=== PATIENT | female | born 1940 | race Caucasian/White ===

== ENCOUNTER 2019-12-14 16:34 | Emergency (ER) | payer MEDICARE, SELFPAY ==
[2019-12-14 16:43] VITALS: BP 146/50; PULSE 70; RESP 16; TEMP 36.9; O2SAT 97; BMI 26.4
--- NOTE | 2019-12-14 16:55 | ED_ITS ---
History of Present Illness General Chief Complaint: Epistaxis <JAS Uriostegui Last Filed: 12/14/19 17:49> Stated Complaint: nosebleed <JAS Uriostegui Last Filed: 12/14/19 17:49> Time Seen by Provider: 12/14/19 16:54 <JAS Uriostegui Last Filed: 12/14/19 17:49> Source: patient and EMS <JAS Uriostegui Last Filed: 12/14/19 17:49> Mode of arrival: EMS <JAS Uriostegui Last Filed: 12/14/19 17:49> Limitations: no limitations <JAS Uriostegui Last Filed: 12/14/19 17:49> History of Present Illness HPI Narrative: 79 y/o female with history of afib on xarelto, HTN, HLD, hypothyroidism, pancreatitis, basal cell carcinoma who is presenting with acute onset of left nare epistaxis that started at 2pm after she was blowing her nose. She denies other trauma. She states she has been intermittently applying pressure with no resolution. She called 911. Upon EMS arrival when patient got up to go get her medication list she spontaneously started bleeding from the inside of her right eye as well. The eye bleeding is painless and has stopped on arrival to the ER. Nose bleed is mildly bleeding. She last took her Xarleto this morning. She has a history of nose bleed in the past requiring cauterization, she states this was several years ago. <JAS Uriostegui Last Filed: 12/14/19 17:49> Location: Yes left naris <JAS Uriostegui Last Filed: 12/14/19 17:49> Related Data Allergies/Adverse Reactions: Allergies Allergy/AdvReac Type Severity Reaction Status Date / Time No Known Allergies Allergy Verified 12/14/19 16:55 [No Known Allergies*] <JAS Uriostegui Last Filed: 12/14/19 17:49> Review of Systems Review of Systems: Constitutional: No Fever, No Chills ENT/Mouth: No sore throat, No Rhinorrhea, No Swallowing Difficulty, +nose bleed Eyes: No Eye Pain, No Swelling, No Redness, +eye bleeding Cardiovascular: No Chest Pain, No SOB Respiratory: No Cough, No Sputum Gastrointestinal: No Nausea, No Vomiting, No Diarrhea, No abdominal Pain Genitourinary: No Dysuria, No Urinary Frequency, No Hematuria Musculoskeletal: No joint pain, No Myalgias Skin: No Skin Lesions, No rash Neuro: No Weakness, No Numbness, No Dizziness, No Headache Psych: No Anxiety/Panic, No Depression Heme/Lymph: No Bruising, No Lymphadenopathy Endocrine: No Polyuria, No Polydipsia <JAS Uriostegui - Last Filed: 12/14/19 17:49> [facility] Past Medical History Attestation statement: The following information was validated with the patient. <JAS Uriostegui - Last Filed: 12/14/19 17:49> Medical History: Medical History Basal cell carcinoma History of cardioversion Hx of cholecystectomy Malignant neoplasm of acoustic nerve <JAS Uriostegui - Last Filed: 12/14/19 17:49> Surgical History: Surgical History (Updated 12/14/19 @ 16:50 by Natalie Wall) H/O: hysterectomy <JAS Uriostegui - Last Filed: 12/14/19 17:49> Social History Social History: Social History Alcohol intake: never Smoked in Last 30 Days: No Advance Directives: No Advance Directives Information Provided: Yes <JAS Uriostegui - Last Filed: 12/14/19 17:49> Physical Exam Vital Signs: Vital Signs: Vital Signs Temp Pulse Resp BP Pulse Ox 12/14/19 18:00 98.9 F 63 16 132/51 L 97 12/14/19 16:43 98.5 F 70 16 146/50 H 97 Body Mass Index 26.4 Appearance: Alert. Oriented X3. No acute distress. HEENT: left nare with fresh blood & small clots, no active bleeding appreciated, posterior pharynx normal without blood visualized. right eye with evidence of bleeding from medial tear duct, sclera and conjunctiva normal, lateral and medial eye lids are surgically closed slightly due to prior operation, no tenderness CVS: Normal heart rate and rhythm. Pulses normal. Respiratory: No respiratory distress. Skin: Skin warm and dry. Normal skin color. Normal skin turgor. No rashes. Neuro: Oriented X 3. No motor deficit. No sensory deficit. <JAS Uriostegui - Last Filed: 12/14/19 17:49> Vital Signs: Vital Signs Temp Pulse Resp BP Pulse Ox 12/14/19 18:00 98.9 F 63 16 132/51 L 97 12/14/19 16:43 98.5 F 70 16 146/50 H 97 Body Mass Index 26.4 <Amrita Bui NP - Last Filed: 12/14/19 19:16> Course Course Course Narrative: 79 y/o on Xarleto with nose bleed - appears to be anterior with minor active bleeding on arrival. also with spontaneous eye bleeding which is now resolved. will check coags and CBC. nasal clamp applied and Afrin ordered for vasoconstriction. will monitor closely. <JAS Uriostegui - Last Filed: 12/14/19 17:49> Reevaluation(s) Reevaluation #1: patient had slight bleeding after Afrin was applied and clamp removed. TXA soaked gauze applied at 5:45pm. Patient signed out to Amrita MORA who will assume care. <JAS Uriostegui - Last Filed: 12/14/19 17:49> patient's bleeding continues, we removed the packing and replaced with a 2nd packing with TXA. We will re-evaluate and 30 minutes, if bleeding persists we will apply balloon tamponade. <Amrita Bui NP - Last Filed: 12/14/19 19:16> Time: 18:36 <Amrita Bui NP - Last Filed: 12/14/19 19:16> Reevaluation #2: No further bleeding noted, plan is to discharge home, if bleeding continues patient knows that she should return. INR mildly elevated consistent with anticoagulant use. Discussion with patient's family per patient's request, family verbalized understanding of and agrees to plan. Patient verbalized understanding of and agrees to plan of care discharge home. <Amrita Bui NP - Last Filed: 12/14/19 19:16> Time: 19:05 <Amrita Bui NP - Last Filed: 12/14/19 19:16> Procedures Epistaxis Control Time Out Performed: No <JAS Uriostegui Last Filed: 12/14/19 17:49> Nostril: Yes left <JAS Uriostegui - Last Filed: 12/14/19 17:49> Direct inspection: Yes anterior source identified <JAS Uriostegui - Last Filed: 12/14/19 17:49> Direct inspection method: Yes otoscope <JAS Uriostegui - Last Filed: 12/14/19 17:49> Clots removed by: Yes blowing nose <JAS Uriostegui - Last Filed: 12/14/19 17:49> Epistaxis treatment: Yes TXA soaked gauze and Yes other (Afrin + nasal clamp ) <JAS Uriostegui - Last Filed: 12/14/19 17:49> Results of treatment: Yes bleeding controlled and Yes treatment well tolerated <JAS Uriostegui - Last Filed: 12/14/19 17:49> MDM - Epistaxis MDM Narrative Medical decision making narrative: concern for supratherapeutic coags. she had prior surgery to right eye making area more susceptible to bleeding given prior manipulation. <JAS Uriostegui - Last Filed: 12/14/19 17:49> Differential Diagnosis Differential diagnosis: Likely anterior epistaxis and posterior epistaxis <JAS Uriostegui - Last Filed: 12/14/19 17:49> Medical Records Attestation: I reviewed the patient's medical records. <JAS Uriostegui - Last Filed: 12/14/19 17:49> Lab Data Result diagrams: : 12/14/19 17:36 <JAS Uriostegui - Last Filed: 12/14/19 17:49> Labs: Lab Results 12/14/19 12/14/19 Range/Units 17:36 17:36 WBC 8.8 (4.8-10.8) X10*3/uL RBC 3.51 L (4.20-5.50) X10*6/uL Hgb 10.8 L (12.0-16.0) g/dl Hct 34.2 L (37-47) % MCV 97.4 (80-98) fL MCH 30.8 (27.0-33.0) pg MCHC 31.6 (31.0-35.0) g/dl RDW 15.1 (11.0-16.0) % Plt Count 372 (160-400) X10*3/uL MPV 12.0 (9.4-12.3) fL Immature Gran % (Auto) 0.5 H (0.0-0.4) % Neut % (Auto) 78.0 H (45-73) % Lymph % (Auto) 11.0 L (20-40) % [place] % (Auto) 8.5 (2-11) % Eos % (Auto) 1.8 (0-4) % Baso % (Auto) 0.2 (0-2) % Lymph # (Auto) 1.0 L (1.2-4.9) X10*3/uL [place] # (Auto) 0.8 (0.1-1.2) X10*3/uL Eos # (Auto) 0.2 (0.0-0.4) X10*3/uL Baso # (Auto) 0.0 (0.0-0.2) X10*3/uL Abs Immat Gran (auto) 0.04 H (0.00-0.03) X10*3/uL Absolute Neuts (auto) 6.9 (2.0-8.3) X10*3/uL Absolute Nucleated RBC 0.000 (0.0-0.012) X10*3/uL Nucleated RBC % (auto) 0.0 (0.0-0.2) /100WBC PT 20.6 H (10.8-13.0) SEC INR 1.7 H (0.9-1.1) APTT 45.6 H (24.1-38.0) SEC <JAS Uriostegui - Last Filed: 12/14/19 17:49> Lab Results 12/14/19 12/14/19 Range/Units 17:36 17:36 WBC 8.8 (4.8-10.8) X10*3/uL RBC 3.51 L (4.20-5.50) X10*6/uL Hgb 10.8 L (12.0-16.0) g/dl Hct 34.2 L (37-47) % MCV 97.4 (80-98) fL MCH 30.8 (27.0-33.0) pg MCHC 31.6 (31.0-35.0) g/dl RDW 15.1 (11.0-16.0) % Plt Count 372 (160-400) X10*3/uL MPV 12.0 (9.4-12.3) fL Immature Gran % (Auto) 0.5 H (0.0-0.4) % Neut % (Auto) 78.0 H (45-73) % Lymph % (Auto) 11.0 L (20-40) % [place] % (Auto) 8.5 (2-11) % Eos % (Auto) 1.8 (0-4) % Baso % (Auto) 0.2 (0-2) % Lymph # (Auto) 1.0 L (1.2-4.9) X10*3/uL [place] # (Auto) 0.8 (0.1-1.2) X10*3/uL Eos # (Auto) 0.2 (0.0-0.4) X10*3/uL Baso # (Auto) 0.0 (0.0-0.2) X10*3/uL Abs Immat Gran (auto) 0.04 H (0.00-0.03) X10*3/uL Absolute Neuts (auto) 6.9 (2.0-8.3) X10*3/uL Absolute Nucleated RBC 0.000 (0.0-0.012) X10*3/uL Nucleated RBC % (auto) 0.0 (0.0-0.2) /100WBC PT 20.6 H (10.8-13.0) SEC INR 1.7 H (0.9-1.1) APTT 45.6 H (24.1-38.0) SEC <Amrita Bui NP - Last Filed: 12/14/19 19:16> Discharge Plan Discharge Clinical Impression: Epistaxis <JAS Uriostegui - Last Filed: 12/14/19 17:49> Patient Disposition: Home, Self-Care <JAS Uriostegui - Last Filed: 12/14/19 17:49> Instructions: Nosebleed (ED) <JAS Uriostegui - Last Filed: 12/14/19 17:49> Additional Instructions: Recommend holding your Xarelto for the next 24 hours. If bleeding recurrs at home, use 2 sprays of the Afrin and apply the nose clamp for 20 minutes. If bleeding continues despite this treatment come back to the ER for further evaluation. Follow up with your Primary Care Doctor tomorrow to assess risks and benefits of restarting Xarleto. <JAS Uriostegui - Last Filed: 12/14/19 17:49> Referrals: Jagdish Maldonado [Physician] - 2 days <JAS Uriostegui - Last Filed: 12/14/19 17:49>
[2019-12-14 17:41] LABS: MANUAL DIFF FLAG NO
[2019-12-14 17:46] LABS: Basophils Percent Auto 0.2 % (0-2); Eosinophils Absolute Auto 0.2 X10*3/uL (0.0-0.4); Eosinophils Percent Auto 1.8 % (0-4); Hematocrit 34.2 % (37-47); Hemoglobin 10.8 g/dl (12.0-16.0); Imm Gran Abs Auto 0.04 X10*3/uL (0.00-0.03); Imm Gran Pct Auto 0.5 % (0.0-0.4); Mean Corpuscular HGB Conc 31.6 g/dl (31.0-35.0); Mean Corpuscular Hemoglobin 30.8 pg (27.0-33.0); Mean Corpuscular Volume 97.4 fL (80-98); Monocytes Absolute Auto 0.8 X10*3/uL (0.1-1.2); Monocytes Percent Auto 8.5 % (2-11); Neutrophils Absolute Auto 6.9 X10*3/uL (2.0-8.3); Platelet Count 372 X10*3/uL (160-400); Red Blood Count 3.51 X10*6/uL (4.20-5.50); Red Cell Distribution Width 15.1 % (11.0-16.0); White Blood Count 8.8 X10*3/uL (4.8-10.8)
[2019-12-14 17:50] LABS: INTERNATIONAL NORM RATIO 1.7 (0.9-1.1); Prothrombin Time 20.6 SEC (10.8-13.0)
[2019-12-14 17:53] LABS: Partial Thromboplastin Time 45.6 SEC (24.1-38.0)
[2019-12-14] MEDS: Tranexamic Acid 1,000 MG/10 ML VIAL 500 MG INTRANASAL (17:58)
[2019-12-14] MEDS: Oxymetazoline HCl 0.05 % Nasal 15 ML SPRAY 2 SPRAY NOSTRIL-B (17:59)
[2019-12-14 18:00] VITALS: BP 132/51; PULSE 63; RESP 16; TEMP 37.2; O2SAT 97
--- NOTE | 2019-12-14 18:00 | PC.NURSE ---
JAS ESCUDERO TRIED AFRIN NASAL SPRAY WITH CLAMP AND NOSE STILL BLEEDING ALSO TRIED TRANEXAMIC ACID ON COTTON BALL. REGULATORY AFFAIRS CONSULTANT ARKESH WILL REAVALUATE PT.
--- NOTE | 2019-12-14 19:30 | PC.NURSE ---
PT NOSE HAS HAD NO BLEEDING FOR 45 MIN AFTER MEDICATION. PT WILL BE SAFE TO GO HOME NO XARELTO FOR 24 HOURS AND CALL PCP.
== END 2019-12-14 19:20 | disposition home or self-care (01) ==
PROVIDERS: Physician Assistant; Emergency Provider Internal Medicine; PCP Internal Medicine
DX: R04.0 Epistaxis (principal); I10 Essential (primary) hypertension; Z79.01 Long term (current) use of anticoagulants; Z79.899 Other long term (current) drug therapy
CPT/HCPCS: 36415; 85025; 85610; 85730; 99283; 99284

== ENCOUNTER 2019-12-14 19:37 | Observation (INO) | payer MEDICARE, SELFPAY ==
--- NOTE | 2019-12-14 19:41 | ECG_ITS ---
Test Reason : SYNCOPE Blood Pressure : / mmHG Vent. Rate : 058 BPM Atrial Rate : 058 BPM P-R Int : 224 ms QRS Dur : 108 ms QT Int : 436 ms P-R-T Axes : 064 -40 103 degrees QTc Int : 428 ms Sinus bradycardia with 1st degree A-V block Left axis deviation Nonspecific T wave abnormality Inferior infarct , age undetermined Anterolateral infarct (cited on or before 12-MAR-2018) Abnormal ECG When compared with ECG of 12-MAR-2018 11:00, MD interval has increased QT has lengthened Referred By: Amrita Bui Electronically Signed By:ANA KUO MD
--- NOTE | 2019-12-14 19:42 | ED_ITS ---
HPI - Syncope General Chief Complaint: Syncope Stated Complaint: syncope Time Seen by Provider: 12/14/19 19:40 Source: patient Mode of arrival: ambulatory Limitations: no limitations History of Present Illness HPI narrative: 79-year-old female with past medical history of hypertension, hyperlipidemia, hypothyroidism, on Xarelto presents with a syncopal episode while waiting for her ride after being discharged from this facility. She was evaluated for epistaxis, once epistaxis was controlled patient was discharged to home. While in the waiting room she stated to feel weak, sat down, triage nurse was at her side, and she had lost consciousness. Patient was brought back in to the main Emergency Department via stretcher with the assistance of this HEALTHCARE SALES REPRESENTATIVE and 3 RNs. She states to feel weak and dizzy but denies chest pain or pressure, palpitations, shortness of breath, abdominal pain, abdominal distention, head injury, changes in vision, and neurological deficit. MD complaint: loss of consciousness and felt faint Duration of episode: 2 -: minutes(s) Prodromal symptoms: lightheaded Witnessed: Yes - by Bystander ( By fish liver sorter) Context: standing up Injuries sustained associated with event: none Current symptoms: none Related Data Home Medications Medication Instructions Recorded Confirmed amiodarone 200 mg PO DAILY 12/14/19 12/14/19 amlodipine 5 mg PO DAILY 12/14/19 12/14/19 estradiol 5 mg PO DAILY 12/14/19 12/14/19 levothyroxine 100 mcg PO DAILY 12/14/19 12/14/19 lisinopril 20 mg PO BID 12/14/19 12/14/19 rivaroxaban [Xarelto] 20 mg PO DAILY 12/14/19 12/14/19 Allergies Allergy/AdvReac Type Severity Reaction Status Date / Time No Known Allergies Allergy Verified 12/14/19 16:55 [No Known Allergies*] Review of Systems Review of Systems: Constitutional: No Weight loss, No Fever, No Chills, No Night Sweats, No Fatigue, No Malaise ENT/Mouth: No Hearing loss, No Ear Pain, No Nasal Congestion, No Sinus Pain, No Hoarseness, No sore throat, No Rhinorrhea, No Swallowing Difficulty Eyes: No Eye Pain, No Swelling, No Redness, No Foreign Body, No Discharge, No Vision Changes Cardiovascular: No Chest Pain, No SOB, No Dyspnea on Exertion, No Orthopnea, No Edema, No Palpitations Respiratory: No Cough, No Sputum, No Wheezing, No Smoke Exposure, No Dyspnea Gastrointestinal: No Nausea, No Vomiting, No Diarrhea, No Constipation, No abdominal Pain, No Hematochezia, No Melena Genitourinary: no irregular bleeding, No Dysuria, No Urinary Frequency, No Hematuria, No Urinary Incontinence, No Urgency, No Flank Pain, No Urinary Flow Changes, No Hesitancy Musculoskeletal: No joint pain, No Myalgias, No Joint Swelling Skin: No Skin Lesions, No rash Neuro: positive syncope, positive dizziness, No Weakness, No Numbness, No Paresthesias, No Headache Psych: No Anxiety/Panic, No Depression, No SI/HI/AH/VH, No Social Issues Heme/Lymph: No Bruising, No Bleeding,No Lymphadenopathy Endocrine: No Polyuria, No Polydipsia, No Temperature Intolerance [facility] Past Medical History Attestation statement: The following information was validated with the patient. Source: old records reviewed Medical History Basal cell carcinoma History of cardioversion Hx of cholecystectomy Malignant neoplasm of acoustic nerve Surgical History H/O: hysterectomy Social History Social History Alcohol intake: never Smoking Status: Never smoker Use of substances other than those prescribed or required for medical reasons: No Advance Directives: No Advance Directives Information Provided: Yes Physical Exam Vital Signs: Vital Signs: Vital Signs Temp Pulse Resp BP Pulse Ox 12/14/19 21:54 62 14 128/40 L 98 12/14/19 19:57 98 F 55 13 92/49 L 98 12/14/19 19:45 98.2 F 63 20 92/38 L 96 Body Mass Index 34.0 Appearance: Alert. Oriented X3. No acute distress. Head: Normal external exam. Normocephalic. Atraumatic. No Grewal signs noted. No raccoon eyes noted Eyes: PERRLA. EOMI. Conjunctiva and sclera normal. Eyelids normal. ENT: TM's Normal. Pharynx normal. Uvula midline. Moist mucous membranes. No trismus noted. No drooling noted. No muffled voice noted. Neck: Normal inspection. Neck supple. No adenopathy. Thyroid Normal. No menin geal signs. No neck mass noted. CVS: Normal heart rate and rhythm. Heart sound normal. No murmurs noted. Pulses equal to all extremities. Respiratory: No respiratory distress. Painless inspiration. Breath sounds normal. No wheezes/rales/rhonchi noted. Chest nontender. No accessory muscle usage noted or decreased air movement noted. Abdomen: Soft and nontender. Bowel sounds normal in all 4 quadrants. No distention noted. No organomegaly noted. No visible injury noted. Back: No CVA tenderness. Full range of motion noted. Skin: Skin warm and dry. Normal skin color. Normal skin turgor. No rashes/lesions/lacerations noted. Extremities: No lower extremity edema. Extremities exhibit normal range of motion. Extremities nontender. Neuro: cranial nerves 2-12 intact, no focal neural deficits, strength 5/5 to all extremities, No motor deficit. No sensory deficit. Reflexes normal. NIH stroke scale negative Course Course Course Narrative: 79-year-old female with syncopal episode after evaluation for epistaxis, will order CT scan of head, cervical spine, chemistries, EKG and troponins. Highly unlikely that this is a stroke as she is neurovascularly intact and NIH scale negative, we will rule out CVA, ACS, and infection. CT scan of head and cervical spine are negative for acute findings, lab values are within normal limits, troponin is negative, EKG has abnormalities but are consistent with prior studies. Discussion with hospitalist regarding plan of care. We will admit for syncope, EKGs were sent to Dr Molina via [employer] text, states that there are no concerning changes with the EKGs And troponin is 5.2. Reevaluation(s) Reevaluation #1: blood pressure is 124/ 40, 2nd L is infusing, patient is alert oriented x4, answering questions politely and in complete sentences, appears to be in no acute distress, even unlabored respirations. Moves all extremities against resistance. multiple discussions with family, family agrees with plan to admit, discussion with patient regarding plan to admit, patient verbalized understanding of and agrees to plan. Time: 21:27 Consultations Consultation #1: Antonio Cota Time: 22:20 Consultation #2: Jesse Time: 22:23 MDM - Syncope Differential Diagnosis Differential diagnosis: Likely syncope due to orthostatic hypotension, vasovagal syncope, complete atrioventricular block, subarachnoid hemorrhage and dehydration Medical Records Attestation: I reviewed the patient's medical records. Lab Data Attestation: I reviewed the patient's lab results. Result diagrams: 12/14/19 20:50 12/14/19 20:50 Labs: Lab Results 12/14/19 12/14/19 12/14/19 Range/Units 20:50 20:50 20:50 Sodium 140 (135-145) mmol/L Potassium 4.4 (3.3-5.1) mmol/l Chloride 110 H (96-108) mmol/L Carbon Dioxide 21 L (22-29) mmol/L Anion Gap 13 (12-20) BUN 34 H (9-16) mg/dL Creatinine 0.85 (0.5-1.4) mg/dL Estim Creat Clear Calc 53.1 Estimated GFR > 60 Random Glucose 105 (60-115) mg/dL Calcium 7.6 L (8.4-10.2) mg/dL Magnesium 1.9 (1.6-2.6) mg/dL Troponin I High Sens 5.2 (<3.5-17.0) ng/L Imaging Data CT scan head and cervical spine: Attestation: I personally reviewed and interpreted this imaging study as follows: Radiologist's impression: EXAMINATION: CT CERVICAL SPINE WITHOUT CONTRAST CLINICAL INFORMATION: Syncope. COMPARISON: None TECHNIQUE: Axial images obtained through the cervical spine. Coronal and sagittal reformatted images are performed at the CT scanner This CT examination was performed using dose optimization techniques as appropriate, variously including the following: *Automated exposure control *Adjustment of mA and/or kV according to patient size (this includes techniques or standardized protocols for targeted exams where dose is matched to indication/reason for exam; i.e. extremities or head) *Use of iterative reconstruction technique DLP: 493.34 mGy-cm FINDINGS: No fracture or subluxation. No prevertebral soft tissue swelling. Alignment of vertebrae is normal. There is degenerative spondylosis. There is multilevel cervical disc height narrowing and small vertebral endplate spurs. There is moderate multilevel facet joint arthrosis most significant at the upper cervical spine. Incidental note is made of left occipital craniotomy. CT/CT cervical spine wo con IMPRESSION: 1. No acute abnormality. 2. Degenerative spondylosis of cervical spine. FINDINGS: Status post left craniotomy in the left occipital region. There is focal encephalomalacia/gliosis involving the left peripheral cerebellar hemisphere. There is no evidence of acute intracranial hemorrhage or territorial infarction. No abnormal mass effect or midline shift is seen. Veloz to white matter differentiation is well preserved. No extra-axial fluid collections are identified. There is an old small infarct in the right basal ganglia adjacent to the frontal horn of the right lateral ventricle. There is age-appropriate atrophy with prominence of the ventricles and the sulci. There are vascular calcifications of the internal carotid arteries bilaterally. The osseous structures and soft tissues are normal. Small air-fluid levels in the right and left sphenoid sinuses. The mastoid air cells and middle ear cavities are normally aerated. CT/CT head/brain wo con IMPRESSION: 1. No acute intracranial abnormality. 2. Status post left occipital craniotomy with focal encephalomalacia at the peripheral left cerebellar hemisphere. 3. 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 4. Age-appropriate chronic atrophy. 5. Air-fluid levels in the right and left sphenoid sinuses. ECG Data Attestation: I personally reviewed and interpreted this ECG as follows: ECG interpretation date: 12/14/19 ECG interpretation time: 20:30 Interpretation: Vent. Rate : 058 BPM Atrial Rate : 058 BPM P-R Int : 224 ms QRS Dur : 108 ms QT Int : 436 ms P-R-T Axes : 064 -40 103 degrees QTc Int : 428 ms Sinus bradycardia with 1st degree A-V block Left axis deviation Inferior infarct , age undetermined Anterolateral infarct (cited on or before 12-MAR-2018) Abnormal ECG When compared with ECG of 12-MAR-2018 11:00, ID interval has increased Nonspecific T wave abnormality, improved in Inferior leads QT has lengthened Critical Care Time Critical Care Time Critical Care Time: Yes Total Critical Care Time: 60 Attestation: I have personally provided critical care time exclusive of time spent on separately billable procedures. Time includes review of laboratory data, radiology results, discussion with consultants, and monitoring for potential decompensation. Interventions were performed as documented. Discharge Plan Discharge Clinical Impression: Vasovagal syncope Patient Disposition: Admitted As Inpatient
[2019-12-14 19:45] VITALS: BP 92/38; PULSE 63; RESP 20; TEMP 36.8; O2SAT 96; BMI 34.0
[2019-12-14 19:57] VITALS: BP 92/49; PULSE 55; RESP 13; TEMP 36.6; O2SAT 98; O2SAT 99
[2019-12-14] MEDS: 0.9 % Sodium Chloride 1,000 ML 999 ML IVCONT ×2 (20:21→21:30)
[2019-12-14 21:23] LABS: Anion Gap 13 (12-20); Blood Urea Nitrogen 34 mg/dL (9-16); Calcium 7.6 mg/dL (8.4-10.2); Carbon Dioxide 21 mmol/L (22-29); Chloride 110 mmol/L (96-108); Creatinine Clr Calc Pharmacy 53.1; Estimated Glomerular Filt Rate > 60; Glucose Random 105 mg/dL (60-115); Magnesium 1.9 mg/dL (1.6-2.6); Potassium 4.4 mmol/l (3.3-5.1); Sodium 140 mmol/L (135-145)
[2019-12-14 21:30] LABS: Troponin-I High Sensitivity 5.2 ng/L (<3.5-17.0)
[2019-12-14 21:54] VITALS: BP 128/40; PULSE 62; RESP 14; O2SAT 98
[2019-12-14 22:00] VITALS: BP 146/48; PULSE 65; RESP 14; O2SAT 98
[2019-12-15] VITALS (9 sets, daily range): BP systolic 127–164; BP diastolic 46–72; PULSE 59–72; RESP 12–19; TEMP 35.9–36.6; O2SAT 95–100
--- NOTE | 2019-12-15 00:13 | P.HPIM_ITS ---
History of Present Illness Date of Service: 12/15/19 Chief Complaint: syncope 79 y/o female who presented from home due to epistaxis. Per history provided by the patient, for the past x 1 day had been having nosebleed for what decided to present to the ED for evaluation. In the ED patient received tranexamic acid which controlled successfully the bleed and gauze. Patient was discharged and while waiting in the waiting area she reports that started feeling nauseous, feel to her stomach for what decided to sit down for w bit and at that moment a ER nurse noted that patient fainted for <1 min. Patient denies any chest pain, SOB or tachycardia previous or after the event. Hgb of 10.8, INR of 1.2, CT head showing no acute intracranial pathology, evidence of old infarct and craniotomy. EKG showing first degree av block, sinus bradycardia. PMHX: Afib on xarelto, HTN, HLD, hypothyroidism, pancreatitis, basal cell carcinoma PSx: craniotomy Toxic habits: no hx of alcohol abuse, smoking or IVDA Review of Systems ENT: Reports other (epistaxis) Neurologic: Reports other (syncope) [facility] Medical History Basal cell carcinoma History of cardioversion Hx of cholecystectomy Malignant neoplasm of acoustic nerve Family history: reviewed and not pertinent Surgical History H/O: hysterectomy Social History Alcohol intake: never Smoking Status: Never smoker Use of substances other than those prescribed or required for medical reasons: No Advance Directives: No Advance Directives Information Provided: Yes Meds Allergies Allergy/AdvReac Type Severity Reaction Status Date / Time No Known Allergies Allergy Verified 12/14/19 16:55 [No Known Allergies*] Home Medications Medication Instructions Recorded Confirmed Type amiodarone 200 mg PO DAILY 12/14/19 12/14/19 History amlodipine 5 mg PO DAILY 12/14/19 12/14/19 History estradiol 5 mg PO DAILY 12/14/19 12/14/19 History levothyroxine 100 mcg PO DAILY 12/14/19 12/14/19 History lisinopril 20 mg PO BID 12/14/19 12/14/19 History rivaroxaban [Xarelto] 20 mg PO DAILY 12/14/19 12/14/19 History Physical Exam Vital Signs and Narrative: Vital Signs: Last Vital Signs Temp 98 F 12/14/19 19:57 Pulse 62 12/14/19 21:54 Resp 14 12/14/19 21:54 BP 128/40 L 12/14/19 21:54 Pulse Ox 98 12/14/19 21:54 Body Mass Index 34.0 Const: General: cooperative, comfortable and no acute distress Orientation/consciousness: patient oriented x3 HENMT: Head: Yes normal to inspection Eyes: General: appearance normal, both eyes and all related structures Neck: Yes normal visual inspection Chest: Chest palpation & inspection: normal inspection of the chest Resp: Effort & Inspection: normal respiratory effort Cardio: Jugular venous distension: no JVD Rate: regular rate Rhythm: regular rhythm Heart sounds: S1 normal heart sound present and S2 normal heart sound present GI: Inspection: Yes normal to inspection Skin: General skin exam: no rashes or lesions noted Neuro: General: patient oriented x3 Cognition (Neuro): normal cognition Extrem: General: Yes normal to inspection Psych: Appearance: grossly normal Results Labs Labs: Laboratory Tests 12/14/19 12/14/19 12/14/19 20:50 20:50 20:50 Sodium 140 Potassium 4.4 Chloride 110 H Carbon Dioxide 21 L Anion Gap 13 BUN 34 H Creatinine 0.85 Estim Creat Clear Calc 53.1 Estimated GFR > 60 Random Glucose 105 Calcium 7.6 L Magnesium 1.9 Troponin I High Sens 5.2 Assessment and Plan (1) Vasovagal syncope: Status: Acute EKG showing evidence of sinus bradycardia with first degree. CT negative for any acute intracranial pathology Observation for now Tele monitor Follow up 2D echo in the am Neurology consult in the am (2) Hypertension: Status: Acute continue with amlodipine continue with lisinopril (3) Hypothyroidism: Status: Acute continue with levothyroxine (4) Afib: Status: Acute continue with amiodaronee continue with xarelto
--- NOTE | 2019-12-15 03:00 | PC.NURSE ---
PT ARRIVED TO [facility] FROM ED VIA STRETCHER WITH SYNCOPE. PT AMBULATED TO BED WITHOUT DIFFICULTY. PT IS NOT ON MONITOR. HIGH FALL RISK PROTOCOL EXPLAINED/IMPLEMENTED. VSS. PT ORIENTED TO UNIT/ROOM. CARE PLAN EXPLAINED AND PT IS AGREEABLE TO.PT HAD NO QUESTIONS AT THIS TIME. NO ACUTE DISTRESS NOTED. BED ALARM ON. CALL [facility] IN [place].
[2019-12-15] MEDS: Levothyroxine Sodium 100 MCG TABLET PO (06:12)
--- NOTE | 2019-12-15 08:47 | MHC.CM.PN ---
THERESA 12/15/19 Female 79 DX SYNCOPE. 12/13 ER visit DX EPITAXIS. Pt was treated and dc to [facility]. She had a Syncopal episode in the [facility]. She was returned to ER for further assessment. She is here under OBS. She lives alone. She reports that she is independent, no AD. DP home no services son will sweet pickled fruit maker @[email or web address].CM will follow. HCP copy requested.
[2019-12-15] MEDS: Amiodarone HCL 200 MG TABLET PO (09:02)
[2019-12-15] MEDS: 0.9 % Sodium Chloride Flush 3 ML SYRINGE IVFLUSH ×2 (09:02→16:07)
[2019-12-15] MEDS: lisinopriL 20 MG TABLET PO (09:03)
[2019-12-15] MEDS: amLODIPine Besylate 5 MG TABLET PO (09:03)
--- NOTE | 2019-12-15 09:41 | PM.NEUROCN ---
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 After that she was outside in the waiting room when she fell lightheaded and dizzy and apparently sat down and passed out. She did not have good recollection of what had happened. There was no witnessing of any convulsion physical injury or incontinence. She did not remember having any cardiac symptoms such as chest pain shortness of breath or palpitation or headache. Review of Systems Review of Systems: Recent nose bleed. There was no recent cold or flu-like illness. Neurologic: Reports other (syncope) [facility] Past Medical History Medical History Basal cell carcinoma History of cardioversion Hx of cholecystectomy Malignant neoplasm of acoustic nerve Family History Family history: reviewed and not pertinent Surgical History Surgical History H/O: hysterectomy Social History Social History Alcohol intake: never Smoking Status: Never smoker Use of substances other than those prescribed or required for medical reasons: No Advance Directives: No Advance Directives Information Provided: Yes Advance Directives on File: No service: No Current occupational status: retired [employer] Allergies Allergy/AdvReac Type Severity Reaction Status Date / Time No Known Allergies Allergy Verified 12/14/19 16:55 [No Known Allergies*] Home Medications Medication Instructions Recorded Confirmed Type amiodarone 200 mg PO DAILY 12/14/19 12/14/19 History amlodipine 5 mg PO DAILY 12/14/19 12/14/19 History estradiol 5 mg PO DAILY 12/14/19 12/14/19 History levothyroxine 100 mcg PO DAILY 12/14/19 12/14/19 History lisinopril 20 mg PO BID 12/14/19 12/14/19 History rivaroxaban [Xarelto] 20 mg PO DAILY 12/14/19 12/14/19 History Physical Exam Vital Signs: Vital Signs: Vital Signs Temp Pulse Resp BP Pulse Ox 12/15/19 09:03 59 159/71 H 12/15/19 09:02 59 159/71 H 12/15/19 07:40 97.8 F 59 18 159/71 H 95 12/15/19 03:23 96.6 F L 59 19 143/67 H 95 12/15/19 02:23 97.0 F 65 19 148/65 H 99 12/15/19 00:00 63 12 127/46 L 98 12/14/19 22:00 65 14 146/48 H 98 12/14/19 21:54 62 14 128/40 L 98 12/14/19 19:57 98 F 55 13 92/49 L 98 12/14/19 19:45 98.2 F 63 20 92/38 L 96 Body Mass Index 34.0 She was alert awake with normal spontaneity of speech fluency comprehension and affect. She had seen me in the past, not as a patient, and recognized me right away. The right pupil was round reactive to light. External ocular muscles were intact. Visual armijo are full to confrontation with the right eye. There was moderate amount of peripheral type left-sided facial weakness and left pupil was slightly dilated. There was no pronator drift. [id number] testing was normal. Deep tendon reflexes were trace with flexor plantars. Results Labs CBC & Chem 7: 12/14/19 20:50 12/14/19 20:50 Labs: BMP 12/14/19 20:50 Sodium 140 Potassium 4.4 Chloride 110 H Carbon Dioxide 21 L BUN 34 H Creatinine 0.85 Calcium 7.6 L Her noncontrast head CT revealed evidence of previous craniotomy, mild to moderate cerebellar atrophy, and a chronic right basal ganglia area infarct. Cervical spine CT did not reveal any acute lesion. Assessment and Plan (1) Orthostatic syncope: Status: Acute 79 years old woman who came to hospital yesterday with a nosebleed. After treatment she was in waiting room when she passed out. At that time she had lost significant amount of blood with significant change in hematocrit, was relatively dehydrated, and her blood pressure was significantly low. Combination of these factors likely resulted in syncope. At this time there is no indication of any acute neurological problem. 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 This type of infarcts could be embolic or atherothrombotic. My recommendation at this time is the anti-platelet agent, control of vascular risk factors including blood pressure and lipids. Further evaluation of stroke can be done as an outpatient.
[2019-12-15 12:49] LABS: Hematocrit 36.6 % (37-47); Hemoglobin 11.5 g/dl (12.0-16.0); Mean Corpuscular HGB Conc 31.4 g/dl (31.0-35.0); Mean Corpuscular Hemoglobin 30.8 pg (27.0-33.0); Mean Corpuscular Volume 98.1 fL (80-98); Mean Platelet Volume 12.1 fL (9.4-12.3); Platelet Count 366 X10*3/uL (160-400); Red Blood Count 3.73 X10*6/uL (4.20-5.50); Red Cell Distribution Width 15.4 % (11.0-16.0); White Blood Count 8.6 X10*3/uL (4.8-10.8)
--- NOTE | 2019-12-15 17:33 | PM.DS ---
DS: Providers Provider Date of admission: 12/15/19 00:32 Primary care physician: Unknown Physician Consults: 12/15/19 01:53 Consult to Physician Routine Consulting Provider: [facility] Reason for consultation: syncope Has provider been notified: No DS: Diagnosis Discharge Diagnosis (1) Orthostatic syncope: Status: Resolved (2) Epistaxis: Status: Inactive (3) Hypertension: (4) Hypothyroidism: (5) Afib: DS: Summary Hospital Course Hospital Course: 79 y/o female with history of afib on xarelto, HTN, HLD, hypothyroidism, pancreatitis, basal cell carcinoma who is presenting with acute onset of left nare epistaxis that started several hours earlier after she was blowing her nose. She denies other trauma. She also was having mild spontaneous bleed from year that self resolved. Nosebleed was succesfully terminated in ED and she was discharge home to follow up with PCP and to use Afrain and nose clamp if it recur. While in waiting room, she syncopized and was brought back to the ED and ultimaly admitted. She was noted to have +orthostatic hypotension and was observed in the hospital. During stay in hospital so far 16 hours, she has not had any further bleeding episodes, she has been hydrated and orthostatic hypotension has resolved. Initial hemoglobin was 10.8 and now 11.5, her baseline is around 13 to 14. She had no arrythmia on monitor. Was seen by Neurology and recommend possible anti platlets agent and outpatient follow up. Time Spent with Patient Discharge coordination time: Less than 30 minutes Physical Exam Vital Signs: Vital Signs: Last Vital Signs Temp 97.0 F 12/15/19 15:48 Pulse 72 12/15/19 15:48 Resp 18 12/15/19 15:48 BP 153/62 H 12/15/19 15:48 Pulse Ox 99 12/15/19 15:48 Body Mass Index 34.0 DS: Data Data Completed and Pending Labs on day of discharge: Laboratory Last Values WBC 8.6 X10*3/uL (4.8-10.8) 12/15/19 12:23 RBC 3.73 X10*6/uL (4.20-5.50) L 12/15/19 12:23 Hgb 11.5 g/dl (12.0-16.0) L 12/15/19 12:23 Hct 36.6 % (37-47) L 12/15/19 12:23 MCV 98.1 fL (80-98) H 12/15/19 12:23 MCH 30.8 pg (27.0-33.0) 12/15/19 12: MCHC 31.4 g/dl (31.0-35.0) 12/15/19 12: RDW 15.4 % (11.0-16.0) 12/15/19 12:23 Plt Count 366 X10*3/uL (160-400) 12/15/19 12:23 MPV 12.1 fL (9.4-12.3) 12/15/19 12: Absolute Nucleated RBC 0.000 X10*3/uL (0.0-0.012) 12/15/19 12: Nucleated RBC % (auto) 0.0 /100WBC (0.0-0.2) 12/15/19 12: Sodium 140 mmol/L (135-145) 12/14/19 20:50 Potassium 4.4 mmol/l (3.3-5.1) 12/14/19 20:50 Chloride 110 mmol/L (96-108) H 12/14/19 20:50 Carbon Dioxide 21 mmol/L (22-29) L 12/14/19 20:50 Anion Gap 13 (12-20) 12/14/19 20:50 BUN 34 mg/dL (9-16) H 12/14/19 20:50 Creatinine 0.85 mg/dL (0.5-1.4) 12/14/19 20:50 Estim Creat Clear Calc 53.1 12/14/19 20:50 Estimated GFR > 60 12/14/19 20:50 Random Glucose 105 mg/dL (60-115) 12/14/19 20:50 Calcium 7.6 mg/dL (8.4-10.2) L 12/14/19 20:50 Magnesium 1.9 mg/dL (1.6-2.6) 12/14/19 20:50 Troponin I High Sens 5.2 ng/L (<3.5-17.0) 12/14/19 20:50 Discharge Plan Discharge Anticipated Discharge Date/Time: 12/15/19 18:11 Patient Disposition: Home, Self-Care Referrals: Physician,Unknown [Primary Care Provider] - Discharge Medications: Continued amiodarone 200 mg tablet 200 mg PO DAILY RF: 0 lisinopril 20 mg tablet 20 mg PO BID RF: 0 levothyroxine 100 mcg tablet 100 mcg PO DAILY RF: 0 estradiol 0.5 mg tablet 5 mg PO DAILY RF: 0 Discontinued Xarelto 20 mg tablet 20 mg PO DAILY RF: 0 No Action amlodipine 5 mg tablet 5 mg PO DAILY 90 Days Qty: 90 RF: 3 Discharge Orders: Discharge Order (Routine); Ordered 12/15/19 Ordered By: Triston Aguirre Diet: advance to usual diet Activity on Discharge: As tolerated Discharge Date/Time: 12/15/19 18:45 Visit Report Forms: Patient Portal Discharge page Care Plan Goals: To prevent any further bleeding complications such as nose bleed Health Concerns: risk of stroke if not on blood thining Plan of Treatment: Recommend holding your Xarelto for the next 24 hours. If bleeding recurrs at home, use 2 sprays of the Afrin and apply nose clamp for 20 minutes. If bleeding continues despite this treatment come back to the ER for further evaluation. Follow up with your Primary Care Doctor tomorrow to assess risks and benefits of restarting Xarleto. Ask your Doctor to refer you to an ENT Doctor
== END 2019-12-15 18:45 | disposition home or self-care (01) ==
LOC: HO.ED 23:05 → HO.IMC 12-15 01:07
PROVIDERS: Nurse Practitioner Family; Admitting Provider Internal Medicine; Emergency Provider Internal Medicine; Visit Provider Internal Medicine
DX: R04.0 Epistaxis (principal); R55 Syncope and collapse; I10 Essential (primary) hypertension; E03.9 Hypothyroidism, unspecified; K85.90 Acute pancreatitis without necrosis or infection, unspecified; C44.91 Basal cell carcinoma of skin, unspecified; D33.3 Benign neoplasm of cranial nerves; I48.91 Unspecified atrial fibrillation; R00.1 Bradycardia, unspecified; I44.0 Atrioventricular block, first degree; M47.812 Spondylosis without myelopathy or radiculopathy, cervical region; Z79.02 Long term (current) use of antithrombotics/antiplatelets; Z79.899 Other long term (current) drug therapy
CPT/HCPCS: 36415; 70450; 72125; 80048; 83735; 84484; 85025; 85027; 85610; 85730; 93005; 96360; 96361; 99219; 99285

== ENCOUNTER 2019-12-20 13:23 | Outpatient (REF) | payer MEDICARE, SELFPAY ==
[2019-12-20 13:50] LABS: MANUAL DIFF FLAG NO
[2019-12-20 13:54] LABS: Basophils Percent Auto 0.4 % (0-2); Eosinophils Absolute Auto 0.2 X10*3/uL (0.0-0.4); Eosinophils Percent Auto 3.3 % (0-4); Hematocrit 32.8 % (37-47); Hemoglobin 10.2 g/dl (12.0-16.0); Imm Gran Abs Auto 0.05 X10*3/uL (0.00-0.03); Imm Gran Pct Auto 0.7 % (0.0-0.4); Lymphocytes Absolute Auto 1.4 X10*3/uL (1.2-4.9); Lymphocytes Percent Auto 18.6 % (20-40); Mean Corpuscular HGB Conc 31.1 g/dl (31.0-35.0); Mean Corpuscular Hemoglobin 30.5 pg (27.0-33.0); Mean Corpuscular Volume 98.2 fL (80-98); Mean Platelet Volume 12.3 fL (9.4-12.3); Monocytes Absolute Auto 0.8 X10*3/uL (0.1-1.2); Monocytes Percent Auto 10.6 % (2-11); Neutrophils Absolute Auto 4.9 X10*3/uL (2.0-8.3); Neutrophils Percent Auto 66.4 % (45-73); Platelet Count 395 X10*3/uL (160-400); Red Blood Count 3.34 X10*6/uL (4.20-5.50); Red Cell Distribution Width 15.4 % (11.0-16.0); White Blood Count 7.4 X10*3/uL (4.8-10.8)
[2019-12-20 15:23] LABS: Alanine Aminotransferase 14 U/L (0-31); Albumin Level 3.7 g/dL (3.5-5.0); Alkaline Phosphatase 86 U/L (39-117); Anion Gap 15 (12-20); Aspartate Amino Transferase 17 U/L (5-31); Bilirubin Total < 0.2 mg/dL (0.0-1.0); Blood Urea Nitrogen 20 mg/dL (9-16); Calcium 8.6 mg/dL (8.4-10.2); Carbon Dioxide 26 mmol/L (22-29); Chloride 103 mmol/L (96-108); Estimated Glomerular Filt Rate 53; Glucose Random 93 mg/dL (60-115); Potassium 5.3 mmol/l (3.3-5.1); Sodium 139 mmol/L (135-145); Total Protein 6.5 g/dL (6.5-8.0)
[2019-12-20 15:44] LABS: Thyroid Stimulating Hormone 4.62 uIU/mL (0.32-4.0)
== END 2019-12-20 13:24 | disposition home or self-care (01) ==
LOC: HO.LAB 13:23
PROVIDERS: PCP Internal Medicine; Visit Provider Internal Medicine
DX: E03.9 Hypothyroidism, unspecified (principal); I10 Essential (primary) hypertension; I48.0 Paroxysmal atrial fibrillation
CPT/HCPCS: 36415; 80053; 84439; 84443; 85025

== ENCOUNTER 2020-04-26 09:40 | Outpatient (REF) | payer MEDICARE, SELFPAY ==
[2020-04-26 11:12] LABS: MANUAL DIFF FLAG NO
[2020-04-26 11:24] LABS: Basophils Percent Auto 0.5 % (0-2); Eosinophils Absolute Auto 0.3 X10*3/uL (0.0-0.4); Eosinophils Percent Auto 5.3 % (0-4); Hematocrit 32.6 % (37-47); Hemoglobin 9.4 g/dl (12.0-16.0); Imm Gran Abs Auto 0.02 X10*3/uL (0.00-0.03); Imm Gran Pct Auto 0.3 % (0.0-0.4); Lymphocytes Absolute Auto 1.3 X10*3/uL (1.2-4.9); Lymphocytes Percent Auto 21.8 % (20-40); Mean Corpuscular HGB Conc 28.8 g/dl (31.0-35.0); Mean Corpuscular Hemoglobin 24.4 pg (27.0-33.0); Mean Corpuscular Volume 84.7 fL (80-98); Mean Platelet Volume 12.3 fL (9.4-12.3); Monocytes Absolute Auto 0.5 X10*3/uL (0.1-1.2); Monocytes Percent Auto 7.9 % (2-11); Neutrophils Absolute Auto 3.9 X10*3/uL (2.0-8.3); Neutrophils Percent Auto 64.2 % (45-73); Platelet Count 499 X10*3/uL (160-400); Red Blood Count 3.85 X10*6/uL (4.20-5.50); Red Cell Distribution Width 16.8 % (11.0-16.0); White Blood Count 6.1 X10*3/uL (4.8-10.8)
[2020-04-26 12:08] LABS: Free T4 (Free Thyroxine) 1.41 ng/dL (0.71-1.85); Thyroid Stimulating Hormone 4.27 uIU/mL (0.32-4.0)
[2020-04-26 12:11] LABS: Alanine Aminotransferase 10 U/L (0-31); Albumin Level 3.7 g/dL (3.5-5.0); Alkaline Phosphatase 101 U/L (39-117); Anion Gap 12 (12-20); Aspartate Amino Transferase 13 U/L (5-31); Bilirubin Total 0.4 mg/dL (0.0-1.0); Blood Urea Nitrogen 18 mg/dL (9-16); Calcium 8.2 mg/dL (8.4-10.2); Carbon Dioxide 25 mmol/L (22-29); Chloride 109 mmol/L (96-108); Estimated Glomerular Filt Rate 54; Glucose Random 120 mg/dL (60-115); Iron 29 mcg/dL (30-160); Percent Iron Saturation 7 % (15-50); Potassium 4.3 mmol/L (3.3-5.1); Sodium 142 mmol/L (135-145); Total Iron Binding Capacity 401 mcg/dL (228-428); Total Protein 6.4 g/dL (6.5-8.0); Unsaturated Iron Binding 372 ug/dL
== END 2020-04-26 09:41 | disposition home or self-care (01) ==
LOC: HO.HMGCLDS 09:40
PROVIDERS: PCP Internal Medicine; Visit Provider Internal Medicine
DX: I10 Essential (primary) hypertension (principal); E03.9 Hypothyroidism, unspecified; D64.9 Anemia, unspecified
CPT/HCPCS: 36415; 80053; 83540; 84439; 84443; 85025

== ENCOUNTER → 2020-05-08 09:51 | Outpatient (BNVA) | payer MEDICARE, SELFPAY | PROVIDERS: PCP Internal Medicine; Visit Provider Internal Medicine Cardiovascular Disease | DX: I48.0 Paroxysmal atrial fibrillation (principal); I50.30 Unspecified diastolic (congestive) heart failure; Z79.899 Other long term (current) drug therapy | CPT/HCPCS: 93005; 99212 ==

== ENCOUNTER 2020-05-21 08:15 | Outpatient (REF) | payer MEDICARE, SELFPAY ==
--- NOTE | ~2020-05-21 | MM_ITS ---
EXAMINATION: MM SCREENING DIGITAL BREAST TOMOSYNTHESIS, BILATERAL CLINICAL INFORMATION: Screening. Asymptomatic. Prior benign left excisional biopsy 1997. Prior benign right stereotactic biopsy 2001. The lifetime risk of breast cancer based on the Tyrer-Cuzick Model is 1%. COMPARISON: Mammography: 03/11/2019, 11/27/2017, 10/20/2016, 09/28/2015 TECHNIQUE: Digital breast tomosynthesis is performed in both the craniocaudal and mediolateral oblique views along with computer-aided detection (CAD). Synthesized 2D images are generated from the tomosynthesis. FINDINGS: There are scattered areas of fibroglandular density (ACR BI-RADS breast composition Category b). Parenchymal pattern is similar to prior studies. There is no significant mass or architectural abnormality or developing density. There is a stable oval asymmetry with adjacent biopsy clip marker left breast mid upper outer quadrant. Right breast again has clip marker posterior 12:00 position. There are scattered bilateral benign round and vascular calcifications. The bilateral axilla and skin contours are unremarkable. No significant changes from prior exams. MM/MM tomosynthesis screening BI IMPRESSION: No mammographic evidence of malignancy. ASSESSMENT: BI-RADS 2: Benign RECOMMENDATION: Routine annual mammography screening. This patient's information was entered into a reminder system with a target due date for their next mammogram.
[2020-05-21 10:36] LABS: Basophils Absolute Auto 0.1 X10*3/uL (0.0-0.2); Basophils Percent Auto 0.6 % (0-2); Eosinophils Absolute Auto 0.4 X10*3/uL (0.0-0.4); Eosinophils Percent Auto 4.4 % (0-4); Hematocrit 31.9 % (37-47); Hemoglobin 9.1 g/dl (12.0-16.0); Imm Gran Abs Auto 0.03 X10*3/uL (0.00-0.03); Imm Gran Pct Auto 0.4 % (0.0-0.4); Immature Retic Fraction 31.8 % (3.0-15.9); Lymphocytes Absolute Auto 1.4 X10*3/uL (1.2-4.9); Lymphocytes Percent Auto 17.1 % (20-40); MANUAL DIFF FLAG SCAN; Mean Corpuscular HGB Conc 28.5 g/dl (31.0-35.0); Mean Corpuscular Hemoglobin 24.1 pg (27.0-33.0); Mean Corpuscular Volume 84.4 fL (80-98); Mean Platelet Volume 12.9 fL (9.4-12.3); Monocytes Absolute Auto 0.9 X10*3/uL (0.1-1.2); Monocytes Percent Auto 10.8 % (2-11); Neutrophils Absolute Auto 5.3 X10*3/uL (2.0-8.3); Neutrophils Percent Auto 66.7 % (45-73); Platelet Count 401 X10*3/uL (160-400); Red Blood Count 3.78 X10*6/uL (4.20-5.50); Red Cell Distribution Width 17.5 % (11.0-16.0); Retic HGB Equivalent 22.7 pg (30.0-35.0); Reticulocyte Percent 2.3 % (0.5-1.8); Reticulocytes Absolute 0.088 X10*6/uL (0.026-0.095); SCAN SMEAR FLAG 1
[2020-05-21 10:54] LABS: Alanine Aminotransferase 10 U/L (0-31); Albumin Level 3.7 g/dL (3.5-5.0); Alkaline Phosphatase 102 U/L (39-117); Anion Gap 14 (12-20); Aspartate Amino Transferase 13 U/L (5-31); Bilirubin Total 0.2 mg/dL (0.0-1.0); Blood Urea Nitrogen 21 mg/dL (9-16); Calcium 8.5 mg/dL (8.4-10.2); Carbon Dioxide 24 mmol/L (22-29); Chloride 109 mmol/L (96-108); Estimated Glomerular Filt Rate 53; Glucose Random 85 mg/dL (60-115); Potassium 4.7 mmol/L (3.3-5.1); Sodium 142 mmol/L (135-145); Total Protein 6.5 g/dL (6.5-8.0)
[2020-05-21 11:08] LABS: Ferritin 3 ng/mL (10-250)
[2020-05-21 11:11] LABS: Erythrocyte Sedimentation Rate 16 MM/HR (0-20)
[2020-05-21 11:51] LABS: SLIDE REVIEW VERIFIED
[2020-05-21 12:07] LABS: Folate 15.7 ng/mL (> or = 4.0)
[2020-05-22 13:57] LABS: Haptoglobin 216 mg/dL (43-212)
[2020-05-22 15:11] LABS: Prot Elec - Albumin 3.6 g/dL (3.8-4.8); Prot Elec - Alpha1 0.4 g/dL (0.2-0.3); Prot Elec - Alpha2 0.9 g/dL (0.5-0.9); Prot Elec - Beta 1 0.5 g/dL (0.4-0.6); Prot Elec - Beta 2 0.5 g/dL (0.2-0.5); Prot Elec - Gamma 0.9 g/dL (0.8-1.7); Prot Elec - Total Protein 6.7 g/dL (6.1-8.1)
== END 2020-05-21 08:16 | disposition home or self-care (01) ==
LOC: HO.MAMMO 08:15
PROVIDERS: Visit Provider Internal Medicine
DX: Z12.31 Encounter for screening mammogram for malignant neoplasm of breast (principal); D64.9 Anemia, unspecified; E55.9 Vitamin D deficiency, unspecified; I10 Essential (primary) hypertension
CPT/HCPCS: 36415; 77063; 77067; 80053; 82728; 82746; 83010; 84155; 84165; 85025; 85045; 85652

== ENCOUNTER 2020-07-02 10:08 | Outpatient (REF) | payer MEDICARE, SELFPAY ==
[2020-07-02 13:30] LABS: MANUAL DIFF FLAG NO
[2020-07-02 13:43] LABS: Basophils Percent Auto 0.3 % (0-2); Eosinophils Absolute Auto 0.3 X10*3/uL (0.0-0.4); Eosinophils Percent Auto 5.2 % (0-4); Hematocrit 38.3 % (37-47); Imm Gran Abs Auto 0.03 X10*3/uL (0.00-0.03); Imm Gran Pct Auto 0.5 % (0.0-0.4); Immature Retic Fraction 28.6 % (3.0-15.9); Lymphocytes Absolute Auto 1.3 X10*3/uL (1.2-4.9); Lymphocytes Percent Auto 20.6 % (20-40); Mean Corpuscular HGB Conc 28.7 g/dl (31.0-35.0); Mean Corpuscular Hemoglobin 26.2 pg (27.0-33.0); Mean Corpuscular Volume 91.2 fL (80-98); Mean Platelet Volume 12.7 fL (9.4-12.3); Monocytes Absolute Auto 0.7 X10*3/uL (0.1-1.2); Monocytes Percent Auto 11.8 % (2-11); Neutrophils Absolute Auto 3.8 X10*3/uL (2.0-8.3); Neutrophils Percent Auto 61.6 % (45-73); Platelet Count 373 X10*3/uL (160-400); Red Cell Distribution Width 24.8 % (11.0-16.0); Retic HGB Equivalent 33.9 pg (30.0-35.0); Reticulocyte Percent 3.1 % (0.5-1.8); Reticulocytes Absolute 0.129 X10*6/uL (0.026-0.095); White Blood Count 6.1 X10*3/uL (4.8-10.8)
[2020-07-02 14:19] LABS: Ferritin 27 ng/mL (10-250)
== END 2020-07-02 10:09 | disposition home or self-care (01) ==
LOC: HO.10HDL 10:08
PROVIDERS: Visit Provider Internal Medicine Medical Oncology
DX: E55.9 Vitamin D deficiency, unspecified (principal)
CPT/HCPCS: 36415; 82728; 85025; 85045

== ENCOUNTER 2020-11-02 10:06 | Outpatient (REF) | payer MEDICARE, SELFPAY ==
[2020-11-02 13:23] LABS: MANUAL DIFF FLAG NO
[2020-11-02 13:25] LABS: Basophils Absolute Auto 0.1 X10*3/uL (0.0-0.2); Basophils Percent Auto 0.9 % (0-2); Eosinophils Absolute Auto 0.3 X10*3/uL (0.0-0.4); Hematocrit 41.8 % (37-47); Hemoglobin 13.4 g/dl (12.0-16.0); Imm Gran Abs Auto 0.05 X10*3/uL (0.00-0.03); Imm Gran Pct Auto 0.7 % (0.0-0.4); Lymphocytes Absolute Auto 1.4 X10*3/uL (1.2-4.9); Lymphocytes Percent Auto 21.1 % (20-40); Mean Corpuscular HGB Conc 32.1 g/dl (31.0-35.0); Mean Corpuscular Hemoglobin 33.2 pg (27.0-33.0); Mean Corpuscular Volume 103.5 fL (80-98); Mean Platelet Volume 12.8 fL (9.4-12.3); Monocytes Absolute Auto 0.7 X10*3/uL (0.1-1.2); Neutrophils Absolute Auto 4.2 X10*3/uL (2.0-8.3); Neutrophils Percent Auto 62.3 % (45-73); Platelet Count 369 X10*3/uL (160-400); Red Blood Count 4.04 X10*6/uL (4.20-5.50); Red Cell Distribution Width 13.8 % (11.0-16.0); White Blood Count 6.8 X10*3/uL (4.8-10.8)
[2020-11-02 13:56] LABS: Alanine Aminotransferase 14 U/L (0-31); Albumin Level 3.8 g/dL (3.5-5.0); Alkaline Phosphatase 110 U/L (39-117); Anion Gap 12 (12-20); Aspartate Amino Transferase 15 U/L (5-31); Bilirubin Total 0.4 mg/dL (0.0-1.0); Blood Urea Nitrogen 17 mg/dL (9-16); Calcium 9.1 mg/dL (8.4-10.2); Carbon Dioxide 28 mmol/L (22-29); Chloride 107 mmol/L (96-108); Estimated Glomerular Filt Rate 49; Glucose Random 79 mg/dL (60-115); Potassium 4.5 mmol/L (3.3-5.1); Sodium 142 mmol/L (135-145); Total Protein 6.5 g/dL (6.5-8.0)
[2020-11-02 14:16] LABS: Ferritin 33 ng/mL (10-250)
[2020-11-02 14:17] LABS: Free T4 (Free Thyroxine) 1.17 ng/dL (0.71-1.85); Thyroid Stimulating Hormone 7.64 uIU/mL (0.32-4.0)
== END 2020-11-02 10:07 | disposition home or self-care (01) ==
LOC: HO.10HDL 10:06
PROVIDERS: Absent Provider Internal Medicine Medical Oncology; Visit Provider Internal Medicine
DX: I48.0 Paroxysmal atrial fibrillation (principal); I10 Essential (primary) hypertension; E03.9 Hypothyroidism, unspecified
CPT/HCPCS: 36415; 80053; 82728; 84439; 84443; 85025

== ENCOUNTER → 2020-11-06 09:46 | Outpatient (BNVA) | payer MEDICARE, SELFPAY | PROVIDERS: PCP Internal Medicine; Referring Provider Internal Medicine; Visit Provider Internal Medicine Cardiovascular Disease | DX: I48.0 Paroxysmal atrial fibrillation (principal); I50.30 Unspecified diastolic (congestive) heart failure | CPT/HCPCS: 93005; 99212 ==

== ENCOUNTER → 2021-01-24 09:16 | Outpatient (REF) | payer MEDICARE, SELFPAY ==
--- NOTE | 2021-01-24 09:18 | CA_ITS ---
Transthoracic Echocardiogram Patient (Last, First, Middle): Jessica Yao R Gender: Female Date of : 1940 Age: 80 Procedure Date: 01/24/2021 Procedure Type: Transthoracic Echocardiogram Location: OP Height: 154.94 cm Weight: 81.65 kg BSA: 1.81 m2 Heart Rate: bpm BP: 132 / 80 mmHg Director Of Grants: PIERRE Referring MD: Hamilton Ratliff MD Floorman: Hamilton Ratliff MD Symptoms: I50.30 - Unspecified diastolic (congestive) heart failure Study Quality: Fair ECG Rhythm: Sinus Conclusions: - 1. Normal LV systolic function with impaired relaxation filling pattern with suggestion of increased left ventricular end diastolic pressure 2. Mild aortic regurgitation 3. Normal RV systolic pressure 4. No gross pericardial effusion Findings Left Ventricle Normal left ventricular size, thickness, and systolic function. The visually estimated ejection fraction is between 60-65%. Spectral Doppler is indicative of an impaired relaxation filling pattern. Elevated left ventricular end diastolic pressure. E/E prime ratio is between 8 and 15 consistent with indeterminate filling pressures. Right Ventricle Normal right ventricular cavity size and systolic function. Atria The left atrium is likely dilated. There is no evidence of interatrial shunt. The right atrium was not well visualized. Aortic Valve There is mild thickening of the aortic valve. There is no aortic valve stenosis. There is mild aortic valve regurgitation. Mitral Valve There is mild anterior and posterior mitral leaflet thickening. There is mild mitral annular calcification. There is trace mitral valve regurgitation. There is no mitral valve stenosis. Pulmonic Valve The pulmonic valve was not well visualized. Tricuspid Valve Likely normal tricuspid valve structure and function. There is trace tricuspid valve regurgitation. The right ventricular systolic pressure is normal. The right ventricular systolic pressure is 28 mmHg. Normal right atrial pressure. There is no evidence of pulmonary hypertension. Great Vessels All visible segments of the aorta are normal in size. The pulmonary artery was not well visualized. Venous The inferior vena cava is normal in size and collapses greater than 50% with inspiration. Pericardium/Pleural There is no evidence of pericardial effusion. Prior Study Comparison No significant change compared to prior study dated: 10/18/2019. Measurements 2D Linear Measurements IVSd: 1.21 0.6-0.9/0.6-1.0 cm LVIDd: 3.92 3.9-5.3/4.2-5.9 cm LVIDd Index: 2.17 2.4-3.2/2.2-3.1 cm/m2 LVIDs: 2.22 2.0-3.6 cm LVPWd: 1.04 0.7-1.1 cm Ao Root: 3.60 2.1-3.5 cm LA Diam: 3.70 2.7-3.8/3.0-4.0 cm LAIDs Index: 2.04 1.5-2.3 cm/m2 LV Mass: 181.63 67-162/88-224 g LV Mass Index: 100.35 43-95/49-115 g/m2 LVOT Diam: 2.00 3.0+(-)1.3 cm 2D Systolic Function EF 4C: 61.80 >55% EF 2C: 57.50 >55% EF BiP: 60.50 >55% Mitral Valve MV Pk E: 0.87 MV PK A: 0.83 MV Decel Time: 248.00 E/A: 1.00 E'Lateral: 7.72 E'Medial: 6.64 E/E' Med: 13.10 E/E' Lat: 11.30 PHT: 73.00 MVA PHT: 3.01 Decel Mclennan: 3.51 Aortic Valve AoV Pk Jadon: 1.29 AoV Mn Jadon: 0.80 AoV VTI: 0.30 AoV Pk Grad: 7.00 Aov Mn Grad: 3.00 NOMAN Cont.VTI: 2.40 AI Pk Jadon: 3.39 AI Mclennan: 1.09 LVOT LVOT Pk Jadon: 0.82 LVOT Mn Jadon: 0.61 LVOT VTI: 0.23 LVOT Pk Grad: 3.00 LVOT Mn Grad: 2.00 LVOT Diam: 2.00 LVOT Area: 3.14 Diastolic Function MV Pk E: 0.87 MV Pk A: 0.83 E/A: 1.00 E'Medial: 6.64 E/E' Med: 13.10 E' Laterial: 7.72 E/E' Lat: 11.30 Right Ventricle TAPSE (mm): 2.03 TVS' Jadon: 10.20 Tricuspid Valve TR Pk Jadon: 2.48 TR Pk Grad: 25.00 RA Press: 3.00 RVSP: 28.00 Great Vessels Aorta Ao Root-2D: 3.60 2.0-3.7 cm Ao Asc: 3.20 2.1-3.4 cm Ao Arch: 2.30 Updated in Other Vendor System with Status of Final Hamilton Ratliff MD electronically signed on 01/25/2021 3:15:57 PM with status of Final
== END ==
LOC: HO.CARD 09:16
PROVIDERS: PCP Internal Medicine; Visit Provider Internal Medicine Cardiovascular Disease
DX: I50.30 Unspecified diastolic (congestive) heart failure (principal)
CPT/HCPCS: 93306

== ENCOUNTER 2021-05-02 08:40 | Outpatient (REF) | payer MEDICARE, SELFPAY ==
--- NOTE | ~2021-05-02 | XR_ITS ---
EXAMINATION: XR CHEST 2 VIEWS CLINICAL INFORMATION: Paroxysmal atrial fibrillation. COMPARISON: Chest radiograph, most recently 04/21/2019. TECHNIQUE: Frontal and lateral views of the chest were obtained. FINDINGS: The heart, great vessels, pulmonary vasculature and mediastinum are stable. There is stable mild cardiomegaly.. The lungs show no focal infiltrate, effusion or pneumothorax. There is no acute osseous abnormality. XR/XR chest 2V IMPRESSION: No active cardiopulmonary disease. There is stable mild cardiomegaly.
[2021-05-02 10:13] LABS: MANUAL DIFF FLAG NO
[2021-05-02 10:27] LABS: Basophils Percent Auto 0.3 % (0-2); Eosinophils Absolute Auto 0.2 X10*3/uL (0.0-0.4); Eosinophils Percent Auto 2.9 % (0-4); Hematocrit 44.1 % (37.0-47.0); Hemoglobin 13.8 g/dl (12.0-16.0); Imm Gran Abs Auto 0.03 X10*3/uL (0.00-0.03); Imm Gran Pct Auto 0.5 % (0.0-0.4); Lymphocytes Percent Auto 15.8 % (20-40); Mean Corpuscular HGB Conc 31.3 g/dl (31.0-35.0); Mean Corpuscular Hemoglobin 32.6 pg (27.0-33.0); Mean Corpuscular Volume 104.3 fL (80.0-98.0); Mean Platelet Volume 12.5 fL (9.4-12.3); Monocytes Absolute Auto 0.8 X10*3/uL (0.1-1.2); Monocytes Percent Auto 11.7 % (2-11); Neutrophils Absolute Auto 4.5 x10*3/uL (2.0-8.3); Neutrophils Percent Auto 68.8 % (45-73); Platelet Count 338 X10*3/uL (160-400); Red Blood Count 4.23 X10*6/uL (4.20-5.50); Red Cell Distribution Width 13.5 % (11.0-16.0); White Blood Count 6.5 X10*3/uL (4.8-10.8)
[2021-05-02 10:55] LABS: Alanine Aminotransferase 19 U/L (0-31); Albumin Level 3.9 g/dL (3.5-5.0); Alkaline Phosphatase 95 U/L (39-117); Anion Gap 14 (12-20); Aspartate Amino Transferase 20 U/L (5-31); Bilirubin Total 0.6 mg/dL (0.0-1.0); Blood Urea Nitrogen 23 mg/dL (9-16); Calcium 9.4 mg/dL (8.4-10.2); Carbon Dioxide 27 mmol/L (22-29); Chloride 106 mmol/L (96-108); Estimated Glomerular Filt Rate 41; Glucose Random 94 mg/dL (60-115); Potassium 4.9 mmol/L (3.3-5.1); Sodium 142 mmol/L (135-145); Total Protein 6.8 g/dL (6.5-8.0)
[2021-05-02 10:56] LABS: Cholesterol 170 mg/dL; HDL Cholesterol 45 mg/dL; LDL Cholesterol Calculated 104 mg/dl; Triglycerides 107 mg/dL
[2021-05-02 11:18] LABS: Ferritin 60 ng/mL (10-250)
[2021-05-02 11:19] LABS: Free T4 (Free Thyroxine) 1.45 ng/dL (0.71-1.85); Thyroid Stimulating Hormone 5.31 uIU/mL (0.32-4.0)
== END 2021-05-02 08:41 | disposition home or self-care (01) ==
LOC: HO.XRAY 08:40
PROVIDERS: Absent Provider Internal Medicine Medical Oncology; PCP Internal Medicine; Referring Provider Internal Medicine; Visit Provider Internal Medicine Cardiovascular Disease
DX: I11.0 Hypertensive heart disease with heart failure (principal); I50.30 Unspecified diastolic (congestive) heart failure; I48.0 Paroxysmal atrial fibrillation; Z79.01 Long term (current) use of anticoagulants; Z79.899 Other long term (current) drug therapy; E55.9 Vitamin D deficiency, unspecified; E78.00 Pure hypercholesterolemia, unspecified; E03.9 Hypothyroidism, unspecified
CPT/HCPCS: 36415; 71046; 80053; 80061; 82728; 84439; 84443; 85025; 93005; 99212

== ENCOUNTER 2021-05-13 11:06 | Outpatient (REF) | payer MEDICARE, SELFPAY ==
[2021-05-13 13:26] LABS: Immature Retic Fraction 20.4 % (3.0-15.9); Retic HGB Equivalent 36.6 pg (30.0-35.0); Reticulocyte Percent 2.4 % (0.5-1.8); Reticulocytes Absolute 0.097 X10*6/uL (0.026-0.095)
[2021-05-13 14:21] LABS: Folate 3.5 ng/mL (> or = 4.0); Vitamin B12 < 146 pg/mL (200-900)
== END 2021-05-13 11:07 | disposition home or self-care (01) ==
LOC: HO.10HDL 11:06
PROVIDERS: Visit Provider Internal Medicine Medical Oncology
DX: I10 Essential (primary) hypertension (principal); E55.9 Vitamin D deficiency, unspecified; D47.3 Essential (hemorrhagic) thrombocythemia; D50.9 Iron deficiency anemia, unspecified
CPT/HCPCS: 36415; 82607; 82746; 85045

== ENCOUNTER 2021-06-14 11:43 | Outpatient (REF) | payer MEDICARE, SELFPAY ==
[2021-06-14 13:44] LABS: Vitamin D 25-OH Total 50.7 ng/mL (>30)
[2021-06-14 14:17] LABS: Folate > 20.0 ng/mL (> or = 4.0); Vitamin B12 556 pg/mL (200-900)
[2021-06-19 23:32] LABS: Intrinsic Factor Antibodies Negative (Negative)
== END 2021-06-14 11:44 | disposition home or self-care (01) ==
LOC: HO.LAB 11:43
PROVIDERS: PCP Internal Medicine; Visit Provider Internal Medicine Medical Oncology
DX: E55.9 Vitamin D deficiency, unspecified (principal); E66.9 Obesity, unspecified; D50.9 Iron deficiency anemia, unspecified; D75.89 Other specified diseases of blood and blood-forming organs
CPT/HCPCS: 36415; 82306; 82607; 82746; 86340

== ENCOUNTER 2021-06-17 16:32 | Outpatient (REF) | payer MEDICARE, SELFPAY ==
[2021-06-17 16:49] LABS: MANUAL DIFF FLAG NO
[2021-06-17 16:59] LABS: Basophils Percent Auto 0.5 % (0-2); Eosinophils Absolute Auto 0.2 X10*3/uL (0.0-0.4); Eosinophils Percent Auto 3.1 % (0-4); Hematocrit 42.3 % (37.0-47.0); Hemoglobin 13.7 g/dl (12.0-16.0); Imm Gran Abs Auto 0.03 X10*3/uL (0.00-0.03); Imm Gran Pct Auto 0.4 % (0.0-0.4); Lymphocytes Absolute Auto 1.6 X10*3/uL (1.2-4.9); Lymphocytes Percent Auto 19.8 % (20-40); Mean Corpuscular HGB Conc 32.4 g/dl (31.0-35.0); Mean Corpuscular Hemoglobin 32.7 pg (27.0-33.0); Mean Platelet Volume 12.6 fL (9.4-12.3); Monocytes Absolute Auto 0.8 X10*3/uL (0.1-1.2); Monocytes Percent Auto 10.2 % (2-11); Neutrophils Absolute Auto 5.2 x10*3/uL (2.0-8.3); Platelet Count 324 X10*3/uL (160-400); Red Blood Count 4.19 X10*6/uL (4.20-5.50); Red Cell Distribution Width 13.1 % (11.0-16.0); White Blood Count 7.8 X10*3/uL (4.8-10.8)
[2021-06-17 17:51] LABS: Vitamin B12 536 pg/mL (200-900)
[2021-06-20 19:21] LABS: Intrinsic Factor Antibodies Negative (Negative)
== END 2021-06-17 16:33 | disposition home or self-care (01) ==
LOC: HO.LAB 16:32
PROVIDERS: PCP Internal Medicine; Visit Provider Internal Medicine Medical Oncology
DX: D75.89 Other specified diseases of blood and blood-forming organs (principal); E55.9 Vitamin D deficiency, unspecified
CPT/HCPCS: 36415; 82607; 85025; 86340

== ENCOUNTER 2021-07-03 09:49 | Outpatient (REF) | payer MEDICARE, SELFPAY ==
--- NOTE | ~2021-07-03 | MM_ITS ---
EXAMINATION: MM SCREENING DIGITAL BREAST TOMOSYNTHESIS, BILATERAL CLINICAL INFORMATION: Screening. Asymptomatic. Prior left excisional biopsy, 1997. Right stereotactic biopsy, 2001. The lifetime risk of breast cancer based on the Tyrer-Cuzick Model is 1%. COMPARISON: Mammography: 05/21/2020, 03/11/2019, 11/27/2017, 10/20/2016 TECHNIQUE: Digital breast tomosynthesis is performed in both the craniocaudal and mediolateral oblique views along with computer-aided detection (CAD). Synthesized 2D images are generated from the tomosynthesis. Additional right CC and right MLO views are provided. FINDINGS: There are scattered areas of fibroglandular density (ACR BI-RADS breast composition Category b). There are no significant masses, abnormal calcifications, or other abnormalities. Parenchymal pattern is similar to prior studies. Left breast are stable oval mass or asymmetry mid 1:00 position with adjacent biopsy clip marker and stable nodular asymmetry anterior medial breast. Low axillary tail node again noted as incidental finding. Right breast has biopsy clip marker mid to posterior 12:00 position. No developing density or architectural abnormality. The axilla and skin contours are unremarkable. MM/MM tomosynthesis screening BI IMPRESSION: No mammographic evidence of malignancy. ASSESSMENT: BI-RADS 2: Benign RECOMMENDATION: Routine annual mammography screening. This patient's information was entered into a reminder system with a target due date for their next mammogram.
== END 2021-07-03 09:50 | disposition home or self-care (01) ==
LOC: HO.MAMMO 09:49
PROVIDERS: Visit Provider Internal Medicine
DX: Z12.31 Encounter for screening mammogram for malignant neoplasm of breast (principal)
CPT/HCPCS: 77063; 77067

== ENCOUNTER 2021-08-13 08:40 | Outpatient (REF) | payer MEDICARE, SELFPAY ==
[2021-08-13 10:24] LABS: MANUAL DIFF FLAG NO
[2021-08-13 10:29] LABS: Basophils Percent Auto 0.5 % (0-2); Eosinophils Absolute Auto 0.3 X10*3/uL (0.0-0.4); Eosinophils Percent Auto 5.2 % (0-4); Hematocrit 42.3 % (37.0-47.0); Hemoglobin 13.4 g/dl (12.0-16.0); Imm Gran Abs Auto 0.03 X10*3/uL (0.00-0.03); Imm Gran Pct Auto 0.5 % (0.0-0.4); Lymphocytes Absolute Auto 1.4 X10*3/uL (1.2-4.9); Lymphocytes Percent Auto 24.2 % (20-40); Mean Corpuscular HGB Conc 31.7 g/dl (31.0-35.0); Mean Corpuscular Hemoglobin 32.8 pg (27.0-33.0); Mean Corpuscular Volume 103.4 fL (80.0-98.0); Mean Platelet Volume 12.6 fL (9.4-12.3); Monocytes Absolute Auto 0.5 X10*3/uL (0.1-1.2); Monocytes Percent Auto 8.7 % (2-11); Neutrophils Absolute Auto 3.6 x10*3/uL (2.0-8.3); Neutrophils Percent Auto 60.9 % (45-73); Platelet Count 324 X10*3/uL (160-400); Red Blood Count 4.09 X10*6/uL (4.20-5.50)
[2021-08-13 10:47] LABS: Alanine Aminotransferase 19 U/L (0-31); Alkaline Phosphatase 96 U/L (39-117); Anion Gap 12 (12-20); Aspartate Amino Transferase 20 U/L (5-31); Bilirubin Total 0.4 mg/dL (0.0-1.0); Blood Urea Nitrogen 20 mg/dL (9-16); Calcium 8.7 mg/dL (8.4-10.2); Carbon Dioxide 27 mmol/L (22-29); Chloride 107 mmol/L (96-108); Estimated Glomerular Filt Rate 52; Glucose Fasting 89 mg/dL (60-99); Potassium 4.4 mmol/L (3.3-5.1); Sodium 142 mmol/L (135-145); Total Protein 6.8 g/dL (6.5-8.0)
[2021-08-13 11:12] LABS: Free T4 (Free Thyroxine) 1.27 ng/dL (0.71-1.85); Thyroid Stimulating Hormone 6.18 uIU/mL (0.32-4.0)
== END 2021-08-13 08:41 | disposition home or self-care (01) ==
LOC: HO.10HDL 08:40
PROVIDERS: Visit Provider Internal Medicine
DX: E03.9 Hypothyroidism, unspecified (principal); E78.00 Pure hypercholesterolemia, unspecified; I12.9 Hypertensive chronic kidney disease with stage 1 through stage 4 chronic kidney disease, or unspecified chronic kidney disease; N18.9 Chronic kidney disease, unspecified; I48.0 Paroxysmal atrial fibrillation
CPT/HCPCS: 36415; 80053; 84439; 84443; 85025

== ENCOUNTER 2021-08-18 15:03 | Inpatient (IN) | payer MEDICARE, SELFPAY ==
--- NOTE | ~2021-08-18 | XR_ITS ---
EXAMINATION: XR CHEST CLINICAL INFORMATION: Post pacemaker COMPARISON: Previous chest x-ray most recent 08/18/2021 TECHNIQUE: Frontal view of the chest was obtained. FINDINGS: There is a new left subclavian dual chamber pacemaker in satisfactory position. The cardiac silhouette is enlarged but stable. There is elevation of the right hemidiaphragm. The lungs are clear. There is no pleural effusion or pneumothorax. There are degenerative changes of the spine. XR/XR chest 1V IMPRESSION: Satisfactory position of left subclavian dual chamber pacemaker. No pneumothorax.
--- NOTE | ~2021-08-18 | FL_ITS ---
EXAMINATION: XR FLUOROSCOPY WITH IMAGES CLINICAL INFORMATION: Pacemaker placement. COMPARISON: None. TECHNIQUE: Fluoroscopy performed by Dr. Shanw Guillaume. Fluoroscopy time: 316 seconds DAP: 126.52 mGy Images: 1 FINDINGS: Single image shows distal end of the dual lead left chest wall pacemaker. Please correlate with the operative note. FL/FL guidance in OR IMPRESSION: Fluoroscopy and spot films provided during pacemaker placement.
--- NOTE | ~2021-08-18 | XR_ITS ---
EXAMINATION: XR CHEST CLINICAL INFORMATION: Chest pain COMPARISON: Chest 05/02/2021 TECHNIQUE: Frontal view of the chest was obtained. FINDINGS: The lungs are hypoexpanded but clear. The heart size and pulmonary vascularity is normal. No gross bony abnormality seen except for mild dextroscoliosis or positional XR/XR chest 1V IMPRESSION: Hypoexpanded lungs without acute process.
[2021-08-18 15:07] VITALS: BP 152/55; BP 166/62; PULSE 56; PULSE 60; RESP 16; TEMP 36.5; O2SAT 95; O2SAT 96; BMI 31.4
--- NOTE | 2021-08-18 15:16 | ECG_ITS ---
Test Reason : SYNCOPE Blood Pressure : / mmHG Vent. Rate : 055 BPM Atrial Rate : 055 BPM P-R Int : 222 ms QRS Dur : 100 ms QT Int : 532 ms P-R-T Axes : 049 -43 031 degrees QTc Int : 508 ms Sinus bradycardia with 1st degree A-V block Left axis deviation Moderate voltage criteria for LVH, may be normal variant ( R in aVL , Wan product ) Inferior infarct (cited on or before 12-MAR-2018) Anterolateral infarct (cited on or before 12-MAR-2018) Abnormal ECG When compared with ECG of 14-DEC-2019 20:30, QT has lengthened Referred By: Gregg Ramirez Electronically Signed By:BEULAH TANG MD
[2021-08-18 15:20] VITALS: O2SAT 93
--- NOTE | 2021-08-18 15:20 | ED_ITS ---
HPI - Syncope General Chief Complaint: Syncope Stated Complaint: syncopal eepisode Time Seen by Provider: 08/18/21 15:16 Source: patient, family and EMS Mode of arrival: EMS History of Present Illness HPI narrative: This is an 81 years old female with history of chronic atrial fibrillation anticoagulated with Xarelto, history of hearth failure, presented to emergency room via ambulance after a syncopal episode. She was at the [employer] she was in the sitting position and she collapsed. She denies any chest pain she states she is feeling a little bit better now. complaint: loss of consciousness Onset (ago): hour(s) (1) Prodromal symptoms: none Witnessed: Yes - by Bystander Context: at rest Injuries sustained associated with event: none Current symptoms: none History: other (A.Fib) Related Data Home Medications Medication Instructions Recorded Confirmed estradiol 0.5 mg tablet 5 mg PO DAILY 12/14/19 05/02/21 levothyroxine 100 mcg tablet 100 mcg PO DAILY 12/14/19 05/02/21 lisinopril 20 mg tablet 20 mg PO BID 12/14/19 05/02/21 rivaroxaban 20 mg tablet 20 mg PO DAILY 05/08/20 05/02/21 ferrous sulfate 325 mg (65 mg 325 mg PO DAILY 11/06/20 05/02/21 iron) tablet Previous Rx's Medication Instructions Recorded amlodipine 5 mg tablet 5 mg PO DAILY 90 days #90 tabs 06/24/21 amiodarone 200 mg tablet 200 mg PO DAILY #90 tabs 08/16/21 Allergies Allergy/AdvReac Type Severity Reaction Status Date / Time No Known Allergies Allergy Verified 12/14/19 16:55 [No Known Allergies*] Review of Systems Review of Systems: Yes all other systems are reviewed and are negative Cardiovascular: Cardiovascular: Denies Loss of Consciousness, Denies palpitations, Denies dyspnea, Denies dyspnea on exertion and Denies orthopnea Respiratory: Respiratory: Denies dyspnea and Denies dyspnea on exertion Endocrine: Endocrine: Denies palpitations PMFSH Past Medical History Medical History (HFpEF) heart failure with preserved ejection fraction Basal cell carcinoma Epistaxis History of cardioversion HTN (hypertension) Hx of cholecystectomy Hypothyroidism Malignant neoplasm of acoustic nerve Paroxysmal atrial fibrillation Surgical History H/O: hysterectomy Social History Social History Alcohol intake: never Patient Tobacco Use Status: Never used Tobacco Use of substances other than those prescribed or required for medical reasons: No Advance Directives: No Advance Directives Information Provided: No service: No Current occupational status: retired Physical Exam Vital Signs: Vital Signs: Last Vital Signs Temp 97.7 F 08/18/21 15:07 Pulse 56 08/18/21 15:07 Resp 16 08/18/21 15:07 BP 152/55 H 08/18/21 15:07 Pulse Ox 93 08/18/21 15:20 O2 Del Method 08/18/21 15:20 Oxygen Flow Rate 2 08/18/21 15:07 BMI result Body Mass Index 31.4 Const: General: cooperative Nutritional Appearance: average body habitus Orientation/consciousness: patient oriented x3 Limitations: no limitations HEENT: Head: Yes normal to inspection General nose exam: Normal external nose present Face and sinus: Yes normal facial exam Mouth: Normal oral and palatal mucosa present Throat: Yes posterior oropharynx normal Eyes: General: appearance normal, both eyes and all related structures Neck: Neck: Yes normal visual inspection, Yes full ROM and Yes no lymphadenopathy Carotids: normal carotid upstroke Chest: Chest palpation & inspection: normal inspection of the chest Resp: Effort & Inspection: normal respiratory effort and able to speak in complete sentences Auscultation: clear to auscultation bilaterally Cardio: Jugular venous distension: no JVD Rate: regular rate Rhythm: regular rhythm GI: Inspection: Yes normal to inspection Palpation (GI): Soft to palpation, not firm, nontender and no guarding Auscultation: normal bowel sounds Skin: General skin exam: no rashes or lesions noted, elasticity normal, turgor normal and atrophy Lesions: no lesions Rashes: no rashes Neuro: General: patient oriented x3 Course Reevaluation(s) Reevaluation #1: chemistry pending I anticipate admission,signed out to Dr Rodriguez MDM - Syncope Lab Data Result diagrams: 08/18/21 15:52 08/18/21 15:52 Labs: Lab Results 08/18/21 08/18/21 08/18/21 Range/Units 15:41 15:52 15:52 WBC 8.5 (4.8-10.8) X10*3/uL RBC 3.79 L (4.20-5.50) X10*6/uL Hgb 12.4 (12.0-16.0) g/dl Hct 38.4 (37.0-47.0) % MCV 101.3 H (80.0-98.0) fL MCH 32.7 (27.0-33.0) pg MCHC 32.3 (31.0-35.0) g/dl RDW 14.0 (11.0-16.0) % Plt Count 323 (160-400) X10*3/uL MPV 12.0 (9.4-12.3) fL Immature Gran % (Auto) 0.9 H (0.0-0.4) % Neut % (Auto) 70.4 (45-73) % Lymph % (Auto) 17.7 L (20-40) % [place] % (Auto) 7.5 (2-11) % Eos % (Auto) 3.1 (0-4) % Baso % (Auto) 0.4 (0-2) % Lymph # (Auto) 1.5 (1.2-4.9) X10*3/uL [place] # (Auto) 0.6 (0.1-1.2) X10*3/uL Eos # (Auto) 0.3 (0.0-0.4) X10*3/uL Baso # (Auto) 0.0 (0.0-0.2) X10*3/uL Abs Immat Gran (auto) 0.08 H (0.00-0.03) X10*3/uL Absolute Neuts (auto) 6.0 (2.0-8.3) x10*3/uL Absolute Nucleated RBC 0.000 (0.0-0.012) X10*3/uL Nucleated RBC % (auto) 0.0 (0.0-0.2) /100WBC PT 29.7 H (10.0-13.1) SEC INR 2.5 H (0.9-1.1) APTT 47.5 H (24.1-38.0) SEC Troponin I High Sens (<3.5-17.0) ng/L COVID-19 ([facility]) Negative (Negative) COVID-19 Clin Com See Note 08/18/21 Range/Units 15:52 WBC (4.8-10.8) X10*3/uL RBC (4.20-5.50) X10*6/uL Hgb (12.0-16.0) g/dl Hct (37.0-47.0) % MCV (80.0-98.0) fL MCH (27.0-33.0) pg MCHC (31.0-35.0) g/dl RDW (11.0-16.0) % Plt Count (160-400) X10*3/uL MPV (9.4-12.3) fL Immature Gran % (Auto) (0.0-0.4) % Neut % (Auto) (45-73) % Lymph % (Auto) (20-40) % [place] % (Auto) (2-11) % Eos % (Auto) (0-4) % Baso % (Auto) (0-2) % Lymph # (Auto) (1.2-4.9) X10*3/uL [place] # (Auto) (0.1-1.2) X10*3/uL Eos # (Auto) (0.0-0.4) X10*3/uL Baso # (Auto) (0.0-0.2) X10*3/uL Abs Immat Gran (auto) (0.00-0.03) X10*3/uL Absolute Neuts (auto) (2.0-8.3) x10*3/uL Absolute Nucleated RBC (0.0-0.012) X10*3/uL Nucleated RBC % (auto) (0.0-0.2) /100WBC PT (10.0-13.1) SEC INR (0.9-1.1) APTT (24.1-38.0) SEC Troponin I High Sens 3.6 (<3.5-17.0) ng/L COVID-19 ([facility]) (Negative) COVID-19 Clin Com ECG Data Attestation: I personally reviewed and interpreted this ECG as follows: ECG interpretation time: 15:36 Pacemaker model: nsr 55 no sichemic changes Discharge Plan Discharge Clinical Impression: Syncope Prescriptions: No Action amlodipine 5 mg tablet 5 mg PO DAILY 90 Days Qty: 90 3RF amiodarone 200 mg tablet 200 mg PO DAILY Qty: 90 1RF lisinopril 20 mg tablet 20 mg PO BID levothyroxine 100 mcg tablet 100 mcg PO DAILY estradiol 0.5 mg tablet 5 mg PO DAILY rivaroxaban 20 mg tablet 20 mg PO DAILY ferrous sulfate 325 mg (65 mg iron) tablet 325 mg PO DAILY
[2021-08-18] MEDS: 0.9 % Sodium Chloride 1,000 ML 999 ML IVCONT ×2 (15:27→18:43)
[2021-08-18] MEDS: ondansetron HCL 4 MG/2 ML VIAL IVPUSH (15:35)
[2021-08-18 15:56] LABS: MANUAL DIFF FLAG NO
[2021-08-18 15:57] LABS: Basophils Percent Auto 0.4 % (0-2); Eosinophils Absolute Auto 0.3 X10*3/uL (0.0-0.4); Eosinophils Percent Auto 3.1 % (0-4); Hematocrit 38.4 % (37.0-47.0); Hemoglobin 12.4 g/dl (12.0-16.0); Imm Gran Abs Auto 0.08 X10*3/uL (0.00-0.03); Imm Gran Pct Auto 0.9 % (0.0-0.4); Lymphocytes Absolute Auto 1.5 X10*3/uL (1.2-4.9); Lymphocytes Percent Auto 17.7 % (20-40); Mean Corpuscular HGB Conc 32.3 g/dl (31.0-35.0); Mean Corpuscular Hemoglobin 32.7 pg (27.0-33.0); Mean Corpuscular Volume 101.3 fL (80.0-98.0); Monocytes Absolute Auto 0.6 X10*3/uL (0.1-1.2); Monocytes Percent Auto 7.5 % (2-11); Neutrophils Percent Auto 70.4 % (45-73); Platelet Count 323 X10*3/uL (160-400); Red Blood Count 3.79 X10*6/uL (4.20-5.50); White Blood Count 8.5 X10*3/uL (4.8-10.8)
[2021-08-18 16:02] LABS: INTERNATIONAL NORM RATIO 2.5 (0.9-1.1); Prothrombin Time 29.7 SEC (10.0-13.1)
[2021-08-18 16:05] LABS: Partial Thromboplastin Time 47.5 SEC (24.1-38.0)
[2021-08-18 16:16] LABS: COVID-19 Test Negative (Negative); IDNOW Serial# 55D5AD1C
[2021-08-18 16:18] LABS: Troponin-I High Sensitivity 3.6 ng/L (<3.5-17.0)
[2021-08-18 16:42] LABS: Alanine Aminotransferase 13 U/L (0-31); Albumin Level 3.8 g/dL (3.5-5.0); Alkaline Phosphatase 87 U/L (39-117); Anion Gap 13 (12-20); Aspartate Amino Transferase 14 U/L (5-31); Bilirubin Total 0.3 mg/dL (0.0-1.0); Blood Urea Nitrogen 23 mg/dL (9-16); Calcium 8.8 mg/dL (8.4-10.2); Carbon Dioxide 27 mmol/L (22-29); Chloride 107 mmol/L (96-108); Creatinine Clr Calc Pharmacy 31.6; Estimated Glomerular Filt Rate 42; Glucose Random 141 mg/dL (60-115); Potassium 4.8 mmol/L (3.3-5.1); Sodium 142 mmol/L (135-145); Total Protein 6.2 g/dL (6.5-8.0)
--- NOTE | 2021-08-18 17:12 | P.HPHOSP_ITS ---
History of Present Illness Date of Service: 08/18/21 Chief Complaint: syncope 81F With a past medical history of paroxysmal atrial fibrillation on amiodarone and Xarelto, hypertension on amlodipine and lisinopril presented with syncope. Patient was at a green party had been feeling well on morning of admission. At the green party she started to feel unwell, nauseous, dizzy. She sat down and was noticed to lose consciousness for several seconds and then was out of it for several minutes. Patient did not fall or have any injury. She did not lose control of urine, there was no convulsions. patient was wearing a watch with a heart rate monitor, heart rates did not go below 47 or above 94 all day. In ED patient now feeling better. Labs and vitals unremarkable. EKG was sinus bradycardia 55. Review of Systems Review of Systems: Constitutional: Denies fever, denies Chills Eyes: denies blurry vision ENT: denies sore throat CVS: denies chest pain Respiratory: Denies dyspnea GI: no abdominal pain : denies dysuria MSK: denies neck pain Skin: denies rash Neuro: denies specific motor weakness Psych: denies suicidal ideation Endocrine: denies heat/cold intolerance Hematologic: denies easy bleeding Allergy: denies hives [facility] Medical History (HFpEF) heart failure with preserved ejection fraction Basal cell carcinoma Epistaxis History of cardioversion HTN (hypertension) Hx of cholecystectomy Hypothyroidism Malignant neoplasm of acoustic nerve Paroxysmal atrial fibrillation Family History (Updated 08/18/21 @ 17:17 by Cali Oh MD) Other No family history of congenital heart disease Surgical History H/O: hysterectomy Social History Alcohol intake: never Patient Tobacco Use Status: Never used Tobacco Use of substances other than those prescribed or required for medical reasons: No Advance Directives: No Advance Directives Information Provided: No service: No Current occupational status: retired Meds Allergies Allergy/AdvReac Type Severity Reaction Status Date / Time No Known Allergies Allergy Verified 12/14/19 16:55 [No Known Allergies*] Active Medications: Current Medications Acetaminophen (Acetaminophen 325 Mg Tablet) 650 mg PO Q6H PRN PRN Reason: Pain, Mild (Pain Scale 1-3) Sodium Chloride (0.9 % Sodium Chloride Flush 3 Ml Syringe) 3 ml IVFLUSH QSHIFT [facility] Home Medications Medication Instructions Recorded Confirmed Last Taken Type estradiol 0.5 mg tablet 5 mg PO DAILY 12/14/19 08/18/21 Unknown History levothyroxine 100 mcg tablet 100 mcg PO DAILY 12/14/19 08/18/21 Unknown History lisinopril 20 mg tablet 20 mg PO BID 12/14/19 08/18/21 Unknown History rivaroxaban 20 mg tablet 20 mg PO DAILY 05/08/20 08/18/21 Unknown History ferrous sulfate 325 mg (65 mg 325 mg PO DAILY 11/06/20 08/18/21 Unknown History iron) tablet cyanocobalamin (vitamin B-12) 1 tab PO DAILY 08/18/21 08/18/21 Unknown History 1,000 mcg tablet folic acid 1 mg tablet 1 tab PO DAILY 08/18/21 08/18/21 Unknown History Physical Exam Vital Signs and Narrative: Vital Signs: Last Vital Signs Temp 97.7 F 08/18/21 15:07 Pulse 56 08/18/21 15:07 Resp 16 08/18/21 15:07 BP 152/55 H 08/18/21 15:07 Pulse Ox 93 08/18/21 15:20 O2 Del Method 08/18/21 15:20 Oxygen Flow Rate 2 08/18/21 15:07 BMI result Body Mass Index 31.4 General: no acute distress HEENT: post craniotomy changes Neck: normal to visual inspection CVS: S1, S2, RRR Resp: CTA bilateral Chest: non tender GI: soft, non tender, non distended : no CVA tenderness Skin: no rashes Extremities: no edema Neuro: Oriented X3, grossly intact Psych: cooperative Results Labs CBC and Chem 7: 08/18/21 15:52 08/18/21 15:52 Labs: Laboratory Results - last 24 hr 08/18/21 08/18/21 08/18/21 15:41 15:52 15:52 MCV 101.3 H MCH 32.7 MCHC 32.3 RDW 14.0 Plt Count 323 MPV 12.0 Immature Gran % (Auto) 0.9 H Neut % (Auto) 70.4 Lymph % (Auto) 17.7 L [place] % (Auto) 7.5 Eos % (Auto) 3.1 Baso % (Auto) 0.4 Lymph # (Auto) 1.5 [place] # (Auto) 0.6 Eos # (Auto) 0.3 Baso # (Auto) 0.0 Abs Immat Gran (auto) 0.08 H Absolute Neuts (auto) 6.0 Absolute Nucleated RBC 0.000 Nucleated RBC % (auto) 0.0 PT 29.7 H INR 2.5 H APTT 47.5 H Anion Gap Estim Creat Clear Calc Estimated GFR Random Glucose Calcium Total Bilirubin AST ALT Alkaline Phosphatase Troponin I High Sens Total Protein Albumin COVID-19 ([facility]) Negative COVID-19 Clin Com See Note 08/18/21 08/18/21 15:52 15:52 MCV MCH MCHC RDW Plt Count MPV Immature Gran % (Auto) Neut % (Auto) Lymph % (Auto) [place] % (Auto) Eos % (Auto) Baso % (Auto) Lymph # (Auto) [place] # (Auto) Eos # (Auto) Baso # (Auto) Abs Immat Gran (auto) Absolute Neuts (auto) Absolute Nucleated RBC Nucleated RBC % (auto) PT INR APTT Anion Gap 13 Estim Creat Clear Calc 31.6 Estimated GFR 42 Random Glucose 141 H Calcium 8.8 Total Bilirubin 0.3 AST 14 ALT 13 Alkaline Phosphatase 87 Troponin I High Sens 3.6 Total Protein 6.2 L Albumin 3.8 COVID-19 ([facility]) COVID-19 Clin Com Imaging Radiologist's Impressions: Impressions Chest X-Ray 08/18/21 16:05 IMPRESSION: Hypoexpanded lungs without acute process. Assessment and Plan (1) Syncope: Status: Acute Plan 81F presented with syncope Syncope most likely vasovagal, could be orthostatic hypotension given recent increase in lisinopril dose cardiac arrhythmia less likely given normal heart rates on smart watch monitor on telemetry check orthostatics paroxysmal atrial fibrillation amiodarone and Xarelto B12 deficiency cyanocobalamin oral hypothyroid Synthroid hypertension amlodipine and lisinopril chronic iron deficiency anemia p.o. iron DVT prophylaxis -on Xarelto full code Quality Stroke Does the patient have a stroke diagnosis?: No VTE Prior VTE?: No VTE Risk Level:: Medical - moderate - high VTE Device Contraindication: Treatment Not Indicated VTE Drug Contraindication: N/A - Med Ordered
[2021-08-18 17:31] VITALS: BP 156/58; PULSE 60
[2021-08-18 17:32] VITALS: BP 162/43; BP 177/56; PULSE 62; PULSE 69
--- NOTE | 2021-08-18 17:36 | PHA.MEDREC ---
Pharmacy Consult ? Medication Reconciliation Pharmacy has reviewed the medication reconciliation completed by Viki. Estradoil dose entered incorrectly. Patient is on estradiol 0.5 mg daily and not 5 mg daily. Patient is on ferrous gluconate at home instead of ferrous sulafate. Provider updated. Antoinette Marley, PharmD
[2021-08-18] MEDS: lisinopriL 20 MG TABLET PO (22:39)
[2021-08-18 22:40] VITALS: BP 173/63; PULSE 56; RESP 16; O2SAT 100
[2021-08-19] VITALS (9 sets, daily range): BP systolic 135–160; BP diastolic 40–82; PULSE 47–70; RESP 13–20; TEMP 36.2–37.2; O2SAT 95–98
--- NOTE | 2021-08-19 01:01 | PC.NURSE ---
Patient alert and oriented x 4. ambulates independently. Patient on tele: afib 44-70's when patients heart rate dropped to 44 patient started vomiting. zofran given with relief. Orthostatic bp's done negative. Patient denies any pain. Patient not on oxygen at home but oxygen saturtion 92-93% on room air applied 2 l via nasal cannula. Patient refused dinner because she was worried she wouldn't tolerate food and would vomit again. Will continue with plan of care.
[2021-08-19 06:30] LABS: Hematocrit 37.5 % (37.0-47.0); Hemoglobin 11.9 g/dl (12.0-16.0); Mean Corpuscular HGB Conc 31.7 g/dl (31.0-35.0); Mean Corpuscular Hemoglobin 32.4 pg (27.0-33.0); Mean Corpuscular Volume 102.2 fL (80.0-98.0); Mean Platelet Volume 12.3 fL (9.4-12.3); Platelet Count 320 X10*3/uL (160-400); Red Blood Count 3.67 X10*6/uL (4.20-5.50); Red Cell Distribution Width 14.1 % (11.0-16.0); White Blood Count 7.2 X10*3/uL (4.8-10.8)
[2021-08-19 06:46] LABS: Anion Gap 11 (12-20); Blood Urea Nitrogen 17 mg/dL (9-16); Calcium 8.5 mg/dL (8.4-10.2); Carbon Dioxide 25 mmol/L (22-29); Chloride 111 mmol/L (96-108); Creatinine Clr Calc Pharmacy 42.4; Estimated Glomerular Filt Rate 59; Glucose Fasting 84 mg/dL (60-99); Potassium 4.2 mmol/L (3.3-5.1); Sodium 143 mmol/L (135-145)
--- NOTE | 2021-08-19 09:45 | PC.NURSE ---
pt alert and oriented, vss at baseline. pt denies headache/dizziness. no complaints. 2 sons and 1 [id number] called for update, pt aware.
[2021-08-19] MEDS: Rivaroxaban 20 MG TABLET PO (10:54)
[2021-08-19] MEDS: lisinopriL 20 MG TABLET PO ×2 (10:54→21:23)
[2021-08-19] MEDS: Cyanocobalamin (Vitamin B-12) 1,000 MCG TABLET 1000 MCG PO (10:54)
[2021-08-19] MEDS: Ferrous Sulfate 324 MG TABLET.DR PO (10:54)
[2021-08-19] MEDS: Amiodarone HCL 200 MG TABLET PO (10:54)
[2021-08-19] MEDS: Folic Acid 1 MG TABLET PO (10:55)
[2021-08-19] MEDS: amLODIPine Besylate 5 MG TABLET PO (10:55)
[2021-08-19] MEDS: 0.9 % Sodium Chloride Flush 3 ML SYRINGE IVFLUSH ×3 (10:56→21:22)
--- NOTE | 2021-08-19 11:09 | PC.NURSE ---
med not loaded in ed pyxis. pharmacy aware and will bring to ed. awaiting med to arrive, will give when received.
--- NOTE | 2021-08-19 11:27 | PC.NURSE ---
report given to RIVKA Buchanan. pt will be transferred to [facility], pt aware of plan.
--- NOTE | 2021-08-19 12:13 | MHC.CM.PN ---
met with pt in ed pt is independent had no services prior to admisison and does not feel she will need services when dcd she will have own transport home
--- NOTE | 2021-08-19 12:18 | PC.NURSE ---
patient a&ox3. lungs clear, hr irregular, threat monitoring analyst applied afib on monitor, vss, pt ambulated with assist to bathroom-steady gait, call steel within reach, will continue to monitor.
--- NOTE | 2021-08-19 12:33 | PC.NURSE ---
patient a&ox2, vehicle monitor technician intact, nsr, pt has in/ex wheezing, vss, pure wick intact, ivf running per order, call steel within reach, will continue to monitor
--- NOTE | 2021-08-19 13:34 | P.PNIM_ITS ---
Subjective Subjective Date of Service: 08/19/21 Interval History: seen and examined in overflow no further syncope Review of Systems negative except HPI Physical Exam Vital Signs: Vital Signs: Last Vital Signs Temp 98.3 F 08/19/21 12:32 Pulse 70 08/19/21 12:32 Resp 16 08/19/21 12:32 BP 159/45 H 08/19/21 12:15 Pulse Ox 96 08/19/21 12:32 O2 Del Method 08/19/21 12:32 O2 Flow Rate 2 08/19/21 12:32 Oxygen Flow Rate 2 08/18/21 15:07 BMI result Body Mass Index 31.4 Const: Other: General - no acute distress, appears comfortable Cardiovascular - regular rate and rhythm, S1-S2 Lungs - normal respiratory effort, clear to auscultation bilaterally, no wheezing Abdomen - soft, nontender, no rebound or guarding Extremities - no edema bilaterally Neuro - awake and alert, no focal deficits Objective Data Active Medications Acetaminophen (Acetaminophen 325 Mg Tablet) 650 mg PO Q6H PRN PRN Reason: Pain, Mild (Pain Scale 1-3) Amiodarone HCl (Amiodarone Hcl 200 Mg Tablet) 200 mg PO DAILY [facility] Last Admin: 08/19/21 10:54 Dose: 200 mg Documented By: NIDIA Amlodipine Besylate (Amlodipine Besylate 5 Mg Tablet) 5 mg PO DAILY [facility]; Protocol Last Admin: 08/19/21 10:55 Dose: 5 mg Documented By: NIDIA Cyanocobalamin (Cyanocobalamin (Vitamin B-12) 1,000 Mcg Tablet) 1,000 mcg PO DAILY [facility] Last Admin: 08/19/21 10:54 Dose: 1,000 mcg Documented By: NIDIA Estradiol (Estradiol 0.5 Mg Tablet) 0.5 mg PO DAILY [facility] Last Admin: 08/19/21 11:08 Dose: Not Given Documented By: NIDIA Non-Admin Reason: See Note Ferrous Sulfate (Ferrous Sulfate 324 Mg Tablet.) 324 mg PO DAILY [facility] Last Admin: 08/19/21 10:54 Dose: 324 mg Documented By: NIDIA Folic Acid (Folic Acid 1 Mg Tablet) 1 mg PO DAILY [facility] Last Admin: 08/19/21 10:55 Dose: 1 mg Documented By: NIDIA Levothyroxine Sodium (Levothyroxine Sodium 100 Mcg Tablet) 100 mcg PO DAILY@0600 [facility] Last Admin: 08/19/21 10:56 Dose: Not Given Documented By: NIDIA Non-Admin Reason: See Note Lisinopril (Lisinopril 20 Mg Tablet) 20 mg PO BID [facility]; Protocol Last Admin: 08/19/21 10:54 Dose: 20 mg Documented By: NIDIA Rivaroxaban (Rivaroxaban 20 Mg Tablet) 20 mg PO DAILY [facility] Last Admin: 08/19/21 10:54 Dose: 20 mg Documented By: NIDIA Sodium Chloride (0.9 % Sodium Chloride Flush 3 Ml Syringe) 3 ml IVFLUSH QSHIFT [facility] Last Admin: 08/19/21 10:56 Dose: 3 ml Documented By: NIDIA Labs CBC & Chem 7: 08/19/21 05:50 08/19/21 05:50 Labs: Laboratory Results - last 24 hr 08/18/21 08/18/21 08/18/21 15:41 15:52 15:52 MCV 101.3 H MCH 32.7 MCHC 32.3 RDW 14.0 Plt Count 323 MPV 12.0 Immature Gran % (Auto) 0.9 H Neut % (Auto) 70.4 Lymph % (Auto) 17.7 L [place] % (Auto) 7.5 Eos % (Auto) 3.1 Baso % (Auto) 0.4 Lymph # (Auto) 1.5 [place] # (Auto) 0.6 Eos # (Auto) 0.3 Baso # (Auto) 0.0 Abs Immat Gran (auto) 0.08 H Absolute Neuts (auto) 6.0 Absolute Nucleated RBC 0.000 Nucleated RBC % (auto) 0.0 PT 29.7 H INR 2.5 H APTT 47.5 H Anion Gap Estim Creat Clear Calc Estimated GFR Random Glucose Fasting Glucose Calcium Total Bilirubin AST ALT Alkaline Phosphatase Troponin I High Sens Total Protein Albumin COVID-19 ([facility]) Negative COVID-19 Clin Com See Note 08/18/21 08/18/21 08/19/21 15:52 15:52 05:50 MCV 102.2 H MCH 32.4 MCHC 31.7 RDW 14.1 Plt Count 320 MPV 12.3 Immature Gran % (Auto) Neut % (Auto) Lymph % (Auto) [place] % (Auto) Eos % (Auto) Baso % (Auto) Lymph # (Auto) [place] # (Auto) Eos # (Auto) Baso # (Auto) Abs Immat Gran (auto) Absolute Neuts (auto) Absolute Nucleated RBC 0.000 Nucleated RBC % (auto) 0.0 PT INR APTT Anion Gap 13 Estim Creat Clear Calc 31.6 Estimated GFR 42 Random Glucose 141 H Fasting Glucose Calcium 8.8 Total Bilirubin 0.3 AST 14 ALT 13 Alkaline Phosphatase 87 Troponin I High Sens 3.6 Total Protein 6.2 L Albumin 3.8 COVID-19 ([facility]) COVID-19 Clin Com 08/19/21 05:50 MCV MCH MCHC RDW Plt Count MPV Immature Gran % (Auto) Neut % (Auto) Lymph % (Auto) [place] % (Auto) Eos % (Auto) Baso % (Auto) Lymph # (Auto) [place] # (Auto) Eos # (Auto) Baso # (Auto) Abs Immat Gran (auto) Absolute Neuts (auto) Absolute Nucleated RBC Nucleated RBC % (auto) PT INR APTT Anion Gap 11 L Estim Creat Clear Calc 42.4 Estimated GFR 59 Random Glucose Fasting Glucose 84 Calcium 8.5 Total Bilirubin AST ALT Alkaline Phosphatase Troponin I High Sens Total Protein Albumin COVID-19 ([facility]) COVID-19 Clin Com Assessment and Plan (1) Syncope: Status: Acute Plan 81F presented with syncope 1. Syncope ortho negative Full tele-monitoring unavailable; will monitor x 24 hours will get cardiology involved as no definite cause of her syncope is evident 2. 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 B12 def Cyanocobalamin orally 4. Hypothyroid Synthroid 5. Hypertension Norvasc and lisinopril 6. Chronic iron deficiency anemia Iron DVT prophylaxis, Xarelto Full code Patient requires continued hospitalization for telemonitoring x 24 hours and needs cardiology evaluation Quality Stroke Does the patient have a stroke diagnosis?: No VTE Prior VTE?: No VTE Risk Level:: Medical - moderate - high VTE Device Contraindication: Treatment Not Indicated VTE Drug Contraindication: N/A - Med Ordered
--- NOTE | 2021-08-19 16:21 | PC.NURSE ---
report called to floor
[2021-08-20] VITALS (12 sets, daily range): BP systolic 132–186; BP diastolic 49–87; PULSE 42–68; RESP 16–20; TEMP 36.2–37; O2SAT 93–96; BMI 33.8
[2021-08-20] MEDS: Levothyroxine Sodium 100 MCG TABLET PO (05:22)
--- NOTE | 2021-08-20 05:34 | PM.EVENT ---
Event Note Date of Service: 08/20/21 Event Note: bradycardia with HR is the 30s while asleep. Asymptomatic reviewed meds, no BB
--- NOTE | 2021-08-20 06:42 | PC.NURSE ---
Patient's HR in the 30-40s most of the night, more in the 30s since around 0300. Pt is asymptomatic.
--- NOTE | 2021-08-20 09:59 | PM.CNCAR ---
History of Present Illness History of Present Illness Date of Service: 08/20/21 Requesting physician: Bill Buchanan Chief complaint: syncope Narrative: I was consulted to see Jessica in cardiology consultation today for syncope. She is a pleasant 81-year-old female, long-term patient of mine we prior history of atrial fibrillation which has remained suppressed on amiodarone for many years and has done very well with resolution for heart failure syndrome and normalization of LVEF. Heart failure syndrome has remained stable overall since maintenance of rhythm. She came to the hospital Thursday afternoon after she had lost consciousness. She says she was in usual state of health and she was sitting at a get together on a ledge and then started not feeling well and the next thing she knows that she had lost consciousness. She was helped by her family member was sitting next to who prevented her from getting any injuries. She then came about an ambulance was called and she was brought to the emergency room. The observers that noted that she was very pale and had lost consciousness. There was no seizure-like activity no bowel bladder incontinence. Since being admitted to the telemetry she has been monitored on the full disclosure cardiac diameter is notice significant bradycardia with heart rate going to the 35 range. She denies any other cardiac symptoms. No recent nausea vomiting diarrhea or bleeding. No other systemic illnesses. Review of Systems Constitutional: Constitutional: Reports no additional constitutional complaints Eyes: Eyes: Reports no additional eye complaints Cardiovascular: Cardiovascular: Denies chest pain, Denies leg edema, Reports lightheadedness, Reports Loss of Consciousness, Denies palpitations and Denies dyspnea Respiratory: Respiratory: Reports no additional respiratory complaints and Denies dyspnea Gastrointestinal: Gastrointestinal: Reports no additional gastrointestinal complaints Genitourinary: Genitourinary: Reports no additional female genitourinary complaints Musculoskeletal: Musculoskeletal: Reports no additional musculoskeletal complaints Integumentary/Breasts: Skin/Breast: Reports system reviewed and no additional complaints, except as docu Neurologic: Reports system reviewed and no additional complaints, except as documented Psychiatric: Psychiatric: Reports no additional psychiatric complaints Endocrine: Endocrine: Reports no additional endocrine complaints and Denies palpitations Hematologic/Lymphatic: Hematologic/Lymphatic: Reports no additional hematologic/lymphatic complaints Allergic/Immunologic: Allergic/Immunologic: Reports no additional allergic/immunologic complaints PMFSH Past Medical History Medical History (HFpEF) heart failure with preserved ejection fraction Basal cell carcinoma Epistaxis History of cardioversion HTN (hypertension) Hx of cholecystectomy Hypothyroidism Malignant neoplasm of acoustic nerve Paroxysmal atrial fibrillation Family History Family History Other No family history of congenital heart disease Surgical History Surgical History H/O: hysterectomy Social History Social History Household Members: None Housing: House Do you presently have visiting nurse or other home services: No Alcohol intake: never Patient Tobacco Use Status: Never used Tobacco Use of substances other than those prescribed or required for medical reasons: No Currently Displaying Signs/Symptoms of Drug Intoxication Withdrawal: No Have you been hit, kicked, punched, or otherwise hurt by someone within the past year? If so, by whom?: No Do you feel safe in your current relationship?: Yes Is there a partner from a previous relationship who is making you feel unsafe now?: No Are you made to feel afraid or neglected: No Advance Directives: No Advance Directives Information Provided: No Advance Directives on File: No Do you have thoughts of harming others: None Do you have a plan to hurt others: No Plan Recently lost weight without trying: No How much weight loss: Not applicable Eating poorly because of decreased appetite: No Nutrition screen score: 0 Patient : No : No Poor oral hygiene: No service: No Current occupational status: retired [employer] Allergies Allergy/AdvReac Type Severity Reaction Status Date / Time No Known Allergies Allergy Verified 12/14/19 16:55 [No Known Allergies*] Active Medications: Current Medications Acetaminophen (Acetaminophen 325 Mg Tablet) 650 mg PO Q6H PRN PRN Reason: Pain, Mild (Pain Scale 1-3) Amiodarone HCl (Amiodarone Hcl 200 Mg Tablet) 200 mg PO DAILY [facility] Last Admin: 08/19/21 10:54 Dose: 200 mg Amlodipine Besylate (Amlodipine Besylate 5 Mg Tablet) 5 mg PO DAILY [facility]; Protocol Last Admin: 08/19/21 10:55 Dose: 5 mg Cyanocobalamin (Cyanocobalamin (Vitamin B-12) 1,000 Mcg Tablet) 1,000 mcg PO DAILY [facility] Last Admin: 08/19/21 10:54 Dose: 1,000 mcg Estradiol (Estradiol 0.5 Mg Tablet) 0.5 mg PO DAILY [facility] Last Admin: 08/19/21 11:08 Dose: Not Given Ferrous Sulfate (Ferrous Sulfate 324 Mg Tablet.) 324 mg PO DAILY [facility] Last Admin: 08/19/21 10:54 Dose: 324 mg Folic Acid (Folic Acid 1 Mg Tablet) 1 mg PO DAILY [facility] Last Admin: 08/19/21 10:55 Dose: 1 mg Levothyroxine Sodium (Levothyroxine Sodium 100 Mcg Tablet) 100 mcg PO DAILY@0600 [facility] Last Admin: 08/20/21 05:22 Dose: 100 mcg Lisinopril (Lisinopril 20 Mg Tablet) 20 mg PO BID [facility]; Protocol Last Admin: 08/19/21 21:23 Dose: 20 mg Rivaroxaban (Rivaroxaban 20 Mg Tablet) 20 mg PO DAILY [facility] Last Admin: 08/20/21 09:35 Dose: Not Given Sodium Chloride (0.9 % Sodium Chloride Flush 3 Ml Syringe) 3 ml IVFLUSH [facility] Last Admin: 08/19/21 21:22 Dose: 3 ml Home Medications Medication Instructions Recorded Confirmed Last Taken Type estradiol 0.5 mg tablet 0.5 mg PO DAILY 12/14/19 08/18/21 Unknown History levothyroxine 100 mcg tablet 100 mcg PO DAILY 12/14/19 08/18/21 Unknown History lisinopril 20 mg tablet 20 mg PO BID 12/14/19 08/18/21 Unknown History rivaroxaban 20 mg tablet 20 mg PO DAILY 05/08/20 08/18/21 Unknown History calcium 600 mg capsule 600 mg PO DAILY 08/18/21 08/18/21 Unknown History cyanocobalamin (vitamin B-12) 1 tab PO DAILY 08/18/21 08/18/21 Unknown History 1,000 mcg tablet ferrous gluconate 324 mg (38 mg 1 tab PO DAILY 08/18/21 08/18/21 Unknown History iron) tablet folic acid 1 mg tablet 1 tab PO DAILY 08/18/21 08/18/21 Unknown History Physical Exam Vital Signs: Vital Signs: Last Vital Signs Temp 97.6 F 08/20/21 08:09 Pulse 55 08/20/21 08:09 Resp 16 08/20/21 08:09 BP 141/60 H 08/20/21 08:09 Pulse Ox 96 08/20/21 08:09 O2 Del Method 08/20/21 08:09 O2 Flow Rate 2 08/19/21 20:00 Oxygen Flow Rate 2 08/18/21 15:07 BMI result Body Mass Index 33.8 Const: General: cooperative, comfortable, no acute distress, alert and awake Nutritional Appearance: overweight Orientation/consciousness: patient oriented x3 Limitations: no limitations HEENT: Head: Yes normocephalic and Yes atraumatic Neck: Neck: Yes trachea midline, Yes supple and Yes no JVD Resp: Effort & Inspection: normal respiratory effort Auscultation: clear to auscultation bilaterally Cardio: Jugular venous distension: no JVD Palpation: normal PMI Rate: bradycardic Rhythm: regular rhythm Heart sounds: S1 normal heart sound present, S2 normal heart sound present, no click, no gallops, no murmurs and no rubs GI: Auscultation: normal bowel sounds Skin: General skin exam: no rashes or lesions noted and ecchymosis Neuro: General: patient oriented x3 and no focal motor deficits Extrem: General: Yes no clubbing, cyanosis or edema Objective Labs and Meds Result diagrams: 08/19/21 05:50 08/19/21 05:50 Assessment and Plan (1) Syncope: Status: Acute Syncope in this elderly woman with evidence of significant bradycardia at nighttime with prior history of bradycardia and current on amiodarone therapy which is a required therapy for her. High likelihood of bradyarrhythmia causing syncope although there were no significant pauses noted on monitoring. Discussed with her as well as her son Emery about possible etiology being Daryl arrhythmias a cause of her syncope which is highly likely in her case. We discussed the need for pacemaker both to prevent bradycardia related syncope as well as continuation of therapy with amiodarone which has helped her significantly in the past. We discussed the risks, benefits, alternatives to the procedure. She was initially hesitant but subsequently after discussing with her son's she has agreed for pacemaker placement. Will consult thoracic surgery for the same. Please hold her Xarelto today and tomorrow. Continue amiodarone therapy for now. Keep her NPO past midnight (2) Paroxysmal atrial fibrillation: Status: Acute atrial fibrillation which has remained suppressed on amiodarone therapy for [employer] and has avoided hospitalization and has had resolution of her heart failure syndrome. She required amiodarone to continue to improve the quality of life and avoid hospitalization in the future. She understands this. For this she will require bradycardia support with pacemaker. She understands that. In the long run continue Xarelto 20 mg once cleared by surgery. (3) (HFpEF) heart failure with preserved ejection fraction: Status: Acute Prior history of heart failure preserved ejection fraction, clinically euvolemic and well compensated. Currently not on any loop diuretics. Has done well with rhythm control approach will continue the same. Continue aggressive blood pressure control and continue current therapy for the same. Will continue to follow with you. Thank you for allowing me to partake in the care Procedures Date of Service Date of Service: 08/20/21
[2021-08-20] MEDS: estradioL 0.5 MG TABLET PO (10:24)
[2021-08-20] MEDS: lisinopriL 20 MG TABLET PO ×2 (10:24→20:19)
[2021-08-20] MEDS: amLODIPine Besylate 5 MG TABLET PO (10:24)
[2021-08-20] MEDS: Ferrous Sulfate 324 MG TABLET.DR PO (10:25)
[2021-08-20] MEDS: Amiodarone HCL 200 MG TABLET PO (10:25)
[2021-08-20] MEDS: Folic Acid 1 MG TABLET PO (10:25)
[2021-08-20] MEDS: Cyanocobalamin (Vitamin B-12) 1,000 MCG TABLET 1000 MCG PO (10:25)
[2021-08-20] MEDS: 0.9 % Sodium Chloride Flush 3 ML SYRINGE IVFLUSH ×3 (10:27→20:19)
--- NOTE | 2021-08-20 13:43 | HO.PM.IMPN ---
Subjective Subjective Date of Service: 08/20/21 Interval History: seen and examined this AM no new complaints no cp or palp, no syncope Review of Systems negative except HPI Physical Exam Vital Signs: Vital Signs: Last Vital Signs Temp 97.8 F 08/20/21 12:00 Pulse 46 L 08/20/21 12:00 Resp 18 08/20/21 12:00 BP 135/58 L 08/20/21 12:00 Pulse Ox 96 08/20/21 12:00 O2 Del Method 08/20/21 12:00 O2 Flow Rate 2 08/19/21 20:00 Oxygen Flow Rate 2 08/18/21 15:07 BMI result Body Mass Index 33.8 Const: Other: General - no acute distress, appears comfortable Cardiovascular - lisa on the monitor Lungs - normal respiratory effort, clear to auscultation bilaterally, no wheezing Abdomen - soft, nontender, no rebound or guarding Extremities - no edema bilaterally Neuro - awake and alert, no focal deficits Objective Data Active Medications Acetaminophen (Acetaminophen 325 Mg Tablet) 650 mg PO Q6H PRN PRN Reason: Pain, Mild (Pain Scale 1-3) Amiodarone HCl (Amiodarone Hcl 200 Mg Tablet) 200 mg PO DAILY [facility] Last Admin: 08/20/21 10:25 Dose: 200 mg Documented By: LATRICE Amlodipine Besylate (Amlodipine Besylate 5 Mg Tablet) 5 mg PO DAILY [facility] BY [facility]; Protocol Last Admin: 08/20/21 10:24 Dose: 5 mg Documented By: LATRICE Cyanocobalamin (Cyanocobalamin (Vitamin B-12) 1,000 Mcg Tablet) 1,000 mcg PO DAILY [facility] Last Admin: 08/20/21 10:25 Dose: 1,000 mcg Documented By: LATRICE Estradiol (Estradiol 0.5 Mg Tablet) 0.5 mg PO DAILY [facility]PL[facility] Last Admin: 08/20/21 10:24 Dose: 0.5 mg Documented By: LATRICE Ferrous Sulfate (Ferrous Sulfate 324 Mg Tablet.) 324 mg PO DAILY [facility]PL[facility] Last Admin: 08/20/21 10:25 Dose: 324 mg Documented By: LATRICE Folic Acid (Folic Acid 1 Mg Tablet) 1 mg PO DAILY [facility]PL[facility] Last Admin: 08/20/21 10:25 Dose: 1 mg Documented By: LATRICE Levothyroxine Sodium (Levothyroxine Sodium 100 Mcg Tablet) 100 mcg PO DAILY@0600 [facility] Last Admin: 08/20/21 05:22 Dose: 100 mcg Documented By: KAILEY Lisinopril (Lisinopril 20 Mg Tablet) 20 mg PO BID [facility]PL[facility]ED BY [facility]; Protocol Last Admin: 08/20/21 10:24 Dose: 20 mg Documented By: LATRICE Rivaroxaban (Rivaroxaban 20 Mg Tablet) 20 mg PO DAILY [facility]PL[facility] BY [facility] Last Admin: 08/20/21 09:35 Dose: Not Given Documented By: LATRICE Non-Admin Reason: held per Dr Ratliff verbal order Sodium Chloride (0.9 % Sodium Chloride Flush 3 Ml Syringe) 3 ml IVFLUSH QSHIFT REPLACED BY [facility] Last Admin: 08/20/21 10:27 Dose: 3 ml Documented By: LATRICE Labs CBC & Chem 7: 08/19/21 05:50 08/19/21 05:50 Assessment and Plan (1) Syncope: Status: Acute Plan 81F presented with syncope 1. Syncope lisa on the monitor -- cardiology feels syncope lisa induced. SHe in on amio which she needs to maintain sinus and hence she would benefit from pacer xarelto on hold today/tomorrow NPO after midnight plan for pacer tomorrow 2. 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 B12 def Cyanocobalamin orally 4. Hypothyroid Synthroid 5. Hypertension Norvasc and lisinopril 6. Chronic iron deficiency anemia Iron DVT prophylaxis, Xarelto Full code Patient requires continued hospitalization secondary to syncope/bradycardia requiring pacemaker. Additionally -- now given the requirement of pacemaker placement, I anticipate she will require 2 additional midnights in the hospital for traetment and monitoring post PPM placement. Quality Stroke Does the patient have a stroke diagnosis?: No VTE Prior VTE?: No VTE Risk Level:: Medical - moderate - high VTE Device Contraindication: Treatment Not Indicated VTE Drug Contraindication: N/A - Med Ordered
[2021-08-21] VITALS (13 sets, daily range): BP systolic 144–196; BP diastolic 46–78; PULSE 52–69; RESP 16–20; TEMP 35.9–37.1; O2SAT 91–98
[2021-08-21 08:49] LABS: Prothrombin Time 11.2 SEC (10.0-13.1)
[2021-08-21] MEDS: Amiodarone HCL 200 MG TABLET PO (10:14)
[2021-08-21] MEDS: amLODIPine Besylate 5 MG TABLET PO (10:15)
[2021-08-21] MEDS: Ferrous Sulfate 324 MG TABLET.DR PO (10:15)
[2021-08-21] MEDS: 0.9 % Sodium Chloride Flush 3 ML SYRINGE IVFLUSH ×3 (10:15→21:37)
[2021-08-21] MEDS: lisinopriL 20 MG TABLET PO ×2 (10:15→21:24)
[2021-08-21] MEDS: estradioL 0.5 MG TABLET PO (10:15)
[2021-08-21] MEDS: Cyanocobalamin (Vitamin B-12) 1,000 MCG TABLET 1000 MCG PO (10:15)
[2021-08-21] MEDS: Folic Acid 1 MG TABLET PO (10:15)
--- NOTE | 2021-08-21 10:55 | HO.PM.IMPN ---
Subjective Subjective Date of Service: 08/21/21 Interval History: seen and examined this AM no cp or palp, no syncope awaits PPM placement Review of Systems negative except HPI Physical Exam Vital Signs: Vital Signs: Last Vital Signs Temp 96.9 F 08/21/21 07:28 Pulse 54 08/21/21 07:28 Resp 20 08/21/21 07:28 BP 153/54 H 08/21/21 07:28 Pulse Ox 95 08/21/21 07:28 O2 Del Method 08/21/21 07:28 O2 Flow Rate 2 08/19/21 20:00 Oxygen Flow Rate 2 08/18/21 15:07 BMI result Body Mass Index 33.8 Const: Other: General - no acute distress, appears comfortable Cardiovascular - lisa on the monitor Lungs - normal respiratory effort, clear to auscultation bilaterally, no wheezing Abdomen - soft, nontender, no rebound or guarding Extremities - no edema bilaterally Neuro - awake and alert, no focal deficits Objective Data Active Medications Acetaminophen (Acetaminophen 325 Mg Tablet) 650 mg PO Q6H PRN PRN Reason: Pain, Mild (Pain Scale 1-3) Amiodarone HCl (Amiodarone Hcl 200 Mg Tablet) 200 mg PO DAILY [facility] Last Admin: 08/21/21 10:14 Dose: 200 mg Documented By: AHMET Amlodipine Besylate (Amlodipine Besylate 5 Mg Tablet) 5 mg PO DAILY [facility]; Protocol Last Admin: 08/21/21 10:15 Dose: 5 mg Documented By: AHMET Cyanocobalamin (Cyanocobalamin (Vitamin B-12) 1,000 Mcg Tablet) 1,000 mcg PO DAILY [facility] Last Admin: 08/21/21 10:15 Dose: 1,000 mcg Documented By: AHMET Estradiol (Estradiol 0.5 Mg Tablet) 0.5 mg PO DAILY [facility] Last Admin: 08/21/21 10:15 Dose: 0.5 mg Documented By: AHMET Ferrous Sulfate (Ferrous Sulfate 324 Mg Tablet.) 324 mg PO DAILY [facility] Last Admin: 08/21/21 10:15 Dose: 324 mg Documented By: AHMET Folic Acid (Folic Acid 1 Mg Tablet) 1 mg PO DAILY [facility] Last Admin: 08/21/21 10:15 Dose: 1 mg Documented By: AHMET Levothyroxine Sodium (Levothyroxine Sodium 100 Mcg Tablet) 100 mcg PO DAILY@0600 [facility] Last Admin: 08/21/21 05:22 Dose: Not Given Documented By: KAILEY Non-Admin Reason: NPO Lisinopril (Lisinopril 20 Mg Tablet) 20 mg PO BID [facility]; Protocol Last Admin: 08/21/21 10:15 Dose: 20 mg Documented By: AHMET Rivaroxaban (Rivaroxaban 20 Mg Tablet) 20 mg PO DAILY [facility] Last Admin: 08/20/21 09:35 Dose: Not Given Documented By: LATRICE Non-Admin Reason: held per Dr Ratliff verbal order Sodium Chloride (0.9 % Sodium Chloride Flush 3 Ml Syringe) 3 ml IVFLUSH QSHIFT [facility] Last Admin: 08/21/21 10:15 Dose: 3 ml Documented By: AHMET Labs CBC & Chem 7: 08/19/21 05:50 08/19/21 05:50 Labs: Laboratory Results - last 24 hr 08/21/21 08:25 PT 11.2 INR 1.0 Assessment and Plan (1) Syncope: Status: Acute Plan 81F presented with syncope 1. Syncope lisa on the monitor -- cardiology feels syncope lisa induced. SHe in on amio which she needs to maintain sinus and hence she would benefit from pacer xarelto on hold pacer today 2. 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 B12 def Cyanocobalamin orally 4. Hypothyroid Synthroid 5. Hypertension Norvasc and lisinopril 6. Chronic iron deficiency anemia Iron DVT prophylaxis, Xarelto Full code Requires continued hospitalization for pacemaker placement so symptomatic bradycardia cuasing syncope. Anitipciate d/c tomorrow Quality Stroke Does the patient have a stroke diagnosis?: No VTE Prior VTE?: No VTE Risk Level:: Medical - moderate - high VTE Device Contraindication: Treatment Not Indicated VTE Drug Contraindication: N/A - Med Ordered
--- NOTE | 2021-08-21 11:44 | MHC.CM.PN ---
Per ROUNDS discussion, Patient is not yet medically cleared for dc (getting a Pacemaker); home is the goal and CM will continue to follow.
--- NOTE | 2021-08-21 12:44 | P.PNCA_ITS ---
Subjective Subjective Date of Service: 08/21/21 Principal diagnosis: Syncope, paroxysmal atrial fibrillation Interval history: Overnight no significant pauses. Patient has no symptoms. Overnight still had marked sinus bradycardia with heart rate in upper 30s and 40s. Denies any palpitations, lightheadedness, syncope. Review of Systems Review of Systems Yes all other systems are reviewed and are negative Physical Exam Vital Signs: Last Vital Signs Temp 97 F 08/21/21 12:00 Pulse 52 08/21/21 12:00 Resp 18 08/21/21 12:00 BP 155/59 H 08/21/21 12:00 Pulse Ox 95 08/21/21 12:00 O2 Del Method 08/21/21 12:00 O2 Flow Rate 2 08/19/21 20:00 Oxygen Flow Rate 2 08/18/21 15:07 BMI result Body Mass Index 33.8 Const General: cooperative, comfortable, no acute distress, alert and awake Nutritional Appearance: overweight Orientation/consciousness: patient oriented x3 Limitations: no limitations Neck Neck: Yes trachea midline, Yes supple and Yes no JVD Resp Effort & Inspection: normal respiratory effort Auscultation: clear to auscultation bilaterally Cardio Jugular venous distension: no JVD Palpation: normal PMI Rate: bradycardic Rhythm: regular rhythm Heart sounds: S1 normal heart sound present, S2 normal heart sound present, no click, no gallops, no murmurs and no rubs GI Auscultation: normal bowel sounds Skin General skin exam: no rashes or lesions noted and ecchymosis Neuro General: patient oriented x3 and no focal motor deficits Extrem General: Yes no clubbing, cyanosis or edema Objective Labs and Meds Result diagrams: 08/19/21 05:50 08/19/21 05:50 Lab results: Laboratory Results - last 24 hr 08/21/21 08:25 PT 11.2 INR 1.0 Progress Note: A&P Assessment and plan (1) Syncope: Status: Acute Assessment and Plan: Syncope with high suspicion for bradycardia especially with persistent signific ant bradycardia at nighttime requiring medical therapy to control her atrial fibrillation. Awaiting for pacemaker placement today. Dual-chamber pacemaker with rate response therapy will be implanted today. Possible discharge tomorrow. We discussed again risks and benefits. She understands and a greeable. (2) Paroxysmal atrial fibrillation: Status: Acute Assessment and Plan: Paroxysmal atrial fibrillation has done very well with rhythm control approach and on amiodarone therapy. Not having bradycardia. Requires pacemaker therapy as above. Continue amiodarone therapy. Resume oral anticoagulation therapy as soon as possible after surgical clearance and okay. (3) (HFpEF) heart failure with preserved ejection fraction: Status: Acute Assessment and Plan: Heart failure preserved ejection fraction, clinically euvolemic and well compensated has done well with rhythm control approach will continue to pursue rhythm control approach. No need for additional diuretic therapy at this point time. Continue aggressive blood pressure control. Will follow with you Time Spent With Patient Time: Total time spent is greater than 50% in coordination of care (as documented) at patient's floor/unit and/or counseling patient: Progress Note: Quality Stroke Does the patient have a stroke diagnosis?: No Procedures Date of Service Date of Service: 08/21/21
--- NOTE | 2021-08-21 13:30 | P.CONAN_ITS ---
HPI - Anesthesia Eval Consult details Narrative: 81 F for pacemaker placement Syncope , bradycardia , Heart failure with preserved EF Had laser therapy for nerve tumor , complicated by left eye abnormality and some facial asymmetry No difficulty swallowing , no drooling , no changes in taste sensation . PENDING SALE TO [facility] Active Problems Active Problems: All Active Problems (Updated 08/18/21 @ 15:27 by Gregg Ramirez MD) Syncope (Acute) Anemia (Acute) HTN (hypertension) (Acute) (HFpEF) heart failure with preserved ejection fraction (Acute) Paroxysmal atrial fibrillation (Acute) Past Medical History Medical History (HFpEF) heart failure with preserved ejection fraction Basal cell carcinoma Epistaxis Eye abnormalities History of cardioversion HTN (hypertension) Hx of cholecystectomy Hypothyroidism Malignant neoplasm of acoustic nerve Paroxysmal atrial fibrillation Skull asymmetry Family History Family History Other No family history of congenital heart disease Family history of problems with anesthesia: No Surgical History Surgical History H/O: hysterectomy History of Problems with Anesthesia: Yes (Delayed emergence ) Social History Social History Household Members: None Housing: House Do you presently have visiting nurse or other home services: No Alcohol intake: never Patient Tobacco Use Status: Never used Tobacco Use of substances other than those prescribed or required for medical reasons: No Currently Displaying Signs/Symptoms of Drug Intoxication Withdrawal: No Have you been hit, kicked, punched, or otherwise hurt by someone within the past year? If so, by whom?: No Do you feel safe in your current relationship?: Yes Is there a partner from a previous relationship who is making you feel unsafe now?: No Are you made to feel afraid or neglected: No Are you DNR?: No Advance Directives: No Advance Directives Information Provided: No Advance Directives on File: No Do you have thoughts of harming others: None Do you have a plan to hurt others: No Plan Recently lost weight without trying: No How much weight loss: Not applicable Eating poorly because of decreased appetite: No Nutrition screen score: 0 Nutrition Risks: No Nutritional Risk Patient : No : No Poor oral hygiene: No service: No Current occupational status: retired [employer] Allergies Allergy/AdvReac Type Severity Reaction Status Date / Time No Known Allergies Allergy Verified 12/14/19 16:55 [No Known Allergies*] Active Medications: Current Medications Acetaminophen (Acetaminophen 325 Mg Tablet) 650 mg PO Q6H PRN PRN Reason: Pain, Mild (Pain Scale 1-3) Amiodarone HCl (Amiodarone Hcl 200 Mg Tablet) 200 mg PO DAILY [facility] Last Admin: 08/21/21 10:14 Dose: 200 mg Amlodipine Besylate (Amlodipine Besylate 5 Mg Tablet) 5 mg PO DAILY [facility]; Protocol Last Admin: 08/21/21 10:15 Dose: 5 mg Cyanocobalamin (Cyanocobalamin (Vitamin B-12) 1,000 Mcg Tablet) 1,000 mcg PO DAILY [facility] Last Admin: 08/21/21 10:15 Dose: 1,000 mcg Estradiol (Estradiol 0.5 Mg Tablet) 0.5 mg PO DAILY [facility] Last Admin: 08/21/21 10:15 Dose: 0.5 mg Ferrous Sulfate (Ferrous Sulfate 324 Mg Tablet.Dr) 324 mg PO DAILY [facility] Last Admin: 08/21/21 10:15 Dose: 324 mg Folic Acid (Folic Acid 1 Mg Tablet) 1 mg PO DAILY [facility] Last Admin: 08/21/21 10:15 Dose: 1 mg Levothyroxine Sodium (Levothyroxine Sodium 100 Mcg Tablet) 100 mcg PO DAILY@0600 [facility] Last Admin: 08/21/21 05:22 Dose: Not Given Lisinopril (Lisinopril 20 Mg Tablet) 20 mg PO BID [facility]; Protocol Last Admin: 08/21/21 10:15 Dose: 20 mg Rivaroxaban (Rivaroxaban 20 Mg Tablet) 20 mg PO DAILY [facility] Last Admin: 08/20/21 09:35 Dose: Not Given Sodium Chloride (0.9 % Sodium Chloride Flush 3 Ml Syringe) 3 ml IVFLUSH [facility] Last Admin: 08/21/21 10:15 Dose: 3 ml Home Medications Medication Instructions Recorded Confirmed Last Taken Type estradiol 0.5 mg tablet 0.5 mg PO DAILY 12/14/19 08/18/21 Unknown History levothyroxine 100 mcg tablet 100 mcg PO DAILY 12/14/19 08/18/21 Unknown History lisinopril 20 mg tablet 20 mg PO BID 12/14/19 08/18/21 Unknown History rivaroxaban 20 mg tablet 20 mg PO DAILY 05/08/20 08/18/21 Unknown History calcium 600 mg capsule 600 mg PO DAILY 08/18/21 08/18/21 Unknown History cyanocobalamin (vitamin B-12) 1 tab PO DAILY 08/18/21 08/18/21 Unknown History 1,000 mcg tablet ferrous gluconate 324 mg (38 mg 1 tab PO DAILY 08/18/21 08/18/21 Unknown History iron) tablet folic acid 1 mg tablet 1 tab PO DAILY 08/18/21 08/18/21 Unknown History Exam Exam Date and Time: August 21, 2021 1330 Height,Weight and Vital Signs: Height 5 ft Weight 78.6 kg Last Vital Signs Temp 97.7 F 08/21/21 13:22 Pulse 60 08/21/21 13:22 Resp 16 08/21/21 13:22 BP 172/55 H 08/21/21 13:22 Pulse Ox 97 08/21/21 13:22 O2 Del Method 08/21/21 13:22 O2 Flow Rate 2 08/19/21 20:00 Oxygen Flow Rate 2 08/18/21 15:07 Pertinent Lab Results Pertinent Lab Results: Laboratory Tests 08/18/21 08/18/21 08/18/21 15:41 15:52 15:52 WBC 8.5 RBC 3.79 L Hgb 12.4 Hct 38.4 MCV 101.3 H MCH 32.7 MCHC 32.3 RDW 14.0 Plt Count 323 MPV 12.0 Immature Gran % (Auto) 0.9 H Neut % (Auto) 70.4 Lymph % (Auto) 17.7 L [place] % (Auto) 7.5 Eos % (Auto) 3.1 Baso % (Auto) 0.4 Lymph # (Auto) 1.5 [place] # (Auto) 0.6 Eos # (Auto) 0.3 Baso # (Auto) 0.0 Abs Immat Gran (auto) 0.08 H Absolute Neuts (auto) 6.0 Absolute Nucleated RBC 0.000 Nucleated RBC % (auto) 0.0 PT 29.7 H INR 2.5 H APTT 47.5 H Sodium Potassium Chloride Carbon Dioxide Anion Gap BUN Creatinine Estim Creat Clear Calc Estimated GFR Random Glucose Fasting Glucose Calcium Total Bilirubin AST ALT Alkaline Phosphatase Troponin I High Sens Total Protein Albumin COVID-19 ([facility]) Negative COVID-19 Clin Com See Note 08/18/21 08/18/21 08/19/21 15:52 15:52 05:50 WBC 7.2 RBC 3.67 L Hgb 11.9 L Hct 37.5 MCV 102.2 H MCH 32.4 MCHC 31.7 RDW 14.1 Plt Count 320 MPV 12.3 Immature Gran % (Auto) Neut % (Auto) Lymph % (Auto) [place] % (Auto) Eos % (Auto) Baso % (Auto) Lymph # (Auto) [place] # (Auto) Eos # (Auto) Baso # (Auto) Abs Immat Gran (auto) Absolute Neuts (auto) Absolute Nucleated RBC 0.000 Nucleated RBC % (auto) 0.0 PT INR APTT Sodium 142 Potassium 4.8 Chloride 107 Carbon Dioxide 27 Anion Gap 13 BUN 23 H Creatinine 1.22 Estim Creat Clear Calc 31.6 Estimated GFR 42 Random Glucose 141 H Fasting Glucose Calcium 8.8 Total Bilirubin 0.3 AST 14 ALT 13 Alkaline Phosphatase 87 Troponin I High Sens 3.6 Total Protein 6.2 L Albumin 3.8 COVID-19 ([facility]) COVID-19 Clin Com 08/19/21 08/21/21 05:50 08:25 WBC RBC Hgb Hct MCV MCH MCHC RDW Plt Count MPV Immature Gran % (Auto) Neut % (Auto) Lymph % (Auto) [place] % (Auto) Eos % (Auto) Baso % (Auto) Lymph # (Auto) [place] # (Auto) Eos # (Auto) Baso # (Auto) Abs Immat Gran (auto) Absolute Neuts (auto) Absolute Nucleated RBC Nucleated RBC % (auto) PT 11.2 INR 1.0 APTT Sodium 143 Potassium 4.2 Chloride 111 H Carbon Dioxide 25 Anion Gap 11 L BUN 17 H Creatinine 0.91 Estim Creat Clear Calc 42.4 Estimated GFR 59 Random Glucose Fasting Glucose 84 Calcium 8.5 Total Bilirubin AST ALT Alkaline Phosphatase Troponin I High Sens Total Protein Albumin COVID-19 ([facility]) COVID-19 Clin Com Airway Mallampati Class: III TM Dist: >3cm Neck ROM: Limited Loose/Missing/Broken Teeth: Yes (Poor dentition , chipped tooth ) Heart: S1, S2 Lungs: b/l breath sounds Assessment and Plan Assessment Anesthesia Assessment: Anesthesia Plan Discussed and Chart Reviewed Final Anesthetic Review Family History of Problems with Anesthesia: No History of Problems with Anesthesia: Yes (Delayed emergence ) NPO: Yes ASA Class: III Final Preanesthetic Review: Meds/Allgs Chart Reviewed, Consent Obtained/Reviewed and Anes Risks/Benef Reviewed Patient Risk: High Procedure Risk: Intermediate Anesthetic Plan Anesthetic Plan: MAC: Disposition: Inp. Admit - Standard Bed
--- NOTE | 2021-08-21 13:49 | MHC.SHP ---
Pre-Procedural Eval Section A Date of Service: 08/21/21 The patient is an INPATIENT: Yes The History & Physical has been completed within 30 days and I have reviewed it.: Yes Section B Chief Complaint: syncope Allergies: Allergies Allergy/AdvReac Type Severity Reaction Status Date / Time No Known Allergies Allergy Verified 12/14/19 16:55 [No Known Allergies*] Plan I have reviewed the history and physical and performed a pertinent physical examination on my patient. No changes have occurred unless specified.Plan for dual-chamber permanent pacemaker.
--- NOTE | 2021-08-21 14:15 | P.CONGS_ITS ---
History of Present Illness Consult details Consult date: 08/21/21 Requesting physician: Hamilton Ratliff Narrative: 81-year-old woman who is on amiodarone with significant improvement in her heart failure had a syncopal episode likely related to her treatment. She was admitted to the hospital although she did not have any pauses while on the monitor this is almost certainly related to her medical treatment for heart failure. she denies chest pain, shortness of breath, fevers, chills, or orthopnea. Other than above, 12 point review of systems was done and Negative. [facility] Past Medical History Medical History (HFpEF) heart failure with preserved ejection fraction Basal cell carcinoma Epistaxis Eye abnormalities History of cardioversion HTN (hypertension) Hx of cholecystectomy Hypothyroidism Malignant neoplasm of acoustic nerve Paroxysmal atrial fibrillation Skull asymmetry Family History Family History Other No family history of congenital heart disease Surgical History Surgical History H/O: hysterectomy Social History Social History Household Members: None Housing: House Do you presently have visiting nurse or other home services: No Alcohol intake: never Patient Tobacco Use Status: Never used Tobacco Use of substances other than those prescribed or required for medical reasons: No Currently Displaying Signs/Symptoms of Drug Intoxication Withdrawal: No Have you been hit, kicked, punched, or otherwise hurt by someone within the past year? If so, by whom?: No Do you feel safe in your current relationship?: Yes Is there a partner from a previous relationship who is making you feel unsafe now?: No Are you made to feel afraid or neglected: No Are you DNR?: No Advance Directives: No Advance Directives Information Provided: No Advance Directives on File: No Do you have thoughts of harming others: None Do you have a plan to hurt others: No Plan Recently lost weight without trying: No How much weight loss: Not applicable Eating poorly because of decreased appetite: No Nutrition screen score: 0 Nutrition Risks: No Nutritional Risk Patient : No : No Poor oral hygiene: No service: No Current occupational status: retired [employer] Allergies Allergy/AdvReac Type Severity Reaction Status Date / Time No Known Allergies Allergy Verified 12/14/19 16:55 [No Known Allergies*] Active Medications: Current Medications Acetaminophen (Acetaminophen 325 Mg Tablet) 650 mg PO Q6H PRN PRN Reason: Pain, Mild (Pain Scale 1-3) Amiodarone HCl (Amiodarone Hcl 200 Mg Tablet) 200 mg PO DAILY [facility] Last Admin: 08/21/21 10:14 Dose: 200 mg Amlodipine Besylate (Amlodipine Besylate 5 Mg Tablet) 5 mg PO DAILY [facility]; Protocol Last Admin: 08/21/21 10:15 Dose: 5 mg Cyanocobalamin (Cyanocobalamin (Vitamin B-12) 1,000 Mcg Tablet) 1,000 mcg PO DAILY [facility] Last Admin: 08/21/21 10:15 Dose: 1,000 mcg Estradiol (Estradiol 0.5 Mg Tablet) 0.5 mg PO DAILY [facility] Last Admin: 08/21/21 10:15 Dose: 0.5 mg Ferrous Sulfate (Ferrous Sulfate 324 Mg Tablet.Dr) 324 mg PO DAILY [facility] Last Admin: 08/21/21 10:15 Dose: 324 mg Folic Acid (Folic Acid 1 Mg Tablet) 1 mg PO DAILY [facility] Last Admin: 08/21/21 10:15 Dose: 1 mg Cefazolin Sodium/Dextrose (Ancef) 2 gm in 50 mls @ 100 mls/hr IV PREOP ONE Stop: 08/21/21 14:20 Levothyroxine Sodium (Levothyroxine Sodium 100 Mcg Tablet) 100 mcg PO DAILY@0600 [facility] Last Admin: 08/21/21 05:22 Dose: Not Given Lisinopril (Lisinopril 20 Mg Tablet) 20 mg PO BID [facility]; Protocol Last Admin: 08/21/21 10:15 Dose: 20 mg Rivaroxaban (Rivaroxaban 20 Mg Tablet) 20 mg PO DAILY [facility] Last Admin: 08/20/21 09:35 Dose: Not Given Sodium Chloride (0.9 % Sodium Chloride Flush 3 Ml Syringe) [facility] Last Admin: 08/21/21 10:15 Dose: 3 ml Home Medications Medication Instructions Recorded Confirmed Last Taken Type estradiol 0.5 mg tablet 0.5 mg PO DAILY 12/14/19 08/18/21 Unknown History levothyroxine 100 mcg tablet 100 mcg PO DAILY 12/14/19 08/18/21 Unknown History lisinopril 20 mg tablet 20 mg PO BID 12/14/19 08/18/21 Unknown History rivaroxaban 20 mg tablet 20 mg PO DAILY 05/08/20 08/18/21 Unknown History calcium 600 mg capsule 600 mg PO DAILY 08/18/21 08/18/21 Unknown History cyanocobalamin (vitamin B-12) 1 tab PO DAILY 08/18/21 08/18/21 Unknown History 1,000 mcg tablet ferrous gluconate 324 mg (38 mg 1 tab PO DAILY 08/18/21 08/18/21 Unknown History iron) tablet folic acid 1 mg tablet 1 tab PO DAILY 08/18/21 08/18/21 Unknown History Physical Exam Vital Signs: Vital Signs: Last Vital Signs Temp 97.7 F 08/21/21 13:22 Pulse 60 08/21/21 13:22 Resp 16 08/21/21 13:22 BP 172/55 H 08/21/21 13:22 Pulse Ox 97 08/21/21 13:22 O2 Del Method 08/21/21 13:22 O2 Flow Rate 2 08/19/21 20:00 Oxygen Flow Rate 2 08/18/21 15:07 BMI result Body Mass Index 33.8 General: No acute distress HEENT: Moist mucous membranes, normocephalic, pupils equal round and reactive to light. Neck: No thyromegaly, supple, no JVD Lymph: No cervical, supraclavicular, or other lymphadenopathy Chest: No chest wall abnormalities or deformities Heart: Regular rate and rhythm Lungs: Clear to auscultation bilaterally Abdomen: Soft, nontender, normal bowel sounds Extremities: No edema, cyanosis, or clubbing. Full range of motion Neuro: Grossly intact, alert and oriented x3, and nonfocal Skin: Warm and dry no rashes Affect: Normal Results Labs Result diagrams: 08/19/21 05:50 08/19/21 05:50 Labs: All other labs normal. Imaging Chest x-ray: image reviewed EKG: report reviewed Assessment and Plan (1) Syncope: Status: Acute Plan 81-year-old woman on amiodarone with excellent results regarding her heart failure had a syncopal episode and was brought to the hospital. She does have sinus bradycardia at rest anyway and I do think it is extremely likely that her syncope be is related to her medical treatment for heart failure. For this reason, I do agree a dual-chamber permanent pacemaker is appropriate in order to continue her heart failure treatment as is. She has been NPO and her last dose of Xarelto was yesterday morning. I discussed with her in detail the risks, benefits, and alternatives of a dual-chamber permanent pacemaker which he understood and agreed to proceed. Procedures Date of Service Date of Service: 08/21/21
--- NOTE | 2021-08-21 15:59 | P.OP_ITS ---
Operative Note Operative Note Date of Service: 08/21/21 Narrative: Preoperative diagnosis: syncope and heart failure Postoperative diagnosis: Same Operation: Placement of dual-chamber permanent pacemaker with fluoroscopic guidance Surgeon: Shawn Guillaume MD Specimens: None EBL: 5 cc Operative findings: The pacemaker placed was a Medtronic serial [id number]. The atrial lead was a Medtronic serial number [id number]. The ventricular lead was a Medtronic serial number [id number]. Parameters in the right atrial lead sensing was 2.9 mV with an impedance of 494 Ohms and a threshold of 0.75 volts. In the ventricular lead threshold was 0.75 volts with an R-wave of 6.3 mV unipolar and an impedance of 646 Ohms. Patient tolerated procedure well. Operation in detail: The patient was brought to the operating room, placed supine on the operating room table, anesthesia moderate of ices were placed, and the patient was gently sedated. A time-out was performed confirming the correct patient site and procedure. After injection of local anesthetic, a 3 cm incision was made in the left infraclavicular region and carried down to the pectoralis fascia with electrocautery. The patient was then placed in Trendelenburg and an 18 gauge needle was used to access subclavian vein on the 1st take. And a wire was placed into the right atrium under fluoroscopic guidance. A 2nd 18 gauge needle was then used to access the subclavian vein again on the 1st ache and a wire was placed under fluoroscopic guidance and parked in the right atrium. The patient was then taken out of Trendelenburg and a pocket was formed using blunt and electrocautery dissection. The 1st 6 [place] sheath was then placed over wire and the wire and dilator were removed. The ventricular lead was then placed through the sheath and parked in the right atrium and the peel-away sheath was removed. After several attempts using a curved stylet we were eventually able to access the right ventricle and the tip of the lead was positioned at the right ventricular apex. The endocardial screw was deployed and the lead was tested with excellent parameters above. This lead was then secured with silk sutures to the pectoralis fascia. The 2nd 6 [place] sheath was then placed over the 2nd wire and a wire dilator removed. The atrial lead was then placed and parked in the right atrium. AJ stylet was used to position this in the right atrial appendage. The endocardial screws deployed and the lead was tested with excellent parameters above. This lead was also secured with silk sutures to the pectoralis fascia. The pocket was then copiously irrigated with antibiotic solution. The leads were then placed in their appropriate receptacles and the pacemaker was tested again with excellent parameters. The generator and excess lead was then placed into the pocket. The wound was then closed with a deep running 3-0 Vicryl suture followed by running 3-0 Vicryl suture and Dermabond glue in the skin. The patient was then brought back to the recovery room in stable condition.
[2021-08-21] MEDS: Acetaminophen 325 MG TABLET 650 MG PO (21:36)
[2021-08-22 03:00] VITALS: BP 150/56; PULSE 60; RESP 18; TEMP 36.2; O2SAT 91
[2021-08-22 05:42] VITALS: BP 178/73; PULSE 60
[2021-08-22] MEDS: Levothyroxine Sodium 100 MCG TABLET PO (05:55)
[2021-08-22 08:00] VITALS: BP 168/60; PULSE 60; RESP 18; TEMP 35.9; O2SAT 93
--- NOTE | 2021-08-22 08:46 | HO.POSTANES ---
Post Anesthesia Evaluation Post Anesthesia Evaluation Vital Signs: Vital Signs Temp Pulse Resp BP Pulse Ox O2 Del Method 08/22/21 08:00 96.7 F L 60 18 168/60 H 93 Room Air 08/22/21 05:42 60 178/73 H 08/22/21 03:00 97.2 F 60 18 150/56 H 91 L Room Air 08/21/21 23:19 98.2 F 65 16 172/68 H 91 L Room Air Anesthesia: Monitored Mental Status: Awake Pain Control: Satisfactory Nausea/Vomiting: None Hydration: Adequate Anesthesia-Related Issues: No Anes. Related Issues
[2021-08-22] MEDS: Cyanocobalamin (Vitamin B-12) 1,000 MCG TABLET 1000 MCG PO (09:14)
[2021-08-22] MEDS: amLODIPine Besylate 5 MG TABLET PO (09:14)
[2021-08-22] MEDS: Folic Acid 1 MG TABLET PO (09:14)
[2021-08-22] MEDS: estradioL 0.5 MG TABLET PO (09:14)
[2021-08-22] MEDS: Ferrous Sulfate 324 MG TABLET.DR PO (09:14)
[2021-08-22] MEDS: lisinopriL 20 MG TABLET PO (09:15)
[2021-08-22] MEDS: 0.9 % Sodium Chloride Flush 3 ML SYRINGE IVFLUSH (09:15)
[2021-08-22] MEDS: Amiodarone HCL 200 MG TABLET PO (09:15)
--- NOTE | 2021-08-22 10:46 | PM.PNCARD ---
Subjective Subjective Date of Service: 08/22/21 Principal diagnosis: Syncope, paroxysmal atrial fibrillation Interval history: Status post pacemaker yesterday. No well. Pacemaker pocket appears benign. Review of Systems Review of Systems Yes all other systems are reviewed and are negative Physical Exam Vital Signs: Last Vital Signs Temp 96.7 F L 08/22/21 08:00 Pulse 60 08/22/21 08:00 Resp 18 08/22/21 08:00 BP 168/60 H 08/22/21 08:00 Pulse Ox 93 08/22/21 08:00 O2 Del Method 08/22/21 08:00 O2 Flow Rate 6 08/21/21 16:17 Oxygen Flow Rate 2 08/18/21 15:07 BMI result Body Mass Index 33.8 Const General: cooperative, comfortable, no acute distress, alert and awake Nutritional Appearance: overweight Orientation/consciousness: patient oriented x3 Limitations: no limitations Neck Neck: Yes trachea midline, Yes supple and Yes no JVD Chest Chest palpation & inspection: other (Pacemaker pocket is benign) Resp Effort & Inspection: normal respiratory effort Auscultation: clear to auscultation bilaterally Cardio Jugular venous distension: no JVD Palpation: normal PMI Rate: bradycardic Rhythm: regular rhythm Heart sounds: S1 normal heart sound present, S2 normal heart sound present, no click, no gallops, no murmurs and no rubs GI Auscultation: normal bowel sounds Skin General skin exam: no rashes or lesions noted and ecchymosis Neuro General: patient oriented x3 and no focal motor deficits Extrem General: Yes no clubbing, cyanosis or edema Objective Labs and Meds Result diagrams: 08/19/21 05:50 08/19/21 05:50 Imaging Radiologist's impression: Impressions Guidance Fluoroscopy 08/21/21 16:02 IMPRESSION: Fluoroscopy and spot films provided during pacemaker placement. Chest X-Ray 08/21/21 16:19 IMPRESSION: Satisfactory position of left subclavian dual chamber pacemaker. No pneumothorax. Progress Note: A&P Assessment and plan (1) Cardiac pacemaker in situ: Status: Acute Assessment and Plan: Cardiac pacemaker in-situ yesterday without any issues. Doing well. Can be discharged home today. Will set up for follow-up in 6 weeks. (2) Paroxysmal atrial fibrillation: Status: Acute Assessment and Plan: Paroxysmal atrial fibrillation, doing well. Can you amiodarone therapy which has done well over the years for her. She has done very well with rhythm control approach. Continue full oral anticoagulation and restarted as soon as possible. A blood pressure is slightly elevated, most likely being in the hospital. Advised to monitor blood pressure at home and manage this as outpatient. (3) (HFpEF) heart failure with preserved ejection fraction: Status: Acute Assessment and Plan: Heart failure preserved ejection fraction has remained controlled and euvolemic in normal rhythm. Continue rhythm control approach as above. Heart failure symptoms were discussed. Will require close of follow-up with blood pressure. Will follow up in the clinic in 6 weeks time, sooner p.r.n.. Thank you for allowing me to partake in the care Time Spent With Patient Time: Total time spent is greater than 50% in coordination of care (as documented) at patient's floor/unit and/or counseling patient: Progress Note: Quality Stroke Does the patient have a stroke diagnosis?: No Procedures Date of Service Date of Service: 08/22/21
--- NOTE | 2021-08-22 11:22 | P.DS_ITS ---
DS: Providers Provider Date of Service: 08/22/21 Date of admission: 08/20/21 13:52 Primary care physician: Unknown Physician Consults: 08/19/21 13:33 Consult to Cardiology Routine Consulting Provider: Hamilton Ratliff Reason for consultation: syncope, bradycardia in the 40sintermittently DS: Diagnosis Discharge Diagnosis (1) Cardiac pacemaker in situ: Status: Acute (2) Paroxysmal atrial fibrillation: Status: Acute (3) (HFpEF) heart failure with preserved ejection fraction: Status: Acute (4) Bradycardia: Status: Acute (5) Syncope: Status: Acute DS: Summary Hospital Course Hospital Course: HPI From admission H&P: 81F ? With a past medical history of paroxysmal atrial fibrillation on amiodarone and Xarelto, hypertension on amlodipine and lisinopril presented with syncope.? Patient was at a constitution party had been feeling well on morning of admission.? At the constitution party she started to feel? unwell, nauseous, dizzy.? She sat down and was noticed to lose consciousness for several seconds and then was ? out of it for several minutes.? Patient did not fall or have any injury.? She did not lose control of urine, there was no convulsions.? patient was wearing a watch with a heart rate monitor, heart rates did not go below 47 or above 94 all day.? In ED patient now feeling better.? Labs and vitals unremarkable.? EKG was sinus bradycardia 55. Hospital Course: Patient was admitted for syncopal episode. She was evaluated by Cardiology who felt that syncope was related to bradycardia. She is not on any rate control drugs, however she is on amiodarone she has needed to maintain sinus rhythm and to prevent heart failure symptoms. Hence it was decided that permanent place maker would be in her best interest. She was agreeable and a pacemaker was placed. This has been deemed to be functioning probably. She will be [facility] to continue her usual medications. Her blood pressure has been slightly higher but likely due to hospitalization and will be managed as an outpatient. She has been given instructions on post pacemaker placement care. She is to follow up with Dr. Cameron in the thoracic clinic in 2 weeks time. She is to follow up with Dr. Ratliff in the cardiology clinic in 6 weeks time. Time Spent with Patient Time attestation: Total time spent providing and/or coordinating discharge services: Discharge coordination time: Greater than 30 minutes Quality: Safe Use of Opioids Does Pt have an Active Cancer Diagnosis on the Problem List?: No Quality: Stroke Does the patient have a stroke diagnosis?: No Physical Exam Vital Signs: Vital Signs: Last Vital Signs Temp 96.7 F L 08/22/21 08:00 Pulse 60 08/22/21 08:00 Resp 18 08/22/21 08:00 BP 168/60 H 08/22/21 08:00 Pulse Ox 93 08/22/21 08:00 O2 Del Method 08/22/21 08:00 O2 Flow Rate 6 08/21/21 16:17 Oxygen Flow Rate 2 08/18/21 15:07 BMI result Body Mass Index 33.8 Const: Other: General - no acute distress, appears comfortable Cardiovascular - regular rate and rhythm, S1-S2 Lungs - normal respiratory effort, clear to auscultation bilaterally, no wheezing Abdomen - soft, nontender, no rebound or guarding Extremities - no edema bilaterally Neuro - awake and alert, no focal deficits Skin -- PPM site without any drainage Discharge Plan Discharge Patient Disposition: Home, Self-Care Discharge Diagnosis: Syncope Bradycardia PPM Referrals: Shawn Guillaume MD [Physician] - 2 Weeks PhysicianThiago [Primary Care Provider] - 1 Week Discharge Medications: Continued amlodipine 5 mg tablet 5 mg PO DAILY 90 Days Qty: 90 3RF amiodarone 200 mg tablet 200 mg PO DAILY Qty: 90 1RF lisinopril 20 mg tablet 20 mg PO BID levothyroxine 100 mcg tablet 100 mcg PO DAILY estradiol 0.5 mg tablet 0.5 mg PO DAILY cyanocobalamin (vitamin B-12) 1,000 mcg tablet 1 tab PO DAILY folic acid 1 mg tablet 1 tab PO DAILY ferrous gluconate 324 mg (38 mg iron) tablet 1 tab PO DAILY calcium 600 mg Capsule 600 mg PO DAILY rivaroxaban 20 mg tablet 20 mg PO DAILY Discharge Orders: Discharge Order (Routine); Ordered 08/22/21 Ordered By: Bill Buchanan Diet: Advance to usual diet Activity on Discharge: As tolerated Stand Alone Forms: Patient Portal Discharge page Activity Restrictions/Additional Instructions: ACTIVITY: * ARM MOVEMENT RESTRICTIONS: No lifting your left arm over your head or behind your back, no pushing/pulling/lifting anything >10lb with your left arm for 6- 8 weeks. This ensures the pacemaker wires stay in place and do not get pulled out accidentally. Make sure you are doing gentle range of motion exercises with the ___ arm (such as pendulum exercise) to make sure your elbow and shoulder do not get frozen up. * ARM SLING: Keep the sling on until 08/24/2021. You may then take the sling off and leave it off. HOWEVER, if you are noticing a difficulty limiting your left arm movement (as outline above) then wear your sling during the day to make sure you are adhering to the restrictions above. * Ask your doctor when you can expect to return to work. * You can still exercise. It is good for your body and your heart. Talk with your doctor about an exercise plan. INCISION CARE: * You may shower starting 08/24/2021. Sponge bathe only until then. * Do not submerge yourself in water (baths, pools, etc.) for 2 weeks. * Monitor the incision for increased redness, swelling, bruising, pain, open area, or drainage. OTHER PRECAUTIONS: * Before you receive any treatment, tell all healthcare providers (including your dentist) that you have a pacemaker. * You will be given an ID card that contains information about your pacemaker. Always carry this card with you. You can show this card if your pacemaker sets off a metal detector. You should also show it to avoid screening with a hand-held security wand. * Keep your cell phone away from your pacemaker. Do not carry the phone in your shirt pocket, even it if is turned off. * Avoid strong magnets. Examples are those used in MRI's or in hand-held security wands. * Avoid strong electrical armijo. Examples are those made by radio transmitting towers, [employer] radios, and heavy-duty electrical equipment. * Avoid leaning over the open kwong of a running car. A running engine creates an electrical field. Most household and yard appliances will not cause any problems. If you use any large power tools, such as an industrial park landscape architect, talk with your doctor. WHEN TO CALL YOUR DOCTOR: Call your doctor immediately if you have any of the following: * Dizziness * Chest pain * Lack of energy * Fainting spells * Twitching chest muscles * Rapid pule or pounding heartbeat * Shortness of breath * Pain around your pacemaker * Fever above 100.4 F (38 C) or other signs of infection (redness, swelling, drainage, or warmth at the incision site). * Hiccups that will not stop FOLLOWUP APPOINTMENTS: * You will be contacted by the [facility] office to have a postoperative appointment scheduled with Dr. Guillaume. If you do not hear from the office by Thursday, call Dr. Guillaume's office (Thoracic Surgery) to schedule a followup appointment for 2 weeks from now. The office number is . * Call your warehouse order filler to make an appointment for the next couple weeks. Make regular follow-up appointments with your doctor. He or she will check the pacemaker to make sure it is working properly. Care Plan Goals: To stay healthy and out of the hospital. Health Concerns: Bradycardia PPM Plan of Treatment: Take your medications as you have been doing so Follow post-op instructions as above for pacemaker Follow up with Dr. Guillaume in 2 weeks Follow up with Dr. Ratliff in 6 weeks Assessment: see d/c summary Patient Instructions: Pacemaker (DC)
[2021-08-22 11:26] VITALS: BP 134/54; PULSE 60; RESP 20; TEMP 35.9; O2SAT 94
--- NOTE | 2021-08-22 12:53 | MHC.CM.PN ---
Patient has been medically cleared for dc to home today, self care. Last IMM addressed on 08/20/21.
[2021-08-22] MEDS: Rivaroxaban 20 MG TABLET PO (13:39)
== END 2021-08-22 15:02 | disposition home or self-care (01) | DRG 243 ==
LOC: HO.ED 16:45 → HO.EDOVER 17:24 → HO.IMC 08-19 14:53
PROVIDERS: Anesthesiology; Surgery; Admitting Provider Internal Medicine; Emergency Provider Emergency Medicine; PCP Internal Medicine; Visit Provider Family Medicine
PROC: 0JH606Z Insertion of Pacemaker, Dual Chamber into Chest Subcutaneous Tissue and Fascia, Open Approach (ICD-10-PCS; principal; 2021-08-21 14:00)
DX: I48.0 Paroxysmal atrial fibrillation (principal); I50.32 Chronic diastolic (congestive) heart failure; E03.9 Hypothyroidism, unspecified; E53.8 Deficiency of other specified B group vitamins; I11.0 Hypertensive heart disease with heart failure; D50.9 Iron deficiency anemia, unspecified; I95.1 Orthostatic hypotension; R00.1 Bradycardia, unspecified; Z20.822 Contact with and (suspected) exposure to COVID-19; Z79.890 Hormone replacement therapy; Z79.899 Other long term (current) drug therapy
CPT/HCPCS: 36415; 71045; 80048; 80053; 84484; 85025; 85027; 85610; 85730; 87635; 93005; 96361; 96374; 99219; 99285; C1785; C1892; C1898; J0690; J2405; J2795; J3370

== ENCOUNTER → 2021-10-10 12:45 | Outpatient (BNVA) | payer MEDICARE, SELFPAY | PROVIDERS: PCP Internal Medicine; Referring Provider Internal Medicine; Visit Provider Internal Medicine Cardiovascular Disease | DX: I48.0 Paroxysmal atrial fibrillation (principal); I10 Essential (primary) hypertension; Z79.899 Other long term (current) drug therapy; Z45.018 Encounter for adjustment and management of other part of cardiac pacemaker | CPT/HCPCS: 93005; 93280; 99212 ==

== ENCOUNTER 2021-11-15 10:26 | Outpatient (REF) | payer MEDICARE, SELFPAY ==
[2021-11-15 13:30] LABS: MANUAL DIFF FLAG NO
[2021-11-15 13:36] LABS: Basophils Absolute Auto 0.1 X10*3/uL (0.0-0.2); Basophils Percent Auto 0.7 % (0-2); Eosinophils Absolute Auto 0.3 X10*3/uL (0.0-0.4); Eosinophils Percent Auto 3.7 % (0-4); Hematocrit 40.9 % (37.0-47.0); Imm Gran Abs Auto 0.04 X10*3/uL (0.00-0.03); Imm Gran Pct Auto 0.5 % (0.0-0.4); Immature Retic Fraction 20.2 % (3.0-15.9); Lymphocytes Absolute Auto 1.4 X10*3/uL (1.2-4.9); Mean Corpuscular HGB Conc 31.8 g/dl (31.0-35.0); Mean Corpuscular Hemoglobin 31.9 pg (27.0-33.0); Mean Corpuscular Volume 100.2 fL (80.0-98.0); Mean Platelet Volume 12.6 fL (9.4-12.3); Monocytes Absolute Auto 0.8 X10*3/uL (0.1-1.2); Neutrophils Absolute Auto 4.9 x10*3/uL (2.0-8.3); Neutrophils Percent Auto 65.1 % (45-73); Platelet Count 312 X10*3/uL (160-400); Red Blood Count 4.08 X10*6/uL (4.20-5.50); Red Cell Distribution Width 13.9 % (11.0-16.0); Reticulocyte Percent 2.3 % (0.5-1.8); Reticulocytes Absolute 0.093 X10*6/uL (0.026-0.095); White Blood Count 7.6 X10*3/uL (4.8-10.8)
[2021-11-15 14:17] LABS: Alanine Aminotransferase 13 U/L (0-31); Albumin Level 3.8 g/dL (3.5-5.0); Alkaline Phosphatase 102 U/L (39-117); Anion Gap 15 (12-20); Aspartate Amino Transferase 18 U/L (5-31); Bilirubin Total 0.3 mg/dL (0.0-1.0); Blood Urea Nitrogen 18 mg/dL (9-16); Calcium 8.8 mg/dL (8.4-10.2); Carbon Dioxide 27 mmol/L (22-29); Chloride 106 mmol/L (96-108); Estimated Glomerular Filt Rate 54; Glucose Random 76 mg/dL (60-115); Potassium 4.7 mmol/L (3.3-5.1); Sodium 143 mmol/L (135-145); Total Protein 6.6 g/dL (6.5-8.0)
== END 2021-11-15 10:27 | disposition home or self-care (01) ==
LOC: HO.10HDL 10:26
PROVIDERS: Visit Provider Internal Medicine Medical Oncology
DX: I10 Essential (primary) hypertension (principal); E55.9 Vitamin D deficiency, unspecified; D47.3 Essential (hemorrhagic) thrombocythemia; D50.9 Iron deficiency anemia, unspecified
CPT/HCPCS: 36415; 80053; 85025; 85045

== ENCOUNTER 2022-03-06 10:17 | Outpatient (REF) | payer MEDICARE, SELFPAY ==
[2022-03-06 11:16] LABS: Estimated Average Glucose 94 mg/dL; Hemoglobin A1c % 4.9 %
[2022-03-06 12:17] LABS: Anion Gap 12 (12-20); Blood Urea Nitrogen 16 mg/dL (9-16); Calcium 8.7 mg/dL (8.4-10.2); Carbon Dioxide 28 mmol/L (22-29); Chloride 107 mmol/L (96-108); Estimated Glomerular Filt Rate 51; Glucose Random 113 mg/dL (60-115); Potassium 3.9 mmol/L (3.3-5.1); Sodium 143 mmol/L (135-145); Thyroid Stimulating Hormone 4.48 uIU/mL (0.32-4.0)
[2022-03-06 14:10] LABS: Free T4 (Free Thyroxine) > 5.00 ng/dL (0.71-1.85)
== END 2022-03-06 10:18 | disposition home or self-care (01) ==
LOC: HO.10HDL 10:17
PROVIDERS: Visit Provider Internal Medicine
DX: I12.9 Hypertensive chronic kidney disease with stage 1 through stage 4 chronic kidney disease, or unspecified chronic kidney disease (principal); N18.9 Chronic kidney disease, unspecified; E03.9 Hypothyroidism, unspecified; I48.0 Paroxysmal atrial fibrillation
CPT/HCPCS: 36415; 80048; 83036; 84439; 84443

== ENCOUNTER → 2022-04-14 10:26 | Outpatient (BNVA) | payer MEDICARE, SELFPAY | PROVIDERS: PCP Internal Medicine; Referring Provider Internal Medicine; Visit Provider Internal Medicine Cardiovascular Disease | DX: I48.0 Paroxysmal atrial fibrillation (principal); I10 Essential (primary) hypertension; Z45.018 Encounter for adjustment and management of other part of cardiac pacemaker; Z79.01 Long term (current) use of anticoagulants; Z79.899 Other long term (current) drug therapy | CPT/HCPCS: 93005; 93280; 99212 ==

== ENCOUNTER → 2022-04-15 15:27 | Outpatient (BNVA) | payer MEDICARE, SELFPAY | PROVIDERS: PCP Internal Medicine; Visit Provider Internal Medicine Endocrinology, Diabetes & Metabolism | DX: E03.9 Hypothyroidism, unspecified (principal); Z79.899 Other long term (current) drug therapy | CPT/HCPCS: 99202 ==

== ENCOUNTER 2022-04-16 09:53 | Outpatient (REF) | payer MEDICARE, SELFPAY ==
[2022-04-16 12:04] LABS: Free T4 (Free Thyroxine) 1.19 ng/dL (0.71-1.85); Thyroid Stimulating Hormone 5.94 uIU/mL (0.32-4.0)
[2022-04-18 08:34] LABS: Triiodothyronine T3 Free 1.8 pg/mL (2.3-4.2)
[2022-04-18 10:43] LABS: Thyroid Peroxidase Antibodies 16 IU/mL (<9)
== END 2022-04-16 09:54 | disposition home or self-care (01) ==
LOC: HO.10HDL 09:53
PROVIDERS: Visit Provider Internal Medicine Endocrinology, Diabetes & Metabolism
DX: E03.9 Hypothyroidism, unspecified (principal)
CPT/HCPCS: 36415; 84439; 84443; 84481; 86376

== ENCOUNTER 2022-05-19 09:36 | Outpatient (REF) | payer MEDICARE, SELFPAY ==
[2022-05-19 10:22] LABS: MANUAL DIFF FLAG NO
[2022-05-19 10:31] LABS: Basophils Percent Auto 0.6 % (0-2); Eosinophils Absolute Auto 0.3 X10*3/uL (0.0-0.4); Eosinophils Percent Auto 4.9 % (0-4); Hematocrit 41.4 % (37.0-47.0); Hemoglobin 12.9 g/dl (12.0-16.0); Imm Gran Abs Auto 0.04 X10*3/uL (0.00-0.03); Imm Gran Pct Auto 0.6 % (0.0-0.4); Lymphocytes Absolute Auto 1.3 X10*3/uL (1.2-4.9); Lymphocytes Percent Auto 18.9 % (20-40); Mean Corpuscular HGB Conc 31.2 g/dl (31.0-35.0); Mean Corpuscular Hemoglobin 31.1 pg (27.0-33.0); Mean Corpuscular Volume 99.8 fL (80.0-98.0); Monocytes Absolute Auto 0.8 X10*3/uL (0.1-1.2); Monocytes Percent Auto 11.4 % (2-11); Neutrophils Absolute Auto 4.5 x10*3/uL (2.0-8.3); Neutrophils Percent Auto 63.6 % (45-73); Platelet Count 377 X10*3/uL (160-400); Red Blood Count 4.15 X10*6/uL (4.20-5.50)
[2022-05-19 11:18] LABS: Alanine Aminotransferase 12 U/L (0-31); Albumin Level 3.6 g/dL (3.5-5.0); Alkaline Phosphatase 109 U/L (39-117); Anion Gap 9 (12-20); Aspartate Amino Transferase 14 U/L (5-31); Bilirubin Total 0.4 mg/dL (0.0-1.0); Blood Urea Nitrogen 17 mg/dL (9-16); Calcium 8.9 mg/dL (8.4-10.2); Carbon Dioxide 32 mmol/L (22-29); Chloride 105 mmol/L (96-108); Estimated Glomerular Filt Rate 54; Glucose Random 94 mg/dL (60-115); Potassium 4.4 mmol/L (3.3-5.1); Sodium 142 mmol/L (135-145); Total Protein 6.3 g/dL (6.5-8.0)
[2022-05-19 11:20] LABS: Free T4 (Free Thyroxine) 1.87 ng/dL (0.71-1.85); Thyroid Stimulating Hormone 1.71 uIU/mL (0.32-4.0)
[2022-05-19 11:24] LABS: Ferritin 31 ng/mL (10-250)
== END 2022-05-19 09:37 | disposition home or self-care (01) ==
LOC: HO.10HDL 09:36
PROVIDERS: Internal Medicine Endocrinology, Diabetes & Metabolism; Visit Provider Internal Medicine Medical Oncology
DX: E03.9 Hypothyroidism, unspecified (principal); D50.9 Iron deficiency anemia, unspecified; E55.9 Vitamin D deficiency, unspecified; D47.3 Essential (hemorrhagic) thrombocythemia
CPT/HCPCS: 36415; 80053; 82728; 84439; 84443; 85025

== ENCOUNTER → 2022-05-22 09:22 | Outpatient (BNVA) | payer MEDICARE, SELFPAY | PROVIDERS: PCP Internal Medicine; Visit Provider Internal Medicine Endocrinology, Diabetes & Metabolism | DX: E03.9 Hypothyroidism, unspecified (principal) | CPT/HCPCS: 99212 ==

== ENCOUNTER 2022-08-28 08:23 | Outpatient (REF) | payer MEDICARE, SELFPAY ==
[2022-08-28 11:13] LABS: Alanine Aminotransferase 12 U/L (0-31); Albumin Level 3.6 g/dL (3.5-5.0); Alkaline Phosphatase 115 U/L (39-117); Anion Gap 11 (12-20); Aspartate Amino Transferase 16 U/L (5-31); Bilirubin Total 0.3 mg/dL (0.0-1.0); Blood Urea Nitrogen 18 mg/dL (9-16); Calcium 9.3 mg/dL (8.4-10.2); Carbon Dioxide 29 mmol/L (22-29); Chloride 105 mmol/L (96-108); Estimated Glomerular Filt Rate 55; Glucose Random 92 mg/dL (60-115); Potassium 4.1 mmol/L (3.3-5.1); Sodium 141 mmol/L (135-145); Total Protein 6.8 g/dL (6.5-8.0)
[2022-08-28 11:24] LABS: Free T4 (Free Thyroxine) 1.26 ng/dL (0.71-1.85); Thyroid Stimulating Hormone 3.26 uIU/mL (0.32-4.0); Vitamin D 25-OH Total 63.4 ng/mL (>30)
== END 2022-08-28 08:24 | disposition home or self-care (01) ==
LOC: HO.10HDL 08:23
PROVIDERS: Visit Provider Internal Medicine
DX: E03.9 Hypothyroidism, unspecified (principal); I48.0 Paroxysmal atrial fibrillation; I12.9 Hypertensive chronic kidney disease with stage 1 through stage 4 chronic kidney disease, or unspecified chronic kidney disease; N18.9 Chronic kidney disease, unspecified
CPT/HCPCS: 36415; 80053; 82306; 84439; 84443

== ENCOUNTER 2022-09-11 15:21 | Outpatient (REF) | payer MEDICARE, OTHER, SELFPAY ==
--- NOTE | ~2022-09-11 | XR_ITS ---
EXAMINATION: XR LUMBOSACRAL SPINE CLINICAL INFORMATION: Lower back pain and left lower extremity pain. COMPARISON: No similar priors. TECHNIQUE: Three views of the lumbosacral spine. FINDINGS: Mild left apical curvature of the lumbar spine. 0.6 cm anterolisthesis of L4 on L5, and 0.3 cm retrolisthesis of L1 on L2. Otherwise, anatomic alignment. No acute compression deformity. Moderate intervertebral disc height loss at L5-S1 with mild intervertebral disc height loss in other levels. Moderate to severe facet arthropathy at L5-S1 leading to neural foraminal encroachment and central canal stenosis. Some degree of neural foraminal encroachment is also noted at L1-L2. SI joints are symmetric. Atherosclerotic disease of the abdominal aorta, otherwise no significant paraspinal soft tissue abnormalities. Partially imaged cardiac pacer leads. XR/XR lumbar spine 2-3V IMPRESSION: 1. Moderate lumbar spondylosis, more prominent at L5-S1. Correlation with an MR of the lumbar spine could be helpful to assess for nerve root impingement or canal narrowing. 2. Mild anterolisthesis of L4 on L5 and retrolisthesis of L1 on L2. 3. No acute compression deformities.
== END 2022-09-11 15:22 | disposition home or self-care (01) ==
LOC: HO.XRAY 15:21
PROVIDERS: PCP Internal Medicine; Visit Provider Internal Medicine
DX: M54.50 Low back pain, unspecified (principal); M79.605 Pain in left leg
CPT/HCPCS: 72100

== ENCOUNTER 2022-10-20 10:37 | Outpatient (AMB) | payer MEDICARE, SELFPAY ==
--- NOTE | 2022-10-20 10:40 | A.OFFVIS_ITS ---
Intake Vital Signs 10/20/22 10:41 Height 5 ft Weight 169 lb 12.095 oz BMI 33.1 BP 120/74 Blood Pressure Location Lt brachial Position Sitting Pulse 70 Intake Visit Reasons: 6 mth f/u Intake Note: 6 month follow-up with ekg and medtronic check feeling good Content Designer Required: No Allergies No Known Allergies [No Known Allergies*] Allergy (Verified 05/22/22 09:28) Medication List - Last Reconciled 10/20/22 by Hamilton Ratliff MD amiodarone 200 mg PO DAILY amlodipine 5 mg PO DAILY 90 days calcium 600 mg PO DAILY cholecalciferol (vitamin D3) 50 mcg PO DAILY cyanocobalamin (vitamin B-12) 1 tab PO DAILY estradiol 0.5 mg PO DAILY ferrous gluconate 1 tab PO DAILY folic acid 1 tab PO DAILY levothyroxine 125 mcg PO DAILY lisinopril 20 mg PO BID rivaroxaban 20 mg PO DAILY HPI HPI Comments History of Present Illness Details Jessica comes for follow-up. She has no new cardiac symptoms. Denies any lightheadedness, palpitations, irregular heartbeat. Does not walk much because of fear of falling. Does not use any assist devices at this point time. Denies any bleeding issues or neurologic events. Denies any orthopnea, PND, leg edema. No exertional chest pain. Takes all her medications regularly. [facility] Medical History Osteopenia (~2002) History of acoustic neuroma Cardiac pacemaker in situ (~08/2021) Skull asymmetry Eye abnormalities Syncope (~08/2021) HTN (hypertension) (HFpEF) heart failure with preserved ejection fraction Paroxysmal atrial fibrillation (~11/2014) Epistaxis Hypothyroidism Basal cell carcinoma Surgical History History of cardiac pacemaker (~2021) History of ear surgery History of cholecystectomy (~2014) History of hysterectomy History of cardioversion Family History Other No family history of congenital heart disease Social History Household Members: None Housing: House Do you presently have visiting nurse or other home services: No Alcohol intake: never Patient Tobacco Use Status: Never used Tobacco service: No Current occupational status: retired Review of Systems Const Denies chills, Denies fatigue, Denies fever(s), Denies frequent falls, Denies weakness, Denies weight gain and Denies weight loss ENT Denies dizziness Card Denies chest pain, Denies leg edema, Denies lightheadedness, Denies palpitations, Denies dyspnea, Denies dyspnea on exertion, Denies orthopnea and Denies other (loss of consciousness) Resp Denies cough, Denies dyspnea and Denies dyspnea on exertion GI Denies hematochezia and Denies change in stool character Musc Denies abnormal gait, Denies muscle weakness, Denies numbness, Denies radiating pain into limb and Denies tingling Neuro Denies abnormal gait, Denies dizziness, Denies frequent falls, Denies numbness, Denies tingling and Denies weakness Endo Denies fatigue and Denies palpitations Physical Exam Vital Signs: Last Vital Signs Pulse 70 10/20/22 10:41 BP 120/74 10/20/22 10:41 BMI result Body Mass Index 33.1 Const General: cooperative, comfortable, alert, awake and well groomed Nutritional Appearance: obese Orientation/consciousness: patient oriented x3 Limitations: no limitations Neck Neck: Yes trachea midline, Yes supple and Yes no JVD Resp Effort & Inspection: normal respiratory effort Auscultation: clear to auscultation bilaterally and diminished lung sounds Cardio Jugular venous distension: no JVD Palpation: normal PMI Rate: regular rate Rhythm: regular rhythm Heart sounds: S1 normal heart sound present and S2 normal heart sound present GI Percussion: Yes normal to percussion Skin General skin exam: no rashes or lesions noted and ecchymosis Neuro General: patient oriented x3 and no focal motor deficits Extrem General: Yes no clubbing, cyanosis or edema Psych Appearance: grossly normal Office Procedures Cardiac Device Check Cardiac Device Check Details: Dual-chamber Medtronic pacemaker in place programmed in MVP mode with rate response at 60 beats per minute. No atrial fibrillation episode noted. Battery life is excellent. Atrial ventricular sensing is adequate. Pacing lead impedance is stable. Atrial pacing 96% of time. Atrial ventricular pacing thresholds adequate. 46409-[id number] Cardiac Device Check, pacemaker dual lead Procedure code (CPT) selection complete EKG Details: EKG shows atrially paced, ventricularly sensed rhythm with left axis deviation with normal QT interval 36125-[id number], Complete Assessment & Plan Assessment & Plan (1) Paroxysmal atrial fibrillation: Onset Date: ~11/2014 Code(s): I48.0 - Paroxysmal atrial fibrillation Plan: Paroxysmal atrial fibrillation which is stable and remained controlled on amiodarone therapy. Has had heart failure symptoms with atrial fibrillation with heart failure syndrome. Since maintaining rhythm no evidence of heart failure. Continue rhythm control approach. Could not lower amiodarone dose at it had cause recurrent atrial fibrillation. Continue maintain hypothyroidism with endocrinology. Continue full oral anticoagulation, currently on Xarelto 20 mg daily. Semi annual renal function test should be pursued. Avoidance of stimulants was discussed. Will continue monitor for atrial fibrillation why pacer telemetry. (2) Cardiac pacemaker in situ: Onset Date: ~08/2021 Comment: (Medtronic DCPP placed for marked sinus bradycardia and syncope, 08/21/2021) Code(s): Z95.0 - Presence of cardiac pacemaker Plan: Cardiac pacemaker in-situ for sick sinus syndrome. Pacemaker is working well. Will continue monitor in the clinic in 6 months. Follow remotely as well. (3) HTN (hypertension): Code(s): I10 - Essential (primary) hypertension Plan: High blood pressure which is currently well optimized. Advised to continue current therapy. Importance of good blood pressure control was discussed. Target goal blood pressure less than 130/84. Will follow up in the clinic in 6 months time, sooner p.r.n.. Thank you for allowing me to partake in her care Coding Level of Care Code Est Pt Level 4 (71596) Diagnoses Paroxysmal atrial fibrillation I48.0 Cardiac pacemaker in situ Z95.0 HTN (hypertension) I10 CPT Codes Cardiac Device Check - Cardiac Device 2: 92425-ST Cardiac Device Check, pacemaker dual lead ([id number]) EKG - CPT: 78713-[id number], Complete ([id number])
[2022-10-20 10:41] VITALS: BP 120/74; PULSE 70; BMI 33.1
== END 2022-10-20 11:03 | disposition home or self-care (01) ==
PROVIDERS: PCP Internal Medicine; Referring Provider Internal Medicine; Visit Provider Internal Medicine Cardiovascular Disease
DX: I48.0 Paroxysmal atrial fibrillation (principal); Z95.0 Presence of cardiac pacemaker; I10 Essential (primary) hypertension
CPT/HCPCS: 93280; 99214

== ENCOUNTER → 2022-10-20 10:37 | Outpatient (BNVA) | payer MEDICARE, SELFPAY | PROVIDERS: PCP Internal Medicine; Referring Provider Internal Medicine; Visit Provider Internal Medicine Cardiovascular Disease | DX: I48.0 Paroxysmal atrial fibrillation (principal); I10 Essential (primary) hypertension; Z79.01 Long term (current) use of anticoagulants; Z45.018 Encounter for adjustment and management of other part of cardiac pacemaker | CPT/HCPCS: 93005; 93280; 99212 ==

== ENCOUNTER 2022-12-29 10:53 | Outpatient (REF) | payer MEDICARE, SELFPAY ==
[2022-12-29 12:52] LABS: Anion Gap 10 (12-20); Blood Urea Nitrogen 17 mg/dL (9-16); Calcium 9.6 mg/dL (8.4-10.2); Carbon Dioxide 31 mmol/L (22-29); Chloride 105 mmol/L (96-108); Estimated Glomerular Filt Rate 57; Glucose Random 82 mg/dL (60-115); Potassium 4.1 mmol/L (3.3-5.1); Sodium 142 mmol/L (135-145)
[2022-12-29 13:13] LABS: Vitamin B12 1632 pg/mL (200-900)
[2022-12-29 13:14] LABS: Free T4 (Free Thyroxine) 1.49 ng/dL (0.71-1.85); Thyroid Stimulating Hormone 1.51 uIU/mL (0.32-4.0)
[2022-12-30 08:08] LABS: Triiodothyronine T3 Free 2.1 pg/mL (2.3-4.2)
== END 2022-12-29 10:54 | disposition home or self-care (01) ==
LOC: HO.10HDL 10:53
PROVIDERS: Visit Provider Internal Medicine
DX: E03.9 Hypothyroidism, unspecified (principal); I10 Essential (primary) hypertension; I48.0 Paroxysmal atrial fibrillation; E53.8 Deficiency of other specified B group vitamins
CPT/HCPCS: 36415; 80048; 82607; 84439; 84443; 84481

== ENCOUNTER 2023-01-09 13:49 | Emergency (ER) | payer MEDICARE, OTHER, SELFPAY ==
--- NOTE | ~2023-01-09 | XR_ITS ---
EXAMINATION: XR CHEST CLINICAL INFORMATION: Syncope COMPARISON: Previous chest x-ray August 2021 TECHNIQUE: Frontal view of the chest was obtained. FINDINGS: The cardiac silhouette is slightly enlarged but stable. There is a left subclavian dual chamber pacemaker that appears unchanged. Hilar and mediastinal contours are unremarkable. The lungs are clear. No pleural effusion or pneumothorax. Degenerative changes of the spine and scoliosis. XR/XR chest 1V IMPRESSION: No evidence for acute disease in the chest.
[2023-01-09 14:15] VITALS: BP 114/72; BP 132/51; PULSE 70; PULSE 86; RESP 13; TEMP 37; O2SAT 94; O2SAT 97; BMI 33.1
--- NOTE | 2023-01-09 14:20 | ECG_ITS ---
Test Reason : SYNCOPE Blood Pressure : / mmHG Vent. Rate : 062 BPM Atrial Rate : 062 BPM P-R Int : 238 ms QRS Dur : 098 ms QT Int : 472 ms P-R-T Axes : 000 -46 028 degrees QTc Int : 479 ms Atrial-paced rhythm with prolonged AV conduction Left axis deviation Minimal voltage criteria for LVH, may be normal variant ( [place] product ) Inferior infarct (cited on or before 14-DEC-2019) Anterolateral infarct (cited on or before 12-MAR-2018) Abnormal ECG When compared with ECG of 18-AUG-2021 15:25, Electronic atrial pacemaker has replaced Sinus rhythm Referred By: Lizett Rodriguez Electronically Signed By:BEULAH TANG MD
--- NOTE | 2023-01-09 14:55 | ED_ITS ---
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 Feeling weak, tired, nauseated and like she was going to pass out. Her son and bystanders caught her. This was not like the event that precipitated the PPM at that time she just had LOC at a cookout. She normally eats more during the day and eats lunch. MD complaint: loss of consciousness and felt faint Onset (ago): minute(s) (just prior to arrival ) -: second(s) Prodromal symptoms: lightheaded Witnessed: Yes - by Bystander Context: standing up Injuries sustained associated with event: none Current symptoms: none and back to baseline History: previous syncopal episode Treatments prior to arrival: none Related Data Home Medications Medication Instructions Recorded Confirmed estradiol 0.5 mg tablet 0.5 mg PO DAILY 12/14/19 10/20/22 lisinopril 20 mg tablet 20 mg PO BID 12/14/19 10/20/22 rivaroxaban 20 mg tablet 20 mg PO DAILY 05/08/20 10/20/22 calcium 600 mg capsule 600 mg PO DAILY 08/18/21 10/20/22 cyanocobalamin (vitamin B-12) 1 tab PO DAILY 08/18/21 10/20/22 1,000 mcg tablet ferrous gluconate 324 mg (38 mg 1 tab PO DAILY 08/18/21 10/20/22 iron) tablet folic acid 1 mg tablet 1 tab PO DAILY 08/18/21 10/20/22 cholecalciferol (vitamin D3) 50 50 mcg PO DAILY 04/15/22 10/20/22 mcg (2,000 unit) capsule Previous Rx's Medication Instructions Recorded amiodarone 200 mg tablet 200 mg PO DAILY #90 tabs 02/24/22 amlodipine 5 mg tablet 5 mg PO DAILY 90 days #90 tabs 05/02/22 levothyroxine 125 mcg tablet 125 mcg PO DAILY #30 tabs 09/10/22 Allergies Allergy/AdvReac Type Severity Reaction Status Date / Time No Known Allergies Allergy Verified 05/22/22 09:28 [No Known Allergies*] Review of Systems 2 Review of Systems: Constitutional : No Fever, No Chills, No Fatigue ENT/Mouth : No sore throat, No Rhinorrhea Eyes: No Eye Pain, No Swelling, No Redness Cardiovascular : No Chest Pain, No SOB, No Dyspnea on Exertion Respiratory : No Cough, No Sputum Gastrointestinal : No Nausea, No Vomiting, No Diarrhea, No abdominal Pain Genitourinary : No Dysuria, No Urinary Frequency, No Hematuria, Musculoskeletal : No joint pain, No Myalgias, No Joint Swelling Skin : No Skin Lesions, No rash Neuro : No Weakness, No Numbness, No Dizziness, no Headache, pos syncope Psych : No Anxiety/Panic, No Depression Heme/Lymph: No Bruising, No Bleeding,No Lymphadenopathy Endocrine : No Polyuria, No Polydipsia All other systems reviewed and are negative [facility] Past Medical History Medical History Osteopenia (~2002) History of acoustic neuroma Cardiac pacemaker in situ (~08/2021) Skull asymmetry Eye abnormalities Syncope (~08/2021) HTN (hypertension) (HFpEF) heart failure with preserved ejection fraction Paroxysmal atrial fibrillation (~11/2014) Epistaxis Hypothyroidism Basal cell carcinoma Surgical History History of cardiac pacemaker (~2021) History of ear surgery History of cholecystectomy (~2014) History of hysterectomy History of cardioversion Family History Family History Other No family history of congenital heart disease Social History Social History Household Members: None Housing: House Do you presently have visiting nurse or other home services: No Alcohol intake: never Patient Tobacco Use Status: Never used Tobacco Smoked in Last 30 Days: No Use of substances other than those prescribed or required for medical reasons: No Advance Directives: No Advance Directives Information Provided: Yes service: No Current occupational status: retired Physical Exam 2 Vital Signs: Vital Signs: Last Vital Signs Temp 97.8 F 01/09/23 17:30 Pulse 67 01/09/23 17:30 Resp 16 01/09/23 17:30 BP 122/50 L 01/09/23 17:30 Pulse Ox 95 01/09/23 17:30 O2 Del Method Room Air 01/09/23 17:30 BMI result Body Mass Index 33.1 Appearance: Alert. Oriented X3. No acute distress. Eyes: R eye ERRL, L eye lid is sutured shut due to L facial paralysis ENT: Pharynx normal. Neck: Normal inspection. Neck supple. CVS: Normal heart rate and rhythm. Pulses normal. Respiratory: No respiratory distress. Breath sounds normal. Abdomen: Soft and nontender. Skin: Skin warm and dry. Normal skin color. Normal skin turgor. Extremities: No lower extremity edema. No calf ttp Neuro: Oriented X 3. No motor deficit. No sensory deficit. chronic L facial paralysis Course Course Course Narrative: currently eating and feels fine. Reevaluation(s) Reevaluation #1: sent medtronic interrogation to Dr. Ratliff Medical Decision Making Medical Decision Making [facility] Narrative: 82 yo female with PMH of CHF, PAF on xarelto, s/p PPM for bradycardia and syncope in 2021 follows with Evy normal check ups here with syncopal episode while standing after not eating much today - this was very different from prior syncope event that led to PPM. At this time her PPM is set for back up of 60 I can see on tele it goes off when she goes lower. BP is stable, labs, troponin x 1, will feed patient as standing and not eating likely the cause of syncope. She is on DOAC but no head strike or trauma Differential Diagnosis Differential Diagnoses: The differential diagnosis associated with the presentation includes syncope, dehydration, anemia Admission/Observation Consideration of admission/observation: Escalation of care including admission/observation considered at baseline stable for DC feels much better Consult Healthcare Provider Management of the patient was discussed with: Basket Hand Weaver (reviewed by Evy mckeon for ANALISA) Lab Data [facility] Lab Attestation statement: I reviewed the patient's lab results. 01/09/23 15:40 01/09/23 15:40 Labs: Lab Results 01/09/23 Range/Units 15:40 WBC 8.7 (4.8-10.8) X10*3/uL RBC 3.99 L (4.20-5.50) X10*6/uL Hgb 12.9 (12.0-16.0) g/dl Hct 40.4 (37.0-47.0) % MCV 101.3 H (80.0-98.0) fL MCH 32.3 (27.0-33.0) pg MCHC 31.9 (31.0-35.0) g/dl RDW 13.6 (11.0-16.0) % Plt Count 306 (160-400) X10*3/uL MPV 11.8 (9.4-12.3) fL Immature Gran % (Auto) 0.6 H (0.0-0.4) % Neut % (Auto) 76.4 H (45-73) % Lymph % (Auto) 11.1 L (20-40) % [place]kin % (Auto) 10.2 (2-11) % Eos % (Auto) 1.2 (0-4) % Baso % (Auto) 0.5 (0-2) % Lymph # (Auto) 1.0 L (1.2-4.9) X10*3/uL [place]kin # (Auto) 0.9 (0.1-1.2) X10*3/uL Eos # (Auto) 0.1 (0.0-0.4) X10*3/uL Baso # (Auto) 0.0 (0.0-0.2) X10*3/uL Abs Immat Gran (auto) 0.05 H (0.00-0.03) X10*3/uL Absolute Neuts (auto) 6.6 (2.0-8.3) x10*3/uL Absolute Nucleated RBC 0.000 (0.0-0.012) X10*3/uL Nucleated RBC % (auto) 0.0 (0.0-0.2) /100WBC Sodium 141 (135-145) mmol/L Potassium 4.3 (3.3-5.1) mmol/L Chloride 109 H (96-108) mmol/L Carbon Dioxide 24 (22-29) mmol/L Anion Gap 12 (12-20) BUN 19 H (9-16) mg/dL Creatinine 1.01 (0.5-1.4) mg/dL Estim Creat Clear Calc 37.1 Estimated GFR 52 Random Glucose 95 (60-115) mg/dL Calcium 9.0 D (8.4-10.2) mg/dL Magnesium 2.1 (1.6-2.6) mg/dL Total Bilirubin 0.3 (0.0-1.0) mg/dL Direct Bilirubin 0.1 (0.0-0.5) mg/dL AST 15 (5-31) U/L ALT 11 (0-31) U/L Alkaline Phosphatase 105 (39-117) U/L Troponin I High Sens < 2.7 (<3.5-17.0) ng/L Total Protein 6.2 L (6.5-8.0) g/dL Albumin 3.4 L (3.5-5.0) g/dL Independent Interpretation I performed an independent interpretation of an: EKG and Plain X-Ray (normal ) Interpretation: Rate: 62 Rhythm: atrial paced [place]: left Normal P waves. Normal EVER. Normal QRS complex. ST T wave : no SKY, normal qTC: normal prior studies: no acute ischemia The study has been interpreted contemporaneously by me. . Radiology Impression Discussion of test interpretation with radiology: I have reviewed the radiologist's reading. Independent Historian Clinical information obtained from an independent historian. History obtained from or confirmed by: EMS External Record Review External record reviewed: Office record Discharge Plan Discharge Clinical Impression: Syncope and collapse Patient Disposition: Home, Self-Care Instructions: Syncope (ED) Additional Instructions: labs normal return for worsening symptoms, chest pain trouble breathing or any other concerns. please eat regular meals. follow up with Dr. Ratliff in the next few weeks interrogated pacer it appears okay Prescriptions: No Action amiodarone 200 mg tablet 200 mg PO DAILY Qty: 90 2RF amlodipine 5 mg tablet 5 mg PO DAILY 90 Days Qty: 90 3RF levothyroxine 125 mcg tablet 125 mcg PO DAILY Qty: 30 4RF lisinopril 20 mg tablet 20 mg PO BID estradiol 0.5 mg tablet 0.5 mg PO DAILY cyanocobalamin (vitamin B-12) 1,000 mcg tablet 1 tab PO DAILY folic acid 1 mg tablet 1 tab PO DAILY ferrous gluconate 324 mg (38 mg iron) tablet 1 tab PO DAILY calcium 600 mg Capsule 600 mg PO DAILY rivaroxaban 20 mg tablet 20 mg PO DAILY cholecalciferol (vitamin D3) 50 mcg (2,000 unit) capsule 50 mcg PO DAILY
[2023-01-09 15:44] VITALS: BP 120/50; PULSE 61; RESP 20; O2SAT 99
[2023-01-09 15:45] LABS: MANUAL DIFF FLAG NO
[2023-01-09 15:47] LABS: Basophils Percent Auto 0.5 % (0-2); Eosinophils Absolute Auto 0.1 X10*3/uL (0.0-0.4); Eosinophils Percent Auto 1.2 % (0-4); Hematocrit 40.4 % (37.0-47.0); Hemoglobin 12.9 g/dl (12.0-16.0); Imm Gran Abs Auto 0.05 X10*3/uL (0.00-0.03); Imm Gran Pct Auto 0.6 % (0.0-0.4); Lymphocytes Percent Auto 11.1 % (20-40); Mean Corpuscular HGB Conc 31.9 g/dl (31.0-35.0); Mean Corpuscular Hemoglobin 32.3 pg (27.0-33.0); Mean Corpuscular Volume 101.3 fL (80.0-98.0); Mean Platelet Volume 11.8 fL (9.4-12.3); Monocytes Absolute Auto 0.9 X10*3/uL (0.1-1.2); Monocytes Percent Auto 10.2 % (2-11); Neutrophils Absolute Auto 6.6 x10*3/uL (2.0-8.3); Neutrophils Percent Auto 76.4 % (45-73); Platelet Count 306 X10*3/uL (160-400); Red Blood Count 3.99 X10*6/uL (4.20-5.50); Red Cell Distribution Width 13.6 % (11.0-16.0); White Blood Count 8.7 X10*3/uL (4.8-10.8)
[2023-01-09 16:04] LABS: Alanine Aminotransferase 11 U/L (0-31); Albumin Level 3.4 g/dL (3.5-5.0); Alkaline Phosphatase 105 U/L (39-117); Anion Gap 12 (12-20); Aspartate Amino Transferase 15 U/L (5-31); Bilirubin Direct 0.1 mg/dL (0.0-0.5); Bilirubin Total 0.3 mg/dL (0.0-1.0); Blood Urea Nitrogen 19 mg/dL (9-16); Carbon Dioxide 24 mmol/L (22-29); Chloride 109 mmol/L (96-108); Creatinine Clr Calc Pharmacy 37.1; Estimated Glomerular Filt Rate 52; Glucose Random 95 mg/dL (60-115); Magnesium 2.1 mg/dL (1.6-2.6); Potassium 4.3 mmol/L (3.3-5.1); Sodium 141 mmol/L (135-145); Total Protein 6.2 g/dL (6.5-8.0)
[2023-01-09 16:19] LABS: Troponin-I High Sensitivity < 2.7 ng/L (<3.5-17.0)
[2023-01-09 17:30] VITALS: BP 122/50; PULSE 67; RESP 16; TEMP 36.6; O2SAT 95
--- NOTE | 2023-01-09 18:39 | MHC.EDTECH ---
PATIENT WAS AMBULATED.PATIENT WAS SLIGHTLY UNBALANCED.PATIENT INDICATED HAVING A SLIGHT TILT TO THE LEFT NORMALLY.FAMILY ALSO STATED SHE WAS WALKING AT BASE LINE.
== END 2023-01-09 19:01 | disposition home or self-care (01) ==
PROVIDERS: Emergency Provider Emergency Medicine; PCP Internal Medicine
DX: R55 Syncope and collapse (principal); R42 Dizziness and giddiness; R94.31 Abnormal electrocardiogram [ECG] [EKG]; Z95.0 Presence of cardiac pacemaker; Z79.899 Other long term (current) drug therapy
CPT/HCPCS: 36415; 71045; 80048; 80076; 83735; 84484; 85025; 93005; 99283; 99284

== ENCOUNTER → 2023-01-09 14:20 | Outpatient (BNV) | payer MEDICARE, SELFPAY | PROVIDERS: Emergency Provider Emergency Medicine; PCP Internal Medicine; Visit Provider Internal Medicine Cardiovascular Disease | DX: R94.31 Abnormal electrocardiogram [ECG] [EKG] (principal); R55 Syncope and collapse | CPT/HCPCS: 93010 ==

== ENCOUNTER → 2023-01-09 23:59 | Outpatient (BNV) | payer MEDICARE, SELFPAY ==
--- NOTE | 2023-01-13 12:19 | MHC.OFFVIS ---
Intake Intake Visit Reasons: Remote Device Check- Medtronic Allergies No Known Allergies [No Known Allergies*] Allergy (Verified 05/22/22 09:28) PFSH Medical History Osteopenia (~2002) History of acoustic neuroma Cardiac pacemaker in situ (~08/2021) Skull asymmetry Eye abnormalities Syncope (~08/2021) HTN (hypertension) (HFpEF) heart failure with preserved ejection fraction Paroxysmal atrial fibrillation (~11/2014) Epistaxis Hypothyroidism Basal cell carcinoma Surgical History History of cardiac pacemaker (~2021) History of ear surgery History of cholecystectomy (~2014) History of hysterectomy History of cardioversion Family History Other No family history of congenital heart disease Social History Household Members: None Housing: House Do you presently have visiting nurse or other home services: No Alcohol intake: never Patient Tobacco Use Status: Never used Tobacco Smoked in Last 30 Days: No Use of substances other than those prescribed or required for medical reasons: No Advance Directives: No Advance Directives Information Provided: Yes service: No Current occupational status: retired Office Procedures Cardiac Device Check Cardiac Device Check Details: Remote pacemaker report generated 01/09/2023. Noted in the lower section sensitive issue. Lead impedances are within normal limits. Pacing appears to be within normal limits. [id number] Cardiac Device Interrogation, pacemaker Procedure code (CPT) selection complete Assessment & Plan Assessment & Plan (1) Cardiac pacemaker in situ: Onset Date: ~08/2021 Comment: (Medtronic DCPP placed for marked sinus bradycardia and syncope, 08/21/2021) Code(s): Z95.0 - Presence of cardiac pacemaker Plan: Will schedule for office visit to check the device in% with help of rep Coding Level of Care Code Procedure Only Diagnoses Cardiac pacemaker in situ Z95.0 CPT Codes Cardiac Device Check - Cardiac Device 12: [id number] Cardiac Device Interrogation, pacemaker ([id number])
== END ==
PROVIDERS: PCP Internal Medicine; Visit Provider Internal Medicine Cardiovascular Disease
DX: I48.0 Paroxysmal atrial fibrillation (principal); Z95.0 Presence of cardiac pacemaker
CPT/HCPCS: 93294

== ENCOUNTER → 2023-01-19 12:43 | Outpatient (BNVA) | payer MEDICARE, OTHER, SELFPAY | PROVIDERS: PCP Internal Medicine; Visit Provider Nurse Practitioner Family ==

== ENCOUNTER → 2023-04-12 23:59 | Outpatient (BNV) | payer MEDICARE, SELFPAY ==
--- NOTE | 2023-04-13 16:34 | A.OFFVIS_ITS ---
Intake Intake Visit Reasons: Remote Device Check- Medtronic Allergies No Known Allergies [No Known Allergies*] Allergy (Verified 05/22/22 09:28) [facility] Medical History Osteopenia (~2002) History of acoustic neuroma Cardiac pacemaker in situ (~08/2021) Skull asymmetry Eye abnormalities Syncope (~08/2021) HTN (hypertension) (HFpEF) heart failure with preserved ejection fraction Paroxysmal atrial fibrillation (~11/2014) Epistaxis Hypothyroidism Basal cell carcinoma Surgical History History of cardiac pacemaker (~2021) History of ear surgery History of cholecystectomy (~2014) History of hysterectomy History of cardioversion Family History Other No family history of congenital heart disease Social History Household Members: None Housing: House Do you presently have visiting nurse or other home services: No Alcohol intake: never Patient Tobacco Use Status: Never used Tobacco service: No Current occupational status: retired Office Procedures Cardiac Device Check Cardiac Device Check Details: Remote pacemaker report generated 04/13/2023. Pacemaker function is adequate. No episodes of atrial fibrillation [id number] Cardiac Device Interrogation, pacemaker Procedure code (CPT) selection complete Assessment & Plan Assessment & Plan (1) Cardiac pacemaker in situ: Onset Date: ~08/2021 Comment: (Medtronic DCPP placed for marked sinus bradycardia and syncope, 08/21/2021) Code(s): Z95.0 - Presence of cardiac pacemaker Plan: See above Coding Level of Care Code Procedure Only Diagnoses Cardiac pacemaker in situ Z95.0 CPT Codes Cardiac Device Check - Cardiac Device 12: [id number] Cardiac Device Interrogation, pacemaker ([id number])
== END ==
PROVIDERS: PCP Internal Medicine; Visit Provider Internal Medicine Cardiovascular Disease
DX: I48.0 Paroxysmal atrial fibrillation (principal); Z95.0 Presence of cardiac pacemaker
CPT/HCPCS: 93294

== ENCOUNTER 2023-04-30 10:11 | Outpatient (AMB) | payer MEDICARE, SELFPAY ==
--- NOTE | 2023-04-30 10:34 | MHC.OFFVIS ---
Intake Vital Signs 04/30/23 10:35 Height 4 ft 11 in Weight 152 lb 1.903 oz BMI 30.7 BP 120/74 Blood Pressure Location Lt brachial Position Sitting Pulse 75 Intake Visit Reasons: 6 mth fu w/ Medtronic Intake Note: 6 month follow-up with medtronic and ekg feeling good Production Superintendent Required: No Allergies No Known Allergies [No Known Allergies*] Allergy (Verified 05/22/22 09:28) Medication List - Last Reconciled 04/30/23 by Hamilton Ratliff MD amiodarone 200 mg PO DAILY amlodipine 5 mg PO DAILY 90 days calcium 600 mg PO DAILY cholecalciferol (vitamin D3) 50 mcg PO DAILY cyanocobalamin (vitamin B-12) 1 tab PO DAILY estradiol 0.5 mg PO DAILY ferrous gluconate 1 tab PO DAILY folic acid 1 tab PO DAILY levothyroxine 125 mcg PO DAILY lisinopril 20 mg PO BID rivaroxaban 20 mg PO DAILY HPI HPI Comments History of Present Illness Details Jessica comes for follow-up. She has been doing very well. She remains very independent and maintains activity level. She has had no symptoms of palpitations. No symptoms of fatigue. No heart failure symptoms. No orthopnea, PND, leg edema. No lightheadedness, syncope. No bleeding issues or neurologic events. Denies any exertional chest pain. [facility] Medical History Osteopenia (~2002) History of acoustic neuroma Cardiac pacemaker in situ (~08/2021) Skull asymmetry Eye abnormalities Syncope (~08/2021) HTN (hypertension) (HFpEF) heart failure with preserved ejection fraction Paroxysmal atrial fibrillation (~11/2014) Epistaxis Hypothyroidism Basal cell carcinoma Surgical History History of cardiac pacemaker (~2021) History of ear surgery History of cholecystectomy (~2014) History of hysterectomy History of cardioversion Family History Other No family history of congenital heart disease Social History Household Members: None Housing: House Do you presently have visiting nurse or other home services: No Alcohol intake: never Patient Tobacco Use Status: Never used Tobacco service: No Current occupational status: retired Review of Systems Const Denies chills, Denies fatigue, Denies fever(s), Denies frequent falls, Denies weakness, Denies weight gain and Denies weight loss ENT Denies dizziness Card Denies chest pain, Denies leg edema, Denies lightheadedness, Denies palpitations, Denies dyspnea, Denies dyspnea on exertion, Denies orthopnea and Denies other (loss of consciousness) Resp Denies cough, Denies dyspnea and Denies dyspnea on exertion GI Denies hematochezia and Denies change in stool character Musc Denies abnormal gait, Denies muscle weakness, Denies numbness, Denies radiating pain into limb and Denies tingling Neuro Denies abnormal gait, Denies dizziness, Denies frequent falls, Denies numbness, Denies tingling and Denies weakness Endo Denies fatigue and Denies palpitations Physical Exam Vital Signs: Last Vital Signs Pulse 75 04/30/23 10:35 BP 120/74 04/30/23 10:35 BMI result Body Mass Index 30.7 Const General: cooperative, comfortable, alert, awake and well groomed Nutritional Appearance: obese Orientation/consciousness: patient oriented x3 Limitations: no limitations Neck Neck: Yes trachea midline, Yes supple and Yes no JVD Resp Effort & Inspection: normal respiratory effort Auscultation: clear to auscultation bilaterally and diminished lung sounds Cardio Jugular venous distension: no JVD Palpation: normal PMI Rate: regular rate Rhythm: regular rhythm Heart sounds: S1 normal heart sound present and S2 normal heart sound present GI Percussion: Yes normal to percussion Skin General skin exam: no rashes or lesions noted and ecchymosis Neuro General: patient oriented x3 and no focal motor deficits Extrem General: Yes no clubbing, cyanosis or edema Psych Appearance: grossly normal Office Procedures Cardiac Device Check Cardiac Device Check Details: Dual-chamber pacemaker placement. Programmed in MVP mode with rate response at 60 beats per minute. Atrial ventricular sensing is adequate. Atrial ventricular pacing thresholds excellent and reprogrammed to enhance battery life. Pacing lead impedance is stable. Battery life is excellent at 12 years.. No episodes of atrial fibrillation noted [id number] Cardiac Device Check, pacemaker dual lead Procedure code (CPT) selection complete EKG Details: EKG shows atrially paced, ventricularly sensed rhythm with left axis deviation with normal QT interval [id number], Complete Assessment & Plan Assessment & Plan (1) Paroxysmal atrial fibrillation: Onset Date: ~11/2014 Code(s): I48.0 - Paroxysmal atrial fibrillation Plan: Paroxysmal atrial fibrillation highly symptomatic leading to heart failure symptoms. Has done well with rhythm control approach. Unfortunately she requires amiodarone 200 mg to maintain rhythm. Continue monitor for amiodarone toxicity. Need for amiodarone therapy was discussed with her. Continue full oral anticoagulation, currently on Xarelto 20 mg daily. Annual check for amiodarone toxicity and quarterly check for renal function test should be pursued. (2) Cardiac pacemaker in situ: Onset Date: ~08/2021 Comment: (Medtronic DCPP placed for marked sinus bradycardia and syncope, 08/21/2021) Code(s): Z95.0 - Presence of cardiac pacemaker Plan: Cardiac pacemaker in-situ for sick sinus syndrome. Pacemaker is working well. Reprogrammed for adequate functioning. Will continue monitor remotely every 3 months. Follow up in the clinic in 6 months time. (3) HTN (hypertension): Code(s): I10 - Essential (primary) hypertension Plan: Hypertension which is currently well optimized advised to monitor blood pressure at home and maintain a log. Goal blood pressure less than 130/80. Low-salt diet was discussed. Follow-up echocardiogram in 6 months time. Low-salt diet was discussed advised to continue current medications to control blood pressure. Importance of good blood pressure control was discussed. She understands agrees. Advised to maintain activity level as tolerated. Follow up in the clinic in 6 months time, sooner p.r.n.. Thank you for allowing me to partake in the care Orders: Orders CA echo transthoracic complete 6 Months I48.0 - Paroxysmal atrial fibrillation Coding Level of Care Code Est Pt Level 4 (70918) Diagnoses Paroxysmal atrial fibrillation I48.0 Cardiac pacemaker in situ Z95.0 HTN (hypertension) I10 CPT Codes Cardiac Device Check - Cardiac Device 2: [id number] Cardiac Device Check, pacemaker dual lead ([id number]) EKG - CPT: 85668-[id number], Complete ([id number])
[2023-04-30 10:35] VITALS: BP 120/74; PULSE 75; BMI 30.7
== END 2023-04-30 11:20 | disposition home or self-care (01) ==
PROVIDERS: PCP Internal Medicine; Visit Provider Internal Medicine Cardiovascular Disease
DX: I48.0 Paroxysmal atrial fibrillation (principal); Z95.0 Presence of cardiac pacemaker; I10 Essential (primary) hypertension
CPT/HCPCS: 93010; 93280; 99214

== ENCOUNTER → 2023-04-30 10:11 | Outpatient (BNVA) | payer MEDICARE, MEDICAID, SELFPAY | PROVIDERS: PCP Internal Medicine; Visit Provider Internal Medicine Cardiovascular Disease | DX: I48.0 Paroxysmal atrial fibrillation (principal); I10 Essential (primary) hypertension; Z95.0 Presence of cardiac pacemaker; Z79.899 Other long term (current) drug therapy | CPT/HCPCS: 93005; 93280; 99212 ==

== ENCOUNTER 2023-05-21 09:56 | Outpatient (REF) | payer MEDICARE, MEDICAID, SELFPAY ==
[2023-05-21 10:13] LABS: MANUAL DIFF FLAG NO
[2023-05-21 10:34] LABS: Basophils Percent Auto 0.6 % (0-2); Eosinophils Absolute Auto 0.3 X10*3/uL (0.0-0.4); Eosinophils Percent Auto 4.7 % (0-4); Hematocrit 43.3 % (37.0-47.0); Imm Gran Abs Auto 0.03 X10*3/uL (0.00-0.03); Imm Gran Pct Auto 0.4 % (0.0-0.4); Lymphocytes Absolute Auto 1.4 X10*3/uL (1.2-4.9); Lymphocytes Percent Auto 19.7 % (20-40); Mean Corpuscular HGB Conc 32.3 g/dl (31.0-35.0); Mean Corpuscular Hemoglobin 32.1 pg (27.0-33.0); Mean Corpuscular Volume 99.3 fL (80.0-98.0); Monocytes Absolute Auto 0.8 X10*3/uL (0.1-1.2); Monocytes Percent Auto 11.3 % (2-11); Neutrophils Absolute Auto 4.5 x10*3/uL (2.0-8.3); Neutrophils Percent Auto 63.3 % (45-73); Platelet Count 364 X10*3/uL (160-400); Red Blood Count 4.36 X10*6/uL (4.20-5.50); White Blood Count 7.1 X10*3/uL (4.8-10.8)
[2023-05-21 11:38] LABS: Alanine Aminotransferase 14 U/L (0-31); Albumin Level 3.5 g/dL (3.5-5.0); Alkaline Phosphatase 112 U/L (39-117); Anion Gap 11 (12-20); Aspartate Amino Transferase 16 U/L (5-31); Bilirubin Total 0.3 mg/dL (0.0-1.0); Blood Urea Nitrogen 15 mg/dL (9-16); Calcium 9.1 mg/dL (8.4-10.2); Carbon Dioxide 28 mmol/L (22-29); Chloride 107 mmol/L (96-108); Estimated Glomerular Filt Rate 52; Ferritin 62 ng/mL (10-250); Glucose Random 84 mg/dL (60-115); Potassium 4.7 mmol/L (3.3-5.1); Sodium 141 mmol/L (135-145)
[2023-05-21 12:36] LABS: Folate > 20.0 ng/mL (> or = 4.0); Vitamin B12 1283 pg/mL (200-900)
== END 2023-05-21 09:57 | disposition home or self-care (01) ==
LOC: HO.LAB 09:56
PROVIDERS: PCP Internal Medicine; Visit Provider Internal Medicine Medical Oncology
DX: I11.0 Hypertensive heart disease with heart failure (principal); I50.9 Heart failure, unspecified; E55.9 Vitamin D deficiency, unspecified; D50.9 Iron deficiency anemia, unspecified; D47.3 Essential (hemorrhagic) thrombocythemia; E53.8 Deficiency of other specified B group vitamins
CPT/HCPCS: 36415; 80053; 82607; 82728; 82746; 85025

== ENCOUNTER → 2023-07-11 23:59 | Outpatient (BNV) | payer MEDICARE, MEDICAID, SELFPAY ==
--- NOTE | 2023-07-14 13:46 | MHC.OFFVIS ---
Intake Visit Reasons: Remote device check- [employer] Allergies No Known Allergies [No Known Allergies*] Allergy (Verified 05/22/22 09:28) PFSH Medical History Osteopenia (~2002) History of acoustic neuroma Cardiac pacemaker in situ (~08/2021) Skull asymmetry Eye abnormalities Syncope (~08/2021) HTN (hypertension) (HFpEF) heart failure with preserved ejection fraction Paroxysmal atrial fibrillation (~11/2014) Epistaxis Hypothyroidism Basal cell carcinoma Surgical History History of cardiac pacemaker (~2021) History of ear surgery History of cholecystectomy (~2014) History of hysterectomy History of cardioversion Family History Other No family history of congenital heart disease Social History Household Members: None Housing: House Do you presently have visiting nurse or other home services: No Alcohol intake: never Patient Tobacco Use Status: Never used Tobacco service: No Current occupational status: retired Office Procedures Cardiac Device Check Cardiac Device Check Details: Remote pacemaker report generated 07/11/2023. Pacemaker function is adequate. Atrial pacing 97% time. No episodes of atrial fibrillation noted [id number] Cardiac Device Interrogation, pacemaker Procedure code (CPT) selection complete Assessment & Plan Assessment & Plan (1) Cardiac pacemaker in situ: Onset Date: ~08/2021 Comment: (Medtronic DCPP placed for marked sinus bradycardia and syncope, 08/21/2021) Code(s): Z95.0 - Presence of cardiac pacemaker Category: Medical Plan: See above Coding Level of Care Code Procedure Only Diagnoses Cardiac pacemaker in situ Z95.0 CPT Codes Cardiac Device Check - Cardiac Device 12: [id number] Cardiac Device Interrogation, pacemaker ([id number])
== END ==
PROVIDERS: PCP Internal Medicine; Visit Provider Internal Medicine Cardiovascular Disease
DX: R00.1 Bradycardia, unspecified (principal); Z95.0 Presence of cardiac pacemaker
CPT/HCPCS: 93294

== ENCOUNTER 2023-08-03 10:07 | Outpatient (REF) | payer MEDICARE, MEDICAID, SELFPAY ==
[2023-08-03 11:07] LABS: MANUAL DIFF FLAG NO
[2023-08-03 11:10] LABS: Basophils Absolute Auto 0.1 X10*3/uL (0.0-0.2); Basophils Percent Auto 0.7 % (0-2); Eosinophils Absolute Auto 0.3 X10*3/uL (0.0-0.4); Eosinophils Percent Auto 3.7 % (0-4); Hematocrit 43.3 % (37.0-47.0); Hemoglobin 14.2 g/dl (12.0-16.0); Imm Gran Abs Auto 0.04 X10*3/uL (0.00-0.03); Imm Gran Pct Auto 0.5 % (0.0-0.4); Lymphocytes Absolute Auto 1.4 X10*3/uL (1.2-4.9); Lymphocytes Percent Auto 18.3 % (20-40); Mean Corpuscular HGB Conc 32.8 g/dl (31.0-35.0); Mean Corpuscular Hemoglobin 32.3 pg (27.0-33.0); Mean Corpuscular Volume 98.6 fL (80.0-98.0); Monocytes Absolute Auto 0.7 X10*3/uL (0.1-1.2); Monocytes Percent Auto 9.8 % (2-11); Neutrophils Absolute Auto 5.1 x10*3/uL (2.0-8.3); Platelet Count 329 X10*3/uL (160-400); Red Blood Count 4.39 X10*6/uL (4.20-5.50); Red Cell Distribution Width 14.4 % (11.0-16.0); White Blood Count 7.6 X10*3/uL (4.8-10.8)
[2023-08-03 11:37] LABS: Alanine Aminotransferase 15 U/L (0-31); Albumin Level 3.7 g/dL (3.5-5.0); Alkaline Phosphatase 116 U/L (39-117); Anion Gap 16 (12-20); Aspartate Amino Transferase 20 U/L (5-31); Bilirubin Total 0.3 mg/dL (0.0-1.0); Blood Urea Nitrogen 17 mg/dL (9-16); Calcium 9.1 mg/dL (8.4-10.2); Carbon Dioxide 27 mmol/L (22-29); Chloride 104 mmol/L (96-108); Estimated Glomerular Filt Rate > 60; Glucose Random 90 mg/dL (60-115); Potassium 4.3 mmol/L (3.3-5.1); Sodium 143 mmol/L (135-145)
[2023-08-03 11:41] LABS: Free T4 (Free Thyroxine) 1.36 ng/dL (0.71-1.85); Thyroid Stimulating Hormone 0.85 uIU/mL (0.32-4.0)
== END 2023-08-03 10:08 | disposition home or self-care (01) ==
LOC: HO.10HDL 10:07
PROVIDERS: Visit Provider Internal Medicine
DX: I48.0 Paroxysmal atrial fibrillation (principal); I12.9 Hypertensive chronic kidney disease with stage 1 through stage 4 chronic kidney disease, or unspecified chronic kidney disease; N18.9 Chronic kidney disease, unspecified; E03.9 Hypothyroidism, unspecified
CPT/HCPCS: 36415; 80053; 84439; 84443; 85025

== ENCOUNTER 2023-09-24 10:21 | Outpatient (REF) | payer MEDICARE, MEDICAID, SELFPAY ==
[2023-09-24 10:46] LABS: MANUAL DIFF FLAG NO
[2023-09-24 10:52] LABS: Basophils Percent Auto 0.5 % (0-2); Eosinophils Absolute Auto 0.3 X10*3/uL (0.0-0.4); Eosinophils Percent Auto 3.3 % (0-4); Hematocrit 43.4 % (37.0-47.0); Imm Gran Abs Auto 0.04 X10*3/uL (0.00-0.03); Imm Gran Pct Auto 0.5 % (0.0-0.4); Lymphocytes Absolute Auto 1.4 X10*3/uL (1.2-4.9); Lymphocytes Percent Auto 17.6 % (20-40); Mean Corpuscular HGB Conc 32.3 g/dl (31.0-35.0); Mean Corpuscular Hemoglobin 32.9 pg (27.0-33.0); Mean Corpuscular Volume 102.1 fL (80.0-98.0); Mean Platelet Volume 11.8 fL (9.4-12.3); Monocytes Absolute Auto 0.7 X10*3/uL (0.1-1.2); Monocytes Percent Auto 9.1 % (2-11); Neutrophils Absolute Auto 5.4 x10*3/uL (2.0-8.3); Platelet Count 329 X10*3/uL (160-400); Red Blood Count 4.25 X10*6/uL (4.20-5.50); Red Cell Distribution Width 14.1 % (11.0-16.0); White Blood Count 7.8 X10*3/uL (4.8-10.8)
[2023-09-24 12:03] LABS: Alanine Aminotransferase 16 U/L (0-31); Albumin Level 3.6 g/dL (3.5-5.0); Alkaline Phosphatase 106 U/L (39-117); Anion Gap 10 (12-20); Aspartate Amino Transferase 20 U/L (5-31); Bilirubin Total 0.3 mg/dL (0.0-1.0); Blood Urea Nitrogen 13 mg/dL (9-16); Calcium 8.7 mg/dL (8.4-10.2); Carbon Dioxide 30 mmol/L (22-29); Chloride 107 mmol/L (96-108); Estimated Glomerular Filt Rate > 60; Glucose Random 82 mg/dL (60-115); Potassium 4.5 mmol/L (3.3-5.1); Sodium 142 mmol/L (135-145); Total Protein 6.9 g/dL (6.5-8.0)
[2023-09-24 12:21] LABS: Ferritin 56 ng/mL (10-250)
[2023-09-24 12:27] LABS: Vitamin B12 1503 pg/mL (200-900)
== END 2023-09-24 10:22 | disposition home or self-care (01) ==
LOC: HO.10HDL 10:21
PROVIDERS: Visit Provider Internal Medicine Medical Oncology
DX: I10 Essential (primary) hypertension (principal); D50.9 Iron deficiency anemia, unspecified; E53.8 Deficiency of other specified B group vitamins; E66.3 Overweight
CPT/HCPCS: 36415; 80053; 82607; 82728; 85025

== ENCOUNTER → 2023-10-13 23:59 | Outpatient (BNV) | payer MEDICARE, MEDICAID, SELFPAY ==
--- NOTE | 2023-10-19 17:16 | MHC.OFFVIS ---
Intake Visit Reasons: Remote device check- Medtronic Allergies No Known Allergies [No Known Allergies*] Allergy (Verified 05/22/22 09:28) PFSH Medical History Osteopenia (~2002) History of acoustic neuroma Cardiac pacemaker in situ (~08/2021) Skull asymmetry Eye abnormalities Syncope (~08/2021) HTN (hypertension) (HFpEF) heart failure with preserved ejection fraction Paroxysmal atrial fibrillation (~11/2014) Epistaxis Hypothyroidism Basal cell carcinoma Surgical History History of cardiac pacemaker (~2021) History of ear surgery History of cholecystectomy (~2014) History of hysterectomy History of cardioversion Family History Other No family history of congenital heart disease Social History Household Members: None Housing: House Do you presently have visiting nurse or other home services: No Alcohol intake: never Patient Tobacco Use Status: Never used Tobacco service: No Current occupational status: retired Office Procedures Cardiac Device Check Cardiac Device Check Details: Remote pacemaker report generated 10/13/2023. Pacemaker function is adequate. No episodes of atrial fibrillation noted [id number] Cardiac Device Interrogation, pacemaker Procedure code (CPT) selection complete Assessment & Plan Assessment & Plan (1) Cardiac pacemaker in situ: Onset Date: ~08/2021 Comment: (Medtronic DCPP placed for marked sinus bradycardia and syncope, 08/21/2021) Code(s): Z95.0 - Presence of cardiac pacemaker Category: Medical Plan: See above Coding Level of Care Code Procedure Only Diagnoses Cardiac pacemaker in situ Z95.0 CPT Codes Cardiac Device Check - Cardiac Device 12: [id number] Cardiac Device Interrogation, pacemaker ([id number])
== END ==
PROVIDERS: PCP Internal Medicine; Visit Provider Internal Medicine Cardiovascular Disease
DX: Z45.018 Encounter for adjustment and management of other part of cardiac pacemaker (principal)
CPT/HCPCS: 93294

== ENCOUNTER → 2023-10-20 09:40 | Outpatient (REF) | payer MEDICARE, MEDICAID, SELFPAY ==
--- NOTE | 2023-10-20 09:42 | CA_ITS ---
Transthoracic Echocardiogram Patient (Last, First, Middle): Jessica Yao R Gender: Female Date of : 1940 Age: 83 Procedure Date: 10/20/2023 Procedure Type: Transthoracic Echocardiogram Location: OP Height: 154.94 cm Weight: 68.04 kg BSA: 1.67 m2 Heart Rate: bpm BP: 122 / 80 mmHg Manager Clinical Services: Referring MD: Hamilton Ratliff MD Symptoms: I48.0 - Paroxysmal atrial fibrillation Study Quality: Adequate ECG Rhythm: Sinus Conclusions: - The left ventricular systolic function is low normal. The calculated ejection fraction is 52% by biplane method. - There is mild aortic valve regurgitation. Findings Left Ventricle Normal left ventricular cavity size. There is normal left ventricular wall thickness. The left ventricular systolic function is low normal. The calculated ejection fraction is 52% by biplane method. There is no evidence of regional wall motion abnormalities. Evidence suggests grade I (mild) diastolic dysfunction. Right Ventricle There is a pacemaker wire seen in the right ventricle. Atria Both atria are normal in size. Aortic Valve There is a normal trileaflet aortic valve. There is no aortic valve stenosis. There is mild aortic valve regurgitation. Mitral Valve The mitral valve appears normal. There is trace mitral valve regurgitation. There is no mitral valve stenosis. Pulmonic Valve The pulmonic valve is likely normal. Tricuspid Valve There is trace tricuspid valve regurgitation. There is no evidence of pulmonary hypertension. Great Vessels The asc aorta is normal in size. Venous The inferior vena cava is normal in size and collapses greater than 50% with inspiration. Pericardium/Pleural There is no evidence of pericardial effusion. Prior Study Comparison Changes noted compared to prior study dated: 01/24/2021. LVEF lower than previously reported. Measurements 2D Linear Measurements IVSd: 0.95 0.6-0.9/0.6-1.0 cm LVIDd: 4.80 3.9-5.3/4.2-5.9 cm LVIDd Index: 2.87 2.4-3.2/2.2-3.1 cm/m2 LVIDs: 3.22 2.0-3.6 cm LVPWd: 0.85 0.7-1.1 cm Ao Root: 3.30 2.1-3.5 cm LA Diam: 4.10 2.7-3.8/3.0-4.0 cm LAIDs Index: 2.46 1.5-2.3 cm/m2 LV Mass: 183.44 67-162/88-224 g LV Mass Index: 109.84 43-95/49-115 g/m2 LVOT Diam: 2.10 3.0+(-)1.3 cm 2D Systolic Function EF 4C: 49.70 >55% EF 2C: 55.30 >55% EF BiP: 52.00 >55% Mitral Valve MV Pk E: 0.63 MV PK A: 0.90 MV Decel Time: 193.00 E/A: 0.70 E'Lateral: 6.20 E'Medial: 5.11 E/E' Med: 12.40 E/E' Lat: 10.20 PHT: 56.00 MVA PHT: 3.93 Decel Sargent: 3.29 Aortic Valve AoV Pk Jadon: 1.17 AoV Mn Jadon: 0.83 AoV VTI: 0.31 AoV Pk Grad: 5.00 Aov Mn Grad: 3.00 NOMAN Cont.VTI: 2.41 AI Pk Jadon: 3.54 AI Sargent: 1.65 LVOT LVOT Pk Jadon: 0.82 LVOT Mn Jadon: 0.57 LVOT VTI: 0.22 LVOT Pk Grad: 3.00 LVOT Mn Grad: 1.00 LVOT Diam: 2.10 LVOT Area: 3.46 Diastolic Function MV Pk E: 0.63 MV Pk A: 0.90 E/A: 0.70 E'Medial: 5.11 E/E' Med: 12.40 E' Laterial: 6.20 E/E' Lat: 10.20 Right Ventricle TAPSE (mm): 25.00 TVS' Jadon: 12.00 Tricuspid Valve TR Pk Jadon: 2.25 TR Pk Grad: 20.00 RA Press: 3.00 RVSP: 23.00 Great Vessels Aorta Ao Root-2D: 3.30 2.0-3.7 cm Ao Asc: 3.00 2.1-3.4 cm Pulmonary Valve PV Pk Jadon: 0.77 Peak PV Grad: 2.00 Updated in Other Vendor System with Status of Final Mian Goldberg MD electronically signed on 10/21/2023 11:06:11 AM with status of Final
== END ==
LOC: HO.CARD 09:40
PROVIDERS: PCP Internal Medicine; Visit Provider Internal Medicine Cardiovascular Disease
DX: I48.0 Paroxysmal atrial fibrillation (principal)
CPT/HCPCS: 93306

== ENCOUNTER → 2023-10-20 09:42 | Outpatient (BNV) | payer MEDICARE, MEDICAID, SELFPAY | PROVIDERS: PCP Internal Medicine; Visit Provider Internal Medicine | DX: I35.1 Nonrheumatic aortic (valve) insufficiency (principal) | CPT/HCPCS: 93306 ==

== ENCOUNTER 2023-11-03 10:17 | Outpatient (AMB) | payer MEDICARE, MEDICAID, SELFPAY ==
[2023-11-03 10:28] VITALS: BP 120/76; PULSE 78; BMI 30.3
--- NOTE | 2023-11-03 10:28 | A.OFFVIS_ITS ---
Vital Signs 11/03/23 10:28 Height 4 ft 11 in Weight 149 lb 14.629 oz BMI 30.3 BP 120/76 Blood Pressure Location Lt brachial Position Sitting Pulse 78 Intake Visit Reasons: 6 month follow up echo Intake Note: 6 month follow-up after echo with ekg and medtronic check feeling good Painter Airbrush Required: No Allergies No Known Allergies [No Known Allergies*] Allergy (Verified 05/22/22 09:28) Medication List - Last Reconciled 11/03/23 by Hamilton Ratliff MD amiodarone 200 mg PO DAILY amlodipine 5 mg PO DAILY 90 days calcium 600 mg PO DAILY cholecalciferol (vitamin D3) 50 mcg PO DAILY cyanocobalamin (vitamin B-12) 1 tab PO DAILY estradiol 0.5 mg PO DAILY ferrous gluconate 1 tab PO DAILY folic acid 1 tab PO DAILY levothyroxine 125 mcg PO DAILY lisinopril 20 mg PO BID rivaroxaban 20 mg PO DAILY HPI Comments Details: Jessica comes for follow-up. She is doing very well. She remains active although avoids walking due to her vision issues. She has had no falls. She denies any heart failure symptoms. No lightheadedness, syncope. No exertional chest pain. No bleeding issues or neurologic events. [facility] Medical History Osteopenia (~2002) History of acoustic neuroma Cardiac pacemaker in situ (~08/2021) Skull asymmetry Eye abnormalities Syncope (~08/2021) HTN (hypertension) (HFpEF) heart failure with preserved ejection fraction Paroxysmal atrial fibrillation (~11/2014) Epistaxis Hypothyroidism Basal cell carcinoma Surgical History History of cardiac pacemaker (~2021) History of ear surgery History of cholecystectomy (~2014) History of hysterectomy History of cardioversion Family History Other No family history of congenital heart disease Social History Household Members: None Housing: House Do you presently have visiting nurse or other home services: No Alcohol intake: never Patient Tobacco Use Status: Never used Tobacco service: No Current occupational status: retired Review of Systems Const Denies chills, Denies fatigue, Denies fever(s), Denies frequent falls, Denies weakness, Denies weight gain and Denies weight loss ENT Denies dizziness Card Denies chest pain, Denies leg edema, Denies lightheadedness, Denies palpitations, Denies dyspnea, Denies dyspnea on exertion, Denies orthopnea and Denies other (loss of consciousness) Resp Denies cough, Denies dyspnea and Denies dyspnea on exertion GI Denies hematochezia and Denies change in stool character Musc Denies abnormal gait, Denies muscle weakness, Denies numbness, Denies radiating pain into limb and Denies tingling Neuro Denies abnormal gait, Denies dizziness, Denies frequent falls, Denies numbness, Denies tingling and Denies weakness Endo Denies fatigue and Denies palpitations Physical Exam Vital Signs: Last Vital Signs Pulse 78 11/03/23 10:28 BP 120/76 11/03/23 10:28 BMI result Body Mass Index 30.3 Const General: cooperative, comfortable, alert, awake and well groomed Nutritional Appearance: obese Orientation/consciousness: patient oriented x3 Limitations: no limitations Neck Neck: Yes trachea midline, Yes supple and Yes no JVD Resp Effort & Inspection: normal respiratory effort Auscultation: clear to auscultation bilaterally and diminished lung sounds Cardio Jugular venous distension: no JVD Palpation: normal PMI Rate: regular rate Rhythm: regular rhythm Heart sounds: S1 normal heart sound present and S2 normal heart sound present GI Percussion: Yes normal to percussion Skin General skin exam: no rashes or lesions noted and ecchymosis Neuro General: patient oriented x3 and no focal motor deficits Extrem General: Yes no clubbing, cyanosis or edema Psych Appearance: grossly normal Office Procedures Cardiac Device Check Cardiac Device Check Details: Dual-chamber Medtronic pacemaker in place, programmed in DDDR at 60 beats per minute. Atrial pacing 97% time. No episodes of atrial fibrillation. Atrial ventricular pacing thresholds excellent and reprogrammed to enhance battery life. Atrial ventricular sensing is adequate. Pacing lead impedance is stable. Battery life is excellent [id number] Cardiac Device Check, pacemaker dual lead Procedure code (CPT) selection complete EKG Details: EKG shows atrially paced, ventricularly sensed rhythm with leftward axis deviation with poor R-wave progression most likely lead placement [id number], Complete Assessment & Plan Assessment & Plan (1) Paroxysmal atrial fibrillation: Onset Date: ~11/2014 Code(s): I48.0 - Paroxysmal atrial fibrillation Category: Medical Plan: Highly symptomatic paroxysmal atrial fibrillation with heart failure syndrome. Pretty resistant treatment has only responded to long-term amiodarone therapy. Risk of long-term amiodarone was discussed with her. She understands. Continue the same. Annual check for amiodarone toxicity. Continue full oral anticoagulation, currently on Xarelto 20 mg daily. Semi annual renal function test should be pursued. Avoidance of stimulants was discussed. Advised to call me with any worsening symptoms. (2) Cardiac pacemaker in situ: Onset Date: ~08/2021 Comment: (Medtronic DCPP placed for marked sinus bradycardia and syncope, 08/21/2021) Code(s): Z95.0 - Presence of cardiac pacemaker Category: Medical Plan: Cardiac pacemaker in-situ for sick sinus syndrome. Pacemaker is working well. Will follow-up remotely every 3 months. Follow up in the clinic in 6 months time. (3) HTN (hypertension): Code(s): I10 - Essential (primary) hypertension Category: Medical Plan: Hypertension which is currently well optimized advised to monitor blood pressure at home maintain a log. Goal blood pressure less than 130/84. Low-salt diet was discussed. Advised to maintain activity level as tolerated. Follow up in the clinic in 6 months time, sooner p.r.n.. Thank you for allowing me to partake in her care Coding Level of Care Code Est Pt Level 4 (31130) Diagnoses Paroxysmal atrial fibrillation I48.0 Cardiac pacemaker in situ Z95.0 HTN (hypertension) I10 CPT Codes Cardiac Device Check - Cardiac Device 2: 34103-[id number] Cardiac Device Check, pacemaker dual lead ([id number]) EKG - CPT: 15493-Laclucdlsashelwew, Complete ([id number])
== END 2023-11-03 10:53 | disposition home or self-care (01) ==
PROVIDERS: PCP Internal Medicine; Visit Provider Internal Medicine Cardiovascular Disease
DX: I48.0 Paroxysmal atrial fibrillation (principal); Z95.0 Presence of cardiac pacemaker; I10 Essential (primary) hypertension
CPT/HCPCS: 93010; 93280; 99214

== ENCOUNTER → 2023-11-03 10:17 | Outpatient (BNVA) | payer MEDICARE, SELFPAY | PROVIDERS: PCP Internal Medicine; Visit Provider Internal Medicine Cardiovascular Disease | DX: Z45.018 Encounter for adjustment and management of other part of cardiac pacemaker (principal); I48.0 Paroxysmal atrial fibrillation; I10 Essential (primary) hypertension; R94.31 Abnormal electrocardiogram [ECG] [EKG] | CPT/HCPCS: 93005; 93280; 99212 ==

== ENCOUNTER 2023-12-29 09:40 | Outpatient (REF) | payer MEDICARE, MEDICAID, SELFPAY | END 2023-12-29 09:41 | disposition home or self-care (01) | LOC: HO.HMGCX 09:40 | PROVIDERS: PCP Internal Medicine; Visit Provider Internal Medicine | DX: M25.461 Effusion, right knee (principal); Z91.81 History of falling | CPT/HCPCS: 73564 ==

== ENCOUNTER → 2024-01-14 23:59 | Outpatient (BNV) | payer MEDICARE, MEDICAID, SELFPAY ==
--- NOTE | 2024-01-20 15:30 | MHC.OFFVIS ---
Intake Visit Reasons: Remote Device check- Medtronic Allergies No Known Allergies [No Known Allergies*] Allergy (Verified 05/22/22 09:28) PFSH Medical History Osteopenia (~2002) History of acoustic neuroma Cardiac pacemaker in situ (~08/2021) Skull asymmetry Eye abnormalities Syncope (~08/2021) HTN (hypertension) (HFpEF) heart failure with preserved ejection fraction Paroxysmal atrial fibrillation (~11/2014) Epistaxis Hypothyroidism Basal cell carcinoma Surgical History History of cardiac pacemaker (~2021) History of ear surgery History of cholecystectomy (~2014) History of hysterectomy History of cardioversion Family History Other No family history of congenital heart disease Social History Household Members: None Housing: House Do you presently have visiting nurse or other home services: No Alcohol intake: never Patient Tobacco Use Status: Never used Tobacco service: No Current occupational status: retired Office Procedures Cardiac Device Check Cardiac Device Check Details: Remote pacemaker report generated 01/14/2024. Pacemaker function is adequate [id number] Cardiac Device Interrogation, pacemaker Procedure code (CPT) selection complete Assessment & Plan Assessment & Plan (1) Cardiac pacemaker in situ: Onset Date: ~08/2021 Comment: (Medtronic DCPP placed for marked sinus bradycardia and syncope, 08/21/2021) Code(s): Z95.0 - Presence of cardiac pacemaker Category: Medical Plan: See above Coding Level of Care Code Procedure Only Diagnoses Cardiac pacemaker in situ Z95.0 CPT Codes Cardiac Device Check - Cardiac Device 12: [id number]-Hppeea Cardiac Device Interrogation, pacemaker ([id number])
== END ==
PROVIDERS: PCP Internal Medicine; Visit Provider Internal Medicine Cardiovascular Disease
DX: R55 Syncope and collapse (principal); Z95.0 Presence of cardiac pacemaker
CPT/HCPCS: 93294

== ENCOUNTER → 2024-04-14 23:59 | Outpatient (BNV) | payer MEDICARE, MEDICAID, SELFPAY ==
--- NOTE | 2024-04-19 15:22 | MHC.OFFVIS ---
Intake Visit Reasons: Remote Device check- Medtronic Allergies No Known Allergies [No Known Allergies*] Allergy (Verified 05/22/22 09:28) PFSH Medical History Osteopenia (~2002) History of acoustic neuroma Cardiac pacemaker in situ (~08/2021) Skull asymmetry Eye abnormalities Syncope (~08/2021) HTN (hypertension) (HFpEF) heart failure with preserved ejection fraction Paroxysmal atrial fibrillation (~11/2014) Epistaxis Hypothyroidism Basal cell carcinoma Surgical History History of cardiac pacemaker (~2021) History of ear surgery History of cholecystectomy (~2014) History of hysterectomy History of cardioversion Family History Other No family history of congenital heart disease Social History Household Members: None Housing: House Do you presently have visiting nurse or other home services: No Alcohol intake: never Patient Tobacco Use Status: Never used Tobacco service: No Current occupational status: retired Office Procedures Cardiac Device Check Cardiac Device Check Details: Remote pacemaker report generated 04/15/2024. Pacemaker function is adequate [id number] Cardiac Device Interrogation, pacemaker Procedure code (CPT) selection complete Assessment & Plan Assessment & Plan (1) Cardiac pacemaker in situ: Onset Date: ~08/2021 Comment: (Medtronic DCPP placed for marked sinus bradycardia and syncope, 08/21/2021) Code(s): Z95.0 - Presence of cardiac pacemaker Category: Medical Plan: See above Coding Level of Care Code Procedure Only Diagnoses Cardiac pacemaker in situ Z95.0 CPT Codes Cardiac Device Check - Cardiac Device 12: 45354-Omeziw Cardiac Device Interrogation, pacemaker ([id number])
== END ==
PROVIDERS: PCP Internal Medicine; Visit Provider Internal Medicine Cardiovascular Disease
DX: R55 Syncope and collapse (principal); Z95.0 Presence of cardiac pacemaker
CPT/HCPCS: 93294

== ENCOUNTER 2024-04-28 12:32 | Outpatient (AMB) | payer MEDICARE, MEDICAID, SELFPAY ==
--- NOTE | 2024-04-28 12:41 | MHC.OFFVIS ---
Vital Signs 04/28/24 12:42 Height 4 ft 11 in Weight 149 lb 14.629 oz BMI 30.3 BP 120/80 Blood Pressure Location Lt brachial Position Sitting Pulse 80 Intake Visit Reasons: 6 mth f/up w/ medtronic ck Intake Note: 6 month follow-up with ekg and medtronic check Aoc Plans Intelligence Officer Chief Required: No Allergies No Known Allergies [No Known Allergies*] Allergy (Verified 05/22/22 09:28) Medication List - Last Reconciled 04/28/24 by Hamilton Ratliff MD amiodarone 200 mg PO DAILY amlodipine 5 mg PO DAILY 90 days calcium 600 mg PO DAILY cholecalciferol (vitamin D3) 50 mcg PO DAILY cyanocobalamin (vitamin B-12) 1 tab PO DAILY estradiol 0.5 mg PO DAILY ferrous gluconate 1 tab PO DAILY folic acid 1 tab PO DAILY levothyroxine 125 mcg PO DAILY lisinopril 20 mg PO BID rivaroxaban 20 mg PO DAILY HPI Comments Details: Jessica comes for follow-up. She has been doing very well from cardiac perspective. She was no new cardiac symptoms. Remains independent and functional. Denies any worsening shortness of breath, orthopnea, PND, leg edema. No prolonged palpitation irregular heartbeat. No lightheadedness, syncope. Takes all her medications. No bleeding issues or neurologic events. Denies any chest pain. [facility] Medical History Osteopenia (~2002) History of acoustic neuroma Cardiac pacemaker in situ (~08/2021) Skull asymmetry Eye abnormalities Syncope (~08/2021) HTN (hypertension) (HFpEF) heart failure with preserved ejection fraction Paroxysmal atrial fibrillation (~11/2014) Epistaxis Hypothyroidism Basal cell carcinoma Surgical History History of cardiac pacemaker (~2021) History of ear surgery History of cholecystectomy (~2014) History of hysterectomy History of cardioversion Family History Other No family history of congenital heart disease Social History Household Members: None Housing: House Do you presently have visiting nurse or other home services: No Alcohol intake: never Patient Tobacco Use Status: Never used Tobacco service: No Current occupational status: retired Review of Systems Const Denies chills, Denies fatigue, Denies fever(s), Denies frequent falls, Denies weakness, Denies weight gain and Denies weight loss ENT Denies dizziness Card Denies chest pain, Denies leg edema, Denies lightheadedness, Denies palpitations, Denies dyspnea, Denies dyspnea on exertion, Denies orthopnea and Denies other (loss of consciousness) Resp Denies cough, Denies dyspnea and Denies dyspnea on exertion GI Denies hematochezia and Denies change in stool character Musc Denies abnormal gait, Denies muscle weakness, Denies numbness, Denies radiating pain into limb and Denies tingling Neuro Denies abnormal gait, Denies dizziness, Denies frequent falls, Denies numbness, Denies tingling and Denies weakness Endo Denies fatigue and Denies palpitations Physical Exam Vital Signs: Last Vital Signs Pulse 80 04/28/24 12:42 BP 120/80 04/28/24 12:42 BMI result Body Mass Index 30.3 Const General: cooperative, comfortable, alert, awake and well groomed Nutritional Appearance: obese Orientation/consciousness: patient oriented x3 Limitations: no limitations Neck Neck: Yes trachea midline, Yes supple and Yes no JVD Resp Effort & Inspection: normal respiratory effort Auscultation: clear to auscultation bilaterally and diminished lung sounds Cardio Jugular venous distension: no JVD Palpation: normal PMI Rate: regular rate Rhythm: regular rhythm Heart sounds: S1 normal heart sound present and S2 normal heart sound present GI Percussion: Yes normal to percussion Skin General skin exam: no rashes or lesions noted and ecchymosis Neuro General: patient oriented x3 and no focal motor deficits Extrem General: Yes no clubbing, cyanosis or edema Psych Appearance: grossly normal Office Procedures Cardiac Device Check Cardiac Device Check Details: Dual-chamber Medtronic pacemaker in place programmed in MVP mode with rate response at 60 beats per minute. Atrial pacing 97% of the time. No atrial fibrillation noted. Atrial and ventricular pacing thresholds excellent and reprogrammed to enhance battery life. Atrial ventricular sensing is adequate. Battery life is at 11.2 years. Pacing lead impedance is stable [id number]-[id number] Cardiac Device Check, pacemaker dual lead Procedure code (CPT) selection complete EKG Details: EKG shows atrially paced, ventricularly sensed rhythm with inferior QS pattern with left axis deviation with poor R-wave progression 89348-Tapatcyrzhpsgbnrx, Complete Assessment & Plan Assessment & Plan (1) Paroxysmal atrial fibrillation: Onset Date: ~11/2014 Code(s): I48.0 - Paroxysmal atrial fibrillation Category: Medical Plan: Paroxysmal atrial fibrillation, highly symptomatic with heart failure syndrome with cardiomyopathy process. She was done extremely well since rhythm control approach with low normal LV ejection fraction. Clinically euvolemic and well compensated without any symptoms. Very functional. Has derived significant benefit from rhythm control and has only been able to maintain rhythm with amiodarone therapy. Will continue amiodarone therapy with known associated risk. Advise annual chest x-ray and amiodarone toxicity check. Will send her for the same. Advise her to pursue it. Continue full oral anticoagulation, currently on Xarelto 20 mg daily. Quarterly renal function test should be pursued. (2) Cardiac pacemaker in situ: Onset Date: ~08/2021 Comment: (Medtronic DCPP placed for marked sinus bradycardia and syncope, 08/21/2021) Code(s): Z95.0 - Presence of cardiac pacemaker Category: Medical Plan: Cardiac pacemaker in-situ for sick sinus syndrome, pacemaker working very well. Reprogrammed for adequate functioning. Continue monitor remotely every 3 months. Follow up in the clinic in 6 months. Will follow up in the clinic in 6 months time, sooner p.r.n.. Thank you for allowing me to partake in her care Medications: Refilled amlodipine 5 mg PO DAILY 90 tabs 3RF 90 days amiodarone 200 mg PO DAILY 90 tabs 3RF Coding Level of Care Code Est Pt Level 4 (89688) Complex EM visit Add On G2211 Diagnoses Paroxysmal atrial fibrillation I48.0 Cardiac pacemaker in situ Z95.0 CPT Codes Cardiac Device Check - Cardiac Device 2: [id number] Cardiac Device Check, pacemaker dual lead ([id number]) EKG - CPT: 26231-Gyzzdtjvfgdconluj, Complete ([id number])
[2024-04-28 12:42] VITALS: BP 120/80; PULSE 80; BMI 30.3
--- OUTSIDE RECORDS SUMMARY | 2024-04-28 14:54 | XMS_ITS | Patient Health Record ---
Author Organization Trevor Bailey III, MD Address [address] [place] [address] Care Team Providers Care Pattern Puncher Name Role Phone Ras Chao MD Primary Care Provider Trevor Short Unavailable [phone] Allergies Allergen (clinical drug ingredient) Drug/Non Drug Allergy documented on EMR Reaction Allergy Type Onset Date Status No Known Drug Allergy Unknown Drug Allergy Active Results Component Value Reference Range Notes Complete Blood Count Auto Di ff Reviewed date:05/24/2023 08:47:50 PM Interpretation: Performing Lab:[facility], [address] [place] [phone] Notes/Report: White Blood Count 7.1 4.8-10.8 X10*3/uL Red Blood Count 4.36 4.20-5.50 X10*6/uL Hemoglobin 14.0 12.0-16.0 g/dl Hematocrit 43.3 37.0-47.0 % Mean Corpuscular Volume 99.3 80.0-98.0 fL Mean Corpuscular Hemoglobin 32.1 27.0-33.0 pg Mean Corpuscular HGB Conc 32.3 31.0-35.0 g/dl Red Cell Distribution Width 14.0 11.0-16.0 % Platelet Count 364 160-400 X10*3/uL Mean Platelet Volume 12.0 9.4-12.3 fL Neutrophils Percent Auto 63.3 45-73 % Imm Gran Pct Auto 0.4 0.0-0.4 % Lymphocytes Percent Auto 19.7 20-40 % Monocytes Percent Auto 11.3 2-11 % Eosinophils Percent Auto 4.7 0-4 % Basophils Percent Auto 0.6 0-2 % NRBC Pct Auto 0.0 0.0-0.2 /100WBC Neutrophils Absolute Auto 4.5 2.0-8.3 x10*3/u L Imm Gran Abs Auto 0.03 0.00-0.03 X10*3/uL Lymphocytes Absolute Auto 1.4 1.2-4.9 X10*3/u L Monocytes Absolute Auto 0.8 0.1-1.2 X10*3/uL Eosinophils Absolute Auto 0.3 0.0-0.4 X10*3/u L Basophils Absolute Auto 0.0 0.0-0.2 X10*3/uL NRBC Abs Auto 0.000 0.0-0.012 X10*3/uL Comprehensive Met. Panel Reviewed date:05/24/2023 08:47:50 PM Interpretation: Performing Lab:[address] [address] Notes/Report: Sodium 141 135-145 mmol/L Potassium 4.7 3.3-5.1 mmol/L Chloride 107 96-108 mmol/L Carbon Dioxide 28 22-29 mmol/L Anion Gap 11 12-20 Blood Urea Nitrogen 15 9-16 mg/dL Creatinine 1.01 0.5-1.4 mg/dL Estimated Glomerular Filt Rate 52 NOTE: For -Citizen Of [place] individuals, multiply the result by 1.210. Chronic Kidney Disease: Estimated GFR < 60 mL/min/1.73m2 Severe Kidney Disease: Estimated GFR < 15 mL/min/1.73m2 Glucose Random 84 60-115 mg/dL Calcium 9.1 8.4-10.2 mg/dL Bilirubin Total 0.3 0.0-1.0 mg/dL Aspartate Amino Transferase 16 5-31 U/L Alanine Aminotransferase 14 0-31 U/L Total Protein 7.0 6.5-8.0 g/dL Albumin Level 3.5 3.5-5.0 g/dL Alkaline Phosphatase 112 39-117 U/L Ferritin Reviewed date:05/24/2023 08:47:50 PM Interpretation: Performing Lab:[address] [phone] Notes/Report: Ferritin 62 10-250 ng/mL Vitamin B12 and Folate Reviewed date:05/24/2023 08:47:50 PM Interpretation: Performing Lab:[address] [place] [address] Notes/Report: Vitamin B12 1283 200-900 pg/mL NORMAL 200-900 PG/ML INDETERMINATE 160-199 PG/ML DEFICIENT < 160 PG/ML Folate > 20.0 > or = 4.0 ng/mL Reference Values: > or = 4.0 ng/mL < 4.0 ng/mL suggests folate deficiency Methotrexate, aminopterin and folinic acid (leucovorin) are chemotherapeutic agents whose molecular structures are similar to folate; therefore, the [employer] folate assay cannot be used for patients using these drugs. Complete Blood Count Auto Di ff Reviewed date:09/27/2023 06:40:52 AM Interpretation: Performing Lab:[facility], [address] [place] [phone] Notes/Report: White Blood Count 7.8 4.8-10.8 X10*3/uL Red Blood Count 4.25 4.20-5.50 X10*6/uL Hemoglobin 14.0 12.0-16.0 g/dl Hematocrit 43.4 37.0-47.0 % Mean Corpuscular Volume 102.1 80.0-98.0 fL Mean Corpuscular Hemoglobin 32.9 27.0-33.0 pg Mean Corpuscular HGB Conc 32.3 31.0-35.0 g/dl Red Cell Distribution Width 14.1 11.0-16.0 % Platelet Count 329 160-400 X10*3/uL Mean Platelet Volume 11.8 9.4-12.3 fL Neutrophils Percent Auto 69.0 45-73 % Imm Gran Pct Auto 0.5 0.0-0.4 % Lymphocytes Percent Auto 17.6 20-40 % Monocytes Percent Auto 9.1 2-11 % Eosinophils Percent Auto 3.3 0-4 % Basophils Percent Auto 0.5 0-2 % NRBC Pct Auto 0.0 0.0-0.2 /100WBC Neutrophils Absolute Auto 5.4 2.0-8.3 x10*3/u L Imm Gran Abs Auto 0.04 0.00-0.03 X10*3/uL Lymphocytes Absolute Auto 1.4 1.2-4.9 X10*3/u L Monocytes Absolute Auto 0.7 0.1-1.2 X10*3/uL Eosinophils Absolute Auto 0.3 0.0-0.4 X10*3/u L Basophils Absolute Auto 0.0 0.0-0.2 X10*3/uL NRBC Abs Auto 0.000 0.0-0.012 X10*3/uL Comprehensive Met. Panel Reviewed date:09/27/2023 06:40:52 AM Interpretation: Performing Lab:[address] [phone] Notes/Report: Sodium 142 135-145 mmol/L Potassium 4.5 3.3-5.1 mmol/L Chloride 107 96-108 mmol/L Carbon Dioxide 30 22-29 mmol/L Anion Gap 10 12-20 Blood Urea Nitrogen 13 9-16 mg/dL Creatinine 0.89 0.5-1.4 mg/dL Estimated Glomerular Filt Rate > 60 NOTE: For -Citizen Of [place] individuals, multiply the result by 1.210. Chronic Kidney Disease: Estimated GFR < 60 mL/min/1.73m2 Severe Kidney Disease: Estimated GFR < 15 mL/min/1.73m2 Glucose Random 82 60-115 mg/dL Calcium 8.7 8.4-10.2 mg/dL Bilirubin Total 0.3 0.0-1.0 mg/dL Aspartate Amino Transferase 20 5-31 U/L Alanine Aminotransferase 16 0-31 U/L Total Protein 6.9 6.5-8.0 g/dL Albumin Level 3.6 3.5-5.0 g/dL Alkaline Phosphatase 106 39-117 U/L Ferritin Reviewed date:09/27/2023 06:40:52 AM Interpretation: Performing Lab:[address] [phone] Notes/Report: Ferritin 56 10-250 ng/mL Vitamin B12 Reviewed date:09/27/2023 06:40:52 AM Interpretation: Performing Lab:[address] [address] Notes/Report: Vitamin B12 1503 200-900 pg/mL NORMAL 200-900 PG/ML INDETERMINATE 160-199 PG/ML DEFICIENT < 160 PG/ML Reason For Referral No Information Medications Medication SIG (Take, Route, Frequency, Duration) Notes Start Date End Date Status Levothyroxine Sodium 125 MCG 1 tablet in the morning on an empty stomach Orally Once a day Active Amiodarone HCl 200 MG 1 tablet Orally On ce a day Active Folic Acid 1 MG TAKE ONE TABLET BY M OUTH EVERY DAY for 30 Active Vitamin D3 50 MCG (1999 UT) 1 capsule Or ally Once a day Active Estradiol 0.5 MG 1 tablet Orally Once a day Active Vitamin B-12 1000 MCG TAKE ONE TABLET BY MOUTH EVERY DAY Orally Once a day for 30 days Active Ferrous Gluconate 324 (38 Fe) MG 1 tablet Orally Once a day for 90 days Active amLODIPine Besylate 5 MG 1 tablet Orally Once a day Active Lisinopril 20 MG 1 tablet Orally Once a day Active Xarelto 20 MG 1 tablet with food Orally Active Immunizations Vaccine Route Administration Date Status Comme nts Td (adult) Unknown 03/25/2016 Administered COVID PFIZER Unknown 03/16/2020 Administered COVID PFIZER Unknown 04/06/2020 Administered COVID PFIZER Unknown 12/06/2020 Administered Social History Tobacco Use: Social History Observation Description Date Details (start date - stop date) Never Smoker NA - NA Tobacco Use/Smoking Question Answer Notes Patient is a nonsmoker Additional Findings: Tobacco Non-User Aggressive non-smoker Alcohol Screen Question Answer Notes Did you have a drink containing alcohol in the p ast year? No Points 0 Interpretation Negative Problems Problem Type SNOMED Code ICD Code Onset Dates Problem Status W/U Status Risk Notes Problem 705080980 Overweight (E66.3) Active confirmed She has lost 16 pounds in the last year and her body mass index is in the overweight range. She was encouraged to continue losing weight until the body mass index is in the normal range. Problem Thrombocytosis (1497884) Thrombocytosis (D47.3) Active confirmed The platelet count is within normal limits. The thrombocytosis was likely due to iron deficiency. That has resolved. Problem 902040667 Vitamin B12 deficiency (E53.8) Active confirmed He is compliant with her vitamin B12 replacement. The B12 level is adequate. Problem 971582628 Chronic anticoagulation (Z79.01) Active confirmed She has not noticed any bleeding. Stool collection pending. Problem 236071303 Acquired hypothyroidism (E03.9) Active confirmed Her medication was continued. Problem 09051635 Essential hypertension (I10) Active confirmed Her blood pressure is stable and no change in her regimen as necessary. I recommended weight loss and sodium restriction. Problem Osteopenia (277296697) Osteopenia (M85.80) Active confirmed She has a diagnosis of postmenopausal osteopenia. I have agreed with the recommended vitamin D and calcium tablets. Problem 401801464 Pacemaker (Z95.0) Active confirmed The pacemaker is present in the left upper chest wall. It seems to be functioning well. She is free of any symptoms of syncope. Problem Congestive heart failure (55149478) CHF (congestive heart failure) (I50.9) Active confirmed Her congestive heart ferry is well compensated and she was comfortable breathing room air today as she moved around the examining room. Problem 86470387 Vitamin D deficiency (E55.9) Active confirmed She was continued on her vitamin D supplementation . Problem 621241677 Macrocytosis (D75.89) Active confirmed The mean cell volume is slightly higher than in the past 102. The vitamin B12 level is normal. She seems to have good nutrition so it is not likely due to a low folic acid level. This value will be observed without a change in therapy at this time. Problem 55203241 Iron deficiency anemia, unspecified iron deficiency anemia type (D50.9) Active confirmed Her hematocrit is normal and her ferritin is 56. The mean cell volume is 102. Her iron deficiency is well compensated. Problem 784356211 Osteopenia of spine (M85.88) Active confirmed Problem 864552342 Persistent atrial fibrillation (I48.19) Active confirmed She continues in a well-controlled atrial fibrillation. No change in regimen was necessary today. Vital Signs Heart Rate 86 /min 10/01/2023 Temperature 97.0 degrees Fahrenheit 10/01/2023 Blood pressure diastolic 73 mm Hg 10/01/2023 Height 62 in 10/01/2023 Blood pressure systolic 135 mm Hg 10/01/2023 Weight 151 lbs 10/01/2023 BMI 27.62 kg/m2 10/01/2023 Encounters Encounter Location Date Provider Diagnosis Trevor Bailey III, MD [address] [place] [address] [place] [address] 06/01/2023 Trevor Bailey Essential hypertensi on I10 ; Iron deficiency anemia, unspecified iron deficiency anemia type D50.9 ; Vitamin B12 deficiency E53.8 ; Overweight E66.3 ; Acquired hypothyroidism E03.9 ; Osteopenia M85.80 and CHF (congestive heart failure) I50.9 Trevor Bailey III, MD [address] [place] [address] [place] [address] 10/01/2023 Trevor Bailey Essential hypertensi on I10 ; Iron deficiency anemia, unspecified iron deficiency anemia type D50.9 ; Macrocytosis D75.89 ; Vitamin B12 deficiency E53.8 ; Thrombocytosis D47.3 ; Persistent atrial fibrillation I48.19 ; CHF (congestive heart failure) I50.9 and Chronic anticoagulation Z79.01 Trevor Bailey III, MD [address] [place] [address] [place] [address] 12/02/2023 Trevor Bailey III, MD [address] [place] [address] [address] [place] [address] 12/03/2023 Trevor Bailey Assessments Encounter Date Diagnosis (ICD Code) Assessment Notes Treat ment Notes Treatment Clinical Notes 06/01/2023 Essential hypertension (ICD-10 - I10) Her blood pressure is 135/68 and no change in her regimen as necessary. I recommended weight loss and sodium restriction. 06/01/2023 Iron deficiency anemia, unspecified iron deficiency anemia type (ICD-10 - D50.9) Her ferritin level is in the normal range. No change in her regimen as needed. 10/01/2023 Essential hypertension (ICD-10 - I10) Her blood pressure is stable and no change in her regimen as necessary. I recommended weight loss and sodium restriction. 10/01/2023 Iron deficiency anemia, unspecified iron deficiency anemia type (ICD-10 - D50.9) Her hematocrit is normal and her ferritin is 56. The mean cell volume is 102. Her iron deficiency is well compensated. 06/01/2023 Vitamin B12 deficiency (ICD-10 - E53.8) Her vitamin B12 level is in the normal range. No change in her regimen as needed. 10/01/2023 Macrocytosis (ICD-10 - D75.89) The mean cell volume is slightly higher than in the past 102. The vitamin B12 level is normal. She seems to have good nutrition so it is not likely due to a low folic acid level. This value will be observed without a change in therapy at this time. 06/01/2023 Overweight (ICD-10 - E66.3) She has lost 16 pounds in the last year and her body mass index is in the overweight range. She was encouraged to continue losing weight until the body mass index is in the normal range. 10/01/2023 Vitamin B12 deficiency (ICD-10 - E53.8) He is compliant with her vitamin B12 replacement. The B12 level is adequate. 06/01/2023 Acquired hypothyroidism (ICD-10 - E03.9) Her medication was continued. 10/01/2023 Thrombocytosis (ICD-10 - D47.3) The platelet count is within normal limits. The thrombocytosis was likely due to iron deficiency. That has resolved. 06/01/2023 Osteopenia (ICD-10 - M85.80) She has a diagnosis of postmenopausal osteopenia. I have agreed with the recommended vitamin D and calcium tablets. 10/01/2023 Persistent atrial fibrillation (ICD-10 - I48.19) She continues in a well-controlled atrial fibrillation. No change in regimen was necessary today. 06/01/2023 CHF (congestive hear t failure) (ICD-10 - I50.9) Her congestive heart ferry is well compensated and she was comfortable breathing room air today as she moved around the examining room. 10/01/2023 CHF (congestive hear t failure) (ICD-10 - I50.9) Her congestive heart ferry is well compensated and she was comfortable breathing room air today as she moved around the examining room. 10/01/2023 Chronic anticoagulation (ICD-10 - Z79.01) She has not noticed any bleeding. Stool collection pending. Plan Of Treatment Pending Test Test Name Order Date PROFILE, RANDOM (COMPREHENSIVE METABOLIC ) 10/01/2023 PROFILE, RANDOM (COMPREHENSIVE METABOLIC ) 11/12/2020 PROFILE, RANDOM (COMPREHENSIVE METABOLIC ) 06/01/2023 PROFILE, RANDOM (COMPREHENSIVE METABOLIC ) 07/10/2020 PROFILE, RANDOM (COMPREHENSIVE METABOLIC ) 05/26/2022 PROFILE, RANDOM (COMPREHENSIVE METABOLIC ) 05/13/2021 FERRITIN 05/28/2020 FERRITIN 10/01/2023 FERRITIN 11/12/2020 FERRITIN 05/26/2022 VITAMIN B12 AND FOLATE 05/13/2021 VITAMIN B12 AND FOLATE 05/26/2022 B12 05/20/2021 CBC w DIFF 05/13/2021 CBC w DIFF 05/26/2022 CBC w DIFF 05/28/2020 CBC w DIFF 06/17/2021 CBC w DIFF 10/01/2023 CBC w DIFF 11/12/2020 CBC w DIFF 07/10/2020 RETICULOCYTE COUNT,CORRECTED 05/13/2021 RETICULOCYTE COUNT,CORRECTED 05/28/2020 INTRINSIC FACTOR ANTIBODIES 06/17/2021 INTRINSIC FACTOR ANTIBODIES 05/20/2021 CBC WITH AUTO DIFF 06/01/2023 RETIC 10/01/2023 Ferritin 07/10/2020 Ferritin 06/01/2023 Vitamin B12 and Folate 10/01/2023 Vitamin B12 06/01/2023 Folate 05/20/2021 Vitamin D 25-OH Total 05/20/2021 Next Appt Details Provider Name:Trevor Bailey, 05/26/2024 10:45:00 AM, [address] [place] [address] , [place] [address], [place], [address], Insurance Providers Payer Name Payer Address Payer Phone Subscriber Number Group Number Insured Name Patient Relationship to Insured Coverage Start Date Coverage End Date MEDICARE NGS [address] [facility] [address] [id number] YaoJessica Self - patient is the insured MEDICAID [facility] [address] [place], [place] [id number] Jessica Yao Self - patient is the insured Medical (General) History Medical History History ICD Code HTN (hypertension) I10 Hypothyroid E03.9 Osteopenia M85.80 CHF (congestive heart failure) I50.9 atrial fibrillation recent fatigue history of vitamin D deficiency normochromic normocytic anemia thrombocytosis obesity hearing loss left ear acoustic neuroma, left Surgical History Surgery Date(Month/Year) pace maker placement at [facility] 08/2021 Hospitalization History Reason Date(Month/Year) nose bleed 11/2019
--- OUTSIDE RECORDS SUMMARY | 2024-04-28 14:55 | XMS_ITS ---
Author Organization Trevor Bailey III, MD Address [address] [place] [address] [address] [facility] [place] [address] Care Team Providers Care Terminal System Operator Name Role Phone Ras Chao MD Primary Care Provider Mercya Trevor Chris Unavailable [phone] REASON FOR VISIT Rx Refill Medications Medication SIG (Take, Route, Frequency, Duration) Notes Start Date End Date Status Ferrous Gluconate 324 (38 Fe) MG 1 tablet Orally Once a day for 90 days Active Encounters Encounter Location Date Provider Diagnosis Trevor Bailey III, MD [address] [place] [address] [place] [address] 12/03/2023 Trevor Bailey Plan Of Treatment Medication Medication Name Sig Start Date Stop Date Notes Ferrous Gluconate 324 (38 Fe ) MG 1 tablet Orally Once a day for 90 days Next Appt Details Provider Name:Trevor Bailey, 05/26/2024 10:45:00 AM, [address] [place] [address] [place], [address], Progress Notes * Jessica OVIEDO RDOB:1940 (83 yo F)Acc No.[id number]:12/03/2023 Patient:?Jessica OVIEDO :1940???Age:83 Y???Sex:Female Address: [address] [facility] [place], [address] * Refills? Refill Ferrous Gluconate Tablet, 324 (38 Fe) MG, Orally, 90 Tablet, 1 tablet, Once a day, 90 days, Refills=3 * true * Date:? Generated for Printi ng/Faxing/eTransmitting on:?04/28/2024 02:55 PM EDT
--- OUTSIDE RECORDS SUMMARY | 2024-04-28 14:55 | XMS_ITS ---
Author Organization Trevor Bailey III, MD Address [address] [place] [address] Care Team Providers Care Human Resources Advisor Name Role Phone Ras Chao MD Primary Care Provider Unavaila Trevor Chris Unavailable [phone] REASON FOR VISIT follow Up Encounters Encounter Location Date Provider Diagnosis Trevor Bailey III, MD [address] [place] [address] [place] [address] 03/31/2024 Trevor Bailey Plan Of Treatment Next Appt Details Provider Name:Trevor Bailey, 05/26/2024 10:45:00 AM, [address] [place] [address] [place], [address], Progress Notes * Jessica OVIEDO RDOB:1940 (84 yo F)Acc No.[id number]:03/31/2024 Progress Notes Patient:?Jessica OVIEDO Provider:?Trevor Bailey MD :1940???Age:83 Y???Sex:Female D ate:03/31/2024 Address:[address] [place] [address] [id number] Pcp:Ras Chao MD Subjective: * Chief Complaints: * ???1. follow Up. * Medical History:? Objective: * Vitals:? Assessment: Plan: * Treatment: * Images: * The named appointment provid er may or may not be the originator of this progress note, and it is not deemed complete until electronically signed by the appointment provider. Sign off status: Pending * Provider:?Trevor Bailey MD Date:?03/13 Generated for Jeff naranjo/Keith/Markitting on:?04/28/2024 02:55 PM EDT
--- OUTSIDE RECORDS SUMMARY | 2024-04-28 14:55 | XMS_ITS ---
Author Organization Trevor Bailey III, MD Address [address] [place] [address] Care Team Providers Care Corporate Treasury Analyst Name Role Phone Ras Chao MD Primary Care Provider Unavaila Trevor Chris Unavailable [phone] REASON FOR VISIT Refills Encounters Encounter Location Date Provider Diagnosis Trevor Bailey III, MD [address] [place] [address] [place] [address] 12/02/2023 Trevor Bailey Plan Of Treatment Next Appt Details Provider Name:Trevor Bailey, 05/26/2024 10:45:00 AM, [address] [place] [address] [place], [address], Progress Notes * Jessica OVIEDO RDOB:1940 (83 yo F)Acc No.[id number]:12/02/2023 Patient:?Jessica OVIEDO :1940???Age:83 Y???Sex:Female Address:[address] [facility] [place], [address] * true * Date:? Generated for Printi ng/Faxing/eTransmitting on:?04/28/2024 02:54 PM EDT
== END 2024-04-28 13:05 | disposition home or self-care (01) ==
PROVIDERS: PCP Internal Medicine; Visit Provider Internal Medicine Cardiovascular Disease
DX: I48.0 Paroxysmal atrial fibrillation (principal); Z95.0 Presence of cardiac pacemaker
CPT/HCPCS: 93010; 93280; 99214; G2211

== ENCOUNTER → 2024-04-28 12:32 | Outpatient (BNVA) | payer MEDICARE, MEDICAID, SELFPAY | PROVIDERS: PCP Internal Medicine; Visit Provider Internal Medicine Cardiovascular Disease | DX: I48.0 Paroxysmal atrial fibrillation (principal); Z45.018 Encounter for adjustment and management of other part of cardiac pacemaker; Z79.899 Other long term (current) drug therapy | CPT/HCPCS: 93005; 93280; 99212 ==

== ENCOUNTER 2024-04-29 08:12 | Outpatient (REF) | payer MEDICARE, MEDICAID, SELFPAY ==
[2024-04-29 10:16] LABS: MANUAL DIFF FLAG NO
[2024-04-29 10:21] LABS: Basophils Absolute Auto 0.1 X10*3/uL (0.0-0.2); Basophils Percent Auto 0.9 % (0-2); Eosinophils Absolute Auto 0.3 X10*3/uL (0.0-0.4); Eosinophils Percent Auto 4.3 % (0-4); Hematocrit 44.8 % (37.0-47.0); Hemoglobin 14.5 g/dl (12.0-16.0); Imm Gran Abs Auto 0.03 X10*3/uL (0.00-0.03); Imm Gran Pct Auto 0.4 % (0.0-0.4); Lymphocytes Absolute Auto 1.8 X10*3/uL (1.2-4.9); Lymphocytes Percent Auto 26.4 % (20-40); Mean Corpuscular HGB Conc 32.4 g/dl (31.0-35.0); Mean Corpuscular Hemoglobin 32.9 pg (27.0-33.0); Mean Corpuscular Volume 101.6 fL (80.0-98.0); Mean Platelet Volume 12.2 fL (9.4-12.3); Monocytes Absolute Auto 0.8 X10*3/uL (0.1-1.2); Monocytes Percent Auto 12.1 % (2-11); Neutrophils Absolute Auto 3.7 x10*3/uL (2.0-8.3); Neutrophils Percent Auto 55.9 % (45-73); Platelet Count 344 X10*3/uL (160-400); Red Blood Count 4.41 X10*6/uL (4.20-5.50); Red Cell Distribution Width 12.9 % (11.0-16.0); White Blood Count 6.7 X10*3/uL (4.8-10.8)
[2024-04-29 10:38] LABS: Alanine Aminotransferase 14 U/L (0-31); Albumin Level 3.8 g/dL (3.5-5.0); Alkaline Phosphatase 117 U/L (39-117); Aspartate Amino Transferase 21 U/L (5-31); Bilirubin Direct 0.2 mg/dL (0.0-0.5); Bilirubin Total 0.4 mg/dL (0.0-1.0); Total Protein 7.5 g/dL (6.5-8.0)
[2024-04-29 10:42] LABS: Alanine Aminotransferase 15 U/L (0-31); Albumin Level 3.8 g/dL (3.5-5.0); Alkaline Phosphatase 112 U/L (39-117); Anion Gap 9 (12-20); Aspartate Amino Transferase 22 U/L (5-31); Bilirubin Total 0.4 mg/dL (0.0-1.0); Blood Urea Nitrogen 14 mg/dL (9-16); Calcium 9.4 mg/dL (8.4-10.2); Carbon Dioxide 29 mmol/L (22-29); Chloride 108 mmol/L (96-108); Cholesterol 151 mg/dL (<200); Estimated Glomerular Filt Rate > 60; Glucose Fasting 90 mg/dL (60-99); HDL Cholesterol 52 mg/dL (>40); LDL Cholesterol Calculated 81 mg/dL (<100); Potassium 3.9 mmol/L (3.3-5.1); Sodium 142 mmol/L (135-145); Total Protein 7.6 g/dL (6.5-8.0); Triglycerides 94 mg/dL (<150)
[2024-04-29 10:59] LABS: TSH reflex Free T4 0.28 uIU/mL (0.32-4.0)
[2024-04-29 11:01] LABS: Free T4 (Free Thyroxine) 1.67 ng/dL (0.71-1.85); Thyroid Stimulating Hormone 0.27 uIU/mL (0.32-4.0)
== END 2024-04-29 08:13 | disposition home or self-care (01) ==
LOC: HO.10HDL 08:12
PROVIDERS: Referring Provider Internal Medicine; Visit Provider Internal Medicine Cardiovascular Disease
DX: I10 Essential (primary) hypertension (principal); E78.00 Pure hypercholesterolemia, unspecified; E03.9 Hypothyroidism, unspecified; N18.9 Chronic kidney disease, unspecified
CPT/HCPCS: 36415; 80053; 80061; 80076; 82248; 84439; 84443; 85025

== ENCOUNTER 2024-05-03 09:58 | Outpatient (REF) | payer MEDICARE, MEDICAID, SELFPAY ==
--- NOTE | ~2024-05-03 | XR_ITS ---
EXAMINATION: XR CHEST 2 VIEWS HISTORY: I48.0 - Paroxysmal atrial fibrillation COMPARISON: Comparison is made with the prior examination dated 01/09/2023. FINDINGS: PA and lateral views of the chest are submitted. A left subclavian dual-chamber pacemaker is unchanged in position. The lungs are expanded and clear. There is no pleural effusion, pneumothorax, or pulmonary vascular congestion. The heart is normal in size. The aorta is calcified. There is degenerative disc disease of the spine. XR/XR chest 2V IMPRESSION: No acute cardiopulmonary abnormality. Electronically signed by: Trevor Celeste MD 05/03/2024 01:50 PM EDT
--- OUTSIDE RECORDS SUMMARY | 2024-05-03 11:43 | XMS_ITS ---
Author Organization Trevor Bailey III, MD Address [address] [place] [address] Care Team Providers Care Supervisor Trust Accounts Name Role Phone Ras Chao MD Primary Care Provider Unavaila Trevor Chris Unavailable [phone] REASON FOR VISIT follow Up Encounters Encounter Location Date Provider Diagnosis Trevor Bailey III, MD [address] [place] [address] [place] [address] 03/31/2024 Trevor Bailey Plan Of Treatment Next Appt Details Provider Name:Trevor Bailey, 05/26/2024 10:45:00 AM, [address] [place] [address] [place], [address], Progress Notes * Jessica OVIEDO RDOB:1940 (84 yo F)Acc No.[id number]:03/31/2024 Progress Notes Patient:?Jessica OVIEDO Provider:?Trevor Bailey MD :1940???Age:83 Y???Sex:Female D ate:03/31/2024 Address:[address] [place] [address] [place]-[id number] Pcp:Ras Chao MD Subjective: * Chief Complaints: [...] Bailey MD Date:?03/13 Generated for Jeff naranjo/Keith/Markitting on:?05/03/2024 11:43 AM EDT
--- OUTSIDE RECORDS SUMMARY | 2024-05-03 11:43 | XMS_ITS ---
Author Organization Trevor Bailey III, MD Address [address] [place] [address] Care Team Providers Care Oil Well Pumper Name Role Phone Ras Chao MD Primary Care Provider Unavaila Trevor Chris Unavailable [phone] REASON FOR VISIT Refills Encounters Encounter Location Date Provider Diagnosis Trevor Bailey III, MD [address] [place] [address] [place] [address] 12/02/2023 Trevor Bailey Plan Of Treatment Next Appt Details Provider Name:Trevor Bailey, 05/26/2024 10:45:00 AM, [address] [place] [address] [place], [address], Progress Notes * Jessica OVIEDO RDOB:1940 (83 yo F)Acc No.[id number]:12/02/2023 Patient:?Jessica OVIEDO :1940???Age:83 Y???Sex:Female Address:[address] [facility], [address] * true * Date:? Generated for Printi ng/Faxing/eTransmitting on:?05/03/2024 11:43 AM EDT
--- OUTSIDE RECORDS SUMMARY | 2024-05-03 11:43 | XMS_ITS ---
Author Organization Trevor Bailey III, MD Address [address] [place] [facility] [address] Care Team Providers Care Mortgage Field Inspector Name Role Phone Ras Chao MD Primary Care Provider Mercya Trevor Chris Unavailable [phone] REASON FOR VISIT Rx Refill Medications Medication SIG (Take, Route, Frequency, Duration) Notes Start Date End Date Status Ferrous Gluconate 324 (38 Fe) MG 1 tablet Orally Once a day for 90 days Active Encounters Encounter Location Date Provider Diagnosis Trevor Bailey III, MD [address] [place] [address] [place] [address] 12/03/2023 Trevor Bailey Plan Of Treatment Medication Medication Name Sig Start Date Stop Date Notes Ferrous Gluconate 324 (38 Fe ) MG 1 tablet Orally Once a day for 90 days Next Appt Details Provider Name:Trevor Bailey, 05/26/2024 10:45:00 AM, [address] [place] [address] [place], [address], Progress Notes * Jessica OVIEDO RDOB:1940 (83 yo F)Acc No.[id number]:12/03/2023 Patient:?Jessica OVIEDO :1940???Age:83 Y???Sex:Female Address: [address] [facility] [place], [address] * Refills? Refill Ferrous Gluconate Tablet, 324 (38 Fe) MG, Orally, 90 Tablet, 1 tablet, Once a day, 90 days, Refills=3 * true * Date:? Generated for Printi ng/Faxing/eTransmitting on:?05/03/2024 11:43 AM EDT
--- OUTSIDE RECORDS SUMMARY | 2024-05-03 11:43 | XMS_ITS | Patient Health Record ---
Author Organization Trevor Bailey III, MD Address [address] [place] [address] Care Team Providers Care Graphic Editor Name Role Phone Ras Chao MD Primary Care Provider Trevor Short Unavailable [phone] Allergies Allergen (clinical drug ingredient) Drug/Non Drug Allergy documented on EMR Reaction Allergy Type Onset Date Status No Known Drug Allergy Unknown Drug Allergy Active Results Component Value Reference Range Notes Complete Blood Count Auto Di ff Reviewed date:05/24/2023 08:47:50 PM Interpretation: Performing Lab:[facility], [address] [place] [address] Notes/Report: White Blood Count 7.1 4.8-10.8 X10*3/uL [...] Panel Reviewed date:05/24/2023 08:47:50 PM Interpretation: Performing Lab:[address] [address] Notes/Report: Sodium 141 135-145 mmol/L Potassium 4.7 3.3-5.1 mmol/L Chloride 107 96-108 mmol/L Carbon Dioxide 28 22-29 mmol/L Anion Gap 11 12-20 Blood Urea Nitrogen 15 9-16 mg/dL Creatinine 1.01 0.5-1.4 mg/dL Estimated Glomerular Filt Rate 52 NOTE: For -[place]ozamb[place] individuals, multiply the result by 1.210. Chronic [...] Ferritin Reviewed date:05/24/2023 08:47:50 PM Interpretation: Performing Lab:[address] [address] Notes/Report: Ferritin 62 10-250 ng/mL Vitamin B12 and Folate Reviewed date:05/24/2023 08:47:50 PM Interpretation: Performing Lab:[address], [place] [address] Notes/Report: Vitamin B12 1283 200-900 pg/mL NORMAL 200-900 PG/ML INDETERMINATE 160-199 PG/ML DEFICIENT < 160 PG/ML Folate > 20.0 > or = 4.0 ng/mL Reference Values: > or = 4.0 ng/mL < 4.0 ng/mL suggests folate deficiency Methotrexate, aminopterin and folinic acid (leucovorin) are chemotherapeutic agents whose molecular structures are similar to folate; therefore, the Brimmer Blocker folate assay cannot be used for patients using these drugs. Complete Blood Count Auto Di ff Reviewed date:09/27/2023 06:40:52 AM Interpretation: Performing Lab:[facility], [address] [place] [address] Notes/Report: White Blood Count 7.8 4.8-10.8 X10*3/uL [...] Panel Reviewed date:09/27/2023 06:40:52 AM Interpretation: Performing Lab:[address] [address] Notes/Report: Sodium 142 135-145 mmol/L Potassium 4.5 3.3-5.1 mmol/L Chloride 107 96-108 mmol/L Carbon Dioxide 30 22-29 mmol/L Anion Gap 10 12-20 Blood Urea Nitrogen 13 9-16 mg/dL Creatinine 0.89 0.5-1.4 mg/dL Estimated Glomerular Filt Rate > 60 NOTE: For -[place]ozamb[place] individuals, multiply the result by 1.210. Chronic [...] Ferritin Reviewed date:09/27/2023 06:40:52 AM Interpretation: Performing Lab:[address] [address] Notes/Report: Ferritin 56 10-250 ng/mL Vitamin B12 Reviewed date:09/27/2023 06:40:52 AM Interpretation: Performing Lab:[address] [address] Notes/Report: Vitamin B12 1503 200-900 pg/mL NORMAL [...] Problem Status W/U Status Risk Notes Problem 720216063 Overweight (E66.3) Active confirmed She has lost 16 pounds in the last year and her body mass index is in the overweight range. She was encouraged to continue losing weight until the body mass index is in the normal range. Problem Thrombocytosis (5721955) Thrombocytosis (D47.3) Active confirmed The platelet count is within normal limits. The thrombocytosis was likely due to iron deficiency. That has resolved. Problem 343156090 Vitamin B12 deficiency (E53.8) Active confirmed He is compliant with her vitamin B12 replacement. The B12 level is adequate. Problem 892903250 Chronic anticoagulation (Z79.01) Active confirmed She has not noticed any bleeding. Stool collection pending. Problem 241471516 Acquired hypothyroidism (E03.9) Active confirmed Her medication was continued. Problem 95421043 Essential hypertension (I10) Active confirmed Her blood pressure is stable and no change in her regimen as necessary. I recommended weight loss and sodium restriction. Problem Osteopenia (264061135) Osteopenia (M85.80) Active confirmed She has a diagnosis of postmenopausal osteopenia. I have agreed with the recommended vitamin D and calcium tablets. Problem 622986894 Pacemaker (Z95.0) Active confirmed The pacemaker is present in the left upper chest wall. It seems to be functioning well. She is free of any symptoms of syncope. Problem Congestive heart failure (72901331) CHF (congestive heart failure) (I50.9) Active confirmed Her congestive heart ferry is well compensated and she was comfortable breathing room air today as she moved around the examining room. Problem 00975574 Vitamin D deficiency (E55.9) Active confirmed She was continued on her vitamin D supplementation . Problem 397172602 Macrocytosis (D75.89) Active confirmed The mean cell volume is slightly higher than in the past 102. The vitamin B12 level is normal. She seems to have good nutrition so it is not likely due to a low folic acid level. This value will be observed without a change in therapy at this time. Problem 33238796 Iron deficiency anemia, unspecified iron deficiency anemia type (D50.9) Active confirmed Her hematocrit is normal and her ferritin is 56. The mean cell volume is 102. Her iron deficiency is well compensated. Problem 475819909 Osteopenia of spine (M85.88) Active confirmed Problem 138753629 Persistent atrial fibrillation (I48.19) Active confirmed She [...] Date Provider Diagnosis Trevor Bailey III, MD [address] [place] [address] [place] [address] 06/01/2023 Trevor Bailey Essential hypertensi on I10 ; Iron deficiency anemia, unspecified iron deficiency anemia type D50.9 ; Vitamin B12 deficiency E53.8 ; Overweight E66.3 ; Acquired hypothyroidism E03.9 ; Osteopenia M85.80 and CHF (congestive heart failure) I50.9 Trevor Bailey III, MD [address] [place] [address] [place] [address] 10/01/2023 Trevor Bailey Essential hypertensi on I10 ; Iron deficiency anemia, unspecified iron deficiency anemia type D50.9 ; Macrocytosis D75.89 ; Vitamin B12 deficiency E53.8 ; Thrombocytosis D47.3 ; Persistent atrial fibrillation I48.19 ; CHF (congestive heart failure) I50.9 and Chronic anticoagulation Z79.01 Trevor Bailey III, MD [address] [place] [address] [place] [address] 12/02/2023 Trevor Bailey III, MD [address] [place] [address] [address] [place] [address] 12/03/2023 Trevor Bailey Assessments Encounter Date Diagnosis [...] Details Provider Name:Trevor Bailey, 05/26/2024 10:45:00 AM, [address] [place] [address] , [place] [address], [place], [address], Insurance Providers Payer Name Payer Address Payer Phone Subscriber Number Group Number Insured Name Patient Relationship to Insured Coverage Start Date Coverage End Date MEDICARE NGS [address] [place] [address] [id number] YaoJessica Self - patient is the insured MEDICAID [facility] [address] [place], [place] [id number] Jsesica Yao Self - patient is the insured Medical (General) History Medical History History ICD Code HTN (hypertension) I10 Hypothyroid E03.9 Osteopenia M85.80 CHF (congestive heart failure) I50.9 atrial fibrillation recent fatigue history of vitamin D deficiency normochromic normocytic anemia thrombocytosis obesity hearing loss left ear acoustic neuroma, left Surgical History Surgery Date(Month/Year) pace maker placement at [facility] 08/2021 Hospitalization History Reason Date(Month/Year) nose bleed 11/2019
== END 2024-05-03 09:59 | disposition home or self-care (01) ==
LOC: HO.HMGCX 09:58
PROVIDERS: Visit Provider Internal Medicine Cardiovascular Disease
DX: I48.0 Paroxysmal atrial fibrillation (principal)
CPT/HCPCS: 71046

== ENCOUNTER → 2024-05-03 10:03 | Outpatient (BNV) | payer MEDICARE, MEDICAID, SELFPAY | PROVIDERS: Visit Provider Radiology Diagnostic Radiology | DX: I70.0 Atherosclerosis of aorta (principal); Z95.0 Presence of cardiac pacemaker | CPT/HCPCS: 71046 ==

== ENCOUNTER 2024-05-17 10:09 | Outpatient (REF) | payer MEDICARE, MEDICAID, SELFPAY ==
--- OUTSIDE RECORDS SUMMARY | 2024-05-17 11:55 | XMS_ITS ---
Author Organization Trevor Bailey III, MD Address [address] [place] [address] Care Team Providers Care Traveling Construction Superintendent Name Role Phone Ras Chao MD Primary Care Provider Unavaila Trevor Chris Unavailable [phone] REASON FOR VISIT Refills Encounters Encounter Location Date Provider Diagnosis Trevor Bailey III, MD [address] [place] [address] [place] [address] 12/02/2023 Trevor Bailey Plan Of Treatment Next Appt Details Provider Name:Trevor Bailey, 05/26/2024 10:45:00 AM, [address] [place] [address] [place], [address], Progress Notes * Jessica OVIEDO RDOB:1940 (83 yo F)Acc No.[id number]:12/02/2023 Patient:?Jessica OVIEDO :1940???Age:83 Y???Sex:Female Address:[address] [facility] [place], [address] * true * Date:? Generated for Printi ng/Faxing/eTransmitting on:?05/17/2024 11:55 AM EDT
--- OUTSIDE RECORDS SUMMARY | 2024-05-17 11:55 | XMS_ITS | Patient Health Record ---
Author Organization Trevor Bailey III, MD Address [address] [place] [address] Care Team Providers Care Staff Analyst Name Role Phone Ras Chao MD Primary Care Provider Trevor Short Unavailable [phone] Allergies Allergen (clinical drug ingredient) Drug/Non Drug Allergy documented on EMR Reaction Allergy Type Onset Date Status No Known Drug Allergy Unknown Drug Allergy Active Results Component Value Reference Range Notes Complete Blood Count Auto Di ff Reviewed date:05/24/2023 08:47:50 PM Interpretation: Performing Lab:[facility], [address] [place] [address] Notes/Report: White Blood Count 7.1 4.8-10.8 X10*3/uL [...] Panel Reviewed date:05/24/2023 08:47:50 PM Interpretation: Performing Lab:[address] [address] Notes/Report: Sodium 141 135-145 mmol/L Potassium 4.7 3.3-5.1 mmol/L Chloride 107 96-108 mmol/L Carbon Dioxide 28 22-29 mmol/L Anion Gap 11 12-20 Blood Urea Nitrogen 15 9-16 mg/dL Creatinine 1.01 0.5-1.4 mg/dL Estimated Glomerular Filt Rate 52 NOTE: For -Burundian individuals, multiply the result by 1.210. Chronic [...] Ferritin Reviewed date:05/24/2023 08:47:50 PM Interpretation: Performing Lab:[address] [address] Notes/Report: Ferritin 62 10-250 ng/mL Vitamin B12 and Folate Reviewed date:05/24/2023 08:47:50 PM Interpretation: Performing Lab:[address], [place] [address] Notes/Report: Vitamin B12 1283 200-900 pg/mL NORMAL 200-900 PG/ML INDETERMINATE 160-199 PG/ML DEFICIENT < 160 PG/ML Folate > 20.0 > or = 4.0 ng/mL Reference Values: > or = 4.0 ng/mL < 4.0 ng/mL suggests folate deficiency Methotrexate, aminopterin and folinic acid (leucovorin) are chemotherapeutic agents whose molecular structures are similar to folate; therefore, the Machine Candle Molder folate assay cannot be used for patients using these drugs. Complete Blood Count Auto Di ff Reviewed date:09/27/2023 06:40:52 AM Interpretation: Performing Lab:[facility], [address] [place] [phone] Notes/Report: White Blood Count 7.8 4.8-10.8 X10*3/uL [...] Panel Reviewed date:09/27/2023 06:40:52 AM Interpretation: Performing Lab:[address] [address] Notes/Report: Sodium 142 135-145 mmol/L Potassium 4.5 3.3-5.1 mmol/L Chloride 107 96-108 mmol/L Carbon Dioxide 30 22-29 mmol/L Anion Gap 10 12-20 Blood Urea Nitrogen 13 9-16 mg/dL Creatinine 0.89 0.5-1.4 mg/dL Estimated Glomerular Filt Rate > 60 NOTE: For -Burundian individuals, multiply the result by 1.210. Chronic [...] Ferritin Reviewed date:09/27/2023 06:40:52 AM Interpretation: Performing Lab:[address] [address] Notes/Report: Ferritin 56 10-250 ng/mL Vitamin B12 Reviewed date:09/27/2023 06:40:52 AM Interpretation: Performing Lab:[address] [address] Notes/Report: Vitamin B12 1503 200-900 pg/mL NORMAL [...] Problem Status W/U Status Risk Notes Problem 591029635 Overweight (E66.3) Active confirmed She has lost 16 pounds in the last year and her body mass index is in the overweight range. She was encouraged to continue losing weight until the body mass index is in the normal range. Problem Thrombocytosis (4204050) Thrombocytosis (D47.3) Active confirmed The platelet count is within normal limits. The thrombocytosis was likely due to iron deficiency. That has resolved. Problem 494360982 Vitamin B12 deficiency (E53.8) Active confirmed He is compliant with her vitamin B12 replacement. The B12 level is adequate. Problem 495938151 Chronic anticoagulation (Z79.01) Active confirmed She has not noticed any bleeding. Stool collection pending. Problem 780237092 Acquired hypothyroidism (E03.9) Active confirmed Her medication was continued. Problem 30393549 Essential hypertension (I10) Active confirmed Her blood pressure is stable and no change in her regimen as necessary. I recommended weight loss and sodium restriction. Problem Osteopenia (994567767) Osteopenia (M85.80) Active confirmed She has a diagnosis of postmenopausal osteopenia. I have agreed with the recommended vitamin D and calcium tablets. Problem 801247621 Pacemaker (Z95.0) Active confirmed The pacemaker is present in the left upper chest wall. It seems to be functioning well. She is free of any symptoms of syncope. Problem Congestive heart failure (77754477) CHF (congestive heart failure) (I50.9) Active confirmed Her congestive heart ferry is well compensated and she was comfortable breathing room air today as she moved around the examining room. Problem 15724580 Vitamin D deficiency (E55.9) Active confirmed She was continued on her vitamin D supplementation . Problem 414767903 Macrocytosis (D75.89) Active confirmed The mean cell volume is slightly higher than in the past 102. The vitamin B12 level is normal. She seems to have good nutrition so it is not likely due to a low folic acid level. This value will be observed without a change in therapy at this time. Problem 38735557 Iron deficiency anemia, unspecified iron deficiency anemia type (D50.9) Active confirmed Her hematocrit is normal and her ferritin is 56. The mean cell volume is 102. Her iron deficiency is well compensated. Problem 599293157 Osteopenia of spine (M85.88) Active confirmed Problem 175737300 Persistent atrial fibrillation (I48.19) Active confirmed She [...] Date Provider Diagnosis Trevor Bailey III, MD [address] [place] [address] [place] [address] 06/01/2023 Trevor Bailey Essential hypertensi on I10 ; Iron deficiency anemia, unspecified iron deficiency anemia type D50.9 ; Vitamin B12 deficiency E53.8 ; Overweight E66.3 ; Acquired hypothyroidism E03.9 ; Osteopenia M85.80 and CHF (congestive heart failure) I50.9 Trevor Bailey III, MD [address] [place] [address] [place] [address] 10/01/2023 Trevor Bailey Essential hypertensi on I10 ; Iron deficiency anemia, unspecified iron deficiency anemia type D50.9 ; Macrocytosis D75.89 ; Vitamin B12 deficiency E53.8 ; Thrombocytosis D47.3 ; Persistent atrial fibrillation I48.19 ; CHF (congestive heart failure) I50.9 and Chronic anticoagulation Z79.01 Trevor Bailey III, MD [address] [place] [address] [place] [address] 12/02/2023 Trevor Bailey III, MD [address] [place] [address] [address] [place] [address] 12/03/2023 Trevor Bailey Assessments Encounter Date Diagnosis [...] Details Provider Name:Trevor Bailey, 05/26/2024 10:45:00 AM, [address] [place] [address] , [place] [address], [place], [address], Insurance Providers Payer Name Payer Address Payer Phone Subscriber Number Group Number Insured Name Patient Relationship to Insured Coverage Start Date Coverage End Date MEDICARE NGS [address] [place] [address] [id number] YaoJessica Self - patient is the insured MEDICAID [facility] [address] [place], [place] [id number] Jessica Yao Self - patient is the insured Medical (General) History Medical History History ICD Code HTN (hypertension) I10 Hypothyroid E03.9 Osteopenia M85.80 CHF (congestive heart failure) I50.9 atrial fibrillation recent fatigue history of vitamin D deficiency normochromic normocytic anemia thrombocytosis obesity hearing loss left ear acoustic neuroma, left Surgical History Surgery Date(Month/Year) pace maker placement at [facility] [place] [facility] 08/2021 Hospitalization History Reason Date(Month/Year) nose bleed 11/2019
--- OUTSIDE RECORDS SUMMARY | 2024-05-17 11:55 | XMS_ITS ---
Author Organization Trevor Bailey III, MD Address [address] [facility] [place] [facility] [place] [address] Care Team Providers Care Hearing Instrument Specialist Name Role Phone Ras Chao MD Primary Care Provider Mercya Trevor Chris Unavailable [phone] REASON FOR VISIT Rx Refill Medications Medication SIG (Take, Route, Frequency, Duration) Notes Start Date End Date Status Ferrous Gluconate 324 (38 Fe) MG 1 tablet Orally Once a day for 90 days Active Encounters Encounter Location Date Provider Diagnosis Trevor Bailey III, MD [address] [place] [address] [place] [address] 12/03/2023 Trevor Bailey Plan Of Treatment Medication Medication Name Sig Start Date Stop Date Notes Ferrous Gluconate 324 (38 Fe ) MG 1 tablet Orally Once a day for 90 days Next Appt Details Provider Name:Trevor Bailey, 05/26/2024 10:45:00 AM, [address] [place] [address] [place], [address], Progress Notes * Jessica OVIEDO RDOB:1940 (83 yo F)Acc No.[id number]:12/03/2023 Patient:?Jessica OVIEDO :1940???Age:83 Y???Sex:Female Address: [address] [facility] [place], [address] * Refills? Refill Ferrous Gluconate Tablet, 324 (38 Fe) MG, Orally, 90 Tablet, 1 tablet, Once a day, 90 days, Refills=3 * true * Date:? Generated for Printi ng/Faxing/eTransmitting on:?05/17/2024 11:55 AM EDT
--- OUTSIDE RECORDS SUMMARY | 2024-05-17 11:55 | XMS_ITS ---
Author Organization Trevor Bailey III, MD Address [address] [place] [address] Care Team Providers Care Bulk Sausage Casing Tier Off Name Role Phone Ras Chao MD Primary Care Provider Unavaila Trevor Chris Unavailable [phone] REASON FOR VISIT follow Up Encounters Encounter Location Date Provider Diagnosis Trevor Bailey III, MD [address] [place] [address] [place] [phone] 03/31/2024 Trevor Bailey Plan Of Treatment Next Appt Details Provider Name:Trevor Bailey, 05/26/2024 10:45:00 AM, [address] [place] [address] [place], [phone], Progress Notes * Jessica OVIEDO RDOB:1940 (84 yo F)Acc No.[id number]:03/31/2024 Progress Notes Patient:?Jessica OVIEDO Provider:?Trevor Bailey MD :1940???Age:83 Y???Sex:Female D ate:03/31/2024 Address:[address] [place] [address] [id number] Pcp:Ras Chao MD Subjective: * Chief Complaints: [...] Bailey MD Date:?03/13 Generated for Jeff naranjo/Keith/Markitting on:?05/17/2024 11:55 AM EDT
[2024-05-17 13:10] LABS: MANUAL DIFF FLAG NO
[2024-05-17 13:32] LABS: Basophils Absolute Auto 0.1 X10*3/uL (0.0-0.2); Basophils Percent Auto 0.7 % (0-2); Eosinophils Absolute Auto 0.3 X10*3/uL (0.0-0.4); Eosinophils Percent Auto 4.3 % (0-4); Hemoglobin 14.1 g/dl (12.0-16.0); Imm Gran Abs Auto 0.03 X10*3/uL (0.00-0.03); Imm Gran Pct Auto 0.4 % (0.0-0.4); Immature Retic Fraction 15.4 % (3.0-15.9); Lymphocytes Absolute Auto 1.5 X10*3/uL (1.2-4.9); Lymphocytes Percent Auto 21.5 % (20-40); Mean Corpuscular Hemoglobin 32.6 pg (27.0-33.0); Mean Corpuscular Volume 101.9 fL (80.0-98.0); Mean Platelet Volume 12.4 fL (9.4-12.3); Monocytes Absolute Auto 0.6 X10*3/uL (0.1-1.2); Monocytes Percent Auto 9.1 % (2-11); Neutrophils Absolute Auto 4.3 x10*3/uL (2.0-8.3); Platelet Count 325 X10*3/uL (160-400); Red Blood Count 4.32 X10*6/uL (4.20-5.50); Red Cell Distribution Width 12.9 % (11.0-16.0); Retic HGB Equivalent 35.2 pg (30.0-35.0); Reticulocyte Percent 1.7 % (0.5-1.8); Reticulocytes Absolute 0.072 X10*6/uL (0.026-0.095); White Blood Count 6.7 X10*3/uL (4.8-10.8)
[2024-05-17 14:43] LABS: Folate 19.3 ng/mL (> or = 4.0); Vitamin B12 1025 pg/mL (200-900)
[2024-05-17 16:49] LABS: Alanine Aminotransferase 10 U/L (0-31); Albumin Level 3.6 g/dL (3.5-5.0); Alkaline Phosphatase 110 U/L (39-117); Anion Gap 10 (12-20); Aspartate Amino Transferase 26 U/L (5-31); Bilirubin Total 0.3 mg/dL (0.0-1.0); Blood Urea Nitrogen 17 mg/dL (9-16); Calcium 8.9 mg/dL (8.4-10.2); Carbon Dioxide 26 mmol/L (22-29); Chloride 109 mmol/L (96-108); Estimated Glomerular Filt Rate 50; Glucose Random 83 mg/dL (60-115); Potassium 3.8 mmol/L (3.3-5.1); Sodium 141 mmol/L (135-145); Total Protein 6.6 g/dL (6.5-8.0)
[2024-05-17 17:08] LABS: Ferritin 53 ng/mL (10-250)
== END 2024-05-17 10:10 | disposition home or self-care (01) ==
LOC: HO.HMGCLDS 10:09
PROVIDERS: Visit Provider Internal Medicine Medical Oncology
DX: I10 Essential (primary) hypertension (principal); D50.9 Iron deficiency anemia, unspecified; D75.89 Other specified diseases of blood and blood-forming organs; E53.8 Deficiency of other specified B group vitamins; D47.3 Essential (hemorrhagic) thrombocythemia
CPT/HCPCS: 36415; 80053; 82607; 82728; 82746; 85025; 85045

== ENCOUNTER 2024-06-06 12:50 | Outpatient (AMB) | payer MEDICARE, MEDICAID, SELFPAY ==
[2024-06-06 13:01] VITALS: BP 122/70; PULSE 86; TEMP 36.2; O2SAT 99; BMI 30.1
--- NOTE | 2024-06-06 13:01 | MHC.PC.OV ---
Vital Signs 06/06/24 13:01 Height 4 ft 11 in Weight 67.585 kg BMI 30.1 BP 122/70 Blood Pressure Location Rt brachial Position Sitting Pulse 86 Pulse Source Pulse Oximeter Temp 97.2 F Temp Source Axillary Pulse Oximetry (%) 99 Oxygen Delivery Method Room Air Intake Visit Reasons: Routine Chief Analytics Officer Required: No Accompanied by: Self / Same As Patient Allergies No Known Allergies [No Known Allergies*] Allergy (Verified 06/06/24 13:01) Medication List - Last Reconciled 06/06/24 by JAS Ospina amiodarone 200 mg PO DAILY amlodipine 5 mg PO DAILY 90 days calcium 600 mg PO DAILY cholecalciferol (vitamin D3) 50 mcg PO DAILY cyanocobalamin (vitamin B-12) 1 tab PO DAILY estradiol 0.5 mg PO DAILY ferrous gluconate 1 tab PO DAILY folic acid 1 tab PO DAILY levothyroxine 125 mcg PO DAILY lisinopril 20 mg PO BID rivaroxaban 20 mg PO DAILY Tobacco use date assessed: 06/06/24 Fall risk assessment: 1 Fall in past year Last assessed Fall Risk: 06/06/24 Dental Screening Dental Screen Date: 06/06/24 Did you have a dental visit in the last 12 months?: Yes Did you have a dental problem in the last 6 months where you did not have access to dental care?: No HPI HPI Comments History of Present Illness Details 84 year old female with history of htn, afib, , hypothyroidism, and osteopenia presents to the office for routine management. Continues following with Dr. Ratliff for management of her atrial fibrillation and pacemaker maintenance. She is anticoagulated with xarelto and denies any bleeding or excessive bruising. Continues on estradiol as well as vitamin d and calcium for her osteopenia. Last DEXA 2016. No recent falls or bone pain. She is ambulating without difficulty. Continues following with Dr. Bailey for management of her anemia. Compliant with all medications. No complaints today. No HCP or MOLST form on file. Reviewed MOLST form and will discuss HCP with her sons. [facility] Medical History Osteopenia (~2002) History of acoustic neuroma Cardiac pacemaker in situ (~08/2021) Skull asymmetry Eye abnormalities Syncope (~08/2021) HTN (hypertension) (HFpEF) heart failure with preserved ejection fraction Paroxysmal atrial fibrillation (~11/2014) Epistaxis Hypothyroidism Basal cell carcinoma Surgical History History of cardiac pacemaker (~2021) History of ear surgery History of cholecystectomy (~2014) History of hysterectomy History of cardioversion Family History Mother No problems noted. Father Stroke Other No family history of congenital heart disease Social History Household Members: None Housing: House Do you presently have visiting nurse or other home services: No Alcohol intake: never Patient Tobacco Use Status: Never used Tobacco e-Cigarette/Vaping Use: Never Used service: No Current occupational status: retired Cognitive needs: No Hearing needs: No Vision needs: Yes (rx glasses) Questionnaire PHQ-9 Over the last 2 weeks, how often have you been bothered by any of the following problems? 1. Little interest or pleasure in doing things: not at all 2. Feeling down, depressed, or hopeless: not at all 3. Trouble falling or staying asleep, or sleeping too much: not at all 4. Feeling tired or having little energy: not at all 5. Poor appetite or overeating: not at all 6. Feeling bad about yourself - or that you are a failure or have let yourself or your family down: not at all 7. Trouble concentrating on things, such as reading the newspaper or watching television: not at all 8. Moving or speaking so slowly that other people could have noticed. Or the opposite - being so fidgety or restless that you have been moving around a lot more than usual: not at all 9. Thoughts that you would be better off or of hurting yourself in some way: not at all Total score: 0 Source: Developed by Drs. Trevor Daigle, Laureen Shrestha, Mike Caldera and colleagues, with an educational ester from [employer]. Thrive Questionnaire Date Thrive assessed: 06/06/24 I am a: Patient Within the past 12 months, did the food you bought not last and you didn't have the money to get more?: Never true Within the past 12 months, did you worry whether your food would run out before you got money to buy more?: Never true Do you have trouble paying for medicines?: No Do you have trouble getting transportation to medical appointments?: No Do you have trouble paying your heating and electricity bill?: No Do you have trouble taking care of your child, family member or friend?: No Do you have trouble with day-to-day activities such as bathing, preparing meals, shopping, managing finances, etc.?: No Are you currently unemployed and looking for a job?: No Are you interested in more education?: No THRIVE Score: 0 AUDIT C Alcohol Use Questionnaire (AUDIT-C) 1. How often do you have a drink containing alcohol?: Never 3. How often do you have six or more drinks on one occasion?: Never Total Score: 0 LUCILA-7 AMB Questionnaire LUCILA-7 Date LUCILA - 7 assessed: 06/06/24 Feeling nervous, anxious, or on edge: 0 = Not at all Not being able to stop or control worryin = Not at all Worrying too much about different things: 0 = Not at all Trouble relaxin = Not at all Being so restless that it is hard to sit still: 0 = Not at all Becoming easily annoyed or irritable: 0 = Not at all Feeling afraid as if something awful might happen: 0 = Not at all Total LUCILA-7 score (0-4 normal; 5-9 mild; 10-14 moderate; 15-21 severe): 0 Source: Developed by Drs. Trevor Daigle, Laureen Shrestha, Mike Caldera and colleagues, with an educational ester from [employer]. Review of Systems Const All systems reviewed & are unremarkable except as noted in HPI and below Physical exam (Primary Care) Vital Signs: Last Vital Signs Temp 97.2 F 06/06/24 13:01 Pulse 86 06/06/24 13:01 BP 122/70 06/06/24 13:01 Pulse Ox 99 06/06/24 13:01 Oxygen Delivery Method Room Air 06/06/24 13:01 BMI result Body Mass Index 30.1 Tobacco/Smoking Status: Tobacco use Status Tobacco use date assessed 06/06/24 06/06/24 13:03 Patient Tobacco Use Status Never used Tobacco 06/06/24 13:03 e-Cigarette/Vaping Use Never Used 06/06/24 13:14 PHQ-9: PHQ-9 Score PHQ-9: Total score 0 06/06/24 13:17 Thrive Assessment: Date of Thrive Assessment Date Thrive assessed 06/06/24 06/06/24 13:03 Const Other: Constitutional - Awake and Alert, No apparent distress Eyes - PERRLA, EOMI Cardiovascular - S1S2, RRR, No edema Respiratory - Normal lung expansion, Normal respiratory effort, No respiratory distress, CTA bilaterally Extremities - no calf tenderness bilaterally, no swelling Skin - Warm/Dry Neurological - Alert & oriented x3 Psychological - Appropriate affect Coding Level of Care Code New Pt Level 4 (50420) Complex EM visit Add On G2211 Diagnoses Paroxysmal atrial fibrillation I48.0 HTN (hypertension) I10 Hypothyroidism E03.9 Osteopenia M85.80 Advanced care planning/counseling discussion Z71.89 Assessment & Plan Assessment & Plan (1) Paroxysmal atrial fibrillation: Onset Date: ~11/2014 Code(s): I48.0 - Paroxysmal atrial fibrillation Category: Medical Plan: Rate controlled. Paroxysmal, rhythm controlled with amiodarone. Continue following with cardiology as scheduled for further management as well as maintenance of pacemaker. Last cardiology note reviewed. Clinically euvolemic, no evidence of volume overload. Not currently on diuretics. (2) HTN (hypertension): Code(s): I10 - Essential (primary) hypertension Category: Medical Plan: Blood pressure well controlled at 122/70. Continue lisinopril 20 mg twice daily and amlodipine 5 mg daily. Recommend low-sodium diet. (3) Hypothyroidism: Code(s): E03.9 - Hypothyroidism, unspecified Category: Medical Plan: TSH slightly low at 0.27 with normal free T4. Will recheck TSH with reflex free T4 at following visit. Continue levothyroxine 125 mcg daily. Take every morning about 30 minutes prior to other medications or eating. (4) Osteopenia: Onset Date: ~2002 Comment: (Bone Dexa Lumbar T-score: -1.2 in 2002, -1.3 in 2017) Code(s): M85.80 - Other specified disorders of bone density and structure, unspecified site Category: Medical Plan: DEXA scan up-to-date, last DEXA 2016. Continue estradiol, calcium and vitamin-D supplementation. Recommend weight-bearing exercise daily. (5) Advanced care planning/counseling discussion: Code(s): Z71.89 - Other specified counseling Category: Medical Plan: MOLST form and healthcare proxy reviewed. Advised to discuss with her sons and contact the office for further questions Plan Follow up in 4 months with labs completed prior to visit. Orders: Orders TSH reflex Free T4 3 Months E03.9 - Hypothyroidism, unspecified, I10 - Essential (primary) hypertension, M85.80 - Other specified disorders of bone density and structure, unspecified site Basic Metabolic Panel 3 Months E03.9 - Hypothyroidism, unspecified, I10 - Essential (primary) hypertension, M85.80 - Other specified disorders of bone density and structure, unspecified site Liver Panel 3 Months E03.9 - Hypothyroidism, unspecified, I10 - Essential (primary) hypertension, M85.80 - Other specified disorders of bone density and structure, unspecified site Complete Blood Count Auto Diff 3 Months E03.9 - Hypothyroidism, unspecified, I10 - Essential (primary) hypertension, M85.80 - Other specified disorders of bone density and structure, unspecified site Vitamin D 25-OH Total 3 Months M85.80 - Other specified disorders of bone density and structure, unspecified site Medications: New rivaroxaban 20 mg PO DAILY 90 tabs 1RF estradiol 0.5 mg PO DAILY 90 tabs 1RF lisinopril 20 mg PO BID 180 tabs 1RF Refilled levothyroxine 125 mcg PO DAILY 90 tabs 1RF
== END 2024-06-06 13:30 | disposition home or self-care (01) ==
LOC: HO.HMCHD 12:51
PROVIDERS: PCP Internal Medicine; Visit Provider Internal Medicine
DX: I48.0 Paroxysmal atrial fibrillation (principal); I10 Essential (primary) hypertension; E03.9 Hypothyroidism, unspecified; M85.80 Other specified disorders of bone density and structure, unspecified site; Z71.89 Other specified counseling

== ENCOUNTER → 2024-06-06 12:50 | Outpatient (BNVA) | payer MEDICARE, MEDICAID, SELFPAY | PROVIDERS: PCP Internal Medicine; Visit Provider Internal Medicine | DX: I48.0 Paroxysmal atrial fibrillation (principal); I10 Essential (primary) hypertension; E03.9 Hypothyroidism, unspecified; M85.80 Other specified disorders of bone density and structure, unspecified site; Z71.89 Other specified counseling | CPT/HCPCS: 99202 ==

== ENCOUNTER → 2024-07-14 23:59 | Outpatient (BNV) | payer MEDICARE, MEDICAID, SELFPAY ==
--- NOTE | 2024-07-18 11:34 | MHC.OFFVIS ---
Intake Visit Reasons: Remote device check- Medtronic Allergies No Known Allergies [No Known Allergies*] Allergy (Verified 06/06/24 13:01) [facility] Medical History Osteopenia (~2002) History of acoustic neuroma Cardiac pacemaker in situ (~08/2021) Skull asymmetry Eye abnormalities Syncope (~08/2021) HTN (hypertension) (HFpEF) heart failure with preserved ejection fraction Paroxysmal atrial fibrillation (~11/2014) Epistaxis Hypothyroidism Basal cell carcinoma Surgical History History of cardiac pacemaker (~2021) History of ear surgery History of cholecystectomy (~2014) History of hysterectomy History of cardioversion Family History Mother No problems noted. Father Stroke Other No family history of congenital heart disease Social History Household Members: None Housing: House Do you presently have visiting nurse or other home services: No Alcohol intake: never Patient Tobacco Use Status: Never used Tobacco e-Cigarette/Vaping Use: Never Used service: No Current occupational status: retired Cognitive needs: No Hearing needs: No Vision needs: Yes (rx glasses) Office Procedures Cardiac Device Check Cardiac Device Check Details: Remote pacemaker report generated 07/14/2024. 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
== END ==
PROVIDERS: PCP Internal Medicine; Visit Provider Internal Medicine Cardiovascular Disease
DX: R55 Syncope and collapse (principal); R00.1 Bradycardia, unspecified; Z95.0 Presence of cardiac pacemaker
CPT/HCPCS: 93294

== ENCOUNTER 2024-07-27 13:10 | Outpatient (AMB) | payer MEDICARE, MEDICAID, SELFPAY ==
--- OUTSIDE RECORDS SUMMARY | 2024-05-26 06:45 | XMS_ITS ---
Author Organization Trevor Bailey III, MD Address [address] [place] [address] Care Team Providers Care Didactic Program In Dietetics Director Name Role Phone Ras Chao MD Primary Care Provider Trevor Short Unavailable [phone] Allergies Allergen (clinical drug ingredient) Drug/Non Drug Allergy documented on EMR Reaction Allergy Type Onset Date Status No Known Drug Allergy Unknown Drug Allergy Active REASON FOR VISIT Iron deficiency anemia, Vitamin B12 deficiency, Vitamin D deficiency, Hypertension, Hypothyroidism,Persistent atrial fibrillation Medications Medication SIG (Take, Route, Frequency, Duration) Notes Start Date End Date Status Folic Acid 1 MG TAKE ONE TABLET BY M OUTH EVERY DAY Active Estradiol 0.5 MG 1 tablet Orally Once a day Active Levothyroxine Sodium 125 MCG 1 tablet in the morning on an empty stomach Orally Once a day Active Vitamin D3 50 MCG (1999 UT) 1 capsule Or ally Once a day Active Vitamin B-12 1000 MCG TAKE ONE TABLET BY MOUTH EVERY DAY Orally Once a day Active Xarelto 20 MG 1 tablet with food Orally Active amLODIPine Besylate 5 MG 1 tablet Orally Once a day Active Ferrous Gluconate 324 (38 Fe) MG 1 tablet Orally Once a day Active Amiodarone HCl 200 MG 1 tablet Orally On ce a day Active Lisinopril 20 MG 1 tablet Orally Once a day Active Social History Tobacco Use: Social History Observation Description Date Details (start date - stop date) Never Smoker NA - NA Tobacco Use/Smoking Question Answer Notes Patient is a nonsmoker Additional Findings: Tobacco Non-User Aggressive non-smoker Vital Signs Temperature 97.3 degrees Fahrenheit 05/27/19 25 Blood pressure systolic 140 mm Hg 05/27/19 25 Blood pressure diastolic 77 mm Hg 025 Heart Rate 90 /min 05/26/2024 Height 62 in 05/26/2024 Weight 151 lbs 05/26/2024 BMI 27.62 kg/m2 05/26/2024 Oximetry 95 % 05/26/2024 Encounters Encounter Location Date Provider Diagnosis Trevor Bailey III, MD [address] [place] [address] [place], [place] [id number] 05/26/2024 Trevor Bailey Essential hypertensi on I10 ; Iron deficiency anemia, unspecified iron deficiency anemia type D50.9 ; Macrocytosis D75.89 ; Acquired hypothyroidism E03.9 ; Osteopenia M85.80 ; CHF (congestive heart failure) I50.9 ; Vitamin B12 deficiency E53.8 ; Thrombocytosis D47.3 ; Pacemaker Z95.0 ; Overweight E66.3 ; Persistent atrial fibrillation I48.19 and Chronic anticoagulation Z79.01 Assessments Encounter Date Diagnosis (ICD Code) Assessment Notes Treat ment Notes Treatment Clinical Notes 05/26/2024 Essential hypertension (ICD-10 - I10) Her blood pressure is stable and no change in her regimen as necessary. I recommended weight loss and sodium restriction. The systolic is 140. He was referred back to primary care 05/26/2024 Iron deficiency anemia, unspecified iron deficiency anemia type (ICD-10 - D50.9) Her hematocrit is normal and her ferritin is 56. The mean cell volume is 102. Her iron deficiency is well compensated. 05/26/2024 Macrocytosis (ICD-10 - D75.89) The mean cell volume is 101.9. 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 05/26/2024 Acquired hypothyroidism (ICD-10 - E03.9) He appears to be euthyroid. No change in her regimen she is 05/26/2024 Osteopenia (ICD-10 - M85.80) She has a diagnosis of postmenopausal osteopenia. I have agreed with the recommended vitamin D and calcium tablets. 05/26/2024 CHF (congestive hear t failure) (ICD-10 - I50.9) Her congestive heart ferry is well compensated and she was comfortable breathing room air today as she moved around the examining room. 05/26/2024 Vitamin B12 deficiency (ICD-10 - E53.8) He is compliant with her vitamin B12 replacement. The B12 level is adequate. 05/26/2024 Thrombocytosis (ICD-10 - D47.3) The platelet count is within normal limits. The thrombocytosis was likely due to iron deficiency. That has resolved. 05/26/2024 Pacemaker (ICD-10 - Z95.0) The pacemaker is present in the left upper chest wall. It seems to be functioning well. She is free of any symptoms of syncope. 05/26/2024 Overweight (ICD-10 - E66.3) She has lost 16 pounds in the last year and her body mass index is in the overweight range. She was encouraged to continue losing weight until the body mass index is in the normal range. 05/26/2024 Persistent atrial fibrillation (ICD-10 - I48.19) She continues in a well-controlled atrial fibrillation. No change in regimen was necessary today. 05/26/2024 Chronic anticoagulation (ICD-10 - Z79.01) She has not noticed any bleeding. Stool collection pending. Plan Of Treatment Medication Medication Name Sig Start Date Stop Date Notes Folic Acid 1 MG TAKE ONE TABLET BY M OUTH EVERY DAY Estradiol 0.5 MG 1 tablet Orally Once a day Levothyroxine Sodium 125 MCG 1 tablet in the morning on an empty stomach Orally Once a day Vitamin D3 50 MCG (2000 UT) 1 capsule Or ally Once a day Vitamin B-12 1000 MCG TAKE ONE TABLET BY MOUTH EVERY DAY Orally Once a day Xarelto 20 MG 1 tablet with food Orally amLODIPine Besylate 5 MG 1 tablet Orally Once a day Ferrous Gluconate 324 (38 Fe) MG 1 tablet Orally Once a da y Amiodarone HCl 200 MG 1 tablet Orally Once a day Lisinopril 20 MG 1 tablet Orally Once a day Pending Test Test Name Order Date PROFILE, RANDOM (COMPREHENSIVE METABOLIC ) 05/26/2024 TSH (THYROID STIMULATING HORMONE) 2024 CBC w DIFF 05/26/2024 Ferritin 05/26/2024 Vitamin B12 05/26/2024 Vitamin D 25-OH Total 05/26/2024 Free T4 (Free Thyroxine) 05/26/2024 Next Appt Details Follow Up: 6 Months, Reason: OV Provider Name:Trevor Dobbsrne, 11/25/2024 10:00:00 AM, [address] [place] [address] [place], [place], [phone], Progress Notes * Jessica OVIEDO RDOB:1940 (84 yo F)Acc No.[id number]:05/26/2024 Progress Notes Patient: Jessica ROBLES Provider: Nya Bailey MD :1940 A ge:84 Y S ex:Female Date:05/26/2024 Address:[address] [place] [address] [place], [id number] Pcp:Ras Chao MD Subjective: * Chief Complaints: * I randall deficiency anemiaVitamin B12 deficiencyVitamin D deficiencyHypertensionHypothyroidismPersistent atrial fibrillation * HPI: C OVID-19 Screening: She returns to the office for management of her various vitamin deficiencies and iron deficiency anemia. She has been compliant with all of her medications. She has had no hospitalizations or emergency room visits. She denies any chest pain loss of consciousness or difficulty breathing.Comprehensive blood work was available and was re-reviewed with her in detail. No changes in her regimen or necessary at this time. The anemia has resolved and is stable. Her vitamin B12 level is in the normal range. A follow-up visit was arranged. Questions H ave you had any new onset fever, chills, cough, congestion, sore throat, shortness of breath, muscle aches? N o * ROS: G eneral/Constitutional: pain o nly normal aches and pains. C hills d enies.?Fatigue a dmits. F ever d enies. E NT: Decreased hearing m ild. R espiratory: Cough d enies. C ardiovascular: Chest pain with exertion d enies. D yspnea on exertion?denies. S hortness of breath w ith exertion. G astrointestinal: Constipation o ccasional. D ecreased appetite d enies. D iarrhea d enies. H eartburn o ccasional. N ausea d enies. R ectal bleeding d enies. V omiting d enies. H ematology: bruising d enies. p etechiae d enies. S wollen glands n one have been noted. G enitourinary: Frequent urination d enies. M usculoskeletal: Muscle aches d enies. P ainful joints d enies. S ciatica d enies. W eakness d enies. S kin: Itching d enies. R valente d enies. S kin lesion(s)?denies. N eurologic: Difficulty speaking d enies. D izziness d enies.?Headache d enies. L ow back pain d enies. P sychiatric: Depressed mood d enies. * Medical History: * Surgical History[place] p syl[place] [facility] [place] * Hospitalization/Major Diagno stic Procedure: n ose bleed 11/2019 * Family History: F ather: . M other: . S on(s): alive. 5 son(s) - healthy. . Her children are healthy and well. She she is not aware of any inherited cancer family syndrome. * Social History: T obacco Use: T obacco Use/Smoking P atient is a n onsmoker A dditional Findings: Tobacco Non-User A ggressive non-smoker S he is . She came here with her first born child Luis. She has 12 grandchildren. She has 5 sons. * Medications: T akingamLODIPine Besylate 5 MG Tablet 1 tablet Orally Once a day Xarelto 20 MG Tablet 1 tablet with food Orally Lisinopril 20 MG Tablet 1 tablet Orally Once a day Amiodarone HCl 200 MG Tablet 1 tablet Orally Once a day Levothyroxine Sodium 125 MCG Capsule 1 tablet in the morning on an empty stomach Orally Once a day Estradiol 0.5 MG Tablet 1 tablet Orally Once a day Vitamin D3 50 MCG (2000 UT) Capsule 1 capsule Orally Once a day Ferrous Gluconate 324 (38 Fe) MG Tablet 1 tablet Orally Once a day Vitamin B-12 1000 MCG Tablet TAKE ONE TABLET BY MOUTH EVERY DAY Orally Once a day Folic Acid 1 MG Tablet TAKE ONE TABLET BY MOUTH EVERY DAY Medication List reviewed and reconciled with the patientTaking amLODIPine Besylate 5 MG Tablet 1 tablet Orally Once a day Taking Xarelto 20 MG Tablet 1 tablet with food Orally Taking Lisinopril 20 MG Tablet 1 tablet Orally Once a day Taking Amiodarone HCl 200 MG Tablet 1 tablet Orally Once a day Taking Levothyroxine Sodium 125 MCG Capsule 1 tablet in the morning on an empty stomach Orally Once a day Taking Estradiol 0.5 MG Tablet 1 tablet Orally Once a day Taking Vitamin D3 50 MCG (2000 UT) Capsule 1 capsule Orally Once a day Taking Ferrous Gluconate 324 (38 Fe) MG Tablet 1 tablet Orally Once a day Taking Vitamin B-12 1000 MCG Tablet TAKE ONE TABLET BY MOUTH EVERY DAY Orally Once a day Taking Folic Acid 1 MG Tablet TAKE ONE TABLET BY MOUTH EVERY DAY Medication List reviewed and reconciled with the patient * Allergies: N o Known Drug Allergyno[Allergies Verified] Objective: * Vitals: H t: 62, Wt:151, BMI:27.62, BP:140/77, HR:90, Temp:97.3, Oxygen sat %:95, Wt-k.49. * P ast Orders: Lab:Complete Blood Count Aut o Diff * Collection Date 05/17/2024 09/24/2023 05/21/2023 Collection Time 10:16 AM 10:30 AM 10:08 AM Order Date 05/17/2024 09/24/2023 05/21/2023 White Blood Count 6.7 (Ref Range: 4.8-10.8 X10*3/uL) 7.8 (Ref Range: 4.8-10.8 X10*3/uL) 7.1 (Ref Range: 4.8-10.8 X10*3/uL) Red Blood Count 4.32 (Ref Range: 4.20-5.50 X10*6/uL) 4.25 (Ref Range: 4.20-5.50 X10*6/uL) 4.36 (Ref Range: 4.20-5.50 X10*6/uL) Hemoglobin 14.1 (Ref Range: 12.0-16.0 g/dl) 14.0 (Ref Range: 12.0-16.0 g/dl) 14.0 (Ref Range: 12.0-16.0 g/dl) Hematocrit 44.0 (Ref Range: 37.0-47.0 %) 43.4 (Ref Range: 37.0-47.0 %) 43.3 (Ref Range: 37.0-47.0 %) Mean Corpuscular Volume 101.9 H (Ref Range: 80.0-98.0 fL) 102.1 H (Ref Range: 80.0-98.0 fL) 99.3 H (Ref Range: 80.0-98.0 fL) Mean Corpuscular Hemoglobin 32.6 (Ref Range: 27.0-33.0 pg) 32.9 (Ref Range: 27.0-33.0 pg) 32.1 (Ref Range: 27.0-33.0 pg) Mean Corpuscular HGB Conc 32.0 (Ref Range: 31.0-35.0 g/dl) 32.3 (Ref Range: 31.0-35.0 g/dl) 32.3 (Ref Range: 31.0-35.0 g/dl) Red Cell Distribution Width 12.9 (Ref Range: 11.0-16.0 %) 14.1 (Ref Range: 11.0-16.0 %) 14.0 (Ref Range: 11.0-16.0 %) Platelet Count 325 (Ref Range: 160-400 X10*3/uL) 329 (Ref Range: 160-400 X10*3/uL) 364 (Ref Range: 160-400 X10*3/uL) Mean Platelet Volume 12.4 H (Ref Range: 9.4-12.3 fL) 11.8 (Ref Range: 9.4-12.3 fL) 12.0 (Ref Range: 9.4-12.3 fL) Neutrophils Percent Auto 64.0 (Ref Range: 45-73 %) 69.0 (Ref Range: 45-73 %) 63.3 (Ref Range: 45-73 %) Imm Gran Pct Auto 0.4 (Ref Range: 0.0-0.4 %) 0.5 H (Ref Range: 0.0-0.4 %) 0.4 (Ref Range: 0.0-0.4 %) Lymphocytes Percent Auto 21.5 (Ref Range: 20-40 %) 17.6 L (Ref Range: 20-40 %) 19.7 L (Ref Range: 20-40 %) Monocytes Percent Auto 9.1 (Ref Range: 2-11 %) 9.1 (Ref Range: 2-11 %) 11.3 H (Ref Range: 2-11 %) Eosinophils Percent Auto 4.3 H (Ref Range: 0-4 %) 3.3 (Ref Range: 0-4 %) 4.7 H (Ref Range: 0-4 %) Basophils Percent Auto 0.7 (Ref Range: 0-2 %) 0.5 (Ref Range: 0-2 %) 0.6 (Ref Range: 0-2 %) NRBC Pct Auto 0.0 (Ref Range: 0.0-0.2 /100WBC) 0.0 (Ref Range: 0.0-0.2 /100WBC) 0.0 (Ref Range: 0.0-0.2 /100WBC) Neutrophils Absolute Auto 4.3 (Ref Range: 2.0-8.3 x10*3/uL) 5.4 (Ref Range: 2.0-8.3 x10*3/uL) 4.5 (Ref Range: 2.0-8.3 x10*3/uL) Imm Gran Abs Auto 0.03 (Ref Range: 0.00-0.03 X10*3/uL) 0.04 H (Ref Range: 0.00-0.03 X10*3/uL) 0.03 (Ref Range: 0.00-0.03 X10*3/uL) Lymphocytes Absolute Auto 1.5 (Ref Range: 1.2-4.9 X10*3/uL) 1.4 (Ref Range: 1.2-4.9 X10*3/uL) 1.4 (Ref Range: 1.2-4.9 X10*3/uL) Monocytes Absolute Auto 0.6 (Ref Range: 0.1-1.2 X10*3/uL) 0.7 (Ref Range: 0.1-1.2 X10*3/uL) 0.8 (Ref Range: 0.1-1.2 X10*3/uL) Eosinophils Absolute Auto 0.3 (Ref Range: 0.0-0.4 X10*3/uL) 0.3 (Ref Range: 0.0-0.4 X10*3/uL) 0.3 (Ref Range: 0.0-0.4 X10*3/uL) Basophils Absolute Auto 0.1 (Ref Range: 0.0-0.2 X10*3/uL) 0.0 (Ref Range: 0.0-0.2 X10*3/uL) 0.0 (Ref Range: 0.0-0.2 X10*3/uL) NRBC Abs Auto 0.000 (Ref Range: 0.0-0.012 X10*3/uL) 0.000 (Ref Range: 0.0-0.012 X10*3/uL) 0.000 (Ref Range: 0.0-0.012 X10*3/uL) * Lab:RETIC * Collection Date 05/17/2024 11/15/2021 05/13/2021 Collection Time 10:16 AM 10:40 AM 11:10 AM Order Date 05/17/2024 11/15/2021 05/13/2021 Reticulocytes Absolute 0.072 (Ref Range: 0.026-0.095 X10*6/uL) 0.093 (Ref Range: 0.026-0.095 X10*6/uL) 0.097 H (Ref Range: 0.026-0.095 X10*6/uL) Immature Retic Fraction 15.4 (Ref Range: 3.0-15.9 %) 20.2 H (Ref Range: 3.0-15.9 %) 20.4 H (Ref Range: 3.0-15.9 %) Retic HGB Equivalent 35.2 H (Ref Range: 30.0-35.0 pg) 37.0 H (Ref Range: 30.0-35.0 pg) 36.6 H (Ref Range: 30.0-35.0 pg) Reticulocyte Percent 1.7 (Ref Range: 0.5-1.8 %) 2.3 H (Ref Range: 0.5-1.8 %) 2.4 H (Ref Range: 0.5-1.8 %) * Lab:Comprehensive Met. Panel * Collection Date 05/17/2024 09/24/2023 05/21/2023 Collection Time 10:16 AM 10:30 AM 10:08 AM Order Date 05/17/2024 09/24/2023 05/21/2023 Sodium 141 (Ref Range: 135-145 mmol/L) 142 (Ref Range: 135-145 mmol/L) 141 (Ref Range: 135-145 mmol/L) Bilirubin Total 0.3 (Ref Range: 0.0-1.0 mg/dL) 0.3 (Ref Range: 0.0-1.0 mg/dL) 0.3 (Ref Range: 0.0-1.0 mg/dL) Aspartate Amino Transferase 26 (Ref Range: 5-31 U/L) 20 (Ref Range: 5-31 U/L) 16 (Ref Range: 5-31 U/L) Alanine Aminotransferase 10 (Ref Range: 0-31 U/L) 16 (Ref Range: 0-31 U/L) 14 (Ref Range: 0-31 U/L) Total Protein 6.6 (Ref Range: 6.5-8.0 g/dL) 6.9 (Ref Range: 6.5-8.0 g/dL) 7.0 (Ref Range: 6.5-8.0 g/dL) Albumin Level 3.6 (Ref Range: 3.5-5.0 g/dL) 3.6 (Ref Range: 3.5-5.0 g/dL) 3.5 (Ref Range: 3.5-5.0 g/dL) Alkaline Phosphatase 110 (Ref Range: 39-117 U/L) 106 (Ref Range: 39-117 U/L) 112 (Ref Range: 39-117 U/L) Potassium 3.8 (Ref Range: 3.3-5.1 mmol/L) 4.5 (Ref Range: 3.3-5.1 mmol/L) 4.7 (Ref Range: 3.3-5.1 mmol/L) Chloride 109 H (Ref Range: 96-108 mmol/L) 107 (Ref Range: 96-108 mmol/L) 107 (Ref Range: 96-108 mmol/L) Carbon Dioxide 26 (Ref Range: 22-29 mmol/L) 30 H (Ref Range: 22-29 mmol/L) 28 (Ref Range: 22-29 mmol/L) Anion Gap 10 L (Ref Range: 12-20) 10 L (Ref Range: 12-20) 11 L (Ref Range: 12-20) Blood Urea Nitrogen 17 H (Ref Range: 9-16 mg/dL) 13 (Ref Range: 9-16 mg/dL) 15 (Ref Range: 9-16 mg/dL) Creatinine 1.05 (Ref Range: 0.5-1.4 mg/dL) 0.89 (Ref Range: 0.5-1.4 mg/dL) 1.01 (Ref Range: 0.5-1.4 mg/dL) Estimated Glomerular Filt Rate 50 > 60 52 Glucose Random 83 (Ref Range: 60-115 mg/dL) 82 (Ref Range: 60-115 mg/dL) 84 (Ref Range: 60-115 mg/dL) Calcium 8.9 (Ref Range: 8.4-10.2 mg/dL) 8.7 (Ref Range: 8.4-10.2 mg/dL) 9.1 (Ref Range: 8.4-10.2 mg/dL) * Lab:Ferritin * Collection Date 05/17/2024 09/24/2023 05/21/2023 Collection Time 10:16 AM 10:30 AM 10:08 AM Order Date 05/17/2024 09/24/2023 05/21/2023 Ferritin 53 (Ref Range: 10-250 ng/mL) 56 (Ref Range: 10-250 ng/mL) 62 (Ref Range: 10-250 ng/mL) * Lab:Vitamin B12 and Folate * Collection Date 05/17/2024 05/21/2023 06/14/2021 Collection Time 10:16 AM 10:08 AM 11:58 AM Order Date 05/17/2024 05/21/2023 06/14/2021 Vitamin B12 1025 H (Ref Range: 200-900 pg/mL) 1283 H (Ref Range: 200-900 pg/mL) 556 (Ref Range: 200-900 pg/mL) Folate 19.3 (Ref Range: > or = 4.0 ng/mL) > 20.0 (Ref Range: > or = 4.0 ng/mL) > 20.0 (Ref Range: > or = 4.0 ng/mL) * Examination: G eneral Examination: GENERAL APPEARANCE: p leasant, well nourished, well developed, in no acute distress, calm and relaxed, elderly woman. HEAD: a traumatic, normocephalic. EYES: e florian, perrla, anicteric, conjugate. EARS: n ormal. NOSE: s eptum intact. ORAL CAVITY: n ormal, unremarkable. NECK/THYROID: n o jugular venous distention, no carotid bruit, thyroid normal. LYMPH NODES: n o enlarged lymph nodes,spleen normal. SKIN: n o suspicious lesions, anicteric. HEART: n o clicks, gallops, murmurs, or rubs, irregular rhythm, S1, S2 normal, no s3, or vascular bruits pacemaker left chest wall. LUNGS: c lear to auscultation . BREASTS: N ot examined. ABDOMEN: b owel sounds normal, no ascites, no organomegaly, no mass. RECTAL EXAM: n ot examined. MUSCULOSKELETAL: e xtremities unremarkable, no clubbing, cyanosis or edema. PERIPHERAL PULSES: n ormal. NEUROLOGIC: a lert and oriented, cranial nerves 2-12 grossly intact, deep tendon reflexes 2+ symmetrical, motor strength normal upper and lower extremities, sensory exam intact. PSYCH: a lert, oriented. Assessment: * Assessment: 1. I randall deficiency anemia, unspecified iron deficiency anemia type - D50.9 (Primary) ? N otes :Her hematocrit is normal and her ferritin is 56. The mean cell volume is 102. Her iron deficiency is well compensated. 2 . E ssential hypertension - I10 N otes :Her blood pressure is stable and no change in her regimen as necessary. I recommended weight loss and sodium restriction. The systolic is 140. He was referred back to primary care 3 . M acrocytosis - D75.89 N otes :The mean cell volume is 101.9. 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 4 . A cquired hypothyroidism - E03.9 N otes :He appears to be euthyroid. No change in her regimen she is 5 . O steopenia - M85.80 N otes :She has a diagnosis of postmenopausal osteopenia. I have agreed with the recommended vitamin D and calcium tablets. 6 . C HF (congestive heart failure) - I50.9 N otes :Her congestive heart ferry is well compensated and she was comfortable breathing room air today as she moved around the examining room. 7 . V itamin B12 deficiency - E53.8 N otes :He is compliant with her vitamin B12 replacement. The B12 level is adequate. 8 . T hrombocytosis - D47.3 N otes :The platelet count is within normal limits. The thrombocytosis was likely due to iron deficiency. That has resolved. 9 . P acemaker - Z95.0 N otes :The pacemaker is present in the left upper chest wall. It seems to be functioning well. She is free of any symptoms of syncope. 1 0. O verweight - E66.3 N otes :She has lost 16 pounds in the last year and her body mass index is in the overweight range. She was encouraged to continue losing weight until the body mass index is in the normal range. 1 1. P ersistent atrial fibrillation - I48.19 N otes :She continues in a well-controlled atrial fibrillation. No change in regimen was necessary today. 1 2. C hronic anticoagulation - Z79.01 N otes :She has not noticed any bleeding. Stool collection pending. Plan: * Treatment: 2. M acrocytosis L AB: PROFILE, RANDOM (COMPREHENSIVE METABOLIC) L AB: TSH (THYROID STIMULATING HORMONE) L AB: CBC w DIFF L AB: Ferritin L AB: Vitamin B12 L AB: Vitamin D 25-OH Total L AB: Free T4 (Free Thyroxine) 3. A cquired hypothyroidism L AB: PROFILE, RANDOM (COMPREHENSIVE METABOLIC) L AB: TSH (THYROID STIMULATING HORMONE) L AB: CBC w DIFF L AB: Ferritin L AB: Vitamin B12 L AB: Vitamin D 25-OH Total L AB: Free T4 (Free Thyroxine) 4. V itamin B12 deficiency L AB: PROFILE, RANDOM (COMPREHENSIVE METABOLIC) L AB: TSH (THYROID STIMULATING HORMONE) L AB: Ferritin L AB: Vitamin B12 L AB: Vitamin D 25-OH Total L AB: Free T4 (Free Thyroxine) 5. O thers Continue Vitamin B-12 Tablet, 1000 MCG, TAKE ONE TABLET BY MOUTH EVERY DAY, Orally, Once a day;?Continue Folic Acid Tablet, 1 MG, TAKE ONE TABLET BY MOUTH EVERY DAY; C ontinue Ferrous Gluconate Tablet, 324 (38 Fe) MG, 1 tablet, Orally, Once a day. * Procedure Codes: 9 4760 MEASURE BLOOD OXYGEN LEVEL * Preventive Medicine: Counseling: C are goal follow-up plan: Counseling for abnormal BMI given Y es Above Normal BMI Follow-up D ietary management education, guidance, and counseling, Dietary needs education * Follow Up: 6 Months (Reason: OV) * Images: * Sign off status: Completed true * Provider: Nya Bailey MD Date: 0 05/26/2024 Generated for Jeff naranjo/Keith/Markitting on: 0 07/27/2024 03:01 PM EDT History and Physical Notes * HPI (History of Present Illness) Category Sub-Category Detail Notes COVID-19 Screening Questions Have you had any new onset fever, chills, cough, congestion, sore throat, shortness of breath, muscle aches?: No Examination Category Sub-Category Detail Notes General Examination GENERAL APPEARANCE: pleasant , well nourished, well developed, in no acute distress, calm and relaxed, elderly woman HEAD: atraumatic, normocep halic EYES: eomi, perrla, anicte shaista, conjugate EARS: normal NOSE: septum intact NECK/THYROID: no jugular venous di stention, no carotid bruit, thyroid normal HEART: no clicks, gallops, murmurs, or rubs, irregular rhythm, S1, S2 normal, no s3, or vascular bruits pacemaker left chest wall LUNGS: clear to auscultatio n ABDOMEN: bowel sounds normal, no ascites, no organomegaly, no mass NEUROLOGIC: alert and oriented, cranial nerves 2-12 grossly intact, deep tendon reflexes 2+ symmetrical, motor strength normal upper and lower extremities, sensory exam intact SKIN: no suspicious lesion s, anicteric PERIPHERAL PULSES: normal BREASTS: Not examined MUSCULOSKELETAL: extremities unremark able, no clubbing, cyanosis or edema LYMPH NODES: no enlarged lymph no tristan,spleen normal RECTAL EXAM: not examined PSYCH: alert, oriented ORAL CAVITY: normal, unremarkable
[2024-07-27 13:33] VITALS: BP 114/66; PULSE 89; TEMP 36.5; O2SAT 97; BMI 30.1
--- NOTE | 2024-07-27 13:33 | MHC.OFFWIV ---
Intake Vital Signs 07/27/24 13:33 Height 4 ft 11 in Weight 149 lb BMI 30.1 BP 114/66 Blood Pressure Location Lt brachial Position Sitting Pulse 89 Pulse Source Pulse Oximeter Temp 97.7 F Temp Source Oral Pulse Oximetry (%) 97 Oxygen Delivery Method Room Air Intake Visit Reasons: EP-rt arm cut from a fall Intake Note: Pt presents to the office today for c/o a cut on her right arm after falling yesterday. Pt denies hitting her head or an LOC. Pt states she is on blood thinners. Patient Tobacco Use Status: Never used Tobacco Allergies No Known Allergies (No Known Allergies*) Allergy (Verified 07/27/24 13:42) HPI HPI Comments History of Present Illness Details History of Present Illness - The patient is an 84-year-old female presenting with a laceration on the right posterior arm. - The laceration occurred following a fall the previous day, with initial bruising noted. - Significant bleeding began the morning after the fall, requiring multiple bandage changes due to saturation with blood. - The patient is on Rivaroxaban, an anticoagulant, which she took on the morning of the bleeding. Physical Exam General: Cooperative, healthy appearing, comfortable, no acute distress and well developed Orientation: Patient oriented x3 Limitations: No limitations Head: Normal to inspection Ears: Hearing grossly normal bilaterally Face and sinus: Normal facial exam Eyes: Appearance normal, both eyes and all related structures Neck: Normal visual inspection, full ROM Respiratory: Normal respiratory effort and able to speak in complete sentences. Skin: Bruise and bleeding noted on the arm, treated with Surgisel and pressure bandage Neuro: Patient oriented x3, gait normal Extremities: right forearam posterior has skin tear with small area (1cm round) of ecchymosis and scant active bleeding [facility] Medical History Osteopenia (~2002) History of acoustic neuroma Cardiac pacemaker in situ (~08/2021) Skull asymmetry Eye abnormalities Syncope (~08/2021) HTN (hypertension) (HFpEF) heart failure with preserved ejection fraction Paroxysmal atrial fibrillation (~11/2014) Epistaxis Hypothyroidism Basal cell carcinoma Surgical History History of cardiac pacemaker (~2021) History of ear surgery History of cholecystectomy (~2014) History of hysterectomy History of cardioversion Family History Mother No problems noted. Father Stroke Other No family history of congenital heart disease Social History Household Members: None Housing: House Do you presently have visiting nurse or other home services: No Alcohol intake: never Patient Tobacco Use Status: Never used Tobacco e-Cigarette/Vaping Use: Never Used service: No Current occupational status: retired Cognitive needs: No Hearing needs: No Vision needs: Yes (rx glasses) Review of Systems Const All systems reviewed & are unremarkable except as noted in HPI and below Physical Exam Vital Signs: Last Vital Signs Temp 97.7 F 07/27/24 13:33 Pulse 89 07/27/24 13:33 BP 114/66 07/27/24 13:33 Pulse Ox 97 07/27/24 13:33 Oxygen Delivery Method Room Air 07/27/24 13:33 BMI result Body Mass Index 30.1 Assessment & Plan Assessment & Plan (1) Skin tear of forearm without complication: Code(s): S51.819A - Laceration without foreign body of unspecified forearm, initial encounter Qualifiers: Encounter type: initial encounter Laterality: right Qualified Code(s): S51.811A - Laceration without foreign body of right forearm, initial encounter Plan: Patient was informed and verbally consented to the use of an ambient scribe for clinic note documentation during this visit. - The laceration will be managed with a hemostatic agent, Surgicel, to control bleeding. - The patient is advised to leave the bandage in place until the following day, after which a regular Band-Aid can be used. - The patient should return if bleeding persists or worsens. - The patient is advised to continue taking Rivaroxaban despite the bleeding, as it is crucial for her condition. (2) Anticoagulant long-term use: Code(s): Z79.01 - intermission coordinator (current) use of anticoagulants Plan: as above Coding Level of Care Code Est Pt Level 3 (27174) Diagnoses Skin tear of right forearm without complication, initial encounter S51.811A Encounter type: initial encounter Laterality: right Anticoagulant long-term use Z79.01
== END 2024-07-27 14:30 | disposition home or self-care (01) ==
PROVIDERS: PCP Internal Medicine; Visit Provider Physician Assistant
DX: S51.811A Laceration without foreign body of right forearm, initial encounter (principal); Z79.01 Long term (current) use of anticoagulants

== ENCOUNTER → 2024-07-27 13:10 | Outpatient (BNVA) | payer MEDICARE, MEDICAID, SELFPAY | PROVIDERS: PCP Internal Medicine; Visit Provider Physician Assistant | DX: S51.811A Laceration without foreign body of right forearm, initial encounter (principal); Z79.01 Long term (current) use of anticoagulants | CPT/HCPCS: 99212 ==

== ENCOUNTER 2024-09-06 15:21 | Inpatient (IN) | payer MEDICARE, OTHER, SELFPAY ==
--- NOTE | ~2024-09-06 | XR_ITS ---
CLINICAL HISTORY: weakness --- Additional Notes or Special Instructions: PT collared 1605 -CF 1 view chest x-ray Comparison: CR/SR - XR CHEST 2 VIEWS - 05/03/24 10:13 EDT Findings: No consolidation or effusion. Mild cardiomegaly. Dextroscoliosis of the thoracic spine. There is a left subclavian dual lead pacemaker lead tips in unchanged position. IMPRESSION: 1. No acute findings. This document has been electronically signed by: Ankur Vera MD on 09/06/2024 20:02:08
--- NOTE | ~2024-09-06 | CT_ITS ---
CLINICAL HISTORY: Fall with HS CT cervical spine without contrast Comparison: None provided Findings: Mild anterolisthesis of C5 on C6 and C7 on T1. Severe disc height loss at C6-7. Multilevel degenerative change of the cervical spine. No acute fractures or dislocations. Previous left occipital craniotomy in the posterior fossa. Soft tissues of the neck are normal. Lung apices are clear. IMPRESSION: No acute findings. This document has been electronically signed by: Ankur Vera MD on 09/06/2024 19:14:23
--- NOTE | ~2024-09-06 | CT_ITS ---
CLINICAL HISTORY: guiac positive, thrombocytopenia, macrocyticanemia CT angiography abdomen and pelvis with contrast. 3-D post processing. Comparison: None provided Findings: Abdominal aorta is normal caliber. No significant stenosis of the origin of the mesenteric vessels. Renal arteries are patent. No acute bleeding identified. Heart size is normal. There are pacemaker leads in the right heart. Small hiatal hernia present. No consolidation or effusion. The nonenhanced liver is hyperattenuating. Liver is normal in size. No focal liver lesion seen. Pancreas, spleen, adrenal glands are unremarkable. The gallbladder is absent. There is a 2 cm cyst in the right kidney. No hydronephrosis of either kidney. No ureteral stones. Focal cortical scarring in the mid right kidney. No bowel obstruction, pneumoperitoneum, or pneumatosis. There are scattered colonic diverticula, however no evidence of diverticulitis. No bowel wall thickening. There are a few distal small bowel diverticula. Normal appendix. No evidence of acute GI bleed identified. Small fat containing umbilical hernia. Uterus is absent. Urinary bladder is distended. No wall thickening. Multilevel degenerative change of the lumbar spine. The bones are intact. IMPRESSION: No acute findings. Extensive diverticulosis without evidence of diverticulitis. This document has been electronically signed by: Ankur Vera MD on 09/06/2024 22:28:38
--- NOTE | ~2024-09-06 | CT_ITS ---
CLINICAL HISTORY: fall with HS +thinners CT head without contrast Comparison: None provided Findings: No intra-axial mass, midline shift, hydrocephalus, or acute hemorrhage. There has been a previous left occipital craniotomy in the posterior fossa, with encephalomalacia of the left cerebellar hemisphere. 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 Mild cerebral atrophy. There is no sinus or mastoid fluid. The orbits are unremarkable. There is a posterior left parietal small scalp hematoma. There is no acute fracture. IMPRESSION: 1. No acute intracranial findings. 2. Previous left occipital craniotomy. 3. Posterior left parietal scalp hematoma. This document has been electronically signed by: Ankur Vera MD on 09/06/2024 19:13:56
[2024-09-06 15:28] VITALS: BP 123/73; BP 136/42; PULSE 66; PULSE 77; RESP 20; TEMP 36.4; O2SAT 93; O2SAT 97; BMI 29.6
--- NOTE | 2024-09-06 15:39 | PC.NURSE ---
patient presented to the ED after sustaining a fall at the grocery store. patient states she was walking around the grocery store and felt increasingly weak, patient got to check in line when she felt dizzy and had syncopal episode falling and hitting the back of her head. patient is on blood thinners, noted to have large egg on posterior left side of head. patient is alert, awake and oriented. 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 patient is unsure though if she at baseline has a pupil on the left side that is larger than the right. both pupils bilat reactive to light, left noted to be larger than right.
--- NOTE | 2024-09-06 15:50 | ED.FALL ---
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 Patient states she was at the grocery store shopping with her son when she had a sudden onset of dizziness and had to hold onto some shelving for support. She was able to walk to the checkout line when she syncopized and fell backwards hitting her posterior head. Patient states she was not dizzy, lightheaded, diaphoretic, nauseous after coming to, and did not experience any confusion. Patient states she has a history of acoustic neuroma, had surgery for removal and now has residual left-sided facial droop and decreased vision of her left eye post surgery. Patient denies recent illness, chest pain, shortness of breath, nausea, vomiting, abdominal pain, headache, visual changes, diarrhea, black/tarry stool Related Data Home Medications ?Medication ?Instructions ?Recorded ?Confirmed calcium 600 mg capsule 600 mg PO DAILY 08/18/21 04/28/24 cyanocobalamin (vitamin B-12) 1 tab PO DAILY 08/18/21 04/28/24 1,000 mcg tablet ferrous gluconate 324 mg (38 mg 1 tab PO DAILY 08/18/21 04/28/24 iron) tablet folic acid 1 mg tablet 1 tab PO DAILY 08/18/21 04/28/24 cholecalciferol (vitamin D3) 50 50 mcg PO DAILY 04/15/22 04/28/24 mcg (2,000 unit) capsule Previous Rx's ?Medication ?Instructions ?Recorded amiodarone 200 mg tablet 200 mg PO DAILY #90 tabs 04/28/24 estradiol 0.5 mg tablet 0.5 mg PO DAILY #90 tabs 06/06/24 levothyroxine 125 mcg tablet 125 mcg PO DAILY #90 tabs 06/06/24 lisinopril 20 mg tablet 20 mg PO BID #180 tabs 06/06/24 rivaroxaban 20 mg tablet 20 mg PO DAILY #90 tabs 06/06/24 amlodipine 5 mg tablet 5 mg PO DAILY #90 tabs 07/20/24 Allergies Allergy/AdvReac Type Severity Reaction Status Date / Time No Known Allergies (No Known Allergy Verified 09/06/24 15:35 Allergies*) Review of Systems Review of Systems: CONST: Negative for fever, body aches and chills. HENT: Negative for neck pain/stiffness, headache, congestion, sore throat, swelling. POS occipital head pain EYES: Negative for discharge/pain or vision changes. RESP: Negative for cough/hemoptysis and shortness of breath. CV: Negative chest pain, difficulty breathing, palpitations. ABD: Negative pain, nausea, vomiting. : Negative increase frequency, dysuria, blood in urine or stool. MUSC: Negative for muscle aches, edema. SKIN: Negative rash, lesions/sores. NEURO: Negative headache, dizziness, weakness. [facility] [place] Past Medical History Attestation statement: The following information was validated with the patient. Source: old records reviewed and nursing notes reviewed Medical History Osteopenia (~2002) History of acoustic neuroma Cardiac pacemaker in situ (~08/2021) Skull asymmetry Eye abnormalities Syncope (~08/2021) HTN (hypertension) (HFpEF) heart failure with preserved ejection fraction Paroxysmal atrial fibrillation (~11/2014) Epistaxis Hypothyroidism Basal cell carcinoma Surgical History History of cardiac pacemaker (~2021) History of ear surgery History of cholecystectomy (~2014) History of hysterectomy History of cardioversion Family History Family History Mother No problems noted. Father Stroke Other No family history of congenital heart disease Social History Social History Household Members: None Housing: House Do you presently have visiting nurse or other home services: No Alcohol intake: never Patient Tobacco Use Status: Never used Tobacco e-Cigarette/Vaping Use: Never Used Advance Directives: No Advance Directives Information Provided: No Do you have a plan to hurt others: No Plan Nutrition Risks: No Nutritional Risk service: No Current occupational status: retired Cognitive needs: No Hearing needs: No Vision needs: Yes (rx glasses) Physical Exam Vital Signs: Vital Signs: Last Vital Signs Temp 97.6 F 09/07/24 06:10 Pulse 62 09/07/24 06:10 Resp 15 09/07/24 06:10 BP 139/33 L 09/07/24 06:10 Pulse Ox 95 09/07/24 06:10 O2 Del Method Room Air 09/07/24 06:10 BMI result Body Mass Index 29.6 GENERAL APPEARANCE: ?AxOx4, patient in C-spine collar, resting comfortably in hospital stretcher, no acute distress, nontoxic appearing. HEENT: ?NC, AT. MMM. EOMI, clear conjunctiva, oropharynx clear. Mild left-sided facial drooping which is a residual effect after surgery for acoustic neuroma removal. NECK: ?Supple without lymphadenopathy. C collar in place HEART:? Irregular rate and rhythm, normal S1/S2, no m/r/g LUNGS:? CTAB, moving air well. No crackles or wheezes are heard. ABDOMEN: ?Soft, nontender, nondistended with good bowel sounds heard. BACK: No CVAT, no obvious deformity. EXTREMITIES: ?Without cyanosis, clubbing or edema. NEUROLOGICAL: ?Grossly nonfocal. Alert and oriented, moving all 4 extremities. Skin: ?Warm and dry without any rash. Medications Administered Generic Name Dose Route Start Last Admin Trade Name Freq PRN Reason Stop Dose Admin Lactated Ringer's 1,000 mls @ 80 mls/hr 09/06/24 23:15 09/06/24 23:18 Lr IVCONT 80 mls/hr .[id number] LASHONDA Administration Sodium Chloride 3 ml 09/07/24 00:00 09/07/24 07:05 0.9 % Sodium Chloride Flush 3 Ml Syringe IVFLUSH Not Given QSHIFT LASHONDA Discontinued Medications Generic Name Dose Route Start Last Admin Trade Name Freq PRN Reason Stop Dose Admin Acetaminophen 1,000 mg in 100 mls @ 400 mls/hr 09/06/24 15:56 09/06/24 17:22 Ofirmev IV 09/06/24 16:10 Infused ONCE ONE Infusion Iohexol 80 ml 07/29/25 21:10 09/06/24 21:11 Iohexol 350 Mg/Ml 100 Ml Infus..Btl IV 09/06/24 21:11 80 ml ONCE ONE Administration Medical Decision Making Medical Decision Making [facility] Narrative: 84-year-old female with medical history of osteopenia, 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 Patient states she was at the grocery store shopping with her son when she had a sudden onset of dizziness and had to hold onto some shelving for support. She was able to walk to the checkout line when she syncopized and fell backwards hitting her posterior head. Patient states she was not dizzy, lightheaded, diaphoretic, nauseous after coming to, and did not experience any confusion. Patient states she has a history of acoustic neuroma, had surgery for removal and now has residual left-sided facial droop and decreased vision of her left eye post surgery. VSS, normotensive 136/42, pulse rate 66 beats per minute, O2 saturation 97% on room air. Physical exam reveals patient in C-collar, does not have physical complaints about pain in her neck, normal rate and rhythm, without murmurs/rubs/gallops, lungs clear to auscultation bilaterally, Abdomen soft, nontender, nondistended, no evidence of fluid overload, no JVD, no pitting edema of lower extremities. Head with a small hematoma of left occipital region, without laceration, without bleeding. EKG reveals sinus rhythm with a first-degree AV block, with left axis deviation without ST elevation/depression, T-wave abnormalities initial troponin undetectable at less than 2.7, patient without chest pain, shortness of breath. Labs reveal macrocytic anemia, MCV 101.8, hemoglobin 9.3/hematocrit 28.7 Course 20:49- CT head brain without acute intracranial findings CXR with mild cardiomegaly, without acute cardiopulmonary processes. I obtain stool occult blood due to thrombocytopenia, macrocytic anemia, evaluating possible source of bleed which was guaiac positive. Obtaining CT abdomen and pelvis with and without for GI bleed protocol. VSS, BP 165/57, pulse rate 73 beats per minute, O2 saturation 98% on room air. Patient is still without chest pain, shortness of breath, no abdominal pain to palpation, no nausea. Awaiting CT abdomen and pelvis results. Patient signed out to my colleague Dr. Saucedo who will resume care. Patient aware of this change. 9:54 PM 09/06/2024 (Dr. Misti Saucedo, D.O.) Assumed care from previous provider after a detailed discussion regarding patient's case.? [id number] evaluation has taken place with no new change in management.? Patient is awaiting CT GIB result and final disposition. 10:49 PM 09/06/2024 (Dr. Misti Saucedo, D.O.) CT does not show evidence of active bleed. Patient remains hemodynamically stable, resting comfortably. Plan for admission for syncope, GI bleed. Discussed with hospitalist who agrees with plan for admission. Admitted in guarded condition. Differential Diagnosis Differential Diagnoses: The differential diagnosis associated with the presentation includes ICH Skull fracture Electrolyte abnormality Dysrhythmia Syncope Admission/Observation Consideration of admission/observation: Escalation of care including admission/observation considered Consult Healthcare Provider Management of the patient was discussed with: Hospitalist Lab Data MDM Lab Attestation statement: I reviewed the patient's lab results. 09/07/24 06:19 09/07/24 06:19 Labs: Lab Results 09/06/24 09/06/24 09/06/24 Range/Units 16:08 16:43 20:22 WBC 8.9 (4.8-10.8) X10*3/uL RBC 2.82 L D (4.20-5.50) X10*6/uL Hgb 9.3 L D (12.0-16.0) g/dl Hct 28.7 L D (37.0-47.0) % MCV 101.8 H (80.0-98.0) fL MCH 33.0 (27.0-33.0) pg MCHC 32.4 (31.0-35.0) g/dl RDW 13.4 (11.0-16.0) % Plt Count 348 (160-400) X10*3/uL MPV 11.5 (9.4-12.3) fL Immature Gran % (Auto) 0.7 H (0.0-0.4) % Neut % (Auto) 74.1 H (45-73) % Lymph % (Auto) 14.2 L (20-40) % [place] % (Auto) 9.1 (2-11) % Eos % (Auto) 1.7 (0-4) % Baso % (Auto) 0.2 (0-2) % Lymph # (Auto) 1.3 (1.2-4.9) X10*3/uL [place] # (Auto) 0.8 (0.1-1.2) X10*3/uL Eos # (Auto) 0.2 (0.0-0.4) X10*3/uL Baso # (Auto) 0.0 (0.0-0.2) X10*3/uL Abs Immat Gran (auto) 0.06 H (0.00-0.03) X10*3/uL Absolute Neuts (auto) 6.6 (2.0-8.3) x10*3/uL Absolute Nucleated RBC 0.000 (0.0-0.012) X10*3/uL Nucleated RBC % (auto) 0.0 (0.0-0.2) /100WBC PT 31.7 H (10.9-12.4) SEC INR 2.8 H (0.9-1.1) Sodium 144 (135-145) mmol/L Potassium 4.9 D (3.3-5.1) mmol/L Chloride 112 H (96-108) mmol/L Carbon Dioxide 26 (22-29) mmol/L Anion Gap 11 L (12-20) BUN 17 H (9-16) mg/dL Creatinine 1.13 (0.5-1.4) mg/dL Estim Creat Clear Calc 30.1 Estimated GFR 46 Random Glucose 102 (60-115) mg/dL Lactic Acid 1.1 (0.5-2.0) mmol/L Calcium 8.3 L D (8.4-10.2) mg/dL Magnesium 2.0 (1.6-2.6) mg/dL Total Bilirubin 0.1 (0.0-1.0) mg/dL AST 18 (5-31) U/L ALT 9 (0-31) U/L Alkaline Phosphatase 96 (39-117) U/L Troponin I High Sens < 2.7 (<3.5-17.0) ng/L Total Protein 5.8 L (6.5-8.0) g/dL Albumin 3.3 L (3.5-5.0) g/dL Stool Occult Blood POSITIVE (NEGATIVE) Independent Interpretation I performed an independent interpretation of an: EKG Interpretation: Vent. Rate : 62 BPM Atrial Rate : 62 BPM P-R Int : 218 ms QRS Dur : 108 ms QT Int : 462 ms P-R-T Axes : 53 -38 -8 degrees QTcB Int : 468 ms Sinus rhythm with 1st degree A-V block Left axis deviation Moderate voltage criteria for LVH, may be normal variant ( R in aVL , [place] product ) Inferior infarct (cited on or before 14-Dec-2019) Anterolateral infarct (cited on or before 12-Mar-2018) Abnormal ECG When compared with ECG of 09-Jan-2023 14:28, Sinus rhythm has replaced Electronic atrial pacemaker CXR- chest x-ray reveals mild cardiomegaly, without effusion, pulmonary edema, infiltrates, I agree with the radiologist's finding. Radiology Impression Discussion of test interpretation with radiology: I have reviewed the radiologist's reading. Radiologist Impression: CT head/brain Findings: No intra-axial mass, midline shift, hydrocephalus, or acute hemorrhage. There has been a previous left occipital craniotomy in the posterior fossa, with encephalomalacia of the left cerebellar hemisphere. 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 Mild cerebral atrophy. There is no sinus or mastoid fluid. The orbits are unremarkable. There is a posterior left parietal small scalp hematoma. There is no acute fracture. IMPRESSION: 1. No acute intracranial findings. 2. Previous left occipital craniotomy. 3. Posterior left parietal scalp hematoma. This document has been electronically signed by: Ankur Vera MD on 09/06/2024 19:13:56 Dictated By: Ankur Vera MD Signed By: <Electronically signed by Ankur Vera MD in [place]> 09/06/241913 CT C-Spine CT cervical spine without contrast Comparison: None provided Findings: Mild anterolisthesis of C5 on C6 and C7 on T1. Severe disc height loss at C6-7. Multilevel degenerative change of the cervical spine. No acute fractures or dislocations. Previous left occipital craniotomy in the posterior fossa. Soft tissues of the neck are normal. Lung apices are clear. IMPRESSION: No acute findings. This document has been electronically signed by: Ankur Vera MD on 09/06/2024 19:14:23 Dictated By: Ankur Vera MD Signed By: <Electronically signed by Ankur Vera MD in [place]> 09/06/24 191 CXR Findings: No consolidation or effusion. Mild cardiomegaly. Dextroscoliosis of the thoracic spine. There is a left subclavian dual lead pacemaker lead tips in unchanged position. IMPRESSION: 1. No acute findings. This document has been electronically signed by: Ankur Vera MD on 09/06/2024 20:02:08 Dictated By: Ankur Vera MD Signed By: <Electronically signed by Ankur Vera MD in [place]> 09/06/242002 CT angiography abdomen and pelvis with contrast. 3-D post processing. Comparison: None provided Findings: Abdominal aorta is normal caliber. No significant stenosis of the origin of the mesenteric vessels. Renal arteries are patent. No acute bleeding identified. Heart size is normal. There are pacemaker leads in the right heart. Small hiatal hernia present. No consolidation or effusion. The nonenhanced liver is hyperattenuating. Liver is normal in size. No focal liver lesion seen. Pancreas, spleen, adrenal glands are unremarkable. The gallbladder is absent. There is a 2 cm cyst in the right kidney. No hydronephrosis of either kidney. No ureteral stones. Focal cortical scarring in the mid right kidney. No bowel obstruction, pneumoperitoneum, or pneumatosis. There are scattered colonic diverticula, however no evidence of diverticulitis. No bowel wall thickening. There are a few distal small bowel diverticula. Normal appendix. No evidence of acute GI bleed identified. Small fat containing umbilical hernia. Uterus is absent. Urinary bladder is distended. No wall thickening. Multilevel degenerative change of the lumbar spine. The bones are intact. IMPRESSION: No acute findings. Extensive diverticulosis without evidence of diverticulitis. This document has been electronically signed by: Ankur Vera MD on 09/06/2024 22:28:38 External Record Review External record reviewed: Inpatient record, Office record and Outpatient record Chronic Conditions Patient?s care impacted by: Hypertension and Other (Paroxysmal AFib, on Xarelto, with pacemaker, diastolic heart failure, acoustic neuroma status post removal with left-sided facial drooping/left eyelid palsy, hypothyroidism) Discharge Plan Discharge Clinical Impression: Hematoma of occipital region of scalp, Anemia, macrocytic, Syncope Patient Disposition: Admitted As Inpatient Interventions: Admission Worksheet (ED) Last Done: 09/07/24 06:17
[2024-09-06 16:15] LABS: MANUAL DIFF FLAG NO
[2024-09-06 16:16] LABS: Hematocrit 28.7 % (37.0-47.0); Hemoglobin 9.3 g/dl (12.0-16.0); Imm Gran Abs Auto 0.06 X10*3/uL (0.00-0.03); Imm Gran Pct Auto 0.7 % (0.0-0.4); Lymphocytes Absolute Auto 1.3 X10*3/uL (1.2-4.9); Mean Corpuscular HGB Conc 32.4 g/dl (31.0-35.0); Mean Corpuscular Hemoglobin 33.0 pg (27.0-33.0); Mean Corpuscular Volume 101.8 fL (80.0-98.0); NRBC Abs Auto 0.000 X10*3/uL (0.0-0.012); NRBC Pct Auto 0.0 /100WBC (0.0-0.2); Platelet Count 348 X10*3/uL (160-400); Red Blood Count 2.82 X10*6/uL (4.20-5.50); White Blood Count 8.9 X10*3/uL (4.8-10.8)
[2024-09-06 16:23] LABS: INTERNATIONAL NORM RATIO 2.8 (0.9-1.1); Prothrombin Time 31.7 SEC (10.9-12.4)
[2024-09-06 16:36] LABS: Alanine Aminotransferase 9 U/L (0-31); Albumin Level 3.3 g/dL (3.5-5.0); Alkaline Phosphatase 96 U/L (39-117); Anion Gap 11 (12-20); Aspartate Amino Transferase 18 U/L (5-31); Blood Urea Nitrogen 17 mg/dL (9-16); Calcium 8.3 mg/dL (8.4-10.2); Carbon Dioxide 26 mmol/L (22-29); Chloride 112 mmol/L (96-108); Creatinine Clr Calc Pharmacy 30.1; Estimated Glomerular Filt Rate 46; Potassium 4.9 mmol/L (3.3-5.1); Sodium 144 mmol/L (135-145); Total Protein 5.8 g/dL (6.5-8.0)
[2024-09-06 17:04] LABS: Magnesium 2.0 mg/dL (1.6-2.6)
[2024-09-06 17:14] LABS: Troponin-I High Sensitivity < 2.7 ng/L (<3.5-17.0)
--- NOTE | 2024-09-06 19:00 | PC.NURSE ---
this rn assumed care of pt, pt resting in stretcher, no acute distress noted, c collar in place
[2024-09-06 20:14] VITALS: BP 165/57; PULSE 73; TEMP 36.9; O2SAT 98
[2024-09-06 20:27] LABS: OBS Int Ctl Valid YES
[2024-09-06 20:28] LABS: OBS1 POSITIVE (NEGATIVE)
[2024-09-06] MEDS: iohexoL 350 MG/ML 100 ML INFUS..BTL 80 ML IV (21:11)
[2024-09-06 22:39] VITALS: BP 153/46; PULSE 64; TEMP 36.4; O2SAT 96
--- NOTE | 2024-09-06 23:10 | PM.IMHP ---
History of Present Illness Date of Service: 09/06/24 Attending physician on admission: Rajiv Griffin Chief Complaint: syncope Patient is an 84-year-old female with a past medical history significant for paroxysmal AFib on Xarelto, HFrEF (EF 52% 10/2023), s/p pacemaker, HTN, and hypothyroid, who presented to the ED due to a syncopal episode earlier today. The patient reports that she was walking and felt dizzy and fell backwards. She did hit her head and lost consciousness. She is on Xarelto for paroxysmal AFib. 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 She has a lump on the posterior portion of her head which she reports aches and has been present since the fall. she reports a history of a similar episode a few years ago which was secondary to anemia. In the ED she was found to have a drop in her hemoglobin, 14.1 in May, now 9.3, hematocrit 44.0, 28.7 respectively. Stool guaiac positive. she denies any visible blood in the stool or bleeding sources. she has been taking iron but stopped 2 days ago due to diarrhea. Review of Systems Constitutional: Constitutional: Denies body ache(s), Denies chills, Denies fatigue, Denies fever(s) and Denies headache(s) Eyes: Eyes: Denies change in vision ENT: Denies headache(s), Denies nasal congestion and Denies throat swelling Cardiovascular: Cardiovascular: Denies chest pain, Denies rapid heart rate, Denies leg edema, Reports lightheadedness and Denies dyspnea Respiratory: Respiratory: Denies chest congestion, Denies cough, Denies dyspnea and Denies wheezing Gastrointestinal: Gastrointestinal: Denies abdominal pain, Denies melena, Denies nausea and Denies vomiting Genitourinary: Genitourinary: Denies difficulty voiding and Denies urinary urgency Musculoskeletal: Musculoskeletal: Denies myalgias Integumentary/Breasts: Skin/Breast: Denies rash Neurologic: Denies confusion and Denies headache(s) Psychiatric: Psychiatric: Denies confusion Endocrine: Endocrine: Denies fatigue Hematologic/Lymphatic: Hematologic/Lymphatic: Denies easy bleeding and Denies easy bruising Allergic/Immunologic: Allergic/Immunologic: Denies throat swelling and Denies wheezing PMFSH Medical History Osteopenia (~2002) History of acoustic neuroma Cardiac pacemaker in situ (~08/2021) Skull asymmetry Eye abnormalities Syncope (~08/2021) HTN (hypertension) (HFpEF) heart failure with preserved ejection fraction Paroxysmal atrial fibrillation (~11/2014) Epistaxis Hypothyroidism Basal cell carcinoma Functional capacity: independent ambulation Family History Mother No problems noted. Father Stroke Other No family history of congenital heart disease Surgical History History of cardiac pacemaker (~2021) History of ear surgery History of cholecystectomy (~2014) History of hysterectomy History of cardioversion Social History Household Members: None Housing: House Do you presently have visiting nurse or other home services: No Alcohol intake: never Patient Tobacco Use Status: Never used Tobacco e-Cigarette/Vaping Use: Never Used Advance Directives: No Advance Directives Information Provided: No Do you have a plan to hurt others: No Plan service: No Current occupational status: retired Cognitive needs: No Hearing needs: No Vision needs: Yes (rx glasses) Narrative: no smoking, etoh or drug use Meds Allergies Allergy/AdvReac Type Severity Reaction Status Date / Time No Known Allergies (No Known Allergy Verified 09/06/24 15:35 Allergies*) Active Medications: Current Medications Acetaminophen (Acetaminophen 325 Mg Tablet) 975 mg PO Q6H PRN PRN Reason: Pain, Mild 1-3,fever,headache Calcium Carbonate (Calcium Carbonate 750 Mg Tab.Chew) 750 mg PO Q4H PRN PRN Reason: Heartburn Lactated Ringer's (Lr) 1,000 mls @ 80 mls/hr IVCONT .[id number] LASHONDA Magnesium Hydroxide (Milk Of Magnesia 30 Ml Oral.Susp) 30 ml PO DAILY PRN PRN Reason: Constipation Melatonin (Melatonin 3 Mg Tablet) 6 mg PO BEDTIME PRN PRN Reason: Insomnia Ondansetron HCl (Ondansetron Hcl 4 Mg/2 Ml Vial) 4 mg IVPUSH Q8H PRN PRN Reason: Nausea and Vomiting Sodium Chloride (0.9 % Sodium Chloride Flush 3 Ml Syringe) 3 ml IVFLUSH QSHIFT [facility] Home Medications ?Medication ?Instructions ?Recorded ?Confirmed ?Last Taken ?Type calcium 600 mg capsule 600 mg PO DAILY 08/18/21 04/28/24 Unknown History cyanocobalamin (vitamin B-12) 1 tab PO DAILY 08/18/21 04/28/24 Unknown History 1,000 mcg tablet ferrous gluconate 324 mg (38 mg 1 tab PO DAILY 08/18/21 04/28/24 Unknown History iron) tablet folic acid 1 mg tablet 1 tab PO DAILY 08/18/21 04/28/24 Unknown History cholecalciferol (vitamin D3) 50 50 mcg PO DAILY 04/15/22 04/28/24 Unknown History mcg (2,000 unit) capsule Physical Exam Vital Signs and Narrative: Vital Signs: Last Vital Signs Temp 97.6 F 09/06/24 22:39 Pulse 64 09/06/24 22:39 Resp 20 09/06/24 15:28 BP 153/46 H 09/06/24 22:39 Pulse Ox 96 09/06/24 22:39 O2 Del Method Room Air 09/06/24 22:39 BMI result Body Mass Index 29.6 General: AOx3, no acute distress Resp: CTA bilaterally CVS: S1, S2, RRR GI: +BS, NT, no distention Skin: Warm, dry Neuro: Cranial nerves II-XII grossly intact bilaterally. Motor grossly intact bilaterally. chronic L facial droop. Extremities: No LE edema Psych: Appropriate affect Const: General: No confusion Orientation/consciousness: No confusion Neuro: General: No confusion Results Labs 09/06/24 16:08 09/06/24 16:08 Labs: Laboratory Results - last 24 hr 09/06/24 09/06/24 09/06/24 16:08 16:43 20:22 MCV 101.8 H MCH 33.0 MCHC 32.4 RDW 13.4 Plt Count 348 MPV 11.5 Immature Gran % (Auto) 0.7 H Neut % (Auto) 74.1 H Lymph % (Auto) 14.2 L [place] % (Auto) 9.1 Eos % (Auto) 1.7 Baso % (Auto) 0.2 Lymph # (Auto) 1.3 [place] # (Auto) 0.8 Eos # (Auto) 0.2 Baso # (Auto) 0.0 Abs Immat Gran (auto) 0.06 H Absolute Neuts (auto) 6.6 Absolute Nucleated RBC 0.000 Nucleated RBC % (auto) 0.0 PT 31.7 H INR 2.8 H Anion Gap 11 L Estim Creat Clear Calc 30.1 Estimated GFR 46 Random Glucose 102 Lactic Acid 1.1 Calcium 8.3 L D Magnesium 2.0 Total Bilirubin 0.1 AST 18 ALT 9 Alkaline Phosphatase 96 Total Protein 5.8 L Albumin 3.3 L Stool Occult Blood POSITIVE Assessment and Plan (1) Syncope: Status: Acute (2) Anemia, macrocytic: Status: Acute (3) GI bleed: Status: Acute (4) CKD stage 3a, GFR 45-59 ml/min: Status: Acute Plan Patient is an 84-year-old female with a past medical history significant for paroxysmal AFib on Xarelto, HFrEF (EF 52% 10/2023), s/p pacemaker, HTN, and hypothyroid, who presented to the ED due to a syncopal episode earlier today. syncope, likely secondary to anemia/GI bleed - BP normal - H+H 9.3/28.7 from 14.1/44.0 in May 2024, macrocytic - EKG with sinus rhythm, 1st degree AV block - head CT/ CT c-spine negative for acute findings - CXR neagtive - A/P CT angio negative - +FOBT - monitor on tele - orthostatics in AM - LR 80ml/hr - cardiology consult - GI consult - NPO after midnight for possible EGD tomorrow - monitor CBC and BMP paroxysmal a fib - EKG with normal sinus rhythm and 1st degree AV block - hold xarelto -- last dose 830 am 09/06 - continue rate control chronic HFrEF, no acute exacerbation - continue home meds HTN - continue home meds hypothryoid - continue levothyroxine CKD3a - cr at baseline - avoid nephrotoxins med rec pending full code VTE prophy: pneumoboots Pt with syncopal episode, likley secondary to anemia/GI bleed, requiring admission for at least 2 midnights stay for further evaluation and monitoring. Quality Stroke Does the patient have a stroke diagnosis?: No VTE Prior VTE?: No VTE Risk Level:: Medical - moderate - high VTE Device Contraindication: N/A - Device Ordered VTE Drug Contraindication: Treatment Not Indicated
[2024-09-06] MEDS: Lactated Ringers 1,000 ML 80 ML IVCONT (23:18)
--- NOTE | 2024-09-06 23:21 | PC.NURSE ---
hospitalist at bedside with pt, pt offers no complaints at this time, maintenance fluids administered per mar
[2024-09-07] VITALS (12 sets, daily range): BP systolic 128–166; BP diastolic 33–84; PULSE 60–92; RESP 15–18; TEMP 36.4–37.3; O2SAT 93–98; BMI 29.1
--- NOTE | 2024-09-07 | ECG_ITS ---
Test Reason : ? changes Blood Pressure : */* mmHG Vent. Rate : 60 BPM Atrial Rate : 60 BPM P-R Int : 270 ms QRS Dur : 94 ms QT Int : 752 ms P-R-T Axes : * -36 153 degrees QTcB Int : 752 ms Atrial-paced rhythm with prolonged AV conduction Left axis deviation Inferior infarct (cited on or before 14-Dec-2019) Anterolateral infarct (cited on or before 12-Mar-2018) Abnormal ECG When compared with ECG of 06-Sep-2024 16:11, Electronic atrial pacemaker has replaced Sinus rhythm Nonspecific T wave abnormality now evident in Lateral leads QT has lengthened Referred By: Sandhya Denney Electronically Signed By: BEULAH TANG MD
--- NOTE | 2024-09-07 05:10 | PC.NURSE ---
pt ambulatory to bathroom with steady gait, offers no complaints at this time
[2024-09-07 06:52] LABS: MANUAL DIFF FLAG NO
[2024-09-07 07:02] LABS: Hematocrit 28.6 % (37.0-47.0); Hemoglobin 9.2 g/dl (12.0-16.0); Imm Gran Abs Auto 0.03 X10*3/uL (0.00-0.03); Imm Gran Pct Auto 0.5 % (0.0-0.4); Lymphocytes Absolute Auto 1.4 X10*3/uL (1.2-4.9); Mean Corpuscular HGB Conc 32.2 g/dl (31.0-35.0); Mean Corpuscular Hemoglobin 32.6 pg (27.0-33.0); Mean Corpuscular Volume 101.4 fL (80.0-98.0); NRBC Abs Auto 0.000 X10*3/uL (0.0-0.012); NRBC Pct Auto 0.0 /100WBC (0.0-0.2); Platelet Count 348 X10*3/uL (160-400); Red Blood Count 2.82 X10*6/uL (4.20-5.50); White Blood Count 6.6 X10*3/uL (4.8-10.8)
[2024-09-07 07:15] LABS: Anion Gap 10 (12-20); Blood Urea Nitrogen 14 mg/dL (9-16); Calcium 8.4 mg/dL (8.4-10.2); Carbon Dioxide 27 mmol/L (22-29); Chloride 111 mmol/L (96-108); Creatinine Clr Calc Pharmacy 37.4; Estimated Glomerular Filt Rate 59; Potassium 4.4 mmol/L (3.3-5.1); Sodium 144 mmol/L (135-145)
[2024-09-07 08:08] LABS: Iron 28 mcg/dL (30-160); Percent Iron Saturation 14 % (15-50); Total Iron Binding Capacity 206 mcg/dL (228-428); Unsaturated Iron Binding 178 ug/dL
[2024-09-07 08:21] LABS: Ferritin 50 ng/mL (10-250)
--- NOTE | 2024-09-07 09:11 | MHC.CM.PN ---
CM met with Patient at bedside and addressed IMM with her, providing Patient with the original and a copy has been placed on the chart. 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 Patient may benefit from a PT Eval (Syncope) to assist with disposition (home self care vs new VNA). CM has initiated and will follow for dc planning. PCP/[facility] [facility] is Miya Drake and Son/Dany is the HCP. One of Patient's Sons will transport to home at time of dc.
--- NOTE | 2024-09-07 09:28 | PHA.MEDREC ---
Addendum entered by Dakotah Shook RPh 09/07/24 10:47: MED REC REVIEWED BY [facility] Original Note: Pharmacy Consult ? Medication Reconciliation Pharmacy has completed the medication reconciliation. Spoke to patient to confirm med list. Patient had a list of medications with her and they all matched claims. Patient last had her medications yesterday morning.
--- NOTE | 2024-09-07 10:27 | PM.CNCAR ---
History of Present Illness History of Present Illness Date of Service: 09/07/24 Requesting physician: Cali Oh Consult reason: other (Syncope) Chief complaint: syncope Narrative: I was consulted to see Jessica in cardiology consultation today. Jessica is a pleasant active 84-year-old woman with prior history of [employer]onic dual-chamber pacemaker placed for symptomatic bradycardia and sick sinus syndrome, paroxysmal atrial fibrillation on oral anticoagulation with Xarelto and on amiodarone therapy which has been require to maintain her rhythm and has done well with rhythm control approach. Has not tolerated lower dose of amiodarone. Hypertension. History of heart failure like syndrome while in atrial fibrillation which has resolved since she has been sinus rhythm currently not on any loop diuretics. No history of coronary artery disease. Patient says yesterday she was at the grocery store walking with her son and after 3 or 4 rounds in the aisle she started feeling lightheaded. She then walked towards the counter and after she reached a counter she felt severely lightheaded and she passed out and slumped over the conveyor belt and then fell backward and hit her head in the elbow. She said she felt lightheaded. She had no chest pain or palpitations. She had no shortness of breath. About a week ago last Thursday she says she had profound sudden-onset diarrhea and had mainly black stools which lasted for about 2 days. She then started using Pepto-Bismol at other overall hydration. She says she has never had GI bleed in the past. Since then she has had no further episodes of black stools or any bright red blood per rectum. She denies any exertional chest pain. Does have symptoms of fatigue and tiredness. Review of Systems Constitutional: Constitutional: Reports fatigue Eyes: Eyes: Reports no additional eye complaints Cardiovascular: Cardiovascular: Denies chest pain, Denies rapid heart rate, Reports lightheadedness, Reports Loss of Consciousness, Denies dyspnea and Denies dyspnea on exertion Respiratory: Respiratory: Reports no additional respiratory complaints, Denies dyspnea and Denies dyspnea on exertion Gastrointestinal: Gastrointestinal: Reports melena and Reports diarrhea Genitourinary: Genitourinary: Reports no additional female genitourinary complaints Musculoskeletal: Musculoskeletal: Reports no additional musculoskeletal complaints Integumentary/Breasts: Skin/Breast: Reports system reviewed and no additional complaints, except as docu Neurologic: Reports system reviewed and no additional complaints, except as documented Psychiatric: Psychiatric: Reports no additional psychiatric complaints Endocrine: Endocrine: Reports no additional endocrine complaints and Reports fatigue Allergic/Immunologic: Allergic/Immunologic: Reports no additional allergic/immunologic complaints [facility] Past Medical History Medical History Osteopenia (~2002) History of acoustic neuroma Cardiac pacemaker in situ (~08/2021) Skull asymmetry Eye abnormalities Syncope (~08/2021) HTN (hypertension) (HFpEF) heart failure with preserved ejection fraction Paroxysmal atrial fibrillation (~11/2014) Epistaxis Hypothyroidism Basal cell carcinoma Family History Family History Mother No problems noted. Father Stroke Other No family history of congenital heart disease Surgical History Surgical History History of cardiac pacemaker (~2021) History of ear surgery History of cholecystectomy (~2014) History of hysterectomy History of cardioversion Social History Social History Household Members: None Housing: House Do you presently have visiting nurse or other home services: No Alcohol intake: never Patient Tobacco Use Status: Never used Tobacco e-Cigarette/Vaping Use: Never Used Have you been hit, kicked, punched, or otherwise hurt by someone within the past year? If so, by whom?: No Do you feel safe in your current relationship?: No Current Relationship Is there a partner from a previous relationship who is making you feel unsafe now?: No Are you made to feel afraid or neglected: No Advance Directives: No Advance Directives Information Provided: No Do you have a plan to hurt others: No Plan Recently lost weight without trying: No How much weight loss: 2-13 pounds Eating poorly because of decreased appetite: No Nutrition screen score: 1 Nutrition Risks: No Nutritional Risk Patient : No : No Poor oral hygiene: No service: No Current occupational status: retired Cognitive needs: No Hearing needs: No Vision needs: Yes (rx glasses) Meds Allergies Allergy/AdvReac Type Severity Reaction Status Date / Time No Known Allergies (No Known Allergy Verified 09/06/24 15:35 Allergies*) Active Medications: Current Medications Acetaminophen (Acetaminophen 325 Mg Tablet) 975 mg PO Q6H PRN PRN Reason: Pain, Mild 1-3,fever,headache Amiodarone HCl (Amiodarone Hcl 200 Mg Tablet) 200 mg PO DAILY [facility] TO [facility] Amlodipine Besylate (Amlodipine Besylate 5 Mg Tablet) 5 mg PO DAILY PENDING SALE TO [facility]; Protocol Calcium Carbonate (Calcium Carbonate 750 Mg Tab.Chew) 750 mg PO Q4H PRN PRN Reason: Heartburn Cyanocobalamin (Cyanocobalamin (Vitamin B-12) 1,000 Mcg Tablet) mcg PO DAILY PENDING SALE TO [facility] Estradiol (Estradiol 0.5 Mg Tablet) 0.5 mg PO DAILY PENDING SALE TO [facility] Folic Acid (Folic Acid 1 Mg Tablet) 1 mg PO DAILY PENDING SALE TO [facility] Lactated Ringer's (Lr) 1,000 mls @ 80 mls/hr IVCONT .[id number] PENDING [facility] TO [facility] Last Admin: 09/06/24 23:18 Dose: 80 mls/hr Levothyroxine Sodium (Levothyroxine Sodium 125 Mcg Tablet) 125 mcg PO DAILY@0600 PENDING S[facility] TO [facility] Magnesium Hydroxide (Milk Of Magnesia 30 Ml Oral.Susp) 30 ml PO DAILY PRN PRN Reason: Constipation Melatonin (Melatonin 3 Mg Tablet) 6 mg PO BEDTIME PRN PRN Reason: Insomnia Omeprazole (Omeprazole 40 Mg Capsule.Dr) 40 mg PO DAILY@0630 [facility] Ondansetron HCl (Ondansetron Hcl 4 Mg/2 Ml Vial) 4 mg IVPUSH Q8H PRN PRN Reason: Nausea and Vomiting Sodium Chloride (0.9 % Sodium Chloride Flush 3 Ml Syringe) 3 ml IVFLUSH QSHIFT PENDING [facility] Last Admin: 09/07/24 07:05 Dose: Not Given Home Medications ?Medication ?Instructions ?Recorded ?Confirmed ?Last Taken ?Type calcium 600 mg capsule 600 mg PO DAILY 08/18/21 09/07/24 09/06/24 History cyanocobalamin (vitamin B-12) 1 tab PO DAILY 08/18/21 09/07/24 09/06/24 History 1,000 mcg tablet ferrous gluconate 324 mg (38 mg 1 tab PO DAILY 08/18/21 09/07/24 09/06/24 History iron) tablet folic acid 1 mg tablet 1 tab PO DAILY 08/18/21 09/07/24 09/06/24 History cholecalciferol (vitamin D3) 50 50 mcg PO DAILY 0309/07/24 09/06/24 History mcg (2,000 unit) capsule levothyroxine 125 mcg tablet 125 mcg PO DAILY@0600 09/07/24 09/07/24 09/06/24 History Physical Exam Vital Signs: Vital Signs: Last Vital Signs Temp 98.0 F 09/07/24 09:27 Pulse 92 09/07/24 09:27 Resp 18 09/07/24 09:27 BP 132/84 09/07/24 09:27 Pulse Ox 97 09/07/24 09:27 O2 Del Method Room Air 09/07/24 09:27 BMI result Body Mass Index 29.1 Const: General: cooperative, comfortable, no acute distress, alert and awake Nutritional Appearance: overweight Orientation/consciousness: patient oriented x3 Limitations: no limitations HEENT: Head: Yes normocephalic Neck: Neck: Yes trachea midline, Yes supple and Yes no JVD Resp: Effort & Inspection: normal respiratory effort Auscultation: clear to auscultation bilaterally Cardio: Jugular venous distension: no JVD Rate: regular rate Rhythm: regular rhythm Heart sounds: S1 normal heart sound present, S2 normal heart sound present, no click, no gallops and Murmur heart sound present systolic early GI: Auscultation: normal bowel sounds Skin: General skin exam: no rashes or lesions noted Neuro: General: patient oriented x3 and no focal motor deficits Extrem: General: Yes no clubbing, cyanosis or edema Objective Labs and Meds 09/07/24 06:19 09/07/24 06:19 Lab results: Laboratory Results - last 24 hr 09/06/24 09/06/24 09/06/24 16:08 16:43 20:22 WBC 8.9 RBC 2.82 L D Hgb 9.3 L D Hct 28.7 L D MCV 101.8 H MCH 33.0 MCHC 32.4 RDW 13.4 Plt Count 348 MPV 11.5 Immature Gran % (Auto) 0.7 H Neut % (Auto) 74.1 H Lymph % (Auto) 14.2 L [place] % (Auto) 9.1 Eos % (Auto) 1.7 Baso % (Auto) 0.2 Lymph # (Auto) 1.3 [place] # (Auto) 0.8 Eos # (Auto) 0.2 Baso # (Auto) 0.0 Abs Immat Gran (auto) 0.06 H Absolute Neuts (auto) 6.6 Absolute Nucleated RBC 0.000 Nucleated RBC % (auto) 0.0 PT 31.7 H INR 2.8 H Sodium 144 Potassium 4.9 D Chloride 112 H Carbon Dioxide 26 Anion Gap 11 L BUN 17 H Creatinine 1.13 Estim Creat Clear Calc 30.1 Estimated GFR 46 Random Glucose 102 Lactic Acid 1.1 Calcium 8.3 L D Magnesium 2.0 Iron TIBC % Saturation Unsat Iron Binding Ferritin Total Bilirubin 0.1 AST 18 ALT 9 Alkaline Phosphatase 96 Troponin I High Sens < 2.7 Total Protein 5.8 L Albumin 3.3 L Stool Occult Blood POSITIVE 09/07/24 06:19 WBC 6.6 RBC 2.82 L Hgb 9.2 L Hct 28.6 L MCV 101.4 H MCH 32.6 MCHC 32.2 RDW 13.3 Plt Count 348 MPV 11.6 Immature Gran % (Auto) 0.5 H Neut % (Auto) 61.7 Lymph % (Auto) 21.6 [place] % (Auto) 11.5 H Eos % (Auto) 4.1 H Baso % (Auto) 0.6 Lymph # (Auto) 1.4 [place] # (Auto) 0.8 Eos # (Auto) 0.3 Baso # (Auto) 0.0 Abs Immat Gran (auto) 0.03 Absolute Neuts (auto) 4.1 Absolute Nucleated RBC 0.000 Nucleated RBC % (auto) 0.0 PT INR Sodium 144 Potassium 4.4 Chloride 111 H Carbon Dioxide 27 Anion Gap 10 L BUN 14 Creatinine 0.91 Estim Creat Clear Calc 37.4 Estimated GFR 59 Random Glucose 86 Lactic Acid Calcium 8.4 Magnesium Iron 28 L TIBC 206 L % Saturation 14 L Unsat Iron Binding 178 Ferritin 50 Total Bilirubin AST ALT Alkaline Phosphatase Troponin I High Sens Total Protein Albumin Stool Occult Blood EKG shows atrially paced ventricularly sensed rhythm Assessment and Plan (1) Syncope: Status: Acute Patient comes with syncopal episode which clearly appears to be orthostatic in nature. This appears to be most likely related to what appears to be a significant episodes of GI bleed last week. Patient's hematocrit has dropped significantly compared to a baseline. However this has remained stable and she has no active signs of bleeding. At this point time I would hold Xarelto and continue hydration. Consider iron infusion therapy if blood transfusion is not indicated. Please consult GI to evaluate for cause of GI bleed as this is important for future oral anticoagulation therapy. May have to consider Watchman device in the future. Will check pacemaker for appropriate function (2) Paroxysmal atrial fibrillation: Status: Acute Paroxysmal atrial fibrillation which has remained suppressed on amiodarone therapy and has done extremely well with rhythm control approach. Will continue pursue rhythm control approach. Continue amiodarone therapy. Hold Xarelto as above. Will monitor and please consult GI. (3) Cardiac pacemaker in situ: Status: Acute Cardiac pacemaker in-situ seems to be working well. Will check for appropriate function. Will follow with you as need be Procedures Date of Service Date of Service: 09/07/24
--- NOTE | 2024-09-07 10:47 | P.PNIM_ITS ---
Subjective Subjective Date of Service: 09/07/24 Interval History: no complaints Physical Exam 2 Exam: Exam: General: AO X 3, no acute distress Resp: CTA bilateral, no accessory muscles used CVS: S1,S2,RRR, murmur GI: soft, non tender, non distended Neuro: motor grossly intact, alert Psych: appropriate affect, appropriate insight Vital Signs: Vital Signs: Last Vital Signs Temp 98.0 F 09/07/24 09:27 Pulse 92 09/07/24 09:27 Resp 18 09/07/24 09:27 BP 132/84 09/07/24 09:27 Pulse Ox 97 09/07/24 09:27 O2 Del Method Room Air 09/07/24 09:27 BMI result Body Mass Index 29.1 Objective Data Active Medications Acetaminophen (Acetaminophen 325 Mg Tablet) 975 mg PO Q6H PRN PRN Reason: Pain, Mild 1-3,fever,headache Amiodarone HCl (Amiodarone Hcl 200 Mg Tablet) 200 mg PO DAILY [facility] Amlodipine Besylate (Amlodipine Besylate 5 Mg Tablet) 5 mg PO DAILY [facility]; Protocol Calcium Carbonate (Calcium Carbonate 750 Mg Tab.Chew) 750 mg PO Q4H PRN PRN Reason: Heartburn Cyanocobalamin (Cyanocobalamin (Vitamin B-12) 1,000 Mcg Tablet) mcg PO DAILY [facility] Estradiol (Estradiol 0.5 Mg Tablet) 0.5 mg PO DAILY [facility] Folic Acid (Folic Acid 1 Mg Tablet) 1 mg PO DAILY [facility] Lactated Ringer's (Lr) 1,000 mls @ 80 mls/hr IVCONT .[id number] [facility] Last Admin: 09/06/24 23:18 Dose: 80 mls/hr Documented By: ERVIN Levothyroxine Sodium (Levothyroxine Sodium 125 Mcg Tablet) 125 mcg PO DAILY@0600 [facility] Magnesium Hydroxide (Milk Of Magnesia 30 Ml Oral.Susp) 30 ml PO DAILY PRN PRN Reason: Constipation Melatonin (Melatonin 3 Mg Tablet) 6 mg PO BEDTIME PRN PRN Reason: Insomnia Omeprazole (Omeprazole 40 Mg Capsule.Dr) 40 mg PO DAILY@0630 [facility] Ondansetron HCl (Ondansetron Hcl 4 Mg/2 Ml Vial) 4 mg IVPUSH Q8H PRN PRN Reason: Nausea and Vomiting Sodium Chloride (0.9 % Sodium Chloride Flush 3 Ml Syringe) 3 ml IVFLUSH QSHIFT [facility] Last Admin: 09/07/24 07:05 Dose: Not Given Documented By: MAXINE Non-Admin Reason: IV Running Labs 09/07/24 06:19 09/07/24 06:19 Labs: Laboratory Results - last 24 hr 09/06/24 09/06/24 09/06/24 16:08 16:43 20:22 MCV 101.8 H MCH 33.0 MCHC 32.4 RDW 13.4 Plt Count 348 MPV 11.5 Immature Gran % (Auto) 0.7 H Neut % (Auto) 74.1 H Lymph % (Auto) 14.2 L [place] % (Auto) 9.1 Eos % (Auto) 1.7 Baso % (Auto) 0.2 Lymph # (Auto) 1.3 [place] # (Auto) 0.8 Eos # (Auto) 0.2 Baso # (Auto) 0.0 Abs Immat Gran (auto) 0.06 H Absolute Neuts (auto) 6.6 Absolute Nucleated RBC 0.000 Nucleated RBC % (auto) 0.0 PT 31.7 H INR 2.8 H Anion Gap 11 L Estim Creat Clear Calc 30.1 Estimated GFR 46 Random Glucose 102 Lactic Acid 1.1 Calcium 8.3 L D Magnesium 2.0 Iron TIBC % Saturation Unsat Iron Binding Ferritin Total Bilirubin 0.1 AST 18 ALT 9 Alkaline Phosphatase 96 Total Protein 5.8 L Albumin 3.3 L Stool Occult Blood POSITIVE 09/07/24 06:19 MCV 101.4 H MCH 32.6 MCHC 32.2 RDW 13.3 Plt Count 348 MPV 11.6 Immature Gran % (Auto) 0.5 H Neut % (Auto) 61.7 Lymph % (Auto) 21.6 [place] % (Auto) 11.5 H Eos % (Auto) 4.1 H Baso % (Auto) 0.6 Lymph # (Auto) 1.4 [place] # (Auto) 0.8 Eos # (Auto) 0.3 Baso # (Auto) 0.0 Abs Immat Gran (auto) 0.03 Absolute Neuts (auto) 4.1 Absolute Nucleated RBC 0.000 Nucleated RBC % (auto) 0.0 PT INR Anion Gap 10 L Estim Creat Clear Calc 37.4 Estimated GFR 59 Random Glucose 86 Lactic Acid Calcium 8.4 Magnesium Iron 28 L TIBC 206 L % Saturation 14 L Unsat Iron Binding 178 Ferritin 50 Total Bilirubin AST ALT Alkaline Phosphatase Total Protein Albumin Stool Occult Blood Assessment and Plan (1) Paroxysmal atrial fibrillation: Status: Acute Plan 84F PMH pafib on xarelto, chf, EF 52%, paceer, htn, hypothryoid presented with syncope, found to have anemia Syncope Likely orthostatic, check orthostatics, monitor telemetry Subacute iron-deficiency anemia Concern for GI bleed with Xarelto IV iron GI eval, plan for possible EGD and colonoscopy Paroxysmal AFib Holding Xarelto Currently in sinus CHF with low normal EF Stable Hypothyroid Levothyroxine DVT prophylaxis-mechanical due to GI bleed Full Code reason for continued hospitalization: Anemia workup Quality Stroke Does the patient have a stroke diagnosis?: No VTE Prior VTE?: No VTE Risk Level:: Medical - moderate - high VTE Device Contraindication: N/A - Device Ordered VTE Drug Contraindication: Treatment Not Indicated
[2024-09-07] MEDS: Sodium Ferric Gluconat/Sucrose 125 MG in 0.9 % Sodium Chloride 100 ML 100 MG IV (11:57)
[2024-09-07] MEDS: Lactated Ringers 1,000 ML 80 ML IVCONT (13:09)
--- NOTE | 2024-09-07 17:12 | CONS_ITS ---
DATE OF SERVICE: 09/07/2024 REFERRING PROVIDER: Dr. Oh. REASON FOR CONSULTATION: Syncope and anemia with Hemoccult-positive stools. HISTORY OF PRESENT ILLNESS: The patient is a pleasant 84-year-old woman who was admitted to the hospital after presenting to the emergency room yesterday with complaints of syncope. She became dizzy while shopping for groceries and fell hitting her head. She was evaluated in the emergency room and had laboratory studies documenting hematocrit of 28.7, which was down from 44 in May 2024. This has remained stable overnight. MCV was high and chemistries were consistent with a component of iron deficiency with an iron saturation of 14%. The patient states she has a longstanding history of iron-deficiency anemia and has been taking iron, but stopped it a week ago because of diarrheal symptoms. She is also on Xarelto for atrial fibrillation. Stool occult blood testing was positive. She denies any vinod melena, but has had some diarrheal symptoms with dark stool, which she attributed to the iron and stopped taking it. She has undergone colonoscopy, but she states this was many years ago. Records were not available. She has no upper GI symptoms at this time. PAST MEDICAL HISTORY: 1. Atrial fibrillation. 2. Pacemaker placement for syncope. 3. Acoustic neuroma, status post surgery with left-sided vision and facial droop, problems. 4. Hypertension. 5. Heart failure with preserved ejection fraction. 6. Hypothyroidism. 7. Basal cell carcinoma. ALLERGIES: THERE ARE NONE REPORTED. PAST SURGICAL HISTORY: Includes pacemaker, ear surgery, cholecystectomy, hysterectomy, and cardioversion. CURRENT MEDICATIONS: Her current medication list is reviewed in the chart. Her last dose of Xarelto was yesterday a.m. SOCIAL HISTORY: There is no current tobacco, alcohol, or substance abuse. REVIEW OF SYSTEMS: SKIN: No pruritus. HEENT: Negative. CARDIOPULMONARY: No shortness of breath or chest pain. GASTROINTESTINAL: As above. GENITOURINARY: Negative. NEUROPSYCHIATRIC: Negative. PHYSICAL EXAMINATION: GENERAL: A pleasant female, lying comfortably in bed, tolerating a diet. VITAL SIGNS: Reviewed in electronic medical record and are stable. SKIN: Anicteric. HEENT: No scleral icterus. NECK: Without lymphadenopathy or thyromegaly. LUNGS: Clear. HEART: Regular rate and rhythm. S1, S2. No murmur. ABDOMEN: Soft without focal masses or tenderness. Bowel sounds are present. No organomegaly is noted. EXTREMITIES: Without edema. 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 LABORATORY DATA AND IMAGING STUDIES: Reviewed. IMPRESSION: Anemia with iron deficiency. Given her drop in hematocrit from earlier this year, I have recommended endoscopic evaluation of the upper GI and lower GI tract. I have discussed endoscopy and colonoscopy whether. She understands risks and benefits and agrees to proceed. This will be arranged for September 09 after she completes a bowel prep on September 08 because of her recent Eliquis use. In the interim, I agree with treating her empirically with a proton pump inhibitor and monitoring her hematocrit. Thanks for asking me to see her. I will follow her in the hospital with you. MD COREY Ohara/CHRISTIN / [id number]
[2024-09-08] VITALS (8 sets, daily range): BP systolic 120–156; BP diastolic 53–67; PULSE 60–96; RESP 16–18; TEMP 36.3–37.1; O2SAT 93–99
[2024-09-08] MEDS: Lactated Ringers 1,000 ML 80 ML IVCONT ×2 (05:44→19:45)
[2024-09-08 06:40] LABS: MANUAL DIFF FLAG NO
[2024-09-08 07:06] LABS: Anion Gap 11 (12-20); Blood Urea Nitrogen 15 mg/dL (9-16); Calcium 8.1 mg/dL (8.4-10.2); Carbon Dioxide 25 mmol/L (22-29); Chloride 112 mmol/L (96-108); Creatinine Clr Calc Pharmacy 32.5; Estimated Glomerular Filt Rate 50; Potassium 4.0 mmol/L (3.3-5.1); Sodium 144 mmol/L (135-145)
[2024-09-08 07:10] LABS: Hematocrit 27.7 % (37.0-47.0); Hemoglobin 8.8 g/dl (12.0-16.0); Mean Corpuscular HGB Conc 31.8 g/dl (31.0-35.0); Mean Corpuscular Hemoglobin 32.6 pg (27.0-33.0); Mean Corpuscular Volume 102.6 fL (80.0-98.0); NRBC Abs Auto 0.020 X10*3/uL (0.0-0.012); NRBC Pct Auto 0.3 /100WBC (0.0-0.2); Platelet Count 304 X10*3/uL (160-400); Red Blood Count 2.70 X10*6/uL (4.20-5.50); White Blood Count 6.0 X10*3/uL (4.8-10.8)
[2024-09-08 07:13] LABS: Hematocrit 27.5 % (37.0-47.0); Hemoglobin 8.9 g/dl (12.0-16.0); Imm Gran Abs Auto 0.05 X10*3/uL (0.00-0.03); Imm Gran Pct Auto 0.8 % (0.0-0.4); Lymphocytes Absolute Auto 1.2 X10*3/uL (1.2-4.9); Mean Corpuscular HGB Conc 32.4 g/dl (31.0-35.0); Mean Corpuscular Hemoglobin 32.8 pg (27.0-33.0); Mean Corpuscular Volume 101.5 fL (80.0-98.0); NRBC Abs Auto 0.000 X10*3/uL (0.0-0.012); NRBC Pct Auto 0.0 /100WBC (0.0-0.2); Platelet Count 239 X10*3/uL (160-400); Red Blood Count 2.71 X10*6/uL (4.20-5.50); White Blood Count 6.2 X10*3/uL (4.8-10.8)
--- NOTE | 2024-09-08 10:11 | P.PNIM_ITS ---
Subjective Subjective Date of Service: 09/08/24 Interval History: no complaints Physical Exam 2 Exam: Exam: General: AO X 3, no acute distress Resp: CTA bilateral, no accessory muscles used CVS: S1,S2,RRR, murmur GI: soft, non tender, non distended Neuro: motor grossly intact, alert Psych: appropriate affect, appropriate insight Vital Signs: Vital Signs: Last Vital Signs Temp 98.1 F 09/08/24 07:08 Pulse 74 09/08/24 07:41 Resp 18 09/08/24 07:08 BP 150/64 H 09/08/24 07:41 Pulse Ox 96 09/08/24 07:08 O2 Del Method Room Air 09/08/24 07:08 BMI result Body Mass Index 29.1 Objective Data Active Medications Acetaminophen (Acetaminophen 325 Mg Tablet) 975 mg PO Q6H PRN PRN Reason: Pain, Mild 1-3,fever,headache Amiodarone HCl (Amiodarone Hcl 200 Mg Tablet) 200 mg PO DAILY [facility] Last Admin: 09/08/24 08:45 Dose: 200 mg Documented By: MITCH Amlodipine Besylate (Amlodipine Besylate 5 Mg Tablet) 5 mg PO DAILY [facility]; Protocol Last Admin: 09/08/24 08:45 Dose: 5 mg Documented By: MITCH Calcium Carbonate (Calcium Carbonate 750 Mg Tab.Chew) 750 mg PO Q4H PRN PRN Reason: Heartburn Cyanocobalamin (Cyanocobalamin (Vitamin B-12) 1,000 Mcg Tablet) 1,000 mcg PO DAILY [facility] Last Admin: 09/08/24 08:45 Dose: 1,000 mcg Documented By: MITCH Estradiol (Estradiol 0.5 Mg Tablet) 0.5 mg PO DAILY [facility] Last Admin: 09/08/24 08:46 Dose: 0.5 mg Documented By: MITCH Folic Acid (Folic Acid 1 Mg Tablet) 1 mg PO DAILY [facility] Last Admin: 09/08/24 08:45 Dose: 1 mg Documented By: MITCH Lactated Ringer's (Lr) 1,000 mls @ 80 mls/hr IVCONT .[id number] [facility] Last Admin: 09/08/24 05:44 Dose: 80 mls/hr Documented By: RICHIE Levothyroxine Sodium (Levothyroxine Sodium 125 Mcg Tablet) 125 mcg PO DAILY@0600 [facility] Last Admin: 09/08/24 05:43 Dose: 125 mcg Documented By: RICHIE Magnesium Hydroxide (Milk Of Magnesia 30 Ml Oral.Susp) 30 ml PO DAILY PRN PRN Reason: Constipation Melatonin (Melatonin 3 Mg Tablet) 6 mg PO BEDTIME PRN PRN Reason: Insomnia Omeprazole (Omeprazole 40 Mg Capsule.Dr) 40 mg PO DAILY@0630 [facility] Last Admin: 09/08/24 05:43 Dose: 40 mg Documented By: RICHIE Ondansetron HCl (Ondansetron Hcl 4 Mg/2 Ml Vial) 4 mg IVPUSH Q8H PRN PRN Reason: Nausea and Vomiting Polyethylene Glycol/Electrolytes (Peg 3350/Na Sulf,Bicarb,Cl/Kcl 4,000 Ml Soln.Recon) 4,000 ml PO ONCE ONE Stop: 09/08/24 13:01 Sodium Chloride (0.9 % Sodium Chloride Flush 3 Ml Syringe) 3 ml IVFLUSH QSHIFT [facility] Last Admin: 09/08/24 08:46 Dose: Not Given Documented By: MITCH Non-Admin Reason: IV Running Labs 09/08/24 06:22 09/08/24 06:22 Labs: Laboratory Results - last 24 hr 09/08/24 09/08/24 09/08/24 06:22 06:22 06:22 MCV 101.5 H 102.6 H MCH 32.8 32.6 MCHC 32.4 RDW Plt Count MPV Immature Gran % (Auto) Neut % (Auto) Lymph % (Auto) [place] % (Auto) Eos % (Auto) Baso % (Auto) Lymph # (Auto) [place] # (Auto) Eos # (Auto) Baso # (Auto) Abs Immat Gran (auto) Absolute Neuts (auto) Absolute Nucleated RBC Nucleated RBC % (auto) Anion Gap Estim Creat Clear Calc Estimated GFR Random Glucose Calcium 09/08/24 09/08/24 09/08/24 06:22 06:22 06:22 MCV MCH MCHC 31.8 RDW 13.4 13.4 Plt Count 239 D 304 D MPV 12.6 H Immature Gran % (Auto) Neut % (Auto) Lymph % (Auto) [place] % (Auto) Eos % (Auto) Baso % (Auto) Lymph # (Auto) [place] # (Auto) Eos # (Auto) Baso # (Auto) Abs Immat Gran (auto) Absolute Neuts (auto) Absolute Nucleated RBC Nucleated RBC % (auto) Anion Gap Estim Creat Clear Calc Estimated GFR Random Glucose Calcium 09/08/24 09/08/24 09/08/24 06:22 06:22 06:22 MCV MCH MCHC RDW Plt Count MPV 11.9 Immature Gran % (Auto) 0.8 H Neut % (Auto) 64.7 Lymph % (Auto) 18.8 L [place] % (Auto) 10.0 Eos % (Auto) 5.1 H Baso % (Auto) 0.6 Lymph # (Auto) 1.2 [place] # (Auto) 0.6 Eos # (Auto) 0.3 Baso # (Auto) 0.0 Abs Immat Gran (auto) 0.05 H Absolute Neuts (auto) 4.0 Absolute Nucleated RBC 0.000 0.020 H Nucleated RBC % (auto) 0.0 0.3 H Anion Gap 11 L Estim Creat Clear Calc 32.5 Estimated GFR 50 Random Glucose 91 Calcium 8.1 L Assessment and Plan (1) Paroxysmal atrial fibrillation: Status: Acute Plan 84F PMH pafib on xarelto, chf, EF 52%, paceer, htn, hypothryoid presented with syncope, found to have anemia Syncope Likely orthostatic, monitor telemetry Subacute iron-deficiency anemia Concern for GI bleed with Xarelto IV iron GI appreciated, plan for EGD and colonoscopy 09/09/24 Paroxysmal AFib Holding Xarelto Currently in sinus CHF with low normal EF Stable Hypothyroid Levothyroxine DVT prophylaxis-mechanical due to GI bleed Full Code reason for continued hospitalization: Anemia workup Quality Stroke Does the patient have a stroke diagnosis?: No VTE Prior VTE?: No VTE Risk Level:: Medical - moderate - high VTE Device Contraindication: N/A - Device Ordered VTE Drug Contraindication: Treatment Not Indicated
[2024-09-08] MEDS: PEG 3350/Na Sulf,Bicarb,Cl/KCL 4,000 ML SOLN.RECON 4000 ML PO (14:09)
[2024-09-09] VITALS (11 sets, daily range): BP systolic 108–169; BP diastolic 35–104; PULSE 57–99; RESP 16–20; TEMP 36.2–36.6; O2SAT 94–99; BMI 29.1
[2024-09-09 07:04] LABS: MANUAL DIFF FLAG NO
[2024-09-09 07:33] LABS: Hematocrit 28.0 % (37.0-47.0); Hemoglobin 9.0 g/dl (12.0-16.0); Imm Gran Abs Auto 0.05 X10*3/uL (0.00-0.03); Imm Gran Pct Auto 0.7 % (0.0-0.4); Lymphocytes Absolute Auto 1.5 X10*3/uL (1.2-4.9); Mean Corpuscular HGB Conc 32.1 g/dl (31.0-35.0); Mean Corpuscular Hemoglobin 32.5 pg (27.0-33.0); Mean Corpuscular Volume 101.1 fL (80.0-98.0); NRBC Abs Auto 0.040 X10*3/uL (0.0-0.012); NRBC Pct Auto 0.5 /100WBC (0.0-0.2); Platelet Count 362 X10*3/uL (160-400); Red Blood Count 2.77 X10*6/uL (4.20-5.50); White Blood Count 7.3 X10*3/uL (4.8-10.8)
[2024-09-09 07:43] LABS: Anion Gap 11 (12-20); Blood Urea Nitrogen 9 mg/dL (9-16); Calcium 8.3 mg/dL (8.4-10.2); Carbon Dioxide 28 mmol/L (22-29); Chloride 111 mmol/L (96-108); Creatinine Clr Calc Pharmacy 39.8; Estimated Glomerular Filt Rate > 60; Potassium 4.2 mmol/L (3.3-5.1); Sodium 146 mmol/L (135-145)
[2024-09-09] MEDS: Lactated Ringers 1,000 ML 80 ML IVCONT (07:59)
--- NOTE | 2024-09-09 08:46 | P.CDIM_ITS ---
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 Please review below and update the documentation accordingly. Clinical Indicators: Progress notes: Subacute iron deficiency anemia IV Iron Labs: Iron 28 L GI bleed H/H 9.0/28.0 BP 136/42 L Patient arrived to [place] complaining of syncope while shopping, fell hitting her head. Based on the above, could you clarify which of the following is the most likely type of anemia you are evaluating, treating, and/or monitoring? Iron deficiency anemia secondary to chronic blood loss possible, suspected, cannot rule out etc. Iron deficiency anemia secondary to/due to acute on chronic blood loss Anemia of chronic disease indicate if neoplastic disease, CKD, or other Chronic iron deficiency anemia due to blood loss Other (explain) Clinically unable to determine (explain) Thank you, Angie Servin, CCS, CDIS Use of terms such as suspected, likely, concern for, or probable (associated with a specific diagnosis that is being evaluated, monitored, or treated as if it exists) are acceptable and can be coded in the inpatient setting, when documented at the time of discharge. Please use your independent medical judgment in providing your response. THIS QUERY IS PART OF THE PERMANENT MEDICAL RECORD
--- NOTE | 2024-09-09 09:55 | HO.PM.IMPN ---
Subjective Subjective Date of Service: 09/09/24 Interval History: no complaints Physical Exam Exam: Exam: General: AO X 3, no acute distress Resp: CTA bilateral, no accessory muscles used CVS: S1,S2,RRR, murmur GI: soft, non tender, non distended Neuro: motor grossly intact, alert Psych: appropriate affect, appropriate insight Vital Signs: Vital Signs: Last Vital Signs Temp 97.2 F 09/09/24 07:00 Pulse 68 09/09/24 07:33 Resp 18 09/09/24 07:00 BP 134/61 09/09/24 07:59 Pulse Ox 99 09/09/24 07:00 O2 Del Method Room Air 09/09/24 07:00 BMI result Body Mass Index 29.1 Objective Data Active Medications Acetaminophen (Acetaminophen 325 Mg Tablet) 975 mg PO Q6H PRN PRN Reason: Pain, Mild 1-3,fever,headache Amiodarone HCl (Amiodarone Hcl 200 Mg Tablet) 200 mg PO DAILY [facility] Last Admin: 09/09/24 07:59 Dose: 200 mg Documented By: URIEL Amlodipine Besylate (Amlodipine Besylate 5 Mg Tablet) 5 mg PO DAILY [facility]; Protocol Last Admin: 09/09/24 07:59 Dose: 5 mg Documented By: URIEL Calcium Carbonate (Calcium Carbonate 750 Mg Tab.Chew) 750 mg PO Q4H PRN PRN Reason: Heartburn Cyanocobalamin (Cyanocobalamin (Vitamin B-12) 1,000 Mcg Tablet) 1,000 mcg PO DAILY [facility] Last Admin: 09/09/24 07:59 Dose: 1,000 mcg Documented By: URIEL Estradiol (Estradiol 0.5 Mg Tablet) 0.5 mg PO DAILY [facility] Last Admin: 09/09/24 07:59 Dose: 0.5 mg Documented By: URIEL Folic Acid (Folic Acid 1 Mg Tablet) 1 mg PO DAILY [facility] Last Admin: 09/09/24 07:59 Dose: 1 mg Documented By: URIEL Lactated Ringer's (Lr) 1,000 mls @ 80 mls/hr IVCONT .[id number] [facility] Last Admin: 09/09/24 07:59 Dose: 80 mls/hr Documented By: URIEL Levothyroxine Sodium (Levothyroxine Sodium 125 Mcg Tablet) 125 mcg PO DAILY@0600 [facility] Last Admin: 09/09/24 06:29 Dose: 125 mcg Documented By: DAISHA Magnesium Hydroxide (Milk Of Magnesia 30 Ml Oral.Susp) 30 ml PO DAILY PRN PRN Reason: Constipation Melatonin (Melatonin 3 Mg Tablet) 6 mg PO BEDTIME PRN PRN Reason: Insomnia Omeprazole (Omeprazole 40 Mg Capsule.Dr) 40 mg PO DAILY@0630 [facility] Last Admin: 09/09/24 06:29 Dose: 40 mg Documented By: DAISHA Ondansetron HCl (Ondansetron Hcl 4 Mg/2 Ml Vial) 4 mg IVPUSH Q8H PRN PRN Reason: Nausea and Vomiting Sodium Chloride (0.9 % Sodium Chloride Flush 3 Ml Syringe) 3 ml IVFLUSH QSHIFT [facility] Last Admin: 09/09/24 08:00 Dose: Not Given Documented By: URIEL Non-Admin Reason: IV Running Labs 09/09/24 06:45 09/09/24 06:45 Labs: Laboratory Results - last 24 hr 09/09/24 06:45 MCV 101.1 H MCH 32.5 MCHC 32.1 RDW 13.2 Plt Count 362 MPV 11.7 Immature Gran % (Auto) 0.7 H Neut % (Auto) 65.6 Lymph % (Auto) 20.2 [place] % (Auto) 8.4 Eos % (Auto) 4.6 H Baso % (Auto) 0.5 Lymph # (Auto) 1.5 [place] # (Auto) 0.6 Eos # (Auto) 0.3 Baso # (Auto) 0.0 Abs Immat Gran (auto) 0.05 H Absolute Neuts (auto) 4.8 Absolute Nucleated RBC 0.040 H Nucleated RBC % (auto) 0.5 H Anion Gap 11 L Estim Creat Clear Calc 39.8 Estimated GFR > 60 Random Glucose 80 Calcium 8.3 L Assessment and Plan (1) Paroxysmal atrial fibrillation: Status: Acute Plan 84F PMH pafib on xarelto, chf, EF 52%, paceer, htn, hypothryoid presented with syncope, found to have anemia Syncope Likely orthostatic, monitor telemetry Subacute iron-deficiency anemia Concern for GI bleed with Xarelto s/p IV iron GI appreciated, plan for EGD and colonoscopy today, 09/09/24 Paroxysmal AFib Holding Xarelto Currently in sinus CHF with low normal EF Stable Hypothyroid Levothyroxine DVT prophylaxis-mechanical due to GI bleed Full Code reason for continued hospitalization: Anemia workup Quality Stroke Does the patient have a stroke diagnosis?: No VTE Prior VTE?: No VTE Risk Level:: Medical - moderate - high VTE Device Contraindication: N/A - Device Ordered VTE Drug Contraindication: Treatment Not Indicated
--- NOTE | 2024-09-09 10:24 | MHC.CM.PN ---
Per ROUNDS discussion, Patient is not yet medically cleared (being scoped today); Patient may benefit from a PT Eval to assist with disposition. CM will continue to follow.
--- NOTE | 2024-09-09 11:10 | HO.ANESPROP2 ---
HPI - Anesthesia Eval Consult details Narrative: double PMFSH Active Problems Active Problems: All Active Problems CKD stage 3a, GFR 45-59 ml/min (Acute) GI bleed (Acute) Syncope (Acute) Anemia, macrocytic (Acute) Hematoma of occipital region of scalp (Acute) Anticoagulant long-term use (Acute) Skin tear of forearm without complication (Acute) Advanced care planning/counseling discussion (Acute) Paroxysmal atrial fibrillation (Acute ~11/2014) Cardiac pacemaker in situ (Acute ~08/2021) Bradycardia (Acute ~08/2021) HTN (hypertension) (Acute) Hypothyroidism (Acute) Anemia (Acute) Osteopenia (Acute ~2002) Past Medical History Medical History Osteopenia (~2002) History of acoustic neuroma Cardiac pacemaker in situ (~08/2021) Skull asymmetry Eye abnormalities Syncope (~08/2021) HTN (hypertension) (HFpEF) heart failure with preserved ejection fraction Paroxysmal atrial fibrillation (~11/2014) Epistaxis Hypothyroidism Basal cell carcinoma Functional capacity: independent ambulation Family History Family History Mother No problems noted. Father Stroke Other No family history of congenital heart disease Family history of problems with anesthesia: No Surgical History Surgical History History of cardiac pacemaker (~2021) History of ear surgery History of cholecystectomy (~2014) History of hysterectomy History of cardioversion History of Problems with Anesthesia: Yes Social History Social History Household Members: None Housing: House Do you presently have visiting nurse or other home services: No Alcohol intake: never Patient Tobacco Use Status: Never used Tobacco e-Cigarette/Vaping Use: Never Used Currently Displaying Signs/Symptoms of Drug Intoxication Withdrawal: No Have you been hit, kicked, punched, or otherwise hurt by someone within the past year? If so, by whom?: No Do you feel safe in your current relationship?: No Current Relationship Is there a partner from a previous relationship who is making you feel unsafe now?: No Are you made to feel afraid or neglected: No Advance Directives: No Advance Directives Information Provided: No Do you have a plan to hurt others: No Plan Recently lost weight without trying: No How much weight loss: 2-13 pounds Eating poorly because of decreased appetite: No Nutrition screen score: 1 Nutrition Risks: No Nutritional Risk Patient : No : No Poor oral hygiene: No service: No Current occupational status: retired Cognitive needs: No Hearing needs: No Vision needs: Yes (rx glasses) Meds Allergies Allergy/AdvReac Type Severity Reaction Status Date / Time No Known Allergies (No Known Allergy Verified 09/06/24 15:35 Allergies*) Active Medications: Current Medications Acetaminophen (Acetaminophen 325 Mg Tablet) 975 mg PO Q6H PRN PRN Reason: Pain, Mild 1-3,fever,headache Amiodarone HCl (Amiodarone Hcl 200 Mg Tablet) 200 mg PO DAILY [facility] Last Admin: 09/09/24 07:59 Dose: 200 mg Amlodipine Besylate (Amlodipine Besylate 5 Mg Tablet) 5 mg PO DAILY [facility]; Protocol Last Admin: 09/09/24 07:59 Dose: 5 mg Calcium Carbonate (Calcium Carbonate 750 Mg Tab.Chew) 750 mg PO Q4H PRN PRN Reason: Heartburn Cyanocobalamin (Cyanocobalamin (Vitamin B-12) 1,000 Mcg Tablet) 1,000 mcg PO DAILY [facility] Last Admin: 09/09/24 07:59 Dose: 1,000 mcg Estradiol (Estradiol 0.5 Mg Tablet) 0.5 mg PO DAILY [facility] Last Admin: 09/09/24 07:59 Dose: 0.5 mg Folic Acid (Folic Acid 1 Mg Tablet) 1 mg PO DAILY [facility] Last Admin: 09/09/24 07:59 Dose: 1 mg Lactated Ringer's (Lr) 1,000 mls @ 80 mls/hr IVCONT .[id number] [facility] Last Admin: 09/09/24 07:59 Dose: 80 mls/hr Levothyroxine Sodium (Levothyroxine Sodium 125 Mcg Tablet) 125 mcg PO DAILY@0600 [facility] Last Admin: 09/09/24 06:29 Dose: 125 mcg Magnesium Hydroxide (Milk Of Magnesia 30 Ml Oral.Susp) 30 ml PO DAILY PRN PRN Reason: Constipation Melatonin (Melatonin 3 Mg Tablet) 6 mg PO BEDTIME PRN PRN Reason: Insomnia Omeprazole (Omeprazole 40 Mg Capsule.Dr) 40 mg PO DAILY@0630 [facility] Last Admin: 09/09/24 06:29 Dose: 40 mg Ondansetron HCl (Ondansetron Hcl 4 Mg/2 Ml Vial) 4 mg IVPUSH Q8H PRN PRN Reason: Nausea and Vomiting Sodium Chloride (0.9 % Sodium Chloride Flush 3 Ml Syringe) 3 ml IVFLUSH QSHIFT [facility] Last Admin: 09/09/24 08:00 Dose: Not Given Home Medications ?Medication ?Instructions ?Recorded ?Confirmed ?Last Taken ?Type calcium 600 mg capsule 600 mg PO DAILY 08/18/21 09/07/24 09/06/24 History cyanocobalamin (vitamin B-12) 1 tab PO DAILY 08/18/21 09/07/24 09/06/24 History 1,000 mcg tablet ferrous gluconate 324 mg (38 mg 1 tab PO DAILY 08/18/21 09/07/24 09/06/24 History iron) tablet folic acid 1 mg tablet 1 tab PO DAILY 08/18/21 09/07/24 09/06/24 History cholecalciferol (vitamin D3) 50 50 mcg PO DAILY 04/15/22 09/07/24 09/06/24 History mcg (2,000 unit) capsule levothyroxine 125 mcg tablet 125 mcg PO DAILY@0600 09/07/24 09/07/24 09/06/24 History Exam Height,Weight and Vital Signs: Height 4 ft 11 in Weight 65.4 kg Last Vital Signs Temp 97.2 F 09/09/24 07:00 Pulse 68 09/09/24 07:33 Resp 18 09/09/24 07:00 BP 134/61 09/09/24 07:59 Pulse Ox 99 09/09/24 07:00 O2 Del Method Room Air 09/09/24 07:00 Pertinent Lab Results Pertinent Lab Results: Laboratory Tests 09/06/24 09/06/24 09/06/24 16:08 16:43 20:22 WBC 8.9 RBC 2.82 L D Hgb 9.3 L D Hct 28.7 L D MCV 101.8 H MCH 33.0 MCHC 32.4 RDW 13.4 Plt Count 348 MPV 11.5 Immature Gran % (Auto) 0.7 H Neut % (Auto) 74.1 H Lymph % (Auto) 14.2 L Bollinger % (Auto) 9.1 Eos % (Auto) 1.7 Baso % (Auto) 0.2 Lymph # (Auto) 1.3 Bollinger # (Auto) 0.8 Eos # (Auto) 0.2 Baso # (Auto) 0.0 Abs Immat Gran (auto) 0.06 H Absolute Neuts (auto) 6.6 Absolute Nucleated RBC 0.000 Nucleated RBC % (auto) 0.0 PT 31.7 H INR 2.8 H Sodium 144 Potassium 4.9 D Chloride 112 H Carbon Dioxide 26 Anion Gap 11 L BUN 17 H Creatinine 1.13 Estim Creat Clear Calc 30.1 Estimated GFR 46 Random Glucose 102 Lactic Acid 1.1 Calcium 8.3 L D Magnesium 2.0 Iron TIBC % Saturation Unsat Iron Binding Ferritin Total Bilirubin 0.1 AST 18 ALT 9 Alkaline Phosphatase 96 Troponin I High Sens < 2.7 Total Protein 5.8 L Albumin 3.3 L Stool Occult Blood POSITIVE 09/07/24 09/08/24 09/08/24 06:19 06:22 06:22 WBC 6.6 6.2 6.0 RBC 2.82 L 2.71 L Hgb 9.2 L Hct 28.6 L MCV 101.4 H MCH 32.6 MCHC 32.2 RDW 13.3 Plt Count 348 MPV 11.6 Immature Gran % (Auto) 0.5 H Neut % (Auto) 61.7 Lymph % (Auto) 21.6 Bollinger % (Auto) 11.5 H Eos % (Auto) 4.1 H Baso % (Auto) 0.6 Lymph # (Auto) 1.4 Bollinger # (Auto) 0.8 Eos # (Auto) 0.3 Baso # (Auto) 0.0 Abs Immat Gran (auto) 0.03 Absolute Neuts (auto) 4.1 Absolute Nucleated RBC 0.000 Nucleated RBC % (auto) 0.0 PT INR Sodium 144 Potassium 4.4 Chloride 111 H Carbon Dioxide 27 Anion Gap 10 L BUN 14 Creatinine 0.91 Estim Creat Clear Calc 37.4 Estimated GFR 59 Random Glucose 86 Lactic Acid Calcium 8.4 Magnesium Iron 28 L TIBC 206 L % Saturation 14 L Unsat Iron Binding 178 Ferritin 50 Total Bilirubin AST ALT Alkaline Phosphatase Troponin I High Sens Total Protein Albumin Stool Occult Blood 09/08/24 09/08/24 09/08/24 06:22 06:22 06:22 WBC RBC 2.70 L Hgb 8.9 L 8.8 L Hct 27.5 L 27.7 L MCV 101.5 H MCH MCHC RDW Plt Count MPV Immature Gran % (Auto) Neut % (Auto) Lymph % (Auto) Bollinger % (Auto) Eos % (Auto) Baso % (Auto) Lymph # (Auto) Bollinger # (Auto) Eos # (Auto) Baso # (Auto) Abs Immat Gran (auto) Absolute Neuts (auto) Absolute Nucleated RBC Nucleated RBC % (auto) PT INR Sodium Potassium Chloride Carbon Dioxide Anion Gap BUN Creatinine Estim Creat Clear Calc Estimated GFR Random Glucose Lactic Acid Calcium Magnesium Iron TIBC % Saturation Unsat Iron Binding Ferritin Total Bilirubin AST ALT Alkaline Phosphatase Troponin I High Sens Total Protein Albumin Stool Occult Blood 09/08/24 09/08/24 09/08/24 06:22 06:22 06:22 WBC RBC Hgb Hct MCV 102.6 H MCH 32.8 32.6 MCHC 32.4 31.8 RDW 13.4 Plt Count MPV Immature Gran % (Auto) Neut % (Auto) Lymph % (Auto) Bollinger % (Auto) Eos % (Auto) Baso % (Auto) Lymph # (Auto) Bollinger # (Auto) Eos # (Auto) Baso # (Auto) Abs Immat Gran (auto) Absolute Neuts (auto) Absolute Nucleated RBC Nucleated RBC % (auto) PT INR Sodium Potassium Chloride Carbon Dioxide Anion Gap BUN Creatinine Estim Creat Clear Calc Estimated GFR Random Glucose Lactic Acid Calcium Magnesium Iron TIBC % Saturation Unsat Iron Binding Ferritin Total Bilirubin AST ALT Alkaline Phosphatase Troponin I High Sens Total Protein Albumin Stool Occult Blood 09/08/24 09/08/24 09/08/24 06:22 06:22 06:22 WBC RBC Hgb Hct MCV MCH MCHC RDW 13.4 Plt Count 239 D 304 D MPV 12.6 H 11.9 Immature Gran % (Auto) 0.8 H Neut % (Auto) 64.7 Lymph % (Auto) 18.8 L Bollinger % (Auto) 10.0 Eos % (Auto) 5.1 H Baso % (Auto) 0.6 Lymph # (Auto) 1.2 Bollinger # (Auto) 0.6 Eos # (Auto) 0.3 Baso # (Auto) 0.0 Abs Immat Gran (auto) 0.05 H Absolute Neuts (auto) 4.0 Absolute Nucleated RBC 0.000 Nucleated RBC % (auto) PT INR Sodium Potassium Chloride Carbon Dioxide Anion Gap BUN Creatinine Estim Creat Clear Calc Estimated GFR Random Glucose Lactic Acid Calcium Magnesium Iron TIBC % Saturation Unsat Iron Binding Ferritin Total Bilirubin AST ALT Alkaline Phosphatase Troponin I High Sens Total Protein Albumin Stool Occult Blood 09/08/24 09/08/24 09/09/24 06:22 06:22 06:45 WBC 7.3 RBC 2.77 L Hgb 9.0 L Hct 28.0 L MCV 101.1 H MCH 32.5 MCHC 32.1 RDW 13.2 Plt Count 362 MPV 11.7 Immature Gran % (Auto) 0.7 H Neut % (Auto) 65.6 Lymph % (Auto) 20.2 Bollinger % (Auto) 8.4 Eos % (Auto) 4.6 H Baso % (Auto) 0.5 Lymph # (Auto) 1.5 Bollinger # (Auto) 0.6 Eos # (Auto) 0.3 Baso # (Auto) 0.0 Abs Immat Gran (auto) 0.05 H Absolute Neuts (auto) 4.8 Absolute Nucleated RBC 0.020 H 0.040 H Nucleated RBC % (auto) 0.0 0.3 H 0.5 H PT INR Sodium 144 146 H Potassium 4.0 4.2 Chloride 112 H 111 H Carbon Dioxide 25 28 Anion Gap 11 L 11 L BUN 15 9 Creatinine 1.04 0.85 Estim Creat Clear Calc 32.5 39.8 Estimated GFR 50 > 60 Random Glucose 91 80 Lactic Acid Calcium 8.1 L 8.3 L Magnesium Iron TIBC % Saturation Unsat Iron Binding Ferritin Total Bilirubin AST ALT Alkaline Phosphatase Troponin I High Sens Total Protein Albumin Stool Occult Blood Airway Mallampati Class: II TM Dist: <=3cm Neck ROM: Poor Heart: pacer Lungs: cta Assessment and Plan Assessment Anesthesia Assessment: Anesthesia Plan Discussed and Chart Reviewed Final Anesthetic Review Family History of Problems with Anesthesia: No History of Problems with Anesthesia: Yes NPO: Yes ASA Class: III Final Preanesthetic Review: No Changes in Pt Med Stat, Meds/Allgs Chart Reviewed, Consent Obtained/Reviewed and Anes Risks/Benef Reviewed Patient Risk: Intermediate Procedure Risk: Low Anesthetic Plan Anesthetic Plan: MAC:, Agree w/ Assess. and Plan and TIVA Disposition: Standard PACU
--- NOTE | 2024-09-09 11:26 | MHC.SHP ---
Pre-Procedural Eval Section A - 24 Hr Update-Section A only Date of Service: 09/09/24 The patient is an INPATIENT: Yes Changes since office visit: No Cold of Flu in the past 2 weeks, No New Medical Problems, No Changes in Medication and No Patient answered all questions The patient has been examined within 24 hours of the surgical procedure. The History & Physical has been completed within 30 days and I have reviewed it.: No Section B - Complete if H&P > 30 days Chief Complaint: syncope Allergies: Allergies Allergy/AdvReac Type Severity Reaction Status Date / Time No Known Allergies (No Known Allergy Verified 09/06/24 15:35 Allergies*) Plan I have reviewed the history and physical and performed a pertinent physical examination on my patient. No changes have occurred unless specified. Time Spent With Patient Time: Total time managing care of this patient today ____ minutes.
[2024-09-09] MEDS: Lactated Ringers 1,000 ML 100 ML IVCONT (11:37)
--- NOTE | 2024-09-09 12:17 | PM.EVENT ---
Event Note Date of Service: 09/09/24 Event Note: GI egd is normal colonoscopy shows nonbleeding cecal avm and small rectal polyp f/u bx results restart AC monitor hct. Time Spent With Patient Time: Total time managing care of this patient today ____ minutes.
--- NOTE | 2024-09-09 13:01 | OP_ITS ---
DATE OF SERVICE: 09/09/2024 SURGEON: Carlos Manuel Moya MD INDICATIONS: Iron deficiency anemia. PREOPERATIVE DIAGNOSIS: POSTOPERATIVE DIAGNOSIS: PROCEDURE PERFORMED: Upper endoscopy with biopsy, colonoscopy to the terminal ileum with biopsy. ESTIMATED BLOOD LOSS: COMPLICATIONS: ANESTHESIA: Monitored anesthesia care. ASSISTANTS: SPECIMENS: DESCRIPTION OF PROCEDURE: A history and physical was performed. The risks and benefits of the procedure were explained to the patient. Informed consent was obtained. The patient was placed in the left lateral decubitus position. The Olympus video gastroscope was introduced into the esophagus, stomach, and duodenum. Examination was performed. The scope was removed. She was repositioned for colonoscopy. A digital rectal exam was performed and was found to be normal. The Olympus pediatric video colonoscope was introduced into the rectum and advanced to the cecum. The cecum was identified by transillumination, palpation, and identification of ileocecal valve. Examination was performed. The scope was removed. She tolerated both procedures well and was returned to the recovery area in stable condition. FINDINGS: Upper endoscopy: 1. Esophagus: The esophagus was normal. There was a small hiatal hernia. 2. Stomach: The stomach showed no evidence of masses or ulcers. No polyps were identified. 3. Duodenum: The bulb and 2nd portion were normal. Biopsies were obtained from the 2nd portion because of the patient's history of iron-deficiency anemia. Colonoscopy: The terminal ileum was examined and appeared normal. The visualized colonic mucosa was normal. There was a single 3 mm nonbleeding cecal AVM. No therapy was performed. In the rectum was a less than 5 mm polyp that appeared hyperplastic. This was removed with a biopsy forceps. There was extensive sigmoid diverticulosis. The quality of the prep was good. Retroflexed examination showed some internal hemorrhoids. IMPRESSION: 1. Normal upper endoscopy. 2. Rectal polyp. 3. Arteriovenous malformation of cecum. RECOMMENDATION: 1. Follow up the biopsy results. 2. Anticoagulation may be resumed. 3. She may need iron supplementation orally or intravenously pending followup results of her H and H. MD COREY Ohara/CHRISTIN / [id number]
[2024-09-09] MEDS: 0.9 % Sodium Chloride Flush 3 ML SYRINGE IVFLUSH ×2 (16:22→21:39)
[2024-09-10] VITALS (7 sets, daily range): BP systolic 120–158; BP diastolic 50–68; PULSE 62–86; RESP 18–20; TEMP 36.4–37.1; O2SAT 95–96
[2024-09-10 06:10] LABS: Hematocrit 26.7 % (37.0-47.0); Hemoglobin 8.9 g/dl (12.0-16.0); Mean Corpuscular HGB Conc 33.3 g/dl (31.0-35.0); Mean Corpuscular Hemoglobin 33.5 pg (27.0-33.0); Mean Corpuscular Volume 100.4 fL (80.0-98.0); NRBC Abs Auto 0.000 X10*3/uL (0.0-0.012); NRBC Pct Auto 0.0 /100WBC (0.0-0.2); Platelet Count 334 X10*3/uL (160-400); Red Blood Count 2.66 X10*6/uL (4.20-5.50); White Blood Count 8.0 X10*3/uL (4.8-10.8)
[2024-09-10 06:28] LABS: Anion Gap 12 (12-20); Blood Urea Nitrogen 12 mg/dL (9-16); Calcium 8.1 mg/dL (8.4-10.2); Carbon Dioxide 27 mmol/L (22-29); Chloride 110 mmol/L (96-108); Creatinine Clr Calc Pharmacy 24.8; Estimated Glomerular Filt Rate 37; Magnesium 1.8 mg/dL (1.6-2.6); Potassium 3.9 mmol/L (3.3-5.1); Sodium 145 mmol/L (135-145)
[2024-09-10] MEDS: 0.9 % Sodium Chloride Flush 3 ML SYRINGE IVFLUSH (09:00)
--- NOTE | 2024-09-10 09:43 | PM.DS ---
DS: Providers Provider Date of Service: 09/10/24 Date of admission: 09/06/24 22:54 Date of discharge: 09/10/24 Primary care physician: Miya Drake NP Consults: 09/06/24 22:53 Consult to Gastroenterology Routine Consulting Provider: Efren Marc Reason for consultation: GI bleed Has provider been notified: No 09/06/24 23:00 Consult to Cardiology Routine Consulting Provider: Hamilton Ratliff Reason for consultation: syncope Has provider been notified: No DS: Diagnosis Discharge Diagnosis (1) Paroxysmal atrial fibrillation: Status: Acute DS: Summary Hospital Course Hospital Course: from initial hpi: 84-year-old female with a past medical history significant for paroxysmal AFib on Xarelto, HFrEF (EF 52% 10/2023), s/p pacemaker, HTN, and hypothyroid, who presented to the ED due to a syncopal episode earlier today. The patient reports that she was walking and felt dizzy and fell backwards. She did hit her head and lost consciousness. She is on Xarelto for paroxysmal AFib. 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 She has a lump on the posterior portion of her head which she reports aches and has been present since the fall. she reports a history of a similar episode a few years ago which was secondary to anemia. In the ED she was found to have a drop in her hemoglobin, 14.1 in May, now 9.3, hematocrit 44.0, 28.7 respectively. Stool guaiac positive. she denies any visible blood in the stool or bleeding sources. she has been taking iron but stopped 2 days ago due to diarrhea. hospital course: Patient was admitted for syncope likely due to orthostatic hypotension, no events on telemetry. Was continued on amlodipine but lisinopril has been discontinued. Orthostatics no longer present. For subacute iron-deficiency anemia was seen by GI given IV iron EGD was unremarkable, colonoscopy showed cecal ulcer nonbleeding and polyp which was removed she should follow up with Gastroenterology as outpatient. Has been restarted on Xarelto. For paroxysmal AFib restarted on Xarelto as mentioned, for CHF with low normal ejection fraction remained euvolemic. For hypothyroid was continued on levothyroxine. Patient is feeling better will be discharged home. Time Attestation Discharge Coordination Time (in mins): 33 Quality: Safe Use of Opioids Does Pt have an Active Cancer Diagnosis on the Problem List?: No Quality: Stroke Does the patient have a stroke diagnosis?: No Physical Exam Exam: Exam: General: AO X 3, no acute distress Resp: CTA bilateral, no accessory muscles used CVS: S1,S2,RRR, murmur GI: soft, non tender, non distended Neuro: motor grossly intact, alert Psych: appropriate affect, appropriate insight Vital Signs: Vital Signs: Last Vital Signs Temp 98.7 F 09/10/24 08:00 Pulse 78 09/10/24 08:40 Resp 18 09/10/24 08:00 BP 133/58 L 09/10/24 08:40 Pulse Ox 95 09/10/24 08:00 O2 Del Method Nasal Cannula 09/10/24 08:00 BMI result Body Mass Index 29.1 DS: Data Data Completed and Pending Completed studies during hospitalization [Text1]: Procedures Insertion of Pacemaker Lead into Right Atrium, Percutaneous Approach (08/20/21) Insertion of Pacemaker Lead into Right Ventricle, Percutaneous Approach (08/20/21) Insertion of Pacemaker, Dual Chamber into Chest Subcutaneous Tissue and Fascia, Open Approach (08/20/21) Pending studies at discharge: Pending at discharge 09/09/24 11:50 Surgical [PTH] Routine Labs on day of discharge: Laboratory Results - last 24 hr 09/10/24 05:54 WBC 8.0 RBC 2.66 L Hgb 8.9 L Hct 26.7 L MCV 100.4 H MCH 33.5 H MCHC 33.3 RDW 13.4 Plt Count 334 MPV 11.1 Absolute Nucleated RBC 0.000 Nucleated RBC % (auto) 0.0 Sodium 145 Potassium 3.9 Chloride 110 H Carbon Dioxide 27 Anion Gap 12 BUN 12 Creatinine 1.36 Estim Creat Clear Calc 24.8 Estimated GFR 37 Random Glucose 90 Calcium 8.1 L Magnesium 1.8 Discharge Plan Discharge Anticipated Discharge Date/Time: 09/10/24 09:41 Patient Disposition: Home, Self-Care Discharge Diagnosis: syncope Referrals: Miya Drake, INSTRUCTOR OF NURSING [Primary Care Provider, Internal Medicine] - 1 Week Discharge Medications: New omeprazole 40 mg Capsule,Delayed Release(Dr/Ec) 40 mg PO DAILY@0630 Qty: 90 0RF Continued amlodipine 5 mg tablet 5 mg PO DAILY Qty: 90 3RF cyanocobalamin (vitamin B-12) 1,000 mcg tablet 1 tab PO DAILY folic acid 1 mg tablet 1 tab PO DAILY ferrous gluconate 324 mg (38 mg iron) tablet 1 tab PO DAILY calcium 600 mg Capsule 600 mg PO DAILY levothyroxine 125 mcg tablet 125 mcg PO DAILY@0600 cholecalciferol (vitamin D3) 50 mcg (2,000 unit) capsule 50 mcg PO DAILY estradiol 0.5 mg tablet 0.5 mg PO DAILY Qty: 90 1RF rivaroxaban 20 mg tablet 20 mg PO DAILY Qty: 90 1RF amiodarone 200 mg tablet 200 mg PO DAILY Qty: 90 3RF Discontinued lisinopril 20 mg tablet 20 mg PO BID Qty: 180 1RF Discharge Orders: Discharge Order (Routine); Ordered 09/10/24 Ordered By: Cali Oh Diet: Advance to usual diet Activity on Discharge: As tolerated Stand Alone Forms: Patient Portal Discharge page Print Language: Ugandan Care Plan Goals: Recovery Health Concerns: GI bleed, syncope Plan of Treatment: Stop lisinopril, start PPI, follow up with Gastroenterology monitor for bleeding okay to restart Xarelto Assessment: See above
--- NOTE | 2024-09-10 09:57 | HO.POSTANES ---
Post Anesthesia Evaluation Post Anesthesia Evaluation Date of Service: 09/10/24 Vital Signs: Vital Signs Temp Pulse Resp BP Pulse Ox O2 Del Method 09/10/24 08:40 78 133/58 L 09/10/24 08:35 62 142/61 H 09/10/24 08:30 86 125/59 L 09/10/24 08:00 98.7 F 86 18 155/68 H 95 Nasal Cannula 09/10/24 03:56 97.5 F 77 20 136/56 L 96 Room Air 09/10/24 00:45 69 158/68 H 09/10/24 00:25 98.0 F 66 20 120/50 L 96 Room Air Anesthesia: TIVA Mental Status: Awake Pain Control: Satisfactory Nausea/Vomiting: None Hydration: Adequate Anesthesia-Related Issues: No Anes. Related Issues
--- NOTE | 2024-09-10 09:59 | MHC.CM.PN ---
Patient medically cleared for dc home self care via private transport.
== END 2024-09-10 12:49 | disposition home or self-care (01) | DRG 378 ==
LOC: HO.ED 21:33 → HO.EDOVER 09-07 01:56 → HO.IMC 09-07 07:15
PROVIDERS: Emergency Medicine; Internal Medicine Gastroenterology; Admitting Provider Physician Assistant; Emergency Provider Emergency Medicine; PCP Nurse Practitioner Family; Visit Provider Internal Medicine
PROC: 0DB98ZX Excision of Duodenum, Via Natural or Artificial Opening Endoscopic, Diagnostic (ICD-10-PCS; principal; 2024-09-09 12:50)
DX: K55.21 Angiodysplasia of colon with hemorrhage (principal); I13.0 Hypertensive heart and chronic kidney disease with heart failure and stage 1 through stage 4 chronic kidney disease, or unspecified chronic kidney disease; I50.22 Chronic systolic (congestive) heart failure; K57.31 Diverticulosis of large intestine without perforation or abscess with bleeding; E03.9 Hypothyroidism, unspecified; N18.31 Chronic kidney disease, stage 3a; K62.1 Rectal polyp; K44.9 Diaphragmatic hernia without obstruction or gangrene; D50.0 Iron deficiency anemia secondary to blood loss (chronic); I48.0 Paroxysmal atrial fibrillation; Z95.0 Presence of cardiac pacemaker; Z79.01 Long term (current) use of anticoagulants; Z79.890 Hormone replacement therapy; Z79.899 Other long term (current) drug therapy
CPT/HCPCS: 36415; 70450; 71045; 72125; 74178; 80048; 80053; 82272; 82728; 83540; 83605; 83735; 84484; 85025; 85027; 85610; 88305; 93005; 99285; J0131; J2704; J2916; J7120; Q9967

== ENCOUNTER → 2024-09-06 15:50 | Outpatient (BNV) | payer MEDICARE, MEDICAID, SELFPAY | PROVIDERS: Emergency Provider Emergency Medicine; PCP Nurse Practitioner Family; Visit Provider Radiology Diagnostic Radiology | DX: M50.222 Other cervical disc displacement at C5-C6 level (principal); S00.03XA Contusion of scalp, initial encounter; R53.1 Weakness | CPT/HCPCS: 70450; 71045; 72125; 74178 ==

== ENCOUNTER 2024-09-06 22:54 | Outpatient (BNV) | payer MEDICARE, MEDICAID, SELFPAY | END 2024-09-07 07:03 | PROVIDERS: Admitting Provider Physician Assistant; Emergency Provider Emergency Medicine; PCP Nurse Practitioner Family; Visit Provider Internal Medicine Cardiovascular Disease | DX: I25.2 Old myocardial infarction (principal); I44.0 Atrioventricular block, first degree | CPT/HCPCS: 93010 ==

== ENCOUNTER → 2024-09-06 22:54 | Outpatient (BNV) | payer MEDICARE, MEDICAID, SELFPAY | PROVIDERS: Admitting Provider Physician Assistant; Emergency Provider Emergency Medicine; PCP Nurse Practitioner Family; Visit Provider Internal Medicine Cardiovascular Disease | DX: I48.0 Paroxysmal atrial fibrillation (principal); R55 Syncope and collapse; Z95.0 Presence of cardiac pacemaker | CPT/HCPCS: 93010; 99222 ==

== ENCOUNTER → 2024-09-06 22:54 | Outpatient (BNV) | payer MEDICARE, MEDICAID, SELFPAY | PROVIDERS: Admitting Provider Physician Assistant; Emergency Provider Emergency Medicine; PCP Nurse Practitioner Family; Visit Provider Internal Medicine | DX: I48.0 Paroxysmal atrial fibrillation (principal) | CPT/HCPCS: 99223; 99232; 99233; 99239 ==

== ENCOUNTER 2024-10-11 14:18 | Outpatient (AMB) | payer MEDICARE, MEDICAID, SELFPAY ==
--- OUTSIDE RECORDS SUMMARY | 2024-10-06 23:59 | XMS_ITS | Continuity of Care Document ---
Author Organization [facility] Address [address] [place] [address]- Care Team Providers Care Grapple Crew Leader Name Role Phone Vidal MORA, Miya Seharer Primary Care Physician Encounter [facility] Date(s): 09/29/24 - 10/06/24 [facility] [address] [place] [address]- Encounter Diagnosis History of GI bleed(Discharge Diagnosis) - 09/29/24 Gastric ulcer(Discharge Diagnosis) - 09/29/24 Atrial fibrillation, chronic(Discharge Diagnosis) - 09/29/24 Hypothyroid(Discharge Diagnosis) - 09/29/24 Blood loss anemia(Discharge Diagnosis) - 09/29/24 Hypertension(Discharge Diagnosis) - 09/29/24 Heart failure with reduced ejection fraction (HFrEF)(Discharge Diagnosis) - 09/30/24 Pacemaker(Discharge Diagnosis) - 09/30/24 Attending Physician: Miya Drake NP Encounter Type: Office Visit Allergies, Adverse Reactions, Alerts No Known Allergies Immunizations Given and Recorded Vaccine Date Status Refusal Reason SARS-CoV-2(COVID-19)mRNA-LNP vac([id number]) 12/04/23 Recorded influenza virus vaccine, inactivated 11/21/22 Monroe rded influenza virus vaccine, inactivated 11/13/20 Monroe rded influenza virus vaccine, inactivated 11/24/19 [place] rded SARS-CoV-2(COVID-19)mRNA-LNP vac([id number]) 11/21/22 Recorded [id number] 12y+ bivalent booster vax 12/11/21 Recorded SARS-CoV-2 mRNA ([id number]) vax 06/24/21 Recorded SARS-CoV-2 (COVID-19) mRNA BNT-162b2 vac 12/06/20 Recorded SARS-CoV-2 (COVID-19) mRNA BNT-162b2 vac 04/06/20 Recorded SARS-CoV-2 (COVID-19) mRNA BNT-162b2 vac 03/16/20 Recorded tetanus-diphtheria toxoids (Td) 03/25/16 Recorded Medications amiodarone 200 mg oral tablet 200 mg, 1, tablet, By Mouth, Daily, # 90 tablet, Refills 0, Maintenance, 08/16/24 11:21:00 AM EDT, Partial fill upon patient request if the prescription is for a schedule II opioid drug. Start Date: 08/16/24 Status: Ordered Medication Dispense Status: Completed Quantity: 90.0 Unit: tablet Total Allowed Fills: 1 Fills Dispensed: 0 amLODIPine 5 mg oral tablet 1 tablet = 5 mg, By Mouth, Daily, # 90 tablet, 0 Refills, Maintenance, 08/16/24 11:21:00 AM EDT, Tablet, Partial fill upon patient request if the prescription is for a schedule II opioid drug. Start Date: 08/16/24 Status: Ordered Medication Dispense Status: Completed Quantity: 90.0 Unit: tablet Total Allowed Fills: 1 Fills Dispensed: 0 ferrous gluconate 324 mg oral tablet 1 tablet = 324 mg, By Mouth, Daily, # 100 tablet, 0 Refills, Maintenance, 08/16/24 11:24:00 AM EDT, Tablet, Partial fill upon patient request if the prescription is for a schedule II opioid drug. Start Date: 08/16/24 Status: Ordered Medication Dispense Status: Completed Quantity: 100.0 Unit: tablet Total Allowed Fills: 1 Fills Dispensed: 0 folic acid 1 mg oral tablet 1 mg, 1, tablet, By Mouth, Daily, # 90 tablet, Refills 0, Maintenance, 08/16/24 11:23:00 AM EDT, Partial fill upon patient request if the prescription is for a schedule II opioid drug. Start Date: 08/16/24 Status: Ordered Medication Dispense Status: Completed Quantity: 90.0 Unit: tablet Total Allowed Fills: 1 Fills Dispensed: 0 levothyroxine 0.1 mg oral tablet 1 tablet = 100 mcg, By Mouth, Daily, # 90 tablet, 0 Refills, Maintenance, 09/30/24 2:42:00 PM EDT, Tablet, [facility], Partial fill upon patient request if the prescription is for a schedule II opioid drug., 149, cm, 09/29/24 9:01:00 EDT, Height Start Date: 09/30/24 Status: Ordered Medication Dispense Status: Completed Quantity: 90.0 Unit: tablet Total Allowed Fills: 1 Fills Dispensed: 0 Indications: Hypothyroidism, unspecified; omeprazole 40 mg oral enteric coated capsule 1 capsule = 40 mg, By Mouth, Daily, 0 Refills, Maintenance, 09/29/24 9:05:00 AM EDT, Partial fill upon patient request if the prescription is for a schedule II opioid drug. Start Date: 09/29/24 Status: Ordered Medication Dispense Status: Completed Total Allowed Fills: 1 Fills Dispensed: 0 Vitamin B-12 1000 mcg oral tablet 1,000 mcg, 1, tablet, By Mouth, Daily, # 90 tablet, Refills 0, Maintenance, 08/16/24 11:23:00 AM EDT,Partial fill upon patient request if the prescription is for a schedule II opioid drug. Start Date: 08/16/24 Status: Ordered Medication Dispense Status: Completed Quantity: 90.0 Unit: tablet Total Allowed Fills: 1 Fills Dispensed: 0 Vitamin D3 50 mcg (2000 intl units) oral tablet, chewable 1 tablet = 50 mcg, By Mouth, Daily, # 30 each, 0 Refills, Maintenance, 08/16/24 11:25:00 AM EDT, ChewTablet, Partial fill upon patient request if the prescription is for a schedule II opioid drug. Start Date: 08/16/24 Status: Ordered Medication Dispense Status: Completed Quantity: 30.0 Unit: each Total Allowed Fills: 1 Fills Dispensed: 0 Xarelto 20 mg oral tablet 1 tablet = 20 mg, By Mouth, Daily before dinner, 0 Refills, Maintenance, 08/16/24 11:22:00 AM EDT, Partial fill upon patient request if the prescription is for a schedule II opioid drug. Start Date: 08/16/24 Status: Ordered Medication Dispense Status: Completed Total Allowed Fills: 1 Fills Dispensed: 0 Problem List Condition Confirmation Course Effective Dates Status Health St atus Informant Anemia Confirmed Active Pacemaker Confirmed Active Atrial fibrillation, chronic Confirmed Active History of hysterectomy Confirmed Active Heart failure with reduced ejection fraction (HFrEF) Confirmed Active History of basal cell carcinoma Confirmed Active Hypertension Confirmed Active Hypothyroid Confirmed Active Diagnosis Diagnosis Type Effective Dates Health Status Clinical Service Informant History of GI bleed Discharge Diagnosis 09/29/24 Gastric ulcer Discharge Diagnosis 09/29/24 Atrial fibrillation, chronic Discharge Diagnosis 09/29/24 Hypothyroid Discharge Diagnosis 09/29/24 Blood loss anemia Discharge Diagnosis 09/29/24 Hypertension Discharge Diagnosis 09/29/24 Heart failure with reduced ejection fraction (HFrEF) Discharge Diagnosis 09/30/24 Pacemaker Discharge Diagnosis 09/30/24 Social History Social History Type Response Smoking Status Never (less than 100 in lifetime) entered on: 08/16/24 Sex Sex Representation Female (finding) Note * Manuel Mukherjee: PERFORM Event Display: Patient Education/Instruction Authored Date: [id number] Ambulatory Adult Visit Summary [address] [address] Name: DEIDRA OVIEDO : 1940?? Visit: 09/29/2024 08:47?? Ambulatory Visit Instructions ?? Your Care Team Primary Care Provider Vidal MORA, Miya Shearer? This Visit Provider Miya Drake NP Your Diagnosis History of GI bleed Gastric ulcer Atrial fibrillation, chronic Hypothyroid Vitals Signs Pulse Rate: 87 bpm Height: 149 cm Systolic Blood Pressure: 133 mm Hg Weight: 64.1 kg Diastolic Blood Pressure: 73 mm Hg Body Mass Index:??28.87 kg/m2??High Oxygen Saturation: 99 % Body surface area: 1.63 What to do next Follow-Up Appointments Follow up Appointment - Ordered?-- 3 months, 09/29/24 10:10:00 EDT Future Orders CBC w/ Differential - Routine, Once, 09/29/24 10:01:00 EDT, Order for Today, [facility], Blood?? Ferritin - Routine, Once, 09/29/24 10:01:00 EDT, Order for Today, [facility], Blood?? TSH Rfx on Abnormal to Free T4 - Routine, Once, 09/29/24 10:01:00 EDT, Order for Today, [facility], Blood?? Comprehensive Metabolic Panel - Routine, Once, 09/29/24 10:01:00 EDT, Order for Today, [facility], Blood?? Medications The list below reflects the information in our records and provided by you today along with any changes made during this visit. Please continue your medications until treatment is completed or stopped by your provider. If this is different from the information you have or there are other questions,please contact the prescribing provider. What How Much When Instructions Unchanged amiODARONE (amiodarone 200 mg oral tablet) 1 tab(s) Oral Daily Unchanged Amlodipine (amLODIPine 5 mg oral tablet) 1 tab(s) Oral Daily Unchanged Cholecalciferol (Vitamin D3 50 mcg (2000 intl units) oral tablet, chewable) 1 tab(s) Oral Daily Unchanged Cyanocobalamin (Vitamin B-12 1000 mcg oral tablet) 1 tab(s) Oral Daily Unchanged Ferrous Gluconate (ferrous gluconate 324 mg oral tablet) 1 tab(s) Oral Daily Unchanged Folic Acid (folic acid 1 mg oral tablet) 1 tab(s) Oral Daily Unchanged Levothyroxine (levothyroxine 125 mcg (0.125 mg) oral tablet) 1 tab(s) Oral Daily Unchanged Omeprazole (omeprazole 40 mg oral enteric coated capsule) 1 capsule Oral Daily Unchanged rivaroxaban (Xarelto 20 mg oral tablet) 1 tab(s) Oral Daily before dinner ?? What How Much When Comments Stop Taking Estradiol (estradiol 0.5 mg oral tablet) 1 tab(s) Oral Daily Stop Taking Lisinopril (lisinopril 20 mg oral tablet) 1 tab(s) Oral Daily Test Performed Below is a partial list of the tests performed during your Visit. You may have had other tests and procedures not included in this list. Please discuss all test results with your provider. CBC w/ Differential?-- Results Pending -- Comprehensive Metabolic Panel?-- Results Pending -- Ferritin?-- Results Pending -- TSH Rfx on Abnormal to Free T4?-- Results Pending -- Medications and Immunizations Administered Medications Given During Visit No medications given during this visit.?? Allergies (NKA means No Known Allergies) NKA Common Emergency Awareness Tips IS IT A STROKE? Act FAST and Check for these signs: FACE Does the face look uneven? ARM Does one arm drift down? SPEECH Does their speech sound strange? TIME Call 9-1-1 at any sign of stroke ?? Heart Attack Signs Chest discomfort: Most heart attacks involve discomfort in the center of the chest and lasts more than a few minutes, or goes away and comes back. It can feel like uncomfortable pressure, squeezing, fullness or pain. Discomfort in upper body: Symptoms can include pain or discomfort in one or both arms, back, neck, jaw or stomach. Shortness of breath: With or without discomfort. Other signs: Breaking out in a cold sweat, nausea, or lightheaded. Remember, MINUTES DO MATTER. If you experience any of these heart attack warning signs, call to get immediate medical attention! ?? Smoking can increase your chances of developing chronic health problems and can cause harmful effects to other family members in your house. If you smoke, you are strongly encouraged to quit. Please call [facility] at [phone] or [phone] ([phone]) or log in to [email or web address] for referrals to smoking cessation programs. ?? The National Suicide Prevention Hotline is available 01/09 if you or someone you know needs to find a reason to keep living. By calling 7-985-536-[employer] (6941) you'll be connected to a skilled, trained counselor at a crisis center in your area. [facility] Portal You can view and manage your care through the patient portal or by using a health care meliton of your choosing. [employer] is a website that allows you to securely view your medical information including your hospital discharge summary, office visit summaries, medications and follow-up visits. You can also request appointments, renew medications, and request access to your medical information using a health care meliton of your choosing, or just ask a question. You can enroll at [email or web address] or register during your next office visit. [facility], in keeping with [facility] guidance, no longer requires face masks for staff, patientsor visitors in most situations. Similiar to time spent indoors at other locations, there is the chance that you were exposed to repiratory viruses during your time with us (such as flu or COVID-19). If you develop symptoms concerning for a viral respiratory infection, please seek testing (and treatment if indicated) from your medical provider or home test kit. ?? Disclaimer: The information provided is of a general nature and is intended to be used in conjunction with the recommendations and advice of your health care practitioner. Every effort has been made to ensure that the information provided is accurate and complete at the time it is provided to you however, as your needs change, or, as new information becomes available, different or additional instructions may be required. ?? If you have questions, please consult with your primary care provider or pharmacist, as appropriate. This information is not intended to serve as substitution for assessment and evaluation by a qualified health care provider. If you do not have a primary care provider, you may find a [facility] provider by calling [facility] at [phone]. Patient Care team information Care Team Personnel Name: Vidal MORA, Miya Shearer Position: [facility] PCO Associate Professional Member Role: PCP Address: [address] [place], [place] [address] Telecom: Care Team Related Persons Name: DONNA OVIEDO Insurance Providers Guarantor name: Health Plan Information #: 1 Payer: MEDICARE B Payer Identifier: Member Number: [id number] Group Number: Subscriber Identifier: [id number] Relationship to Subscriber: self Coverage Type: NA Coverage Verification Date: Telecom: Address: [facility] Information #: 2 Payer: [facility] Payer Identifier: Member Number: [id number] Group Number: Subscriber Identifier: [id number] Relationship to Subscriber: self Coverage Type: MEDICAID Coverage Verification Date: Telecom: Address:
--- NOTE | 2024-10-11 14:35 | A.OFFVIS_ITS ---
Vital Signs 10/11/24 14:37 Height 4 ft 11 in Weight 138 lb 14.259 oz BMI 28.0 BP 110/72 Blood Pressure Location Lt brachial Position Sitting Pulse 77 Intake Visit Reasons: 6m follow up w pacer check Allergies No Known Allergies (No Known Allergies*) Allergy (Verified 09/06/24 15:35) Medication List - Last Reconciled 10/11/24 by Hamilton Ratliff MD amiodarone 200 mg PO DAILY amlodipine 5 mg PO DAILY calcium 600 mg PO DAILY cholecalciferol (vitamin D3) 50 mcg PO DAILY cyanocobalamin (vitamin B-12) 1 tab PO DAILY estradiol 0.5 mg PO DAILY ferrous gluconate 1 tab PO DAILY folic acid 1 tab PO DAILY levothyroxine 125 mcg PO DAILY@0600 omeprazole 40 mg PO DAILY@0630 rivaroxaban 20 mg PO DAILY HPI Comments Details: Jessica comes for follow-up, after recent hospitalization August with syncopal episode. She was then subsequently found to have significant anemia with a hemoglobin dropping from baseline of 14.1-9.3. 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 Patient did not have any obvious cardiac etiology. Creatinine bumped up from 1-1.3. She did not notice any obvious bleeding episodes or dog stools. She says however this could be because she has been on iron therapy for a long time. She continues take iron therapy and about 2 weeks ago had some blood work done through your office, do not have the copy of the results but was told that her hemoglobin was improved. She has not had any recurrent syncopal episodes. Denies any orthostatic lightheadedness. Denies any prolonged palpitation irregular heartbeat. [facility] Medical History Osteopenia (~2002) History of acoustic neuroma Cardiac pacemaker in situ (~08/2021) Skull asymmetry Eye abnormalities Syncope (~08/2021) HTN (hypertension) (HFpEF) heart failure with preserved ejection fraction Paroxysmal atrial fibrillation (~11/2014) Epistaxis Hypothyroidism Basal cell carcinoma Surgical History History of cardiac pacemaker (~2021) History of ear surgery History of cholecystectomy (~2014) History of hysterectomy History of cardioversion Family History Mother No problems noted. Father Stroke Other No family history of congenital heart disease Social History Household Members: None Household Members Other:: lives alone Housing: House Are you a primary nurse behavioral health care to a significant other at home: Yes (son w/ disability- lives [facility]) Do you presently have visiting nurse or other home services: No Alcohol intake: never Comment: will f/u re: falls after this acute admission Patient Tobacco Use Status: Never used Tobacco e-Cigarette/Vaping Use: Never Used service: No Current occupational status: retired Cognitive needs: No Hearing needs: No Vision needs: Yes (rx glasses) Review of Systems Const Denies chills, Denies fatigue, Denies fever(s), Denies frequent falls, Denies weakness, Denies weight gain and Denies weight loss ENT Denies dizziness Card Denies chest pain, Denies leg edema, Denies lightheadedness, Denies palpitations, Denies dyspnea, Denies dyspnea on exertion, Denies orthopnea and Denies other (loss of consciousness) Resp Denies cough, Denies dyspnea and Denies dyspnea on exertion GI Denies hematochezia and Denies change in stool character Musc Denies abnormal gait, Denies muscle weakness, Denies numbness, Denies radiating pain into limb and Denies tingling Neuro Denies abnormal gait, Denies dizziness, Denies frequent falls, Denies numbness, Denies tingling and Denies weakness Endo Denies fatigue and Denies palpitations Physical Exam Vital Signs: Last Vital Signs Pulse 77 10/11/24 14:37 BP 110/72 10/11/24 14:37 BMI result Body Mass Index 28.0 Const General: cooperative, comfortable, alert, awake and well groomed Nutritional Appearance: obese Orientation/consciousness: patient oriented x3 Limitations: no limitations Neck Neck: Yes trachea midline, Yes supple and Yes no JVD Resp Effort & Inspection: normal respiratory effort Auscultation: clear to auscultation bilaterally and diminished lung sounds Cardio Jugular venous distension: no JVD Palpation: normal PMI Rate: regular rate Rhythm: regular rhythm Heart sounds: S1 normal heart sound present and S2 normal heart sound present GI Percussion: Yes normal to percussion Skin General skin exam: no rashes or lesions noted and ecchymosis Neuro General: patient oriented x3 and no focal motor deficits Extrem General: Yes no clubbing, cyanosis or edema Psych Appearance: grossly normal Office Procedures EKG Details: EKG shows atrially paced with prolonged AV conduction with left axis deviation with poor R-wave progression 93122-[id number], Complete Assessment & Plan Assessment & Plan (1) Paroxysmal atrial fibrillation: Onset Date: ~11/2014 Code(s): I48.0 - Paroxysmal atrial fibrillation Category: Medical Plan: Paroxysmal atrial fibrillation with recent hospitalization with syncope and significant anemia with a significant drop in his hematocrit. No obvious source for bleeding found. This in the patient who is on chronic anticoagulation to prevent thromboembolic complication. I think she will most benefit from Watchman device. This will lead to reduction in future bleeding episodes. She is agreeable to the same. She has done well with rhythm control approach will continue amiodarone therapy for rhythm management. Continue check for annually for amiodarone toxicity. She understands management well in his agreeable. (2) Cardiac pacemaker in situ: Onset Date: ~08/2021 Comment: (Medtronic DCPP placed for marked sinus bradycardia and syncope, 08/21/2021) Code(s): Z95.0 - Presence of cardiac pacemaker Category: Medical Plan: Cardiac pacemaker in-situ for significant symptomatic sinus bradycardia secondary to sick sinus syndrome. Has done well with pacemaker placement. Pacemaker is working well. Will continue monitor remotely and follow up in the clinic in 6 months time. (3) HTN (hypertension): Code(s): I10 - Essential (primary) hypertension Category: Medical Plan: Hypertension which is currently well optimized. Advised to monitor blood pressure at home maintain a log. Goal blood pressure less than 130/84. Continue current therapy. Importance of good blood pressure control was discussed. Low-salt diet was discussed. Will follow up in the clinic in 6 months time, sooner PRN. Thank you for allowing me to partake in her care Coding Level of Care Code Est Pt Level 4 (67084) Complex EM visit Add On G2211 Diagnoses Paroxysmal atrial fibrillation I48.0 Cardiac pacemaker in situ Z95.0 HTN (hypertension) I10 CPT Codes EKG - CPT: 77283-[id number], Complete ([id number])
[2024-10-11 14:37] VITALS: BP 110/72; PULSE 77; BMI 28.0
== END 2024-10-11 15:17 | disposition home or self-care (01) ==
LOC: HO.HCS 14:19
PROVIDERS: PCP Internal Medicine; Visit Provider Internal Medicine Cardiovascular Disease
DX: I48.0 Paroxysmal atrial fibrillation (principal); Z95.0 Presence of cardiac pacemaker; I10 Essential (primary) hypertension
CPT/HCPCS: 93010; 99214; G2211

== ENCOUNTER → 2024-10-11 | Outpatient (BNVA) | payer MEDICARE, MEDICAID, SELFPAY | PROVIDERS: PCP Internal Medicine; Visit Provider Internal Medicine Cardiovascular Disease | DX: I48.0 Paroxysmal atrial fibrillation (principal); Z95.0 Presence of cardiac pacemaker; I10 Essential (primary) hypertension | CPT/HCPCS: 93005; 99212 ==

== ENCOUNTER → 2024-10-13 23:59 | Outpatient (BNV) | payer MEDICARE, MEDICAID, SELFPAY ==
--- NOTE | 2024-10-20 14:36 | MHC.OFFVIS ---
Intake Visit Reasons: Remote Device check- Medtronic Allergies No Known Allergies (No Known Allergies*) Allergy (Verified 09/06/24 15:35) [facility] Medical History Osteopenia (~2002) History of acoustic neuroma Cardiac pacemaker in situ (~08/2021) Skull asymmetry Eye abnormalities Syncope (~08/2021) HTN (hypertension) (HFpEF) heart failure with preserved ejection fraction Paroxysmal atrial fibrillation (~11/2014) Epistaxis Hypothyroidism Basal cell carcinoma Surgical History History of cardiac pacemaker (~2021) History of ear surgery History of cholecystectomy (~2014) History of hysterectomy History of cardioversion Family History Mother No problems noted. Father Stroke Other No family history of congenital heart disease Social History Household Members: None Household Members Other:: lives alone Housing: House Are you a primary health care facilities inspector to a significant other at home: Yes (son w/ disability- lives [facility]) Do you presently have visiting nurse or other home services: No Alcohol intake: never Comment: will f/u re: falls after this acute admission Patient Tobacco Use Status: Never used Tobacco e-Cigarette/Vaping Use: Never Used service: No Current occupational status: retired Cognitive needs: No Hearing needs: No Vision needs: Yes (rx glasses) Office Procedures Cardiac Device Check Cardiac Device Check Details: Remote pacemaker report generated 10/13/2024. Pacemaker function is adequate [id number] Cardiac Device Interrogation, pacemaker Procedure code (CPT) selection complete Assessment & Plan Assessment & Plan (1) Cardiac pacemaker in situ: Onset Date: ~08/2021 Comment: (Medtronic DCPP placed for marked sinus bradycardia and syncope, 08/21/2021) Code(s): Z95.0 - Presence of cardiac pacemaker Category: Medical Plan: See above Coding Level of Care Code Procedure Only Diagnoses Cardiac pacemaker in situ Z95.0 CPT Codes Cardiac Device Check - Cardiac Device 12: 75103-[id number] Cardiac Device Interrogation, pacemaker ([id number])
== END ==
PROVIDERS: PCP Nurse Practitioner Family; Visit Provider Internal Medicine Cardiovascular Disease
DX: R00.1 Bradycardia, unspecified (principal); Z95.0 Presence of cardiac pacemaker
CPT/HCPCS: 93294

== ENCOUNTER 2024-10-26 13:43 | Emergency (ER) | payer MEDICARE, MEDICAID, SELFPAY ==
--- OUTSIDE RECORDS SUMMARY | 2023-12-03 06:34 | XMS_ITS ---
Author Organization Trevor Bailey III, MD Address [address] [place] [address] [place] [address] Care Team Providers Care Ways Operator Name Role Phone ENA GUARDADOAH Primary Care Provider Trevor Flood Unavailable [phone] REASON FOR VISIT Rx Refill Medications Medication SIG (Take, Route, Frequency, Duration) Notes Start Date End Date Status Ferrous Gluconate 324 (38 Fe) MG 1 tablet Orally Once a day for 90 days Active Encounters Encounter Location Date Provider Diagnosis Trevor Bailey III, MD [address] [place] [address] [place] [address] 12/03/2023 Trevor Bailey Plan Of Treatment Medication Medication Name Sig Start Date Stop Date Notes Ferrous Gluconate 324 (38 Fe ) MG 1 tablet Orally Once a day for 90 days Next Appt Details Provider Name:Trevor Bailey, 11/25/2024 10:00:00 AM, [address] [place] [address] [place], [address], Progress Notes * Jessica OVIEDO RDOB:1940 (83 yo F)Acc No.[id number]:12/03/2023 Patient: Jessica ROBLES :1940 A ge:83 Y S ex:Female Address: [address] [facility] [place], [address] * Refills Refill Ferrous Gluconate Tablet, 324 (38 Fe) MG, Orally, 90 Tablet, 1 tablet, Once a day, 90 days, Refills=3 * true * Date: Generated for Printi ng/Faxing/eTransmitting on: 0 10/26/2024 06:54 PM EDT
--- OUTSIDE RECORDS SUMMARY | 2024-03-31 08:45 | XMS_ITS ---
Author Organization Trevor Bailey III, MD Address [address] [place] [address] Care Team Providers Care Administrative Appeals Tribunal Member Name Role Phone ARCELIA GUARDADO Primary Care Provider UnavailTrevor Oliver Unavailable [phone] REASON FOR VISIT follow Up Encounters Encounter Location Date Provider Diagnosis Trevor Bailey III, MD [address] [place] [address] [place] [address] 03/31/2024 Trevor Bailey Plan Of Treatment Next Appt Details Provider Name:Trevor Bailey, 11/25/2024 10:00:00 AM, [address] [place] [address] [address], [place], [address], Progress Notes * Jessica OVIEDO RDOB:1940 (84 yo F)Acc No.[id number]:03/31/2024 Progress Notes Patient: Jessica ROBLES Provider: Nya Bailey MD :1940 A ge:83 Y S ex:Female Date:03/31/2024 Address:[address] [place] [address] [id number] Pcp:ARCELIA GUARDADO Subjective: * Chief Complaints: * 1 . follow Up. * Medical History: Objective: * Vitals: Assessment: Plan: * Treatment: * Images: * The named appointment provid er may or may not be the originator of this progress note, and it is not deemed complete until electronically signed by the appointment provider. Sign off status: Pending * Provider: Nya Bailey MD Date: 03/31/2024 Generated for Jeff naranjo/Keith/Markitting on: 0 10/26/2024 06:54 PM EDT
--- OUTSIDE RECORDS SUMMARY | 2024-05-26 06:45 | XMS_ITS ---
Author Organization Trevor Bailey III, MD Address [address] [place] [address] Care Team Providers Care Chocolate Molder Name Role Phone ARCELIA GUARDADO Primary Care Provider Trevor Flood Unavailable [phone] Allergies Allergen (clinical drug ingredient) Drug/Non Drug [...] Date Provider Diagnosis Trevor Bailey III, MD [address] [place] [address] DR [place], [place] [phone] 05/26/2024 Trevor Bailey Essential hypertensi on I10 [...] OV Provider Name:Trevor Dobbsrne, 11/25/2024 10:00:00 AM, [address] [place] [address] SKY MELGAR, [place], [phone], Progress Notes * Jessica OVIEDO RDOB:1940 (84 yo F)Acc No.[id number]:05/26/2024 Progress Notes Patient: Jessica ROBLES Provider: Nya Bailey MD :1940 A ge:84 Y S ex:Female Date:05/26/2024 Address:[address] [place] [address] [place], [id number] Pcp:Ras Chao MD Subjective: * Chief Complaints: [...] Surgical History: p sylvia maker placement at [facility] [place] 08/2021 * Hospitalization/Major Diagno stic Procedure: n [...] true * Provider: Nya Bailey MD Date: 05/26/2024 Generated for Jeff naranjo/Keith/Markitting on: 10/26/2024 06:53 PM EDT History and Physical Notes * [...]
--- OUTSIDE RECORDS SUMMARY | 2024-09-09 08:50 | XMS_ITS ---
Author Organization [facility] Address [address] [place] [phone] Care Team Providers Care Tailor Garment Fitter Name Role Phone NONE, NONE Primary Care Provider Carlos Manuel Ruiz Jr REASON FOR VISIT fe def anemia Encounters Encounter Location Date Provider Diagnosis [facility] [place] Inpatient [address] [place], [place] [phone] 09/09/2024 Carlos Manuel Moya Jr Plan Of Treatment No Information Progress Notes * DEIDRA OVIEDO RDOB:1940 (84 yo F)Acc No.[id number]:09/09/2024 EGD and COL/MAC Patient: DEIDRA ROBLES Provider: Santos Moya MD :1940 A ge:84 Y S ex:Female Date:09/09/2024 Address:[address] [place], [place] [id number] Subjective: * Chief Complaints: * 1 . [...] 0 09/09/2024 Generated for Kauri marcella/Keith/eTransmitting on: 10/26/2024 06:54 PM EDT
--- OUTSIDE RECORDS SUMMARY | 2024-10-06 13:00 | XMS_ITS ---
Author Organization Trevor Bailey III, MD Address [address] [place] [address] [place] [address] Care Team Providers Care Circulating Process Inspector Name Role Phone ARCELIA GUARDADO Primary Care Provider UnavailTrevor Oliver Unavailable [phone] REASON FOR VISIT follow up Hospital Follow up Encounters Encounter Location Date Provider Diagnosis Trevor Bailey III, MD [address] [place] [address] [place] [address] 10/06/2024 Trevor Bailey Plan Of Treatment Next Appt Details Provider Name:Trevor Bailey, 11/25/2024 10:00:00 AM, [address] [place] [address] [place] [place], [phone], Progress Notes * Jessica OVIEDO RDOB:1940 (84 yo F)Acc No.[id number]:10/06/2024 Patient: Jessica ROBLES Provider: Nya Bailey MD :1940 A ge:84 Y S ex:Female Date:10/06/2024 Address:[address] [place] [address] [id number] Pcp:ARCELIA GUARDADO Subjective: * Chief Complaints: * [...] 0 10/06/2024 Generated for Jeff naranjo/Keith/Megha on: 0 10/26/2024 06:53 PM EDT
--- OUTSIDE RECORDS SUMMARY | 2024-10-26 09:24 | XMS_ITS ---
Author Organization Trevor Bailey III, MD Address [address] [place] [address] Care Team Providers Care Telephone Operators Supervisor Name Role Phone ARCELIA GUARDADO Primary Care Provider Trevor Flood Unavailable [phone] REASON FOR VISIT Concern Encounters Encounter Location Date Provider Diagnosis Trevor Bailey III, MD [address] [place] [address] [place] [address] 10/26/2024 Trevor Bailey Plan Of Treatment Next Appt Details Provider Name:Trevor Bailey, 11/25/2024 10:00:00 AM, [address] [place] [address] [place], [address], Progress Notes * OVIEDOJessica RDOB:1940 (84 yo F)Acc No.[id number]:10/26/2024 Patient: Jessica ROBLES :1940 A ge:84 Y S ex:Female Address:[address] [place] [address] [facility] [place], [address] * true * Date: Generated for Printi ng/Faxing/eTransmitting on: 0 10/26/2024 06:54 PM EDT
[2024-10-26 14:30] VITALS: BP 126/59; PULSE 79; RESP 16; TEMP 36.6; O2SAT 97; BMI 28.3
--- NOTE | 2024-10-26 14:31 | ED.GENADULT ---
HPI - General Adult General Chief complaint: Weakness Stated complaint: blood loss? 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 Bailey due to anemia concerns. Patient endorses mild SOB while walking but states this is her baseline, with no change in quality or intensity. Denies chest pain, abdominal pain, nausea, vomiting, headache, visual changes, light headedness MD complaint: weakness Related Data Home Medications ?Medication ?Instructions ?Recorded ?Confirmed calcium 600 mg capsule 600 mg PO DAILY 08/18/21 10/11/24 cyanocobalamin (vitamin B-12) 1 tab PO DAILY 08/18/21 10/11/24 1,000 mcg tablet ferrous gluconate 324 mg (38 mg 1 tab PO DAILY 08/18/21 10/11/24 iron) tablet folic acid 1 mg tablet 1 tab PO DAILY 08/18/21 10/11/24 cholecalciferol (vitamin D3) 50 50 mcg PO DAILY 04/15/22 10/11/24 mcg (2,000 unit) capsule levothyroxine 125 mcg tablet 125 mcg PO DAILY@0600 09/07/24 10/11/24 Previous Rx's ?Medication ?Instructions ?Recorded amiodarone 200 mg tablet 200 mg PO DAILY #90 tabs 04/28/24 estradiol 0.5 mg tablet 0.5 mg PO DAILY #90 tabs 06/06/24 amlodipine 5 mg tablet 5 mg PO DAILY #90 tabs 07/20/24 omeprazole 40 mg capsule,delayed 40 mg PO DAILY@0630 #90 caps 09/10/24 release rivaroxaban 20 mg tablet 20 mg PO DAILY #90 tabs 10/20/24 Allergies Allergy/AdvReac Type Severity Reaction Status Date / Time No Known Allergies (No Known Allergy Verified 10/26/24 14:31 Allergies*) Review of Systems Review of Systems: CONST: Negative for fever, body aches and chills. HENT: Negative for neck pain/stiffness, headache, congestion, sore throat, swelling. EYES: Negative for discharge/pain or vision changes. RESP: Negative for cough/hemoptysis and shortness of breath. CV: Negative chest pain, difficulty breathing, palpitations. ABD: Negative pain, nausea, vomiting. : Negative increase frequency, dysuria, blood in urine or stool. MUSC: Negative for muscle aches, edema. SKIN: Negative rash, lesions/sores. NEURO: Negative headache, dizziness. POS weakness PMFSH Past Medical History Attestation statement: The following information was validated with the patient. Source: old records reviewed and nursing notes reviewed Medical History Osteopenia (~2002) History of acoustic neuroma Cardiac pacemaker in situ (~08/2021) Skull asymmetry Eye abnormalities Syncope (~08/2021) HTN (hypertension) (HFpEF) heart failure with preserved ejection fraction Paroxysmal atrial fibrillation (~11/2014) Epistaxis Hypothyroidism Basal cell carcinoma Surgical History History of cardiac pacemaker (~2021) History of ear surgery History of cholecystectomy (~2014) History of hysterectomy History of cardioversion Family History Family History Mother No problems noted. Father Stroke Other No family history of congenital heart disease Social History Social History Household Members: None Household Members Other:: lives alone Housing: House Are you a primary insurance healthcare representative to a significant other at home: Yes (son w/ disability- lives [facility]) Do you presently have visiting nurse or other home services: No Alcohol intake: never Comment: will f/u re: falls after this acute admission Patient Tobacco Use Status: Never used Tobacco Smoked in Last 30 Days: No e-Cigarette/Vaping Use: Never Used Use of substances other than those prescribed or required for medical reasons: No Advance Directives: No Advance Directives Information Provided: No service: No Current occupational status: retired Cognitive needs: No Hearing needs: No Vision needs: Yes (rx glasses) Physical Exam ED Vital Signs: Vital Signs - 24 hr 10/26/24 14:30 10/26/24 15:14 10/26/24 17:17 Temperature 97.9 F 97.8 F 97.6 F Pulse Rate 79 75 83 Respiratory Rate 16 15 16 Blood Pressure 126/59 L 148/43 H 156/47 H Pulse Oximetry 97 100 100 Oxygen Delivery Method Room Air Room Air Room Air 10/26/24 18:20 10/26/24 19:50 10/26/24 20:03 Temperature 97.8 F 97.8 F Pulse Rate 95 73 73 Respiratory Rate 12 16 16 Blood Pressure 152/54 H 144/48 H 144/48 H Pulse Oximetry 98 97 97 Oxygen Delivery Method Room Air Room Air Room Air BMI result Body Mass Index 28.3 GENERAL APPEARANCE: ?AxOx4, generally well-appearing, no acute distress. HEENT: ?NC, AT. MMM. EOMI, clear conjunctiva, oropharynx clear. NECK: ?Supple without lymphadenopathy.? No stiffness or restricted ROM. HEART:? Normal rate and regular rhythm, normal S1/S2, no m/r/g LUNGS:? CTAB, moving air well. No crackles or wheezes are heard. ABDOMEN: ?Soft, nontender, nondistended with good bowel sounds heard. BACK: No CVAT, no obvious deformity. EXTREMITIES: ?Without cyanosis, clubbing or edema. NEUROLOGICAL: ?Grossly nonfocal. Alert and oriented, moving all 4 extremities. Skin: ?Warm and dry without any rash. Course Course Course Narrative: RME: 84-year-old female history of anemia multiple blood transfusion and bleeding also presents to ED for feeling weak and pale for the past week. Patient is sent by primary care provider for lab results. Patient denies any bleeding in his stool. Or vomiting blood. Reevaluation(s) Reevaluation #1: Patient received in sign-out at change of shift pending urinalysis and likely disposition of discharge home. The patient's urinalysis was without signs of infection or hematuria, she is stable for discharge home at this point. I did review the patient's workup, discussed her anemia and positive stool guaiac. The patient feels comfortable with discharge, again she declines rehab consideration. 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 VS on initial observation-BP 148/43, pulse rate is 75, respiratory rate of 15, afebrile with oral temp of 97.8?, O2 saturation 100% on room air. Physical exam reveals lungs clear to auscultation bilaterally, without increased work of breathing, pursed lip breathing or use of accessory muscles, cardiac exam reveals normal rate and rhythm without murmurs/rubs/gallops, abdomen is soft, nontender, nondistended, without rigidity, lower extremities without pitting edema. Plan: Labs, UA, EKG Course EKG reveals atrial paced rhythm with prolonged AV conduction, left axis deviation without ST elevation/depression, initial troponin < 2.7, 2nd 4.2, this is WNL and negative delta change, patient without chest pain Labs without leukocytosis/leukopenia, no electrolyte abnormality, TSH WNL at 0.64, macrocytic anemia with HGB of 8.4, HCT of 26.5, no indication for transfusion at this time. Occult blood stool is positive. I discussed the case with Dr. Nam for possible admission. Patient was recently hospitalized for macrocytic anemia with normal EGD and colonoscopy revealing a nonbleeding cecal AVM, and small rectal polyp. H&H not significantly low, without significant drop since last hospitalization. We believe patient would fare better with PT eval and case management for weakness. With shared decision making with the patient, ultimately declined admission. I discussed this with patient, she does not feel like her weakness is anything profound, feels like this is her new baseline and does not want PT eval or short-term rehab stay at this time.Patient is adamant that she will be able to care for herself at home, with outpatient follow up with her primary care doctor and GI. Patient is on iron, folate and vitamin B12 supplementation. I counseled patient on strict return precautions. Patient got out of stretcher and ambulated to the bathroom without dizziness, or need for support from weakness. She is in agreement with the plan. Differential Diagnosis Differential Diagnoses: The differential diagnosis associated with the presentation includes ACS Dysrhythmia Electrolyte imbalance Anemia Admission/Observation Consideration of admission/observation: Escalation of care including admission/observation considered Lab Data MDM Lab Attestation statement: I reviewed the patient's lab results. 10/26/24 14:45 10/26/24 14:45 Labs: Lab Results 10/26/24 10/26/24 10/26/24 Range/Units 14:45 15:59 16:54 WBC 7.5 (4.8-10.8) X10*3/uL RBC 2.64 L (4.20-5.50) X10*6/uL Hgb 8.4 L (12.0-16.0) g/dl Hct 26.5 L (37.0-47.0) % MCV 100.4 H (80.0-98.0) fL MCH 31.8 (27.0-33.0) pg MCHC 31.7 (31.0-35.0) g/dl RDW 13.9 (11.0-16.0) % Plt Count 348 (160-400) X10*3/uL MPV 11.5 (9.4-12.3) fL Immature Gran % (Auto) 0.8 H (0.0-0.4) % Neut % (Auto) 76.9 H (45-73) % Lymph % (Auto) 14.1 L (20-40) % Wayne % (Auto) 6.6 (2-11) % Eos % (Auto) 1.1 (0-4) % Baso % (Auto) 0.5 (0-2) % Lymph # (Auto) 1.1 L (1.2-4.9) X10*3/uL Wayne # (Auto) 0.5 (0.1-1.2) X10*3/uL Eos # (Auto) 0.1 (0.0-0.4) X10*3/uL Baso # (Auto) 0.0 (0.0-0.2) X10*3/uL Abs Immat Gran (auto) 0.06 H (0.00-0.03) X10*3/uL Absolute Neuts (auto) 5.8 (2.0-8.3) x10*3/uL Absolute Nucleated RBC 0.000 (0.0-0.012) X10*3/uL Nucleated RBC % (auto) 0.0 (0.0-0.2) /100WBC PT 30.8 H (10.9-12.4) SEC INR 2.7 H (0.9-1.1) APTT 42.5 H (26.7-34.1) SEC Sodium 143 (135-145) mmol/L Potassium 4.0 (3.3-5.1) mmol/L Chloride 110 H (96-108) mmol/L Carbon Dioxide 28 (22-29) mmol/L Anion Gap 9 L (12-20) BUN 28 H (9-16) mg/dL Creatinine 1.12 (0.5-1.4) mg/dL Estim Creat Clear Calc 31.0 Estimated GFR 46 Random Glucose 104 (60-115) mg/dL Calcium 8.3 L (8.4-10.2) mg/dL Total Bilirubin 0.1 (0.0-1.0) mg/dL AST 19 (5-31) U/L ALT 9 (0-31) U/L Alkaline Phosphatase 97 (39-117) U/L Troponin I High Sens < 2.7 4.2 D (<3.5-17.0) ng/L B-Natriuretic Peptide 62 (<100) pg/mL Total Protein 6.0 L (6.5-8.0) g/dL Albumin 3.5 (3.5-5.0) g/dL TSH 0.64 (0.32-4.0) uIU/mL Urine Color Urine Appearance Urine pH (5.0-9.0) Ur Specific [place] (1.005-1.025) Urine Protein (Neg-Trace) mg/dL Urine Glucose (UA) (Negative) mg/dL Urine Ketones (Negative) mg/dL Urine Blood (Negative) Urine Nitrite (Negative) Ur Leukocyte Esterase (Negative) Stool Occult Blood POSITIVE (NEGATIVE) COVID-19 ([facility]AT) (Negative) COVID-19 Clin Com Blood Type O Positive Antibody Screen NEGATIVE 10/26/24 10/26/24 Range/Units 16:56 17:19 WBC (4.8-10.8) X10*3/uL RBC (4.20-5.50) X10*6/uL Hgb (12.0-16.0) g/dl Hct (37.0-47.0) % MCV (80.0-98.0) fL MCH (27.0-33.0) pg MCHC (31.0-35.0) g/dl RDW (11.0-16.0) % Plt Count (160-400) X10*3/uL MPV (9.4-12.3) fL Immature Gran % (Auto) (0.0-0.4) % Neut % (Auto) (45-73) % Lymph % (Auto) (20-40) % Wayne % (Auto) (2-11) % Eos % (Auto) (0-4) % Baso % (Auto) (0-2) % Lymph # (Auto) (1.2-4.9) X10*3/uL Wayne # (Auto) (0.1-1.2) X10*3/uL Eos # (Auto) (0.0-0.4) X10*3/uL Baso # (Auto) (0.0-0.2) X10*3/uL Abs Immat Gran (auto) (0.00-0.03) X10*3/uL Absolute Neuts (auto) (2.0-8.3) x10*3/uL Absolute Nucleated RBC (0.0-0.012) X10*3/uL Nucleated RBC % (auto) (0.0-0.2) /100WBC PT (10.9-12.4) SEC INR (0.9-1.1) APTT (26.7-34.1) SEC Sodium (135-145) mmol/L Potassium (3.3-5.1) mmol/L Chloride (96-108) mmol/L Carbon Dioxide (22-29) mmol/L Anion Gap (12-20) BUN (9-16) mg/dL Creatinine (0.5-1.4) mg/dL Estim Creat Clear Calc Estimated GFR Random Glucose (60-115) mg/dL Calcium (8.4-10.2) mg/dL Total Bilirubin (0.0-1.0) mg/dL AST (5-31) U/L ALT (0-31) U/L Alkaline Phosphatase (39-117) U/L Troponin I High Sens (<3.5-17.0) ng/L B-Natriuretic Peptide (<100) pg/mL Total Protein (6.5-8.0) g/dL Albumin (3.5-5.0) g/dL TSH (0.32-4.0) uIU/mL Urine Color Yellow Urine Appearance Clear Urine pH 5.0 (5.0-9.0) Ur Specific [place] 1.015 (1.005-1.025) Urine Protein Negative (Neg-Trace) mg/dL Urine Glucose (UA) Negative (Negative) mg/dL Urine Ketones Negative (Negative) mg/dL Urine Blood Negative (Negative) Urine Nitrite Negative (Negative) Ur Leukocyte Esterase Negative (Negative) Stool Occult Blood (NEGATIVE) COVID-19 (MONSERRAT) Negative (Negative) COVID-19 Clin Com See Note Blood Type Antibody Screen Independent Interpretation I performed an independent interpretation of an: EKG Interpretation: EKG reveals atrial paced rhythm with prolonged AV conduction, left axis deviation Vent. Rate : 67 BPM Atrial Rate : 67 BPM P-R Int : 218 ms QRS Dur : 100 ms QT Int : 454 ms P-R-T Axes : * -40 7 degrees QTcB Int : 479 ms Atrial-paced rhythm with prolonged AV conduction Left axis deviation Anterolateral infarct (cited on or before 12-Mar-2018) Abnormal ECG When compared with ECG of 07-Sep-2024 07:03, Criteria for Inferior infarct are no longer Present Nonspecific T wave abnormality, improved in Lateral leads QT has shortened Independent Historian Clinical information obtained from an independent historian. 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 Your blood work today was within normal limits, you have an anemia with a hemoglobin of 8.4, and hematocrit of 26.5, these values do not indicate the need for transfusion at this time. Your EKG was nonemergent today, your troponins which are enzymes that are elevated in the heart is under stress or damage were within normal limits. Your stool test was positive for blood however this looks to be chronic. You had a recent scope of your upper stomach, and a colonoscopy done with your last admission which did not reveal any acute bleed from your belly. Please follow up with your primary care doctor and your GI doctors for further evaluation of your anemia. Continue to take your iron, folate, B12 supplements daily. Please return to the emergency department if you have chest pain, shortness of breath, worsening weakness, dizziness, lightheadedness, difficulty walking, pain in your abdomen, nausea, vomiting, fevers over 100.4?, or any new/worsening/concerning symptoms. Prescriptions: No Action amlodipine 5 mg tablet 5 mg PO DAILY Qty: 90 3RF rivaroxaban 20 mg tablet 20 mg PO DAILY Qty: 90 3RF cyanocobalamin (vitamin B-12) 1,000 mcg tablet 1 tab PO DAILY folic acid 1 mg tablet 1 tab PO DAILY ferrous gluconate 324 mg (38 mg iron) tablet 1 tab PO DAILY calcium 600 mg Capsule 600 mg PO DAILY levothyroxine 125 mcg tablet 125 mcg PO DAILY@0600 omeprazole 40 mg Capsule,Delayed Release(Dr/Ec) 40 mg PO DAILY@0630 Qty: 90 0RF cholecalciferol (vitamin D3) 50 mcg (2,000 unit) capsule 50 mcg PO DAILY estradiol 0.5 mg tablet 0.5 mg PO DAILY Qty: 90 1RF amiodarone 200 mg tablet 200 mg PO DAILY Qty: 90 3RF Interventions: ED Discharge Assessment Last Done: 10/26/24 20:03 Discharge Date/Time: 10/26/24 20:04 Print Language: Kyrgyz
--- NOTE | 2024-10-26 14:32 | ECG_ITS ---
Test Reason : WEAKNESS Blood Pressure : */* mmHG Vent. Rate : 67 BPM Atrial Rate : 67 BPM P-R Int : 218 ms QRS Dur : 100 ms QT Int : 454 ms P-R-T Axes : * -40 7 degrees QTcB Int : 479 ms Atrial-paced rhythm with prolonged AV conduction Left axis deviation cannot exclude Anterolateral infarct (cited on or before 12-Mar-2018) Abnormal ECG When compared with ECG of 07-Sep-2024 07:03, No significant changes seen Referred By: Medardo Herrera Electronically Signed By: GAUDENCIO JOSHI
[2024-10-26 15:02] LABS: MANUAL DIFF FLAG NO
[2024-10-26 15:03] LABS: Hematocrit 26.5 % (37.0-47.0); Hemoglobin 8.4 g/dl (12.0-16.0); Imm Gran Abs Auto 0.06 X10*3/uL (0.00-0.03); Imm Gran Pct Auto 0.8 % (0.0-0.4); Lymphocytes Absolute Auto 1.1 X10*3/uL (1.2-4.9); Mean Corpuscular HGB Conc 31.7 g/dl (31.0-35.0); Mean Corpuscular Hemoglobin 31.8 pg (27.0-33.0); Mean Corpuscular Volume 100.4 fL (80.0-98.0); NRBC Abs Auto 0.000 X10*3/uL (0.0-0.012); NRBC Pct Auto 0.0 /100WBC (0.0-0.2); Platelet Count 348 X10*3/uL (160-400); Red Blood Count 2.64 X10*6/uL (4.20-5.50); White Blood Count 7.5 X10*3/uL (4.8-10.8)
[2024-10-26 15:14] VITALS: BP 148/43; PULSE 75; RESP 15; TEMP 36.6; O2SAT 100
--- NOTE | 2024-10-26 15:18 | PC.NURSE ---
Pt reports dizziness today, family thinks she looks pale. Recently started Omeprazole for a stomache ulcer following upper GI and colonoscopy. Reports black stool, but this has been usual with her iron supplement, but she feels is it worse. Sitting at edge of bed, no distress.
[2024-10-26 15:22] LABS: INTERNATIONAL NORM RATIO 2.7 (0.9-1.1); Prothrombin Time 30.8 SEC (10.9-12.4)
[2024-10-26 15:24] LABS: Partial Thromboplastin Time 42.5 SEC (26.7-34.1)
[2024-10-26 15:28] LABS: Alanine Aminotransferase 9 U/L (0-31); Albumin Level 3.5 g/dL (3.5-5.0); Alkaline Phosphatase 97 U/L (39-117); Anion Gap 9 (12-20); Aspartate Amino Transferase 19 U/L (5-31); Blood Urea Nitrogen 28 mg/dL (9-16); Calcium 8.3 mg/dL (8.4-10.2); Carbon Dioxide 28 mmol/L (22-29); Chloride 110 mmol/L (96-108); Creatinine Clr Calc Pharmacy 31.0; Estimated Glomerular Filt Rate 46; Potassium 4.0 mmol/L (3.3-5.1); Sodium 143 mmol/L (135-145); Total Protein 6.0 g/dL (6.5-8.0)
[2024-10-26 15:35] LABS: Troponin-I High Sensitivity < 2.7 ng/L (<3.5-17.0)
[2024-10-26 16:07] LABS: OBS Int Ctl Valid YES; OBS Lot 0224; OBS1 POSITIVE (NEGATIVE)
[2024-10-26 16:37] LABS: Thyroid Stimulating Hormone 0.64 uIU/mL (0.32-4.0)
[2024-10-26 16:55] LABS: B Type Natriuretic Peptide 62 pg/mL (<100)
--- NOTE | 2024-10-26 17:10 | MHC.CM.ED ---
Pt is declining PT evaluation or STR. Will d/c home without services. per patient request.
[2024-10-26 17:17] VITALS: BP 156/47; PULSE 83; RESP 16; TEMP 36.4; O2SAT 100
[2024-10-26 17:20] LABS: Troponin-I High Sensitivity 4.2 ng/L (<3.5-17.0)
[2024-10-26 17:30] LABS: COVID-19 Test Negative (Negative); IDNOW Serial# 55D5AD1C
[2024-10-26 18:20] VITALS: BP 152/54; PULSE 95; RESP 12; O2SAT 98
[2024-10-26 18:53] LABS: Appearance Urine Clear; Glucose Urine UA Negative (Negative); PH 5.0 (5.0-9.0); Specific Gravity - Urine 1.015 (1.005-1.025)
--- OUTSIDE RECORDS SUMMARY | 2024-10-26 18:54 | XMS_ITS | Patient Health Record ---
Author Organization [facility] Address [address] [facility] [address] [place] [phone] Care Team Providers Care Heat Curer Name Role Phone NONE, NONE Primary Care Provider Juan M Moya Jr, Carlos Manuel Martinez Results Component Value Reference Range Notes Pathology Reviewed date:09/21/2024 08:31:48 AM Interpretation: Performing Lab:[facility], [address] [place] [id number] Notes/Report: Reason For Referral No Information Problems Problem Type SNOMED Code ICD Code Onset Dates Problem Status W/U Status Risk Notes Problem Iron deficiency anemia (05279997) Iron deficiency anemia (D50.9) Active confirmed Encounters Encounter Location Date Provider Diagnosis [facility] [address] [place] [phone] 09/09/2024 Carlos Manuel Moya Jr [facility] [address] [place] [phone] 09/21/2024 Carlos Manuel Moya Jr Plan Of Treatment No Information Insurance Providers Payer Name Payer Address Payer Phone Subscriber Number Group Number Insured Name Patient Relationship to Insured Coverage Start Date Coverage End Date MEDICARE OF [place] [address] [place] [address] [id number] DEIDRA OVIEDO Self - patient is the insured MEDICAID OF [facility] [address] [place] [address] [id number] DEIDRA OVIEDO Self - patient is the insured
--- OUTSIDE RECORDS SUMMARY | 2024-10-26 18:54 | XMS_ITS | Patient Health Record ---
Author Organization Trevor Bailey III, MD Address [address] [place] [address] Care Team Providers Care Seo Analyst Name Role Phone ARCELIA GUARDADO Primary Care Provider Trevor Flood Unavailable [phone] Allergies Allergen (clinical drug ingredient) Drug/Non Drug Allergy documented on EMR Reaction Allergy Type Onset Date Status No Known Drug Allergy Unknown Drug Allergy Active Results Component Value Reference Range Notes Complete Blood Count Auto Di ff Reviewed date:05/19/2024 08:15:55 PM Interpretation: Performing Lab:[facility], [address] [place] [phone] Notes/Report: White Blood Count 6.7 4.8-10.8 X10*3/uL Red Blood Count 4.32 4.20-5.50 X10*6/uL Hemoglobin 14.1 12.0-16.0 g/dl Hematocrit 44.0 37.0-47.0 % Mean Corpuscular Volume 101.9 80.0-98.0 fL Mean Corpuscular Hemoglobin 32.6 27.0-33.0 pg Mean Corpuscular HGB Conc 32.0 31.0-35.0 g/dl Red Cell Distribution Width 12.9 11.0-16.0 % Platelet Count 325 160-400 X10*3/uL Mean Platelet Volume 12.4 9.4-12.3 fL Neutrophils Percent Auto 64.0 45-73 % Imm Gran Pct Auto 0.4 0.0-0.4 % Lymphocytes Percent Auto 21.5 20-40 % Monocytes Percent Auto 9.1 2-11 % Eosinophils Percent Auto 4.3 0-4 % Basophils Percent Auto 0.7 0-2 % NRBC Pct Auto 0.0 0.0-0.2 /100WBC Neutrophils Absolute Auto 4.3 2.0-8.3 x10*3/u L Imm Gran Abs Auto 0.03 0.00-0.03 X10*3/uL Lymphocytes Absolute Auto 1.5 1.2-4.9 X10*3/u L Monocytes Absolute Auto 0.6 0.1-1.2 X10*3/uL Eosinophils Absolute Auto 0.3 0.0-0.4 X10*3/u L Basophils Absolute Auto 0.1 0.0-0.2 X10*3/uL NRBC Abs Auto 0.000 0.0-0.012 X10*3/uL RETIC Reviewed date:05/19/2024 08:15:55 PM Interpretation: Performing Lab:[address] [phone] Notes/Report: Reticulocytes Absolute 0.072 0.026-0.095 X10*6/ uL Immature Retic Fraction 15.4 3.0-15.9 % Retic HGB Equivalent 35.2 30.0-35.0 pg Reticulocyte Percent 1.7 0.5-1.8 % Comprehensive Met. Panel Reviewed date:05/19/2024 08:15:55 PM Interpretation: Performing Lab:[address] [phone] Notes/Report: Sodium 141 135-145 mmol/L Potassium 3.8 3.3-5.1 mmol/L Chloride 109 96-108 mmol/L Carbon Dioxide 26 22-29 mmol/L Anion Gap 10 12-20 Blood Urea Nitrogen 17 9-16 mg/dL Creatinine 1.05 0.5-1.4 mg/dL Estimated Glomerular Filt Rate 50 Chronic Kidney Disease: Estimated GFR < 60 mL/min/1.73m2 Severe Kidney Disease: Estimated GFR < 15 mL/min/1.73m2 Glucose Random 83 60-115 mg/dL Calcium 8.9 8.4-10.2 mg/dL Bilirubin Total 0.3 0.0-1.0 mg/dL Aspartate Amino Transferase 26 5-31 U/L Alanine Aminotransferase 10 0-31 U/L Total Protein 6.6 6.5-8.0 g/dL Albumin Level 3.6 3.5-5.0 g/dL Alkaline Phosphatase 110 39-117 U/L Ferritin Reviewed date:05/19/2024 08:15:55 PM Interpretation: Performing Lab:[facility], [address] [place] [phone] Notes/Report: Ferritin 53 10-250 ng/mL Vitamin B12 and Folate Reviewed date:05/19/2024 08:15:55 PM Interpretation: Performing Lab:[facility], [address] [place] [phone] Notes/Report: Vitamin B12 1025 200-900 pg/mL NORMAL 200-900 PG/ML INDETERMINATE 160-199 PG/ML DEFICIENT < 160 PG/ML Folate 19.3 > or = 4.0 ng/mL Reference Values: > or = 4.0 ng/mL < 4.0 ng/mL suggests folate deficiency Methotrexate, aminopterin and folinic acid (leucovorin) are chemotherapeutic agents whose molecular structures are similar to folate; therefore, the [employer] folate assay cannot be used for patients using these drugs. Reason For Referral No Information Medications Medication SIG (Take, Route, Frequency, Duration) Notes Start Date End Date Status Xarelto 20 MG 1 tablet with food Orally Active amLODIPine Besylate 5 MG 1 tablet Orally Once a day Active Ferrous Gluconate 324 (38 Fe) MG 1 tablet Orally Once a day Active Folic Acid 1 MG [...] tablet Orally Once a day Active Vitamin D3 50 MCG (2000 UT) 1 capsule Or ally Once a day Active Vitamin B-12 1000 MCG TAKE ONE TABLET BY MOUTH EVERY DAY Orally Once a day Active Immunizations Vaccine Route Administration Date Status [...] Problem Status W/U Status Risk Notes Problem 155864127 Overweight (E66.3) Active confirmed She has lost 16 pounds in the last year and her body mass index is in the overweight range. She was encouraged to continue losing weight until the body mass index is in the normal range. Problem Thrombocytosis (1488943) Thrombocytosis (D47.3) Active confirmed The platelet count is within normal limits. The thrombocytosis was likely due to iron deficiency. That has resolved. Problem 520591985 Vitamin B12 deficiency (E53.8) Active confirmed He is compliant with her vitamin B12 replacement. The B12 level is adequate. Problem 073716331 Chronic anticoagulation (Z79.01) Active confirmed She has not noticed any bleeding. Stool collection pending. Problem 771073044 Acquired hypothyroidism (E03.9) Active confirmed He appears to b e euthyroid. No change in her regimen she is Problem 92426396 Essential hypertension (I10) Active confirmed Her blood pressure is stable and no change in her regimen as necessary. I recommended weight loss and sodium restriction. The systolic is 140. He was referred back to primary care Problem Osteopenia (013819361) Osteopenia (M85.80) Active confirmed She has a diagnosis of postmenopausal osteopenia. I have agreed with the recommended vitamin D and calcium tablets. Problem 616741803 Pacemaker (Z95.0) Active confirmed The pacemaker i s present in the left upper chest wall. It seems to be functioning well. She is free of any symptoms of syncope. Problem Congestive heart failure (16975253) CHF (congestive heart failure) (I50.9) Active confirmed Her congestive heart ferry is well compensated and she was comfortable breathing room air today as she moved around the examining room. Problem 30166219 Vitamin D deficiency (E55.9) Active confirmed Her vitamin D level is adequate. She was continued on supplementation without change. Problem 685471196 Macrocytosis (D75.89) Active confirmed The mean cell volume is 101.9. 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 Problem 28968505 Iron deficiency anemia, unspecified iron deficiency anemia type (D50.9) Active confirmed Her hematocrit is normal and her ferritin is 56. The mean cell volume is 102. Her iron deficiency is well compensated. 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 No change in regimen was necessary today. Vital Signs Heart Rate 90 /min 05/26/2024 Temperature 97.3 degrees Fahrenheit 05/26/2024 Oximetry 95 % 05/26/2024 Blood pressure diastolic 77 mm Hg 05/26/2024 Height 62 in 05/26/2024 Blood pressure systolic 140 mm Hg 05/26/2024 Weight 151 lbs 05/26/2024 BMI 27.62 kg/m2 05/26/2024 Encounters Encounter Location Date Provider Diagnosis Trevor Bailey III, MD [address] [place] [address] [place] [address] 05/26/2024 Trevor Bailey Essential hypertensi on I10 ; Iron deficiency anemia, unspecified iron deficiency anemia type D50.9 ; Macrocytosis D75.89 ; Acquired hypothyroidism E03.9 ; Osteopenia M85.80 ; CHF (congestive heart failure) I50.9 ; Vitamin B12 deficiency E53.8 ; Thrombocytosis D47.3 ; Pacemaker Z95.0 ; Overweight E66.3 ; Persistent atrial fibrillation I48.19 and Chronic anticoagulation Z79.01 Trevor Bailey III, MD [address] [place] [address] [place] [address] 12/02/2023 Trevor Bailey III, MD [address] [place] [address] [place] [address] 12/03/2023 Trevor Bailey III, MD [address] [place] [address] [place] [address] 10/26/2024 Trevor Bailey Assessments Encounter Date Diagnosis (ICD [...] Order Date PROFILE, RANDOM (COMPREHENSIVE METABOLIC ) 05/13/2021 PROFILE, RANDOM (COMPREHENSIVE METABOLIC ) 05/26/2024 PROFILE, RANDOM (COMPREHENSIVE METABOLIC ) 10/01/2023 PROFILE, RANDOM (COMPREHENSIVE METABOLIC ) 11/12/2020 PROFILE, RANDOM (COMPREHENSIVE METABOLIC ) 06/01/2023 PROFILE, RANDOM (COMPREHENSIVE METABOLIC ) 07/10/2020 PROFILE, RANDOM (COMPREHENSIVE METABOLIC ) 05/26/2022 TSH (THYROID STIMULATING HORMONE) 2024 FERRITIN 05/26/2022 FERRITIN 05/28/2020 FERRITIN 10/01/2023 FERRITIN 11/12/2020 VITAMIN B12 AND FOLATE 05/13/2021 VITAMIN B12 AND FOLATE 05/26/2022 B12 05/20/2021 CBC w DIFF 07/10/2020 CBC w DIFF 05/13/2021 CBC w DIFF 05/26/2022 CBC w DIFF 05/28/2020 CBC w DIFF 06/17/2021 CBC w DIFF 05/26/2024 CBC w DIFF 10/01/2023 CBC w DIFF 11/12/2020 RETICULOCYTE COUNT,CORRECTED 05/13/2021 RETICULOCYTE COUNT,CORRECTED 05/28/2020 INTRINSIC FACTOR ANTIBODIES 06/17/2021 INTRINSIC FACTOR ANTIBODIES 05/20/2021 CBC WITH AUTO DIFF 06/01/2023 RETIC 10/01/2023 Ferritin 06/01/2023 Ferritin 07/10/2020 Ferritin 05/26/2024 Vitamin B12 and Folate 10/01/2023 Vitamin B12 05/26/2024 Vitamin B12 06/01/2023 Folate 05/20/2021 Vitamin D 25-OH Total 05/26/2024 Vitamin D 25-OH Total 05/20/2021 Free T4 (Free Thyroxine) 05/26/2024 Next Appt Details Provider Name:Trevor Bailey, 11/25/2024 10:00:00 AM, [address] [place] [address] DR, [place] [address], [place], [address], Insurance Providers Payer Name Payer Address Payer Phone Subscriber Number Group Number Insured Name Patient Relationship to Insured Coverage Start Date Coverage End Date MEDICARE NGS [address] [place] [address] [id number] Jessica Yao Self - patient is the insured MEDICA[place] [address] [place] [id number] [phone] [id number] Jessica Yao Self - patient is the insured Medical (General) History Medical History History ICD Code HTN (hypertension) I10 Hypothyroid E03.9 Osteopenia M85.80 CHF (congestive heart failure) I50.9 atrial fibrillation recent fatigue history of vitamin D deficiency normochromic normocytic anemia thrombocytosis obesity hearing loss left ear acoustic neuroma, left Surgical History Surgery Date(Month/Year) pace maker placement at [facility] 08/2021 Hospitalization History Reason Date(Month/Year) nose bleed 11/2019
[2024-10-26 19:50] VITALS: BP 144/48; PULSE 73; RESP 16; TEMP 36.6; O2SAT 97
[2024-10-26 20:03] VITALS: BP 144/48; PULSE 73; RESP 16; TEMP 36.6; O2SAT 97
== END 2024-10-26 20:04 | disposition home or self-care (01) ==
PROVIDERS: Physician Assistant; Emergency Provider Emergency Medicine; PCP Nurse Practitioner Family
DX: R19.5 Other fecal abnormalities (principal); D53.9 Nutritional anemia, unspecified; R53.1 Weakness; R94.31 Abnormal electrocardiogram [ECG] [EKG]; R06.02 Shortness of breath; Z11.52 Encounter for screening for COVID-19; Z79.899 Other long term (current) drug therapy
CPT/HCPCS: 36415; 80053; 81003; 82272; 83880; 84443; 84484; 85025; 85610; 85730; 86850; 86900; 86901; 87635; 93005; 99283; 99285

== ENCOUNTER → 2024-10-26 14:32 | Outpatient (BNV) | payer MEDICARE, MEDICAID, SELFPAY | PROVIDERS: Emergency Provider Emergency Medicine; PCP Nurse Practitioner Family; Visit Provider Internal Medicine | DX: I44.0 Atrioventricular block, first degree (principal); Z95.0 Presence of cardiac pacemaker | CPT/HCPCS: 93010 ==

== ENCOUNTER 2024-11-04 15:03 | Outpatient (REF) | payer MEDICARE, MEDICAID, SELFPAY ==
--- OUTSIDE RECORDS SUMMARY | 2024-03-31 08:45 | XMS_ITS ---
Author Organization Trevor Bailey III, MD Address [address] [address] Care Team Providers Care Plc Controls Engineer Name Role Phone ARCELIA GUARDADO Primary Care Provider UnavailDr. Trevor Oliver III Unavailable [phone] REASON FOR VISIT follow Up Encounters Encounter Location Date Provider Diagnosis Trevor Bailey III, MD [address] [place] [address] [place] [address] 03/31/2024 Trevor Bailey Plan Of Treatment Next Appt Details Provider Name:Trevor Bailey , 12/02/2024 02:00:00 PM, [address] [place] [address] [address], [place], [address], Progress Notes * Jessica OVIEDO RDOB:1940 (84 yo F)Acc No.[id number]:03/31/2024 Progress Notes Patient: Jessica ROBLES Provider: Nya Bailey MD :1940 A ge:83 Y S ex:Female Date:03/31/2024 Address:[address] [place] [address] [facility] [id number] Pcp:ARCELIA GUARDADO Subjective: * Chief Complaints: * 1 . follow Up. * Medical History: Objective: * Vitals: Assessment: Plan: * Treatment: * Images: * The named appointment provid er may or may not be the originator of this progress note, and it is not deemed complete until electronically signed by the appointment provider. Sign off status: Pending * Provider: Nya Bailey MD Date: 0 03/31/2024 Generated for Jeff naranjo/Keith/Megha on: 0 11/04/2024 03:41 PM EDT
--- OUTSIDE RECORDS SUMMARY | 2024-05-26 06:45 | XMS_ITS ---
Author Organization Trevor Bailey III, MD Address [address] [place] [address] Care Team Providers Care Library Clerk Talking Books Name Role Phone ARCELIA GUARDADO Primary Care Provider Dr. Trevor Flood III Unavailable Allergies Allergen (clinical drug ingredient) Drug/Non Drug [...] Date Provider Diagnosis Trevor Bailey III, MD [address] [place] [address] DR SAHASTEVENDANIEL, [place] [phone] 05/26/2024 Trevor Bailey Essential hypertensi on I10 [...] Provider Name:Trevor Bailey , 12/02/2024 02:00:00 PM, [address] [place] [address] , SKY Wu, [place], [place], [address], Progress Notes * Jessica OVIEDO:1940 (84 yo F)Acc No.[id number]:05/26/2024 Progress Notes Patient: Jessica ROBLES Provider: Nya Bailey MD :1940 A ge:84 Y S ex:Female Date:05/26/2024 Address:[address] [place] [address] [place], [id number] Pcp:Ras Chao MD Subjective: * Chief Complaints: [...] Surgical History: [place] [facility] [place] * Hospitalization/Major Diagno stic Procedure: n [...] 0 05/26/2024 Generated for Kauri marcella/Keith/eTransmitting on: 0 11/04/2024 03:40 PM EDT History and Physical Notes * [...]
--- OUTSIDE RECORDS SUMMARY | 2024-09-09 08:50 | XMS_ITS ---
Author Organization [facility] Address [address] [place] [phone] Care Team Providers Care Online User Experience Strategist Name Role Phone NONE, NONE Primary Care Provider Carlos Manuel Ruiz Jr [phone] REASON FOR VISIT fe def anemia Encounters Encounter Location Date Provider Diagnosis [facility] [place] Inpatient [address] [place], [place] [phone] 09/09/2024 Carlos Manuel Moya Jr Plan Of Treatment No Information Progress Notes * DEIDRA OVIEDO RDOB:1940 (84 yo F)Acc No.[id number]:09/09/2024 EGD and COL/MAC Patient: DEIDRA ROBLES Provider: Santos Moya MD :1940 A ge:84 Y S ex:Female Date:09/09/2024 Address:[address] [place] [address] Subjective: * Chief Complaints: * 1 . Fe def anemia. * Medical History: Objective: * Vitals: Assessment: Plan: * Treatment: * * The named appointment provid er may or may not be the originator of this progress note, and it is not deemed complete until electronically signed by the appointment provider. Sign off status: Pending * Provider: Santos Moya MD Date: 09/09/2024 Generated for Kauri marcella/Keith/eTransmitting on: 11/04/2024 03:41 PM EDT
--- OUTSIDE RECORDS SUMMARY | 2024-10-06 13:00 | XMS_ITS ---
Author Organization Trevor Bailey III, MD Address [address] [place] [address] Care Team Providers Care Supervisor Housecleaner Name Role Phone ARCELIA GUARDADO Primary Care Provider UnavailDr. Trevor Oliver III Unavailable REASON FOR VISIT follow up Hospital Follow up Encounters Encounter Location Date Provider Diagnosis Trevor Bailey III, MD [address] [place] [address] [place] [id number] 10/06/2024 Trevor Bailey Plan Of Treatment Next Appt Details Provider Name:Trevor Bailey , 12/02/2024 02:00:00 PM, [address] [place] [address] [place], [place] [place], [id number], Progress Notes * Jessica OVIEDO RDOB:1940 (84 yo F)Acc No.[id number]:10/06/2024 Patient: Jessica ROBLES Provider: Nya Bailey MD :1940 A ge:84 Y S ex:Female Date:10/06/2024 Address:[address] [place] [address] [facility] [id number] Pcp:ARCELIA GUARDADO Subjective: * Chief Complaints: * [...] 10/06/2024 Generated for Jeff naranjo/Keith/Megha on: 0 11/04/2024 03:41 PM EDT
--- OUTSIDE RECORDS SUMMARY | 2024-10-26 09:24 | XMS_ITS ---
Author Organization Trevor Bailey III, MD Address [address] [place] [address] [place] [address] Care Team Providers Care Telephone Order Dispatcher Name Role Phone ARCELIA GUARDADO Primary Care Provider Dr. Trevor Flood III Unavailable REASON FOR VISIT Concern Encounters Encounter Location Date Provider Diagnosis Trevor Bailey III, MD [address] [place] [address] [place] [address] 10/26/2024 Trevor Bailey Plan Of Treatment Next Appt Details Provider Name:Trevor Bailey , 12/02/2024 02:00:00 PM, [address] [place] [address] [place], [address], Progress Notes * Jessica OVIEDO RDOB:1940 (84 yo F)Acc No.[id number]:10/26/2024 Patient: Jessica ROBLES :1940 A ge:84 Y S ex:Female [address] [facility] [place], [address] * true * Date: Generated for Printi ng/Faxing/eTransmitting on: 0 11/04/2024 03:41 PM EDT
--- OUTSIDE RECORDS SUMMARY | 2024-11-04 10:00 | XMS_ITS ---
Author Organization Trevor Bailey III, MD Address [address] [place] [address] Care Team Providers Care Bicycle Messenger Name Role Phone ARCELIA ASHFORD Primary Care Provider Dr. Trevor Folod III Unavailable Allergies Allergen (clinical drug ingredient) Drug/Non Drug Allergy documented on EMR Reaction Allergy Type Onset Date Status No Known Drug Allergy Unknown Drug Allergy Active REASON FOR VISIT follow Up Medications Medication SIG (Take, Route, Frequency, Duration) Notes Start Date End Date Status Xarelto 20 MG 1 tablet with food Orally Active Amiodarone HCl 200 MG 1 tablet Orally On ce a day Active Levothyroxine Sodium 125 MCG 1 tablet in the morning on an empty stomach Orally Once a day Active Ferrous Gluconate 324 (38 Fe) MG 1 tablet Orally Once a day Active amLODIPine Besylate 5 MG 1 tablet Orally Once a day Active Lisinopril 20 MG 1 tablet Orally Once a day Not-Taking Vitamin B-12 1000 MCG TAKE ONE TABLET BY MOUTH EVERY DAY Orally Once a day Active Folic Acid 1 MG TAKE ONE TABLET BY MOUTH EVERY DAY Active Estradiol 0.5 MG 1 tablet Orally Once a day Not-Taking Vitamin D3 50 MCG (2000 UT) 1 capsule Orally Once a day Active Social History Tobacco Use: Social History Observation Description Date Details (start date - stop date) Never Smoker NA - NA Tobacco Use/Smoking Question Answer Notes Patient is a nonsmoker Additional Findings: Tobacco Non-User Aggressive non-smoker Vital Signs Temperature 97.9 degrees Fahrenheit 11/05/19 25 Blood pressure systolic 134 mm Hg 11/05/19 25 Blood pressure diastolic 54 mm Hg 025 Heart Rate 87 /min 11/04/2024 Height 62 in 11/04/2024 Weight 139 lbs 11/04/2024 BMI 25.42 kg/m2 11/04/2024 Encounters Encounter Location Date Provider Diagnosis Trevor Bailey III, MD [address] [place] [address] [place] [address] 11/04/2024 Trevor Bailey Essential hypertensi on I10 ; Macrocytosis D75.89 ; Iron deficiency anemia, unspecified iron deficiency anemia type D50.9 and Overweight E66.3 Assessments Encounter Date Diagnosis (ICD Code) Assessment Notes Treat ment Notes Treatment Clinical Notes 11/04/2024 Essential hypertension (ICD-10 - I10) Her blood pressure is stable and no change in her regimen as necessary. I recommended weight loss and sodium restriction. The systolic is 140. He was referred back to primary care 11/04/2024 Macrocytosis (ICD-10 - D75.89) 11/04/2024 Iron deficiency anemia, unspecified iron deficiency anemia type (ICD-10 - D50.9) 11/04/2024 Overweight (ICD-10 - E66.3) Plan Of Treatment Medication Medication Name Sig Start Date Stop Date Notes Xarelto 20 MG 1 tablet with food Orally Amiodarone HCl 200 MG 1 tablet Orally Once a day Levothyroxine Sodium 125 MCG 1 tablet in the morning on an empty stomach Orally Once a day Ferrous Gluconate 324 (38 Fe) MG 1 tablet Orally Once a da y amLODIPine Besylate 5 MG 1 tablet Orally Once a day Vitamin B-12 1000 MCG TAKE ONE TABLET BY MOUTH EVERY DAY Orally Once a day Folic Acid 1 MG TAKE ONE TABLET BY M OUTH EVERY DAY Vitamin D3 50 MCG (1999 UT) 1 capsule Or ally Once a day Pending Test Test Name Order Date CBC w DIFF 11/04/2024 RETIC 11/04/2024 Ferritin 11/04/2024 Next Appt Details Follow Up: 4 Weeks, Reason: OV Provider Name:Trevor Bailey , 12/02/2024 02:00:00 PM, [address], [place], [address], Progress Notes * Jessica OVIEDO RDOB:1940 (84 yo F)Acc No.[id number]:11/04/2024 Progress Notes Patient: Jessica ROBLES Provider: Nya Bailey MD :1940 A ge:84 Y S ex:Female Date:11/04/2024 Address:[id number] Pcp:ARCELIA ASHFORD Subjective: * Chief Complaints: * 1 . follow Up. * HPI: C OVID-19 Screenin/25 levo changed to 100, arcelia ashford, [facility] med ?tel [phone], fax [phone], what kind of chente I am. Questions H ave you had any new onset fever, chills, cough, congestion, sore throat, shortness of breath, muscle aches? N o * ROS: G eneral/Constitutional: pain o nly normal aches and pains. C hills d enies.?Fatigue a dmits. F ever d enies. E NT: Decreased hearing d enies. R espiratory: Cough d enies. C ardiovascular: Chest pain with exertion d enies. D yspnea on exertion?denies. S hortness of breath d enies. G astrointestinal: Constipation d enies. D ecreased appetite d enies.?Diarrhea d enies. H eartburn d enies. N ausea d enies. R ectal bleeding?denies. V omiting d enies. H ematology: bruising [...] Depressed mood d enies. * Medical History: H TN (hypertension), Hypothyroid, Osteopenia, CHF (congestive heart failure), Atrial fibrillation, Recent fatigue, history of vitamin D deficiency, Normochromic normocytic anemia, Thrombocytosis, Obesity, Hearing loss left ear, Acoustic neuroma, left. * Surgical History: p sylvia maker placement at [facility] 08/2021. * Hospitalization/Major Diagno stic Procedure: n ose bleed 11/2019. * Family History: F ather: . M [...] She has 5 sons. * Medications: T aking Vitamin B-12 1000 MCG Tablet TAKE ONE TABLET BY MOUTH EVERY DAY Orally Once a day , Taking Folic Acid 1 MG Tablet TAKE ONE TABLET BY MOUTH EVERY DAY , Taking Ferrous Gluconate 324 (38 Fe) MG Tablet 1 tablet Orally Once a day , Taking amLODIPine Besylate 5 MG Tablet 1 tablet Orally Once a day , Taking Xarelto 20 MG Tablet 1 tablet with food Orally , Taking Amiodarone HCl 200 MG Tablet 1 tablet Orally Once a day , Taking Levothyroxine Sodium 125 MCG Capsule 1 tablet in the morning on an empty stomach Orally Once a day , Taking Vitamin D3 50 MCG (2000 UT) Capsule 1 capsule Orally Once a day , Not-Taking/PRN Lisinopril 20 MG Tablet 1 tablet Orally Once a day , Not-Taking/PRN Estradiol 0.5 MG Tablet 1 tablet Orally Once a day , Medication List reviewed and reconciled with the patient * Allergies: N o Known Drug Allergy. Objective: * Vitals: H t: 62, Wt:139, BMI:25.42, BP:134/54, HR:87, Temp:97.9, Wt-k.05. * Examination: G eneral Examination: GENERAL APPEARANCE: p leasant, well nourished, well developed, in no acute distress, calm and relaxed. HEAD: a traumatic, normocephalic. EYES: e florian, perrla, anicteric, conjugate. EARS: n ormal. NOSE: s eptum intact. ORAL CAVITY: n ormal, unremarkable. NECK/THYROID: n o jugular venous distention, no carotid bruit, thyroid normal. LYMPH NODES: n o enlarged lymph nodes,spleen normal. SKIN: n o suspicious lesions, anicteric. HEART: n o clicks, gallops, murmurs, or rubs, regular rhythm, S1, S2 normal, no s3, or vascular bruits. LUNGS: c lear to auscultation . BREASTS: no masses palpable bilaterally. ABDOMEN: b owel sounds normal, no ascites, no organomegaly, no mass. RECTAL EXAM: n ot examined. MUSCULOSKELETAL: e xtremities unremarkable, no clubbing, cyanosis or edema. PERIPHERAL PULSES: n ormal. NEUROLOGIC: a lert and oriented, cranial nerves 2-12 grossly intact, deep tendon reflexes 2+ symmetrical, motor strength normal upper and lower extremities, sensory exam intact. PSYCH: a lert, oriented. Assessment: * Assessment: 1. E ssential hypertension - I10 N otes :Her blood pressure is stable and no change in her regimen as necessary. I recommended weight loss and sodium restriction. The systolic is 140. He was referred back to primary care 2 . M acrocytosis - D75.89 3 . I randall deficiency anemia, unspecified iron deficiency anemia type - D50.9 4 . O verweight - E66.3 Plan: * Treatment: 2. M acrocytosis L AB: CBC w DIFF L AB: RETIC L AB: Ferritin 3. I randall deficiency anemia, unspecified iron deficiency anemia type L AB: CBC w DIFF L AB: RETIC L AB: Ferritin 4. O verweight L AB: CBC w DIFF L AB: RETIC L AB: Ferritin 5. O thers Continue Vitamin B-12 Tablet, 1000 MCG, TAKE ONE TABLET BY MOUTH EVERY DAY, Orally, Once a day;?Continue Folic Acid Tablet, 1 MG, TAKE ONE TABLET BY MOUTH EVERY DAY; C ontinue Ferrous Gluconate Tablet, 324 (38 Fe) MG, 1 tablet, Orally, Once a day. * Follow Up: 4 Weeks (Reason: OV) * Images: * The named appointment provid er may or may not be the originator of this progress note, and it is not deemed complete until electronically signed by the appointment provider. Sign off status: Pending * Provider: Nya Bailey MD Date: 11/04/2024 Generated for Jeff naranjo/Keith/eTransmitting on: 0 11/04/2024 03:41 PM EDT History and Physical Notes * HPI (History of Present Illness) Category Sub-Category Detail Notes COVID-19 Screening Questions Have you had any new onset fever, chills, cough, congestion, sore throat, shortness of breath, muscle aches?: No Examination Category Sub-Category Detail Notes General Examination GENERAL APPEARANCE: pleasant , well nourished, well developed, in no acute distress, calm and relaxed HEAD: atraumatic, normocep halic EYES: eomi, perrla, anicte shaista, conjugate EARS: normal NOSE: septum intact NECK/THYROID: no jugular venous di stention, no carotid bruit, thyroid normal HEART: no clicks, gallops, murmurs, or rubs, regular rhythm, S1, S2 normal, no s3, or vascular bruits LUNGS: clear to auscultatio n ABDOMEN: bowel sounds normal, no ascites, no organomegaly, no mass NEUROLOGIC: alert and oriented, cranial nerves 2-12 grossly intact, deep tendon reflexes 2+ symmetrical, motor strength normal upper and lower extremities, sensory exam intact SKIN: no suspicious lesion s, anicteric PERIPHERAL PULSES: normal BREASTS: no masses palpable b ilaterally MUSCULOSKELETAL: extremities unremark able, no clubbing, cyanosis or edema LYMPH NODES: no enlarged lymph no tristan,spleen normal RECTAL EXAM: not examined PSYCH: alert, oriented ORAL CAVITY: normal, unremarkable
--- OUTSIDE RECORDS SUMMARY | 2024-11-04 15:41 | XMS_ITS | Patient Health Record ---
Author Organization Trevor Bailey III, MD Address [address] [place] [address] [place] [address] Care Team Providers Care Data Reduction Technician Name Role Phone ARCELIA GUARDADO Primary Care Provider Dr. Trevor Flood III Unavailable [phone] Allergies Allergen (clinical drug ingredient) Drug/Non Drug Allergy documented on EMR Reaction Allergy Type Onset Date Status No Known Drug Allergy Unknown Drug Allergy Active Results Component Value Reference Range Notes Complete Blood Count Auto Di ff Reviewed date:05/19/2024 08:15:55 PM Interpretation: Performing Lab:[facility], [address] [place] [phone] Notes/Report: White Blood Count 6.7 4.8-10.8 X10*3/uL [...] RETIC Reviewed date:05/19/2024 08:15:55 PM Interpretation: Performing Lab:[address] [phone] Notes/Report: Reticulocytes Absolute 0.072 0.026-0.095 X10*6/ uL Immature Retic Fraction 15.4 3.0-15.9 % Retic HGB Equivalent 35.2 30.0-35.0 pg Reticulocyte Percent 1.7 0.5-1.8 % Comprehensive Met. Panel Reviewed date:05/19/2024 08:15:55 PM Interpretation: Performing Lab:[address] [phone] Notes/Report: Sodium 141 135-145 mmol/L Potassium 3.8 [...] Ferritin Reviewed date:05/19/2024 08:15:55 PM Interpretation: Performing Lab:[facility], [address] [place] [phone] Notes/Report: Ferritin 53 10-250 ng/mL Vitamin B12 and Folate Reviewed date:05/19/2024 08:15:55 PM Interpretation: Performing Lab:[facility], [address] [place] [phone] Notes/Report: Vitamin B12 1025 200-900 pg/mL NORMAL 200-900 PG/ML INDETERMINATE 160-199 PG/ML DEFICIENT < 160 PG/ML Folate 19.3 > or = 4.0 ng/mL Reference Values: > or = 4.0 ng/mL < 4.0 ng/mL suggests folate deficiency Methotrexate, aminopterin and folinic acid (leucovorin) are chemotherapeutic agents whose molecular structures are similar to folate; therefore, the Information Assistant folate assay cannot be used for patients using these drugs. Reason For Referral No Information Medications Medication SIG (Take, Route, Frequency, Duration) Notes Start Date End Date Status Xarelto 20 MG 1 tablet with food Orally Active Lisinopril 20 MG 1 tablet Orally Once a day Active Amiodarone HCl 200 MG 1 tablet Orally On ce a day Active Levothyroxine Sodium 125 MCG 1 tablet in the morning on an empty stomach Orally Once a day Active Vitamin B-12 1000 MCG TAKE ONE TABLET BY MOUTH EVERY DAY Orally Once a day Active Folic Acid 1 MG TAKE ONE TABLET BY M OUTH EVERY DAY Active Ferrous Gluconate 324 (38 Fe) MG 1 tablet Orally Once a day Active amLODIPine Besylate 5 MG 1 tablet Orally Once a day Active Estradiol 0.5 MG 1 tablet Orally Once a day Active Vitamin D3 50 MCG (2000 UT) 1 capsule Or ally Once a day Active Immunizations Vaccine Route [...] Problem Status W/U Status Risk Notes Problem 414157774 Overweight (E66.3) Active confirmed She has lost 16 pounds in the last year and her body mass index is in the overweight range. She was encouraged to continue losing weight until the body mass index is in the normal range. Problem Thrombocytosis (3033521) Thrombocytosis (D47.3) Active confirmed The platelet count is within normal limits. The thrombocytosis was likely due to iron deficiency. That has resolved. Problem 511909017 Vitamin B12 deficiency (E53.8) Active confirmed He is compliant with her vitamin B12 replacement. The B12 level is adequate. Problem 819426203 Chronic anticoagulation (Z79.01) Active confirmed She has not noticed any bleeding. Stool collection pending. Problem 046405298 Acquired hypothyroidism (E03.9) Active confirmed He appears to b e euthyroid. No change in her regimen she is Problem 37982680 Essential hypertension (I10) Active confirmed Her blood pressure is stable and no change in her regimen as necessary. I recommended weight loss and sodium restriction. The systolic is 140. He was referred back to primary care Problem Osteopenia (348572383) Osteopenia (M85.80) Active confirmed She has a diagnosis of postmenopausal osteopenia. I have agreed with the recommended vitamin D and calcium tablets. Problem 764292041 Pacemaker (Z95.0) Active confirmed The pacemaker i s present in the left upper chest wall. It seems to be functioning well. She is free of any symptoms of syncope. Problem Congestive heart failure (02447125) CHF (congestive heart failure) (I50.9) Active confirmed Her congestive heart ferry is well compensated and she was comfortable breathing room air today as she moved around the examining room. Problem 99128622 Vitamin D deficiency (E55.9) Active confirmed Her vitamin D level is adequate. She was continued on supplementation without change. Problem 267258581 Macrocytosis (D75.89) Active confirmed The mean cell volume is 101.9. 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 Problem 51585410 Iron deficiency anemia, unspecified iron deficiency anemia type (D50.9) Active confirmed Her hematocrit is normal and her ferritin is 56. The mean cell volume is 102. Her iron deficiency is well compensated. 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) Active confirmed Problem 002212986 Persistent atrial fibrillation (I48.19) Active confirmed She [...] Date Provider Diagnosis Trevor Bailey III, MD [address] [place] [address] [place] [address] 05/26/2024 Trevor Bailey Essential hypertensi on I10 ; Iron deficiency anemia, unspecified iron deficiency anemia type D50.9 ; Macrocytosis D75.89 ; Acquired hypothyroidism E03.9 ; Osteopenia M85.80 ; CHF (congestive heart failure) I50.9 ; Vitamin B12 deficiency E53.8 ; Thrombocytosis D47.3 ; Pacemaker Z95.0 ; Overweight E66.3 ; Persistent atrial fibrillation I48.19 and Chronic anticoagulation Z79.01 Trevor Bailey III, MD [address] [place] [address] [place] [phone] 12/02/2023 Trevor Bailey III, MD [address] [place] [address] [place] [phone] 12/03/2023 Trevor Bailey III, MD [address] [place] [address] [place] [address] 10/26/2024 Trevor Bailey Assessments Encounter Date Diagnosis [...] Date PROFILE, RANDOM (COMPREHENSIVE METABOLIC ) 05/26/2024 PROFILE, RANDOM (COMPREHENSIVE METABOLIC ) 10/01/2023 PROFILE, RANDOM (COMPREHENSIVE METABOLIC ) 11/12/2020 PROFILE, RANDOM (COMPREHENSIVE METABOLIC ) 06/01/2023 PROFILE, RANDOM (COMPREHENSIVE METABOLIC ) 07/10/2020 PROFILE, RANDOM (COMPREHENSIVE METABOLIC ) 05/26/2022 PROFILE, RANDOM (COMPREHENSIVE METABOLIC ) 05/13/2021 TSH (THYROID STIMULATING HORMONE) 2024 FERRITIN 05/28/2020 FERRITIN 10/01/2023 FERRITIN 11/12/2020 FERRITIN [...] DIFF 06/01/2023 RETIC 10/01/2023 Ferritin 07/10/2020 Ferritin 05/26/2024 Ferritin 06/01/2023 Vitamin B12 and Folate 10/01/2023 Vitamin B12 06/01/2023 Vitamin B12 05/26/2024 Folate 05/20/2021 Vitamin D 25-OH Total 05/26/2024 Vitamin D 25-OH Total 05/20/2021 Free T4 (Free Thyroxine) 05/26/2024 Next Appt Details Provider Name:Trevor Mercado Leo , 11/04/2024 02:00:00 PM, [address] [place] [address] [place], [place], [phone], Provider Name:Trevor Bailey , 11/25/2024 10:00:00 AM, [address] [place] [address] [place], [place], [phone], Insurance Providers Payer Name Payer Address Payer Phone Subscriber Number Group Number Insured Name Patient Relationship to Insured Coverage Start Date Coverage End Date MEDICARE [place] [address] [place] [address] [id number] Jessica Yao Self - patient is the insured [place] [address] [facility] [id number] [phone] [id number] Jessica Yao Self - patient is the insured Medical (General) History Medical History History ICD Code HTN (hypertension) I10 Hypothyroid E03.9 Osteopenia M85.80 CHF (congestive heart failure) I50.9 atrial fibrillation recent fatigue history of vitamin D deficiency normochromic normocytic anemia thrombocytosis obesity hearing loss left ear acoustic neuroma, left Surgical History Surgery Date(Month/Year) pace [place] [facility] [place] Hospitalization History Reason Date(Month/Year) nose bleed 11/2019
--- OUTSIDE RECORDS SUMMARY | 2024-11-04 15:41 | XMS_ITS | Patient Health Record ---
Author Organization [facility] Address [address] [facility] [address] [place] [phone] Care Team Providers Care Assistant Professor Of Forestry Name Role Phone NONE, NONE Primary Care Provider Juan M Moya Jr, Carlos Manuel Martinez Results Component Value Reference Range Notes Pathology Reviewed date:09/21/2024 08:31:48 AM Interpretation: Performing Lab:[facility], [address] [place] [phone] Notes/Report: Reason For Referral No Information Problems Problem Type SNOMED Code ICD Code Onset Dates Problem Status W/U Status Risk Notes Problem Iron deficiency anemia (73969122) Iron deficiency anemia (D50.9) Active confirmed Encounters Encounter Location Date Provider Diagnosis [facility] Inpatient [address] [place] [phone] 09/09/2024 Carlos Manuel Moya Jr [facility] [address] [place] [phone] 09/21/2024 Carlos Manuel Moya Jr Plan Of Treatment No Information Insurance Providers Payer Name Payer Address Payer Phone Subscriber Number Group Number Insured Name Patient Relationship to Insured Coverage Start Date Coverage End Date MEDICARE OF [place] [address] [place] [address] [id number] DEIDRA OVIEDO Self - patient is the insured MEDICAID OF [facility] [address] [place] [address] [id number] DEIDRA OVIEDO Self - patient is the insured
[2024-11-04 16:09] LABS: MANUAL DIFF FLAG NO
[2024-11-04 16:11] LABS: Hematocrit 27.8 % (37.0-47.0); Hemoglobin 8.6 g/dl (12.0-16.0); Imm Gran Abs Auto 0.05 X10*3/uL (0.00-0.03); Imm Gran Pct Auto 0.7 % (0.0-0.4); Lymphocytes Absolute Auto 0.8 X10*3/uL (1.2-4.9); Mean Corpuscular HGB Conc 30.9 g/dl (31.0-35.0); Mean Corpuscular Hemoglobin 31.4 pg (27.0-33.0); Mean Corpuscular Volume 101.5 fL (80.0-98.0); NRBC Abs Auto 0.000 X10*3/uL (0.0-0.012); NRBC Pct Auto 0.0 /100WBC (0.0-0.2); Platelet Count 420 X10*3/uL (160-400); Red Blood Count 2.74 X10*6/uL (4.20-5.50); Reticulocytes Absolute 0.155 X10*6/uL (0.026-0.095); White Blood Count 7.1 X10*3/uL (4.8-10.8)
[2024-11-04 16:45] LABS: Ferritin 40 ng/mL (10-250)
== END 2024-11-04 15:04 | disposition home or self-care (01) ==
LOC: HO.HMGCLDS 15:03
PROVIDERS: PCP Nurse Practitioner Family; Visit Provider Internal Medicine Medical Oncology
DX: E66.3 Overweight (principal); D75.89 Other specified diseases of blood and blood-forming organs; D50.9 Iron deficiency anemia, unspecified
CPT/HCPCS: 36415; 82728; 85025; 85045

== ENCOUNTER 2024-11-18 11:33 | Outpatient (REF) | payer MEDICARE, MEDICAID, SELFPAY ==
[2024-11-18 13:03] LABS: MANUAL DIFF FLAG NO
[2024-11-18 13:06] LABS: Hematocrit 33.3 % (37.0-47.0); Hemoglobin 10.1 g/dl (12.0-16.0); Imm Gran Abs Auto 0.03 X10*3/uL (0.00-0.03); Imm Gran Pct Auto 0.5 % (0.0-0.4); Lymphocytes Absolute Auto 1.1 X10*3/uL (1.2-4.9); Mean Corpuscular HGB Conc 30.3 g/dl (31.0-35.0); Mean Corpuscular Hemoglobin 30.6 pg (27.0-33.0); Mean Corpuscular Volume 100.9 fL (80.0-98.0); NRBC Abs Auto 0.000 X10*3/uL (0.0-0.012); NRBC Pct Auto 0.0 /100WBC (0.0-0.2); Platelet Count 432 X10*3/uL (160-400); Red Blood Count 3.30 X10*6/uL (4.20-5.50); Reticulocytes Absolute 0.121 X10*6/uL (0.026-0.095); White Blood Count 5.6 X10*3/uL (4.8-10.8)
[2024-11-18 13:43] LABS: Ferritin 30 ng/mL (10-250)
== END 2024-11-18 11:34 | disposition home or self-care (01) ==
LOC: HO.HMGCLR 11:33
PROVIDERS: PCP Nurse Practitioner Family; Visit Provider Internal Medicine Medical Oncology
DX: D75.89 Other specified diseases of blood and blood-forming organs (principal); D50.9 Iron deficiency anemia, unspecified; E66.3 Overweight
CPT/HCPCS: 36415; 82728; 85025; 85045

== ENCOUNTER 2024-11-21 17:42 | Emergency (ER) | payer MEDICARE, MEDICAID, SELFPAY ==
--- OUTSIDE RECORDS SUMMARY | 2024-03-31 08:45 | XMS_ITS ---
Author Organization Trevor Bailey III, MD Address [address] [place] [address] Care Team Providers Care Web Production Artist Name Role Phone ARCELIA GUARDADO Primary Care Provider UnavailDr. Trevor Oliver III Unavailable [phone] REASON FOR VISIT follow Up Encounters Encounter Location Date Provider Diagnosis Trevor Bailey III, MD [address] [place] [address] [place] [address] 03/31/2024 Trevor Bailey Plan Of Treatment Next Appt Details Provider Name:Trevor Bailey , 12/02/2024 02:00:00 PM, [address] [place] [address] [address] [place], [place], [address], Progress Notes * Jessica OVIEDO RDOB:1940 (84 yo F)Acc No.[id number]:03/31/2024 Progress Notes Patient: Jessica ROBLES Provider: Nya Bailey MD :1940 A ge:83 Y S ex:Female Date:03/31/2024 Address:[address] [place] [address] [facility] [id number] Pcp:ARCELIA GUARDADO Subjective: * Chief Complaints: * [...] 0 03/31/2024 Generated for Jeff naranjo/Keith/Megha on: 1 08:51 PM EDT
--- OUTSIDE RECORDS SUMMARY | 2024-05-26 06:45 | XMS_ITS ---
Author Organization Trevor Bailey III, MD Address [address] [place] [address] Care Team Providers Care Sales Promotion Officer Name Role Phone ARCELIA GUARDADO Primary Care Provider Dr. Trevor Flood III Unavailable [phone] Allergies Allergen (clinical drug ingredient) Drug/Non Drug [...] a day Active Vitamin D3 50 MCG (2000 UT) 1 [...] Date Provider Diagnosis Trevor Bailey III, MD [address] [place] [address] DR SAHASTEVENDANIEL, [place] [phone] 05/26/2024 Trevor Bailey Essential hypertensi on I10 [...] Up: 6 Months, Reason: OV Provider Name:Trevor Bailey , 12/02/2024 02:00:00 PM, [address] [place] [address] , SKY Wu, [place], [place], [address], Progress Notes * eJssica OVIEDO:1940 (84 yo F)Acc No.[id number]:05/26/2024 Progress Notes Patient: Jessica ROBLES Provider: Nya Bailey MD :1940 A ge:84 Y S ex:Female Date:05/26/2024 Address:[address] [place] [address] [place], [id number] Pcp:Ras Chao MD Subjective: * Chief Complaints: [...] Surgical History: p sylvia maker placement at [facility] [place] 08/2021 * Hospitalization/Major Diagno stic Procedure: n [...] Bailey MD Date: 0 05/26/2024 Generated for Kauri marcella/Keith/eTransmitting on: 1 08:50 PM EDT History and Physical Notes * [...]
--- OUTSIDE RECORDS SUMMARY | 2024-09-09 08:50 | XMS_ITS ---
Author Organization [facility] Address [address] [place] [phone] Care Team Providers Care Hydrographic Surveyor Name Role Phone NONE, NONE Primary Care Provider Carlos Manuel Ruiz Jr REASON FOR VISIT fe def anemia Encounters Encounter Location Date Provider Diagnosis [facility] [place] [place] Inpatient [address] [place], [place] [phone] 09/09/2024 Carlos Manuel Moya Jr Plan Of Treatment No Information Progress Notes * DEIDRA OVIEDO RDOB:1940 (84 yo F)Acc No.[id number]:09/09/2024 EGD and COL/MAC Patient: DEIDRA ROBLES Provider: Santos Moya MD :1940 A ge:84 Y S ex:Female Date:09/09/2024 Address:[address] [place] [address] Subjective: * Chief Complaints: * 1 . Fe def anemia. * Medical History: Objective: * Vitals: Assessment: Plan: * Treatment: * * The named appointment provid er may or may not be the originator of this progress note, and it is not deemed complete until electronically signed by the appointment provider. Sign off status: Pending * Provider: Santos Moya MD Date: 0 09/09/2024 Generated for Kauri marcella/Keith/eTransmitting on: 08:51 PM EDT
--- OUTSIDE RECORDS SUMMARY | 2024-10-06 13:00 | XMS_ITS ---
Author Organization Trevor Bailey III, MD Address [address] [address] Care Team Providers Care Property And Supply Officer Name Role Phone ARCELIA GUARDADO Primary Care Provider UnavailDr. Trevor Oliver III Unavailable REASON FOR VISIT follow up Hospital Follow up Encounters Encounter Location Date Provider Diagnosis Trevor Bailey III, MD [address] [place] [address] [place] [id number] 10/06/2024 Trevor Bailey Plan Of Treatment Next Appt Details Provider Name:Trevor Bailey , 12/02/2024 02:00:00 PM, [address] [place] [address] [place] [phone], Progress Notes * Jessica OVIEDO RDOB:1940 (84 yo F)Acc No.[id number]:10/06/2024 Patient: Jessica ROBLES Provider: Nya Bailey MD :1940 A ge:84 Y S ex:Female Date:10/06/2024 Address:[address] [place] [address] [facility] [id number] Pcp:ARCELIA GUARDADO Subjective: * Chief Complaints: * 1 . follow up Hospital Follow up. * Medical History: Objective: * Vitals: Assessment: Plan: * Treatment: * Images: * The named appointment provid er may or may not be the originator of this progress note, and it is not deemed complete until electronically signed by the appointment provider. Sign off status: Pending * Provider: Nya Bailey MD Date: 0 10/06/2024 Generated for Jeff naranjo/Keith/Megha on: 1 08:50 PM EDT
--- OUTSIDE RECORDS SUMMARY | 2024-10-26 09:24 | XMS_ITS ---
Author Organization Trevor Bailey III, MD Address [address] [place] [address] [place] [address] Care Team Providers Care Communication Manager Name Role Phone ARCELIA GUARDADO Primary Care Provider Dr. Trevor Flood III Unavailable REASON FOR VISIT Concern Encounters Encounter Location Date Provider Diagnosis Trevor Bailey III, MD [address] [place] [address] [place] [address] 10/26/2024 Trevor Bailey Plan Of Treatment Next Appt Details Provider Name:Trevor Bailey , 12/02/2024 02:00:00 PM, [address] [place] [address] [place], [phone], Progress Notes * Jessica OVIEDO RDOB:1940 (84 yo F)Acc No.[id number]:10/26/2024 Patient: Jessica ROBLES :1940 A ge:84 Y S ex:Female [address] [facility] [place], [address] * true * Date: Generated for Printi ng/Faxing/eTransmitting on: 1 08:50 PM EDT
--- OUTSIDE RECORDS SUMMARY | 2024-11-04 10:00 | XMS_ITS ---
Author Organization Trevor Bailey III, MD Address [address] [place] [address] Care Team Providers Care Payment Collector Name Role Phone MIYA GUARDADO Primary Care Provider Dr. Trevor Flood III Unavailable [phone] Allergies Allergen (clinical drug ingredient) Drug/Non Drug Allergy documented on EMR Reaction Allergy Type Onset Date Status No Known Drug Allergy Unknown Drug Allergy Active Results Component Value Reference Range Notes RETIC Reviewed date:11/21/2024 08:48:37 AM Interpretation: Performing Lab:[facility], [address] [place] [id number] Notes/Report: Reticulocytes Absolute 0.155 0.026-0.095 X10*6/ uL Immature Retic Fraction 33.1 3.0-15.9 % Retic HGB Equivalent 27.4 30.0-35.0 pg Reticulocyte Percent 5.7 0.5-1.8 % Ferritin Reviewed date:11/21/2024 08:48:37 AM Interpretation: Performing Lab:[address] [id number] Notes/Report: Ferritin 40 10-250 ng/mL REASON FOR VISIT Arteriovenous malformation of the cecum, Recent detection guaiac-positive stool, New anemia despiteiron therapy, Hypothyroidism, Hypertension, Atrial fibrillation, Chronic anticoagulation with rivaroxaban, Congestive heart failure, Vitamin B12 deficiency, Pacemaker, Prolongation of PT and PTT and INR Medications Medication SIG (Take, Route, Frequency, Duration) [...] 1 tablet Orally Once a day Active Estradiol 0.5 MG 1 tablet Orally Once a day Active Vitamin B-12 1000 MCG TAKE ONE TABLET BY MOUTH EVERY DAY Orally Once a day Active Folic Acid 1 MG TAKE ONE TABLET BY M OUTH EVERY DAY Active Lisinopril 20 MG 1 tablet Orally Once a day Active Vitamin D3 50 MCG (2000 UT) 1 capsule Or ally Once a day Active Social History Tobacco Use: Social History Observation Description Date Details (start date - stop date) Never Smoker NA - NA Tobacco Use/Smoking Question Answer Notes Patient is a nonsmoker Additional Findings: Tobacco Non-User Aggressive non-smoker Problems Problem Type SNOMED Code ICD Code Onset Dates Problem Status W/U Status Risk Notes Problem 56293886 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 It is likely the source of the guaiac-positive stool in this anticoagulated patient with an INR of 2.7. Problem 438710183 Abnormal INR (R79.1) Active confirmed The prothrombin time and partial thromboplastin time are prolonged likely an effect from Xarelto. If she continues to be anemic from gastrointestinal blood loss her anticoagulation may need to be revised. Problem 423594566 Iron deficiency anemia due to chronic blood loss (D50.0) Active confirmed Her blood work for many years has shown a hematocrit in the 40s. It is now 26%. Stool is guaiac positive and her reticulocyte count is 5.7%. The absolute total reticulocyte count is elevated. It is likely that the arterial venous malformation cecum is bleeding intermittently. She will need to continue her iron. We will need to monitor her her hemoglobin and hematocrit carefully. If the anemia worsens despite iron therapy we will need to revise her anticoagulation for the atrial fibrillation. Vital Signs Temperature 97.9 degrees Fahrenheit 11/05/19 25 Blood pressure systolic 134 mm Hg 11/05/19 25 Blood pressure diastolic 54 mm Hg 025 Heart Rate 87 /min 11/04/2024 Height 62 in 11/04/2024 Weight 139 lbs 11/04/2024 BMI 25.42 kg/m2 11/04/2024 Encounters Encounter Location Date Provider Diagnosis Trevor Bailey III, MD [address] [place] [address] [address] [place], [place] [id number] 11/04/2024 Trevor Bailey Essential hypertensi on I10 ; Iron deficiency anemia, unspecified iron deficiency anemia type D50.9 ; Macrocytosis D75.89 ; Overweight E66.3 ; Vitamin D deficiency E55.9 ; Acquired hypothyroidism E03.9 ; Osteopenia M85.80 ; Chronic anticoagulation Z79.01 ; Persistent atrial fibrillation I48.19 ; Pacemaker Z95.0 ; Arteriovenous malformation Q27.30 ; Abnormal INR R79.1 and Iron deficiency anemia due to chronic blood loss D50.0 Assessments Encounter Date Diagnosis (ICD Code) Assessment Notes T reatment Notes Treatment Clinical Notes 11/04/2024 Essential hypertension (ICD-10 - I10) Her blood pressure is stable and no change in her regimen as necessary. I recommended weight loss and sodium restriction. The value was 134/54. 11/04/2024 Iron deficiency anemia, unspecified iron deficiency anemia type (ICD-10 - D50.9) Her ferritin level today is 40 which is in the normal range. She says she has been taking her iron supplement. The gastroenterology note from September 09, 2024 indicates that she had stopped it for a while because of diarrhea. She was instructed to take it daily and call me if there is any difficulty about it. 11/04/2024 Macrocytosis (ICD-10 - D75.89) The mean cell volume is 101. This is likely due to a reticulocytosis from recent blood loss. 11/04/2024 Overweight (ICD-10 - E66.3) She is very slightly overweight. I recommended a Mediterranean diet and stabilization of her weight at this level. 11/04/2024 Vitamin D deficiency (ICD-10 - E55.9) Her vitamin D level is adequate. She was continued on supplementation without change. 11/04/2024 Acquired hypothyroidism (ICD-10 - E03.9) She appears to be euthyroid. TSH was recently elevated but is now back to normal. 11/04/2024 Osteopenia (ICD-10 - M85.80) She has a diagnosis of postmenopausal osteopenia. I have agreed with the recommended vitamin D and calcium tablets. 11/04/2024 Chronic anticoagulation (ICD-10 - Z79.01) She has not noticed any bleeding. Stool collection pending. 11/04/2024 Persistent atrial fibrillation (ICD-10 - I48.19) She continues in a well-controlled atrial fibrillation. No change in regimen was necessary today. 11/04/2024 Pacemaker (ICD-10 - Z95.0) The pacemaker is present in the left upper chest wall. It seems to be functioning well. She is free of any symptoms of syncope. 11/04/2024 Arteriovenous malformation (ICD-10 - Q27.30) This was found in the cecum on a recent colonoscopy and was said to be nonbleeding. It is likely the source of the guaiac-positive stool in this anticoagulated patient with an INR of 2.7. 11/04/2024 Abnormal INR (ICD-10 - R79.1) The prothrombin time and partial thromboplastin time are prolonged likely an effect from Xarelto. If she continues to be anemic from gastrointestinal blood loss her anticoagulation may need to be revised. 11/04/2024 Iron deficiency anemia due to chronic blood loss (ICD-10 - D50.0) Her blood work for many years has shown a hematocrit in the 40s. It is now 26%. Stool is guaiac positive and her reticulocyte count is 5.7%. The absolute total reticulocyte count is elevated. It is likely that the arterial venous malformation cecum is bleeding intermittently. She will need to continue her iron. We will need to monitor her her hemoglobin and hematocrit carefully. If the anemia worsens despite iron therapy we will need to revise her anticoagulation for the atrial fibrillation. Plan Of Treatment Medication Medication Name Sig [...] MG 1 tablet Orally Once a day Estradiol 0.5 MG 1 tablet Orally Once a day Vitamin B-12 1000 MCG TAKE ONE TABLET BY MOUTH EVERY DAY Orally Once a day Folic Acid 1 MG TAKE ONE TABLET BY M OUTH EVERY DAY Lisinopril 20 MG 1 tablet Orally Once a day Vitamin D3 50 MCG (1999 UT) 1 capsule Or ally Once a day Pending Test Test Name Order Date CBC w DIFF 11/04/2024 Next Appt Details Follow Up: 4 Weeks, Reason: OV Provider Name:Trevor Bailey , 12/02/2024 02:00:00 PM, [address] [place] [address] [place], [place], [phone], Progress Notes * Jessica OVIEDO RDOB:1940 (84 yo F)Acc No.[id number]:11/04/2024 Progress Notes Patient: Jessica ROBLES Provider: Nya Bailey MD :[id number] A ge:84 Y S ex:Female Date:11/04/2024 Address:[address] [place] [address] [id number] Pcp:MIYA GUARDADO Subjective: * Chief Complaints: * A rteriovenous malformation of the cecumRecent detection guaiac-positive stoolNew anemia despite iron therapyHypothyroidismHypertensionAtrial fibrillationChronic anticoagulation with rivaroxabanCongestive heart failureVitamin B12 deficiencyPacemakerProlongation of PT and PTT and INR * HPI: C OVID-19 Screening: She was taken to the emergency room at [facility] October 26, 2024 for weakness. She was found to be stable and sent home. Blood work done showed a normal white blood cell count of 7500, platelet count of 348,000 and a new anemia of 26.5% with a mean cell volume of 100.4. Her TSH was 0.64. It had been elevated in the past and her levothyroxine dose reduced to 100 mcg on September 29, 2024. Her new primary care physician is Miya Bermeo at [facility], .On May 17, 2024 for B12 and folic acid levels were normal. On September 09 a colonoscopy done at [facility] by Dr. Moya showed a rectal polyp and a nonbleeding cecal arteriovenous malformation. In the emergency room last week her stool was guaiac positive. She says she has been taking her iron tablets. Blood work done this morning showed a normal white count of 7100 with a normal differential. The hematocrit has increased to 27.8 with a mean cell volume 100.5. The platelets are 420,000 and her reticulocyte count is 5.7% with a ferritin of 40. PT and PTT and INR are elevated. The most recent INR is 2.7. Review of old records at [facility] shows that the last normal PT, PTT and INR was in 2009. She was begun on rivaroxaban by cardiology for atrial fibrillation during a 2015 admission for sepsis. The PT and PTT were elevated in 2015 and have remained elevated at this level. Such prolongation can be seen in the elderly on rivaroxaban, She has had no bleeding despite the anticoagulation until now. Questions H ave you had any new [...] with exertion d enies. D yspnea on exertion?with prolonged activity. S hortness of breath w ith exertion. G astrointestinal: Constipation d enies. D ecreased appetite d enies.?Diarrhea N one since August,. H e[place] d enies. N ausea d enies. R ectal bleeding d enies. V omiting d enies. H ematology: bruising d enies. p etechiae d enies. S wollen glands n one have been noted. G enitourinary: Frequent urination a t night. M usculoskeletal: Muscle aches d enies. P [...] Surgical History: p sylvia maker placement at [facility] 08/2021 * Hospitalization/Major Diagno stic Procedure: n [...] She has 5 sons. * Medications: T akingVitamin B-12 1000 MCG Tablet TAKE ONE TABLET BY MOUTH EVERY DAY Orally Once a day Folic Acid 1 MG Tablet TAKE ONE TABLET BY MOUTH EVERY DAY Ferrous Gluconate 324 (38 Fe) MG Tablet 1 tablet Orally Once a day amLODIPine Besylate 5 MG Tablet 1 tablet Orally Once a day Xarelto 20 MG Tablet 1 tablet with food Orally Amiodarone HCl 200 MG Tablet 1 tablet Orally Once a day Levothyroxine Sodium 125 MCG Capsule 1 tablet in the morning on an empty stomach Orally Once a day Vitamin D3 50 MCG (2000 UT) Capsule 1 capsule Orally Once a day Taking Vitamin B-12 1000 MCG Tablet TAKE ONE TABLET BY MOUTH EVERY DAY Orally Once a day Taking Folic Acid 1 MG Tablet TAKE ONE TABLET BY MOUTH EVERY DAY Taking Ferrous Gluconate 324 (38 Fe) MG Tablet 1 tablet Orally Once a day Taking amLODIPine Besylate 5 MG Tablet 1 tablet Orally Once a day Taking Xarelto 20 MG Tablet 1 tablet with food Orally Taking Amiodarone HCl 200 MG Tablet 1 tablet Orally Once a day Taking Levothyroxine Sodium 125 MCG Capsule 1 tablet in the morning on an empty stomach Orally Once a day Taking Vitamin D3 50 MCG (2000 UT) Capsule 1 capsule Orally Once a day Not-Taking/PRNLisinopril 20 MG Tablet 1 tablet Orally Once a day Estradiol 0.5 MG Tablet 1 tablet Orally Once a day Medication List reviewed and reconciled with the patientNot-Taking/PRN Lisinopril 20 MG Tablet 1 tablet Orally Once a day Not-Taking/PRN Estradiol 0.5 MG Tablet 1 tablet Orally Once a day Medication List reviewed and reconciled with the patient * Allergies: N o Known Drug Allergyno[Allergies Verified] Objective: * Vitals: H t: 62, Wt:139, BMI:25.42, BP:134/54, HR:87, Temp:97.9, Wt-k.05. * Examination: G eneral Examination: GENERAL APPEARANCE: p lucio, well nourished, well developed, in no acute distress, calm and relaxed: overweight: woman. HEAD: a traumatic, normocephalic. EYES: e florian, perrla, anicteric, conjugate. EARS: n ormal. NOSE: s eptum intact. ORAL CAVITY: n ormal, unremarkable. NECK/THYROID: n o jugular venous distention, no carotid bruit, thyroid normal. LYMPH NODES: n o enlarged lymph nodes,spleen normal. SKIN: n o suspicious lesions, anicteric. HEART: n o clicks, gallops, murmurs, or rubs, slightly irregular rhythm, S1, S2 normal, no s3, or vascular bruits. LUNGS: c lear to auscultation . BREASTS: no masses palpable bilaterally. ABDOMEN: b owel sounds normal, no ascites, no organomegaly, no mass: overweight. RECTAL EXAM: n ot examined. MUSCULOSKELETAL: e [...] - D50.9 (Primary) ? N otes :Her ferritin level today is 40 which is in the normal range. She says she has been taking her iron supplement. The gastroenterology note from September 09, 2024 indicates that she had stopped it for a while because of diarrhea. She was instructed to take it daily and call me if there is any difficulty about it. 2 . E ssential hypertension - I10 N otes :Her blood pressure is stable and no change in her regimen as necessary. I recommended weight loss and sodium restriction. The value was 134/54. 3. M acrocytosis - D75.89 N otes :The mean cell volume is 101. This is likely due to a reticulocytosis from recent blood loss. 4 . O verweight - E66.3 N otes :She is very slightly overweight. I recommended a Mediterranean diet and stabilization of her weight at this level. 5 . V itamin D deficiency - E55.9 N otes :Her vitamin D level is adequate. She was continued on supplementation without change. 6 . A cquired hypothyroidism - E03.9 N otes :She appears to be euthyroid. T SH was recently elevated but is now back to normal. 7 . O steopenia - M85.80 N otes :She has a diagnosis of postmenopausal osteopenia. I have agreed with the recommended vitamin D and calcium tablets. 8 . C hronic anticoagulation - Z79.01 N otes :She has not noticed any bleeding. Stool collection pending. 9 . P ersistent atrial fibrillation - I48.19 N otes :She continues in a well-controlled atrial fibrillation. No change in regimen was necessary today. 1 0. P acemaker - Z95.0 N otes :The pacemaker is present in the left upper chest wall. It seems to be functioning well. She is free of any symptoms of syncope. 1 1. A rteriovenous malformation - Q27.30 N otes :This was found in the cecum on a recent colonoscopy and was said to be nonbleeding. It is likely the source of the guaiac-positive stool in this anticoagulated patient with an INR of 2.7. 1 2. A bnormal INR - R79.1 N otes :The prothrombin time and partial thromboplastin time are prolonged likely an effect from Xarelto. If she continues to be anemic from gastrointestinal blood loss her anticoagulation may need to be revised. 1 3. I randall deficiency anemia due to chronic blood loss - D50.0 ?Notes :Her blood work for many years has shown a hematocrit in the 40s. It is now 26%. Stool is guaiac positive and her reticulocyte count is 5.7%. The absolute total reticulocyte count is elevated. It is likely that the arterial venous malformation cecum is bleeding intermittently. She will need to continue her iron. We will need to monitor her her hemoglobin and hematocrit carefully. If the anemia worsens despite iron therapy we will need to revise her anticoagulation for the atrial fibrillation. Plan: * Treatment: Value Reference Range R eticulocytes Absolute 0.155 H 0.026-0.095 - X10* 6/uL * I mmature Retic Fraction 33.1 H 3.0-15.9 - % * R etic HGB Equivalent 27.4 L 30.0-35.0 - pg * R eticulocyte Percent 5.7 H 0.5-1.8 - % ?LAB: Ferritin (Collection Date & Time - 11/04/2024 03:10 PM)* Value Reference Range F erritin 40 10-250 - ng/mL 2.?Essential hypertension? Continue amLODIPine Besylate Tablet, 5 MG, 1 tablet, Orally, Once a day;?Continue Xarelto Tablet, 20 MG, 1 tablet with food, Orally;?Continue Amiodarone HCl Tablet, 200 MG, 1 tablet, Orally, Once a day;?Continue Levothyroxine Sodium Capsule, 125 MCG, 1 tablet in the morning on an empty stomach, Orally, Once a day;?Continue Vitamin D3 Capsule, 50 MCG (2000 UT), 1 capsule, Orally, Once a day.??3.?Macrocytosis?LAB: CBC w DIFF ?LAB: RETIC (Collection Date & Time - 11/04/2024 03:10 PM)* Value Reference Range R eticulocytes Absolute 0.155 H 0.026-0.095 - X10* 6/uL * I mmature Retic Fraction 33.1 H 3.0-15.9 - % * R etic HGB Equivalent 27.4 L 30.0-35.0 - pg * R eticulocyte Percent 5.7 H 0.5-1.8 - % ?LAB: Ferritin (Collection Date & Time - 11/04/2024 03:10 PM)* Value Reference Range F erritin 40 10-250 - ng/mL 4.?Overweight?LAB: CBC w DIFF ?LAB: RETIC (Collection Date & Time - 11/04/2024 03:10 PM)* Value Reference Range R eticulocytes Absolute 0.155 H 0.026-0.095 - X10* 6/uL * I mmature Retic Fraction 33.1 H 3.0-15.9 - % * R etic HGB Equivalent 27.4 L 30.0-35.0 - pg * R eticulocyte Percent 5.7 H 0.5-1.8 - % ?LAB: Ferritin (Collection Date & Time - 11/04/2024 03:10 PM)* Value Reference Range F erritin 40 10-250 - ng/mL 5.?Others? Continue Vitamin B-12 Tablet, 1000 MCG, TAKE ONE TABLET BY MOUTH EVERY DAY, Orally, Once a day; Continue Folic Acid Tablet, 1 MG, TAKE ONE TABLET BY MOUTH EVERY DAY;?Continue Ferrous Gluconate Tablet, 324 (38 Fe) MG, 1 tablet, Orally, Once a day.?? * Procedure Codes: * Preventive Medicine: Counseling: C are goal follow-up plan: Counseling for abnormal BMI given Y es Above Normal BMI Follow-up D ietary management education, guidance, and counseling * Follow Up: 4 Weeks (Reason: OV) * Images: * Sign off status: Completed true * Provider: Nya Bailey MD Date: 0 11/04/2024 Generated for Printi ng/Faclarag/eTransmitting on: 1 08:51 PM EDT History and Physical Notes * HPI (History of Present Illness) Category Sub-Category Detail Notes COVID-19 Screening Questions Have you had any new onset fever, chills, cough, congestion, sore throat, shortness of breath, muscle aches?: No Examination Category Sub-Category Detail Notes General Examination GENERAL APPEARANCE: pleasant , well nourished, well developed, in no acute distress, calm and relaxed: overweight: woman HEAD: atraumatic, normocep halic EYES: eomi, perrla, anicte shaista, conjugate EARS: normal NOSE: septum intact NECK/THYROID: no jugular venous di stention, no carotid bruit, thyroid normal HEART: no clicks, gallops, murmurs, or rubs, slightly irregular rhythm, S1, S2 normal, no s3, or vascular bruits LUNGS: clear to auscultatio n ABDOMEN: bowel sounds normal, no ascites, no organomegaly, no mass: overweight NEUROLOGIC: alert and oriented, cranial nerves 2-12 [...]
--- NOTE | ~2024-11-21 | XR_ITS ---
CLINICAL HISTORY: pain, injury Radiographs of the left shoulder, 3 views Comparison: None available Findings: No fracture or dislocation. Narrowed acromiohumeral interval. No significant joint space narrowing or osteophytosis. No soft tissue swelling. Impression: No acute findings. Narrowed acromiohumeral interval may indicate rotator cuff pathology. This document has been electronically signed by: Karyn Bro MD on 11/21/2024 19:48:56
--- NOTE | ~2024-11-21 | XR_ITS ---
CLINICAL HISTORY: pain, injury Radiographs of the right hand, 3 views Comparison: None available Findings: No fracture or dislocation. Severe degenerative change. Soft tissue swelling. Impression: No fracture. This document has been electronically signed by: Karyn Bro MD on 11/21/2024 18:45:52
--- NOTE | ~2024-11-21 | XR_ITS ---
CLINICAL HISTORY: pain, injury Radiographs of the right knee, 2 views Comparison: 12/29/23 Findings: There is no fracture or dislocation. Moderate medial and mild lateral tibiofemoral compartment joint space narrowing. Mild patellofemoral compartment osteophytosis. Suprapatellar enthesophyte. No joint effusion. Soft tissue swelling. Impression: No fracture or joint effusion. [id number] degenerative change. Radiographs of the left knee, 2 views, 3 images Comparison: None available Findings: There is no fracture or dislocation. Moderate medial tibiofemoral compartment joint space narrowing with mild osteophytosis. Trace suprapatellar enthesophyte. No joint effusion. Soft tissue swelling. Soft tissue calcifications. Impression: No fracture or joint effusion. [id number] degenerative change. This document has been electronically signed by: Karyn Bro MD on 11/21/2024 18:47:10
--- NOTE | ~2024-11-21 | CT_ITS ---
CLINICAL HISTORY: head strike, fall, pain, on ACs CT head without contrast Comparison: 09/06/24 Findings: No acute hemorrhage. No extra-axial fluid collection. No hydrocephalus, mass-effect or herniation. Veloz-white differentiation is maintained. There is patchy hypoattenuation of the periventricular and deep white matter, which is most likely the sequela of moderate chronic small vessel ischemic disease and is similar to the prior study. Unchanged encephalomalacia in the left cerebellum and bilateral basal ganglia/smith radiata. No acute orbital pathology. No acute soft tissue abnormality. No fracture. Left occipital craniectomy the visualized paranasal sinuses are predominantly clear. The mastoid air cells are clear. Impression: No acute findings. This document has been electronically signed by: Karyn Bro MD on 11/21/2024 19:43:47
--- NOTE | ~2024-11-21 | CT_ITS ---
CLINICAL HISTORY: head strike, fall, pain, on ACs CT cervical spine without contrast Comparison: 09/06/24 Findings: Mild multilevel anterolisthesis, degenerative. No fracture. No severe central spinal canal stenosis. No epidural hematoma. Normal thickness of the prevertebral soft tissues. The lung apices are clear. Impression: No acute findings. This document has been electronically signed by: Karyn Bro MD on 11/21/2024 19:47:26
[2024-11-21 17:44] VITALS: BP 122/65; PULSE 85; RESP 16; TEMP 36.1; O2SAT 98; BMI 27.9
--- NOTE | 2024-11-21 17:44 | ED.GENADULT ---
HPI - General Adult General Chief complaint: Fall Stated complaint: fell & scraped herself Time Seen by Provider: 11/21/24 20:50 Source: patient, family (patient's son), RN notes reviewed and old records reviewed Mode of arrival: ambulatory Limitations: no limitations History of Present Illness ED Provider: Brigido HPI narrative: 84-year-old female presents for evaluation after a fall. She reports that she was walking down her basement when she missed the last step. She fell onto mostly her left side She had her head but did not lose consciousness. She has skin tears mostly to her right hand of the dorsal surface but also the knees bilaterally The patient is anticoagulated on Xarelto for history of AFib. She is still able to ambulate. She complains of moderate, 6/10 pain There was no prodrome of dizziness, chest pain or shortness of breath prior to her fall Related Data Home Medications ?Medication ?Instructions ?Recorded ?Confirmed calcium 600 mg capsule 600 mg PO DAILY 08/18/21 10/11/24 cyanocobalamin (vitamin B-12) 1 tab PO DAILY 08/18/21 10/11/24 1,000 mcg tablet ferrous gluconate 324 mg (38 mg 1 tab PO DAILY 08/18/21 10/11/24 iron) tablet folic acid 1 mg tablet 1 tab PO DAILY 08/18/21 10/11/24 cholecalciferol (vitamin D3) 50 50 mcg PO DAILY 04/15/22 10/11/24 mcg (2,000 unit) capsule levothyroxine 125 mcg tablet 125 mcg PO DAILY@0600 09/07/24 10/11/24 Previous Rx's ?Medication ?Instructions ?Recorded amiodarone 200 mg tablet 200 mg PO DAILY #90 tabs 04/28/24 estradiol 0.5 mg tablet 0.5 mg PO DAILY #90 tabs 06/06/24 amlodipine 5 mg tablet 5 mg PO DAILY #90 tabs 07/20/24 omeprazole 40 mg capsule,delayed 40 mg PO DAILY@0630 #90 caps 09/10/24 release rivaroxaban 20 mg tablet 20 mg PO DAILY #90 tabs 10/20/24 Allergies Allergy/AdvReac Type Severity Reaction Status Date / Time No Known Allergies (No Known Allergy Verified 11/21/24 17:47 Allergies*) Review of Systems Constitutional: Constitutional: Denies body ache(s), Denies chills, Denies frequent falls and Denies headache(s) Eyes: Eyes: Denies blurry vision ENT: Denies vertigo, Denies dizziness and Denies headache(s) Cardiovascular: Cardiovascular: Denies chest pain and Denies dyspnea Respiratory: Respiratory: Denies dyspnea Musculoskeletal: Musculoskeletal: Reports arthralgias, Reports joint swelling and Reports limited range of motion Integumentary/Breasts: Skin/Breast: Reports wounds Neurologic: Denies vertigo, Denies dizziness, Denies frequent falls and Denies headache(s) [facility] Past Medical History Medical History Osteopenia (~2002) History of acoustic neuroma Cardiac pacemaker in situ (~08/2021) Skull asymmetry Eye abnormalities Syncope (~08/2021) HTN (hypertension) (HFpEF) heart failure with preserved ejection fraction Paroxysmal atrial fibrillation (~11/2014) Epistaxis Hypothyroidism Basal cell carcinoma Surgical History History of cardiac pacemaker (~2021) History of ear surgery History of cholecystectomy (~2014) History of hysterectomy History of cardioversion Family History Family History Mother No problems noted. Father Stroke Other No family history of congenital heart disease Social History Social History Household Members: None Household Members Other:: lives alone Housing: House Are you a primary foster care worker to a significant other at home: Yes (son w/ disability- lives [facility]) Do you presently have visiting nurse or other home services: No Alcohol intake: never Comment: will f/u re: falls after this acute admission Patient Tobacco Use Status: Never used Tobacco e-Cigarette/Vaping Use: Never Used Advance Directives: Yes Advance Directives Information Provided: No Advance Directives on File: No Do you have a plan to hurt others: No Plan service: No Current occupational status: retired Cognitive needs: No Hearing needs: No Vision needs: Yes (rx glasses) Physical Exam ED Vital Signs: Vital Signs - 24 hr 11/21/24 17:44 Temperature 97.0 F Pulse Rate 85 Respiratory Rate 16 Blood Pressure 122/65 Pulse Oximetry 98 Oxygen Delivery Method Room Air BMI result Body Mass Index 27.9 Const General: healthy appearing, comfortable, no acute distress, alert and awake Nutritional Appearance: well nourished Orientation/consciousness: patient oriented x3 Eyes Eyelids: Yes eyelids normal Conjunctivae: conjunctivae normal Sclerae: sclerae normal Corneas: corneas normal Pupils: Equal, round and reactive pupils present EOM: EOMs intact bilaterally Neck Neck: Yes full ROM Resp Effort & Inspection: normal respiratory effort, able to speak in complete sentences, no audible wheezes and not labored Auscultation: clear to auscultation bilaterally GI Inspection: No distended Palpation (GI): Soft to palpation, not firm, nontender, no guarding and not rigid Skin Other: The patient has a fairly large, half upper sioux skin tear to the dorsal surface of the right hand. This is approximately 4 cm wide. There is a small, 1 cm skin tear to the dorsal surface of the right hand in between the 1st MCP and interphalangeal joint. There is an approximately 2 cm skin tear to the of the knees bilaterally. No active bleeding from any of the wounds General skin exam: elasticity normal Neuro General: patient oriented x3 Cranial nerves: Yes CN's II-XII intact bilaterally, Yes Equal, round and reactive pupils present and Yes Bilaterally intact EOM present Cognition (Neuro): normal cognition Extrem Other: Moving all extremities well without any obvious deformities Course Course Course Narrative: Rapid medical examination performed in triage by Krupa Dave PA-C. Patient is a 84 year old assigned female at presenting to the emergency department with right hand pain, bilateral knee pain, and a headache after a fall. Patient states that she missed her last step and fell. Patient states that she is on Xarelto. Detailed physical exam and review of systems are deferred to the field human resources manager. Imaging ordered. Patient placed back in the waiting room pending room availability and results. Medical Decision Making Medical Decision Making MDM Narrative: 84-year-old female presents for evaluation of a nonsyncopal fall. She does reports striking her head and she is on Xarelto, CT scan of the brain and cervical spine was ordered. She also had x-rays of the left shoulder, right hand and right knee. There were no evidence of significant traumatic injuries. I did discuss if the patient and her son felt that she was safe going home without a physical therapy evaluation and they report that the patient's son is currently staying with the patient and they both feel comfortable her being discharged home. They have no interest in short-term rehab currently. We will cleaned and closed the wounds. All the wounds are superficial, but the dorsal surface of the right hand is quite large, we will attempt to closed with Dermabond, as I do not feel that it would hold sutures. Differential Diagnosis Differential Diagnoses: The differential diagnosis associated with the presentation includes Skin tear Puncture Laceration Intracranial hemorrhage Cervical fracture Radiology Impression Discussion of test interpretation with radiology: I have reviewed the radiologist's reading. Radiologist Impression: Findings: No acute hemorrhage. No extra-axial fluid collection. No hydrocephalus, mass-effect or herniation. Veloz-white differentiation is maintained. There is patchy hypoattenuation of the periventricular and deep white matter, which is most likely the sequela of moderate chronic small vessel ischemic disease and is similar to the prior study. Unchanged encephalomalacia in the left cerebellum and bilateral basal ganglia/smith radiata. No acute orbital pathology. No acute soft tissue abnormality. No fracture. Left occipital craniectomy the visualized paranasal sinuses are predominantly clear. The mastoid air cells are clear. Impression: No acute findings. This document has been electronically signed by: Karyn Bro MD on 11/21/2024 19:43:47 Findings: Mild multilevel anterolisthesis, degenerative. No fracture. No severe central spinal canal stenosis. No epidural hematoma. Normal thickness of the prevertebral soft tissues. The lung apices are clear. Impression: No acute findings. This document has been electronically signed by: Karyn Bro MD on 11/21/2024 19:47:26 Discharge Plan Discharge Clinical Impression: Fall, Skin tear of right upper extremity Patient Disposition: Home, Self-Care Instructions: Fall Prevention for Older Adults (ED) Additional Instructions: Your workup in the ER today was reassuring. This includes your CT scans, your x-rays There was no evidence of intracranial hemorrhage, skull fracture or cervical spine fracture The x-ray of your hand, knee and shoulder did not show any fractures or dislocations. Keep the area of wounds, clean and dry. You may apply topical bacitracin or triple antibiotic Follow up with your primary doctor, return for new or worsening symptoms Prescriptions: No Action amlodipine 5 mg tablet 5 mg PO DAILY Qty: 90 3RF rivaroxaban 20 mg tablet 20 mg PO DAILY Qty: 90 3RF cyanocobalamin (vitamin B-12) 1,000 mcg tablet 1 tab PO DAILY folic acid 1 mg tablet 1 tab PO DAILY ferrous gluconate 324 mg (38 mg iron) tablet 1 tab PO DAILY calcium 600 mg Capsule 600 mg PO DAILY levothyroxine 125 mcg tablet 125 mcg PO DAILY@0600 omeprazole 40 mg Capsule,Delayed Release(Dr/Ec) 40 mg PO DAILY@0630 Qty: 90 0RF cholecalciferol (vitamin D3) 50 mcg (2,000 unit) capsule 50 mcg PO DAILY estradiol 0.5 mg tablet 0.5 mg PO DAILY Qty: 90 1RF amiodarone 200 mg tablet 200 mg PO DAILY Qty: 90 3RF Print Language: Cymraes
--- OUTSIDE RECORDS SUMMARY | 2024-11-21 20:50 | XMS_ITS | Patient Health Record ---
Author Organization [facility] Address [address] [facility] [address] [place] [phone] Care Team Providers Care Life Scientists Name Role Phone NONE, NONE Primary Care Provider Juan M Moya Jr, Carlos Manuel Martinez Results Component Value Reference Range Notes Pathology Reviewed date:09/21/2024 08:31:48 AM Interpretation: Performing Lab:[facility], [address] [place] [phone] Notes/Report: Reason For Referral No Information Problems Problem Type SNOMED Code ICD Code Onset Dates Problem Status W/U Status Risk Notes Problem Iron deficiency anemia (19544274) Iron deficiency anemia (D50.9) Active confirmed Encounters Encounter Location Date Provider Diagnosis [facility] [place] [address] [place] [id number] 09/09/2024 Carlos Manuel Moya Jr [facility] [address] [place] [phone] 09/21/2024 Carlos Manuel Moya Jr Plan Of Treatment No Information Insurance Providers Payer Name Payer Address Payer Phone Subscriber Number Group Number Insured Name Patient Relationship to Insured Coverage Start Date Coverage End Date MEDICARE OF [place] [address] [place] [address] [id number] DEIDRA OVIEDO Self - patient is the insured MEDICAID OF [facility] [address] [place] [address] [phone] [id number] DEIDRA OVIEDO Self - patient is the insured
--- OUTSIDE RECORDS SUMMARY | 2024-11-21 20:51 | XMS_ITS | Patient Health Record ---
Author Organization Trevor Bailey III, MD Address [address] [place] [address] [place] [address] Care Team Providers Care Web Development Instructor Name Role Phone ARCELIA GUARDADO Primary Care Provider Dr. Trevor Flood III Unavailable Allergies Allergen (clinical drug ingredient) Drug/Non Drug Allergy documented on EMR Reaction Allergy Type Onset Date Status No Known Drug Allergy Unknown Drug Allergy Active Results Component Value Reference Range Notes Complete Blood Count Auto Di ff Reviewed date:05/19/2024 08:15:55 PM Interpretation: Performing Lab:[facility], [address] [place] [id number] Notes/Report: White Blood Count 6.7 4.8-10.8 X10*3/uL [...] RETIC Reviewed date:05/19/2024 08:15:55 PM Interpretation: Performing Lab:[address] [id number] Notes/Report: Reticulocytes Absolute 0.072 0.026-0.095 X10*6/ uL Immature Retic Fraction 15.4 3.0-15.9 % Retic HGB Equivalent 35.2 30.0-35.0 pg Reticulocyte Percent 1.7 0.5-1.8 % Comprehensive Met. Panel Reviewed date:05/19/2024 08:15:55 PM Interpretation: Performing Lab:[address] [address] Notes/Report: Sodium 141 135-145 mmol/L Potassium 3.8 [...] Ferritin Reviewed date:05/19/2024 08:15:55 PM Interpretation: Performing Lab:[address] [address] Notes/Report: Ferritin 53 10-250 ng/mL Vitamin B12 and Folate Reviewed date:05/19/2024 08:15:55 PM Interpretation: Performing Lab:[address] [address] Notes/Report: Vitamin B12 1025 200-900 pg/mL NORMAL 200-900 PG/ML INDETERMINATE 160-199 PG/ML DEFICIENT < 160 PG/ML Folate 19.3 > or = 4.0 ng/mL Reference Values: > or = 4.0 ng/mL < 4.0 ng/mL suggests folate deficiency Methotrexate, aminopterin and folinic acid (leucovorin) are chemotherapeutic agents whose molecular structures are similar to folate; therefore, the Roll Picker folate assay cannot be used for patients using these drugs. RETIC Reviewed date:11/21/2024 08:48:37 AM Interpretation: Performing Lab:[address] [address] Notes/Report: Reticulocytes Absolute 0.155 0.026-0.095 X10*6/ uL Immature Retic Fraction 33.1 3.0-15.9 % Retic HGB Equivalent 27.4 30.0-35.0 pg Reticulocyte Percent 5.7 0.5-1.8 % Ferritin Reviewed date:11/21/2024 08:48:37 AM Interpretation: Performing Lab:[address] [address] Notes/Report: Ferritin 40 10-250 ng/mL Complete Blood Count Auto Di ff Reviewed date:11/21/2024 08:48:37 AM Interpretation: Performing Lab:[address] [phone] Notes/Report: White Blood Count 7.1 4.8-10.8 X10*3/uL Red Blood Count 2.74 4.20-5.50 X10*6/uL Hemoglobin 8.6 12.0-16.0 g/dl Hematocrit 27.8 37.0-47.0 % Mean Corpuscular Volume 101.5 80.0-98.0 fL Mean Corpuscular Hemoglobin 31.4 27.0-33.0 pg Mean Corpuscular HGB Conc 30.9 31.0-35.0 g/dl Red Cell Distribution Width 14.7 11.0-16.0 % Platelet Count 420 160-400 X10*3/uL Mean Platelet Volume 11.3 9.4-12.3 fL Neutrophils Percent Auto 77.9 45-73 % Imm Gran Pct Auto 0.7 0.0-0.4 % Lymphocytes Percent Auto 11.7 20-40 % Monocytes Percent Auto 8.0 2-11 % Eosinophils Percent Auto 1.0 0-4 % Basophils Percent Auto 0.7 0-2 % NRBC Pct Auto 0.0 0.0-0.2 /100WBC Neutrophils Absolute Auto 5.5 2.0-8.3 x10*3/u L Imm Gran Abs Auto 0.05 0.00-0.03 X10*3/uL Lymphocytes Absolute Auto 0.8 1.2-4.9 X10*3/u L Monocytes Absolute Auto 0.6 0.1-1.2 X10*3/uL Eosinophils Absolute Auto 0.1 0.0-0.4 X10*3/u L Basophils Absolute Auto 0.1 0.0-0.2 X10*3/uL NRBC Abs Auto 0.000 0.0-0.012 X10*3/uL Complete Blood Count Auto Di ff Reviewed date:11/21/2024 08:48:37 AM Interpretation: Performing Lab:[facility], [address] [place] [phone] Notes/Report: White Blood Count 5.6 4.8-10.8 X10*3/uL Red Blood Count 3.30 4.20-5.50 X10*6/uL Hemoglobin 10.1 12.0-16.0 g/dl Hematocrit 33.3 37.0-47.0 % Mean Corpuscular Volume 100.9 80.0-98.0 fL Mean Corpuscular Hemoglobin 30.6 27.0-33.0 pg Mean Corpuscular HGB Conc 30.3 31.0-35.0 g/dl Red Cell Distribution Width 13.4 11.0-16.0 % Platelet Count 432 160-400 X10*3/uL Mean Platelet Volume 11.8 9.4-12.3 fL Neutrophils Percent Auto 64.0 45-73 % Imm Gran Pct Auto 0.5 0.0-0.4 % Lymphocytes Percent Auto 20.0 20-40 % Monocytes Percent Auto 11.6 2-11 % Eosinophils Percent Auto 3.0 0-4 % Basophils Percent Auto 0.9 0-2 % NRBC Pct Auto 0.0 0.0-0.2 /100WBC Neutrophils Absolute Auto 3.6 2.0-8.3 x10*3/u L Imm Gran Abs Auto 0.03 0.00-0.03 X10*3/uL Lymphocytes Absolute Auto 1.1 1.2-4.9 X10*3/u L Monocytes Absolute Auto 0.7 0.1-1.2 X10*3/uL Eosinophils Absolute Auto 0.2 0.0-0.4 X10*3/u L Basophils Absolute Auto 0.1 0.0-0.2 X10*3/uL NRBC Abs Auto 0.000 0.0-0.012 X10*3/uL RETIC Reviewed date:11/21/2024 08:48:37 AM Interpretation: Performing Lab:[address] [address] Notes/Report: Reticulocytes Absolute 0.121 0.026-0.095 X10*6/ uL Immature Retic Fraction 29.2 3.0-15.9 % Retic HGB Equivalent 28.9 30.0-35.0 pg Reticulocyte Percent 3.7 0.5-1.8 % Ferritin Reviewed date:11/21/2024 08:48:37 AM Interpretation: Performing Lab:[address] [address] Notes/Report: Ferritin 30 10-250 ng/mL Reason For Referral No Information Medications Medication SIG (Take, Route, Frequency, Duration) Notes Start Date End Date Status Xarelto 20 MG 1 tablet with food Orally Active Estradiol 0.5 MG 1 tablet Orally Once a day Active Amiodarone HCl 200 MG 1 tablet Orally On ce a day Active Ferrous Gluconate 324 (38 Fe) MG TAKE ONE TABLET BY MOUTH EVERY DAY for 90 Active Levothyroxine Sodium 125 MCG 1 tablet in the morning on an empty stomach Orally Once a day Active Vitamin B-12 1000 MCG TAKE ONE TABLET BY MOUTH EVERY DAY Orally Once a day Active Folic Acid 1 MG TAKE ONE TABLET BY M OUTH EVERY DAY Active amLODIPine Besylate 5 MG 1 tablet [...] Problem Status W/U Status Risk Notes Problem 467845207 Overweight (E66.3) Active confirmed She is very slightly overweight. I recommended a Mediterranean diet and stabilization of her weight at this level. Problem Thrombocytosis (6471347) Thrombocytosis (D47.3) Active confirmed The platelet count is within normal limits. The thrombocytosis was likely due to iron deficiency. That has resolved. Problem 234573436 Vitamin B12 deficiency (E53.8) Active confirmed He is compliant with her vitamin B12 replacement. The B12 level is adequate. Problem 530825469 Chronic anticoagulation (Z79.01) Active confirmed She has not noticed any bleeding. Stool collection pending. Problem 694871387 Acquired hypothyroidism (E03.9) Active confirmed She appears to be euthyroid. TSH was recently elevated but is now back to normal. Problem 55705181 Essential hypertension (I10) Active confirmed Her blood pressure is stable and no change in her regimen as necessary. I recommended weight loss and sodium restriction. The value was 134/54. Problem Osteopenia (704683634) Osteopenia (M85.80) Active confirmed She has a diagnosis of postmenopausal osteopenia. I have agreed with the recommended vitamin D and calcium tablets. Problem 152487147 Iron deficiency anemia due to chronic blood [...] revise her anticoagulation for the atrial fibrillation. Problem 500941266 Pacemaker (Z95.0) Active confirmed The pacemaker i s present in the left upper chest wall. It seems to be functioning well. She is free of any symptoms of syncope. Problem Congestive heart failure (52160115) CHF (congestive heart failure) (I50.9) Active confirmed Her congestive heart ferry is well compensated and she was comfortable breathing room air today as she moved around the examining room. Problem 09722947 Vitamin D deficiency (E55.9) Active confirmed Her vitamin D level is adequate. She was continued on supplementation without change. Problem 004068254 Macrocytosis (D75.89) Active confirmed The mean cell volume is 101. This is likely due to a reticulocytosis from recent blood loss. Problem 69044174 Iron deficiency anemia, unspecified iron deficiency anemia type (D50.9) Active confirmed Her ferritin level today is 40 which is in the normal range. She says she has been taking her iron supplement. The gastroenterology note from September 09, 2024 indicates that she had stopped it for a while because of diarrhea. She was instructed to take it daily and call me if there is any difficulty about it. 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 It is likely the source of the guaiac-positive stool in this anticoagulated patient with an INR of 2.7. 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 No change in regimen was necessary today. Problem 114565796 Abnormal INR (R79.1) Active confirmed The prothrombin time and partial thromboplastin time are prolonged likely an effect from Xarelto. If she continues to be anemic from gastrointestinal blood loss her anticoagulation may need to be revised. Vital Signs Heart Rate 87 /min 11/04/2024 Temperature 97.9 degrees Fahrenheit 11/04/2024 Oximetry 95 % 05/26/2024 Blood pressure diastolic 54 mm Hg 11/04/2024 Height 62 in 11/04/2024 Blood pressure systolic 134 mm Hg 11/04/2024 Weight 139 lbs 11/04/2024 BMI 25.42 kg/m2 11/04/2024 Encounters Encounter Location Date Provider Diagnosis Trevor Bailey III, MD [address] [place] [address] [place] [address] 05/26/2024 Trevor Bailey Essential hypertensi on I10 ; Iron deficiency anemia, unspecified iron deficiency anemia type D50.9 ; Macrocytosis D75.89 ; Acquired hypothyroidism E03.9 ; Osteopenia M85.80 ; CHF (congestive heart failure) I50.9 ; Vitamin B12 deficiency E53.8 ; Thrombocytosis D47.3 ; Pacemaker Z95.0 ; Overweight E66.3 ; Persistent atrial fibrillation I48.19 and Chronic anticoagulation Z79.01 Trevor Bailey III, MD [address] [place] [address] [place] [address] 11/04/2024 Trevor Bailey Essential hypertensi on I10 [...] anemia due to chronic blood loss D50.0 Trevor Bailey III, MD [address] [place] [address] [place] [address] 12/02/2023 Trevor Bailey III, MD [address] [place] [address] [place] [address] 12/03/2023 Trevor Bailey III, MD [address] [place] [address] [place] [address] 10/26/2024 Trevor Bailey Assessments Encounter Date Diagnosis (ICD Code) Assessment Notes T reatment Notes Treatment Clinical Notes 05/26/2024 Essential hypertension [...] 102. Her iron deficiency is well compensated. 11/04/2024 Essential hypertension (ICD-10 - I10) Her [...] if there is any difficulty about it. 05/26/2024 Macrocytosis (ICD-10 - D75.89) The mean cell volume is 101.9. 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 11/04/2024 Macrocytosis (ICD-10 - D75.89) The mean cell volume is 101. This is likely due to a reticulocytosis from recent blood loss. 05/26/2024 Acquired hypothyroidism (ICD-10 - E03.9) He appears to be euthyroid. No change in her regimen she is 11/04/2024 Overweight (ICD-10 - E66.3) She is very slightly overweight. I recommended a Mediterranean diet and stabilization of her weight at this level. 05/26/2024 Osteopenia (ICD-10 - M85.80) She has a diagnosis of postmenopausal osteopenia. I have agreed with the recommended vitamin D and calcium tablets. 11/04/2024 Vitamin D deficiency (ICD-10 - E55.9) Her vitamin D level is adequate. She was continued on supplementation without change. 05/26/2024 CHF (congestive hear t failure) (ICD-10 - I50.9) Her congestive heart ferry is well compensated and she was comfortable breathing room air today as she moved around the examining room. 11/04/2024 Acquired hypothyroidism (ICD-10 - E03.9) She appears to be euthyroid. TSH was recently elevated but is now back to normal. 05/26/2024 Vitamin B12 deficiency (ICD-10 - E53.8) He is compliant with her vitamin B12 replacement. The B12 level is adequate. 11/04/2024 Osteopenia (ICD-10 - M85.80) She has a diagnosis of postmenopausal osteopenia. I have agreed with the recommended vitamin D and calcium tablets. 05/26/2024 Thrombocytosis (ICD-10 - D47.3) The platelet count is within normal limits. The thrombocytosis was likely due to iron deficiency. That has resolved. 11/04/2024 Chronic anticoagulation (ICD-10 - Z79.01) She has not noticed any bleeding. Stool collection pending. 05/26/2024 Pacemaker (ICD-10 - Z95.0) The pacemaker is present in the left upper chest wall. It seems to be functioning well. She is free of any symptoms of syncope. 11/04/2024 Persistent atrial fibrillation (ICD-10 - I48.19) She continues in a well-controlled atrial fibrillation. No change in regimen was necessary today. 05/26/2024 Overweight (ICD-10 - E66.3) She has lost 16 pounds in the last year and her body mass index is in the overweight range. She was encouraged to continue losing weight until the body mass index is in the normal range. 11/04/2024 Pacemaker (ICD-10 - Z95.0) The pacemaker is present in the left upper chest wall. It seems to be functioning well. She is free of any symptoms of syncope. 05/26/2024 Persistent atrial fibrillation (ICD-10 - I48.19) She continues in a well-controlled atrial fibrillation. No change in regimen was necessary today. 11/04/2024 Arteriovenous malformation (ICD-10 - Q27.30) This was found in the cecum on a recent colonoscopy and was said to be nonbleeding. It is likely the source of the guaiac-positive stool in this anticoagulated patient with an INR of 2.7. 05/26/2024 Chronic anticoagulation (ICD-10 - Z79.01) She has not noticed any bleeding. Stool collection pending. 11/04/2024 Abnormal INR (ICD-10 - R79.1) The [...] for the atrial fibrillation. Plan Of Treatment Pending Test Test Name [...] CBC w DIFF 06/17/2021 CBC w DIFF 11/04/2024 CBC w DIFF 05/26/2024 CBC w DIFF [...] Thyroxine) 05/26/2024 Next Appt Details Provider Name:Trevor Bailey , 12/02/2024 02:00:00 PM, [address] [place] [address] [address], [place], [address], Insurance Providers Payer Name Payer Address Payer Phone Subscriber Number Group Number Insured Name Patient Relationship to Insured Coverage Start Date Coverage End Date MEDICARE [place]GS [address] [place] [address] [id number] Jessica Yao Self - patient is the insured MED[place] [address] [place], [place] [id number] Jessica Yao Self - patient is the insured Medical (General) History Medical History History ICD Code HTN (hypertension) I10 Hypothyroid E03.9 Osteopenia M85.80 CHF (congestive heart failure) I50.9 atrial fibrillation recent fatigue history of vitamin D deficiency normochromic normocytic anemia thrombocytosis obesity hearing loss left ear acoustic neuroma, left Surgical History Surgery Date(Month/Year) pace maker placement at [facility] 08/2021 Hospitalization History Reason Date(Month/Year) nose bleed 11/2019
[2024-11-21 21:49] VITALS: BP 134/63; PULSE 68; RESP 18; TEMP 36.8; O2SAT 97
[2024-11-21] MEDS: Diphth,Pertus(ACell),Tet Adult 0.5 ML SYRINGE IM (21:49)
--- NOTE | 2024-11-21 21:59 | PC.NURSE ---
pt medicated according to mar reporting 6/10 pain. skin tear closure performed by kyle coelho
[2024-11-21 22:00] VITALS: BP 134/63; PULSE 68; RESP 18; TEMP 36.8; O2SAT 97
== END 2024-11-21 22:01 | disposition home or self-care (01) ==
PROVIDERS: Emergency Provider Emergency Medicine Emergency Medical Services; PCP Nurse Practitioner Family
DX: S61.411A Laceration without foreign body of right hand, initial encounter (principal); S81.012A Laceration without foreign body, left knee, initial encounter; S81.011A Laceration without foreign body, right knee, initial encounter; I10 Essential (primary) hypertension; I48.0 Paroxysmal atrial fibrillation; W10.8XXA Fall (on) (from) other stairs and steps, initial encounter; Y93.89 Activity, other specified; Y92.098 Other place in other non-institutional residence as the place of occurrence of the external cause; Y99.8 Other external cause status; Z79.01 Long term (current) use of anticoagulants; Z95.0 Presence of cardiac pacemaker; Z79.899 Other long term (current) drug therapy
CPT/HCPCS: 70450; 72125; 73030; 73130; 73560; 90471; 90715; 99284

== ENCOUNTER → 2024-11-21 17:46 | Outpatient (BNV) | payer MEDICARE, MEDICAID, SELFPAY | PROVIDERS: PCP Nurse Practitioner Family; Visit Provider Radiology Diagnostic Radiology | DX: M54.2 Cervicalgia (principal); S09.90XA Unspecified injury of head, initial encounter; W19.XXXA Unspecified fall, initial encounter; M25.512 Pain in left shoulder; M79.641 Pain in right hand; M25.561 Pain in right knee; M25.562 Pain in left knee; M17.0 Bilateral primary osteoarthritis of knee | CPT/HCPCS: 70450; 72125; 73030; 73130; 73560 ==

== ENCOUNTER 2024-12-01 09:53 | Outpatient (REF) | payer MEDICARE, MEDICAID, SELFPAY ==
[2024-12-01 13:08] LABS: MANUAL DIFF FLAG NO
[2024-12-01 13:27] LABS: Hematocrit 35.7 % (37.0-47.0); Hemoglobin 10.6 g/dl (12.0-16.0); Imm Gran Abs Auto 0.03 X10*3/uL (0.00-0.03); Imm Gran Pct Auto 0.5 % (0.0-0.4); Lymphocytes Absolute Auto 1.3 X10*3/uL (1.2-4.9); Mean Corpuscular HGB Conc 29.7 g/dl (31.0-35.0); Mean Corpuscular Hemoglobin 29.9 pg (27.0-33.0); Mean Corpuscular Volume 100.6 fL (80.0-98.0); NRBC Abs Auto 0.000 X10*3/uL (0.0-0.012); NRBC Pct Auto 0.0 /100WBC (0.0-0.2); Platelet Count 418 X10*3/uL (160-400); Red Blood Count 3.55 X10*6/uL (4.20-5.50); Reticulocytes Absolute 0.091 X10*6/uL (0.026-0.095); White Blood Count 5.8 X10*3/uL (4.8-10.8)
[2024-12-01 13:55] LABS: Ferritin 60 ng/mL (10-250)
== END 2024-12-01 09:54 | disposition home or self-care (01) ==
LOC: HO.HMGCLR 09:53
PROVIDERS: PCP Nurse Practitioner Family; Visit Provider Internal Medicine Medical Oncology
DX: E66.3 Overweight (principal); D50.9 Iron deficiency anemia, unspecified; D75.89 Other specified diseases of blood and blood-forming organs
CPT/HCPCS: 36415; 82728; 85025; 85045

== ENCOUNTER → 2025-01-17 12:46 | Outpatient (BNV) | payer MEDICARE, MEDICAID, SELFPAY | PROVIDERS: PCP Nurse Practitioner Family | DX: I48.91 Unspecified atrial fibrillation (principal); Z95.0 Presence of cardiac pacemaker | CPT/HCPCS: 93294 ==